=== PATIENT | female | born 1955 | race Caucasian/White ===

== ENCOUNTER 2020-10-14 10:40 | Outpatient (REF) | payer MEDICARE, MEDICAID, SELFPAY ==
--- NOTE | 2020-10-14 10:52 | CT_ITS ---
EXAMINATION: CT CHEST WITHOUT CONTRAST CLINICAL INFORMATION: Ascending thoracic aortic aneurysm COMPARISON: Previous chest CT scans most recent May 2018 TECHNIQUE: Multidetector volumetric CT imaging of the chest was done. Axial MIP volume rendering provided. Sagittal and coronal reformatted images were obtained. This CT examination was performed using dose optimization techniques as appropriate, variously including the following: *Automated exposure control *Adjustment of mA and/or kV according to patient size (this includes techniques or standardized protocols for targeted exams where dose is matched to indication/reason for exam; i.e. extremities or head) *Use of iterative reconstruction technique DLP: 254 mGy-cm FINDINGS: EMPLOYEE BENEFITS MANAGER: New postsurgical changes LUNGS: There is a 2 mm calcified right upper lobe nodule axial image 128 series 5 that is new. There is a 2 mm calcified right lower lobe nodule axial image 332 series 5 that is stable. The lungs are otherwise clear. MEDIASTINUM: There is a new prosthetic aortic valve and graft in the ascending thoracic aorta. Ascending thoracic aorta measures maximum 3.8 x 4.2 cm at the distal end of the graft. The aortic arch is normal in caliber measuring 2.2 cm. The descending thoracic aorta is normal in caliber measuring 2.2 cm. The heart does not appear enlarged. There is mild coronary artery calcification. There is no pericardial effusion. There are small mediastinal lymph nodes. No enlarged lymph nodes are seen. PLEURA: There is no pleural effusion. No pleural mass or thickening. AXILLA: No chest wall mass or enlarged axillary lymph nodes are seen. UPPER ABDOMEN: There are gallstones in the gallbladder. OSSEOUS STRUCTURES: There are new median sternotomy wires. Sternotomy appears closed. There are degenerative changes of the spine. There is cortical thickening of several right lower lateral ribs, the right 5 -10th ribs, suggestive of changes related to trauma. CT/CT chest wo con IMPRESSION: New aortic valve replacement and graft in the ascending thoracic aorta. The ascending thoracic aorta measures 3.8 x 4.2 cm at the distal end of the graft. The aortic arch and descending thoracic aorta are normal in caliber. Mild coronary artery calcification. Small calcified pulmonary nodules probably representing calcified granulomas. Gallstones.
== END 2020-10-14 10:41 | disposition home or self-care (01) ==
LOC: HO.CT 10:40
PROVIDERS: Visit Provider Thoracic Surgery (Cardiothoracic Vascular Surgery)
DX: I71.2 Thoracic aortic aneurysm, without rupture (principal)
CPT/HCPCS: 71250

== ENCOUNTER 2021-03-08 11:46 | Outpatient (REF) | payer MEDICARE, MEDICAID, SELFPAY ==
[2021-03-08 12:54] LABS: MANUAL DIFF FLAG NO
[2021-03-08 13:05] LABS: Basophils Percent Auto 0.7 % (0-2); Eosinophils Absolute Auto 0.2 X10*3/uL (0.0-0.4); Eosinophils Percent Auto 3.1 % (0-4); Hematocrit 41.4 % (37-47); Hemoglobin 13.4 g/dl (12.0-16.0); Imm Gran Abs Auto 0.03 X10*3/uL (0.00-0.03); Imm Gran Pct Auto 0.5 % (0.0-0.4); Lymphocytes Absolute Auto 1.8 X10*3/uL (1.2-4.9); Lymphocytes Percent Auto 31.1 % (20-40); Mean Corpuscular HGB Conc 32.4 g/dl (31.0-35.0); Mean Corpuscular Volume 92.8 fL (80-98); Mean Platelet Volume 10.4 fL (9.4-12.3); Monocytes Absolute Auto 0.4 X10*3/uL (0.1-1.2); Monocytes Percent Auto 6.6 % (2-11); Neutrophils Absolute Auto 3.3 X10*3/uL (2.0-8.3); Platelet Count 252 X10*3/uL (160-400); Red Blood Count 4.46 X10*6/uL (4.20-5.50); White Blood Count 5.7 X10*3/uL (4.8-10.8)
[2021-03-08 14:01] LABS: Glucose Urine UA NEG (NEG); Leukocyte Esterase Urine NEG (NEG); Nitrite Urine NEG (NEG); Urine Blood NEG (NEG); Urine Ketones NEG (NEG); Urine Protein NEG (NEG-TRACE)
[2021-03-08 14:04] LABS: Appearance Urine CLEAR; Color Urine YELLOW
[2021-03-08 18:22] LABS: TSH reflex Free T4 0.96 uIU/mL (0.32-4.0)
[2021-03-08 18:26] LABS: Alanine Aminotransferase 12 U/L (0-31); Albumin Level 4.3 g/dL (3.5-5.0); Alkaline Phosphatase 38 U/L (39-117); Anion Gap 12 (12-20); Aspartate Amino Transferase 23 U/L (5-31); Bilirubin Total 0.5 mg/dL (0.0-1.0); Blood Urea Nitrogen 13 mg/dL (9-16); Calcium 9.3 mg/dL (8.4-10.2); Carbon Dioxide 26 mmol/L (22-29); Chloride 109 mmol/L (96-108); Cholesterol 152 mg/dL; Estimated Glomerular Filt Rate 49; Glucose Fasting 101 mg/dL (60-99); HDL Cholesterol 58 mg/dL; LDL Cholesterol Calculated 77 mg/dl; Sodium 143 mmol/L (135-145); Total Protein 7.1 g/dL (6.5-8.0); Triglycerides 87 mg/dL
[2021-03-09 03:48] LABS: Folate 11.7 ng/mL (> or = 4.0); Vitamin B12 1058 pg/mL (200-900)
== END 2021-03-08 11:47 | disposition home or self-care (01) ==
LOC: HO.LAB 11:46
PROVIDERS: PCP Internal Medicine; Visit Provider Internal Medicine
DX: E78.2 Mixed hyperlipidemia (principal); D72.829 Elevated white blood cell count, unspecified; D64.9 Anemia, unspecified; E53.8 Deficiency of other specified B group vitamins; I25.10 Atherosclerotic heart disease of native coronary artery without angina pectoris; E66.3 Overweight
CPT/HCPCS: 36415; 80053; 80061; 81003; 82607; 82746; 84443; 85025

== ENCOUNTER → 2021-03-29 09:15 | Outpatient (REF) | payer MEDICARE, MEDICAID, SELFPAY ==
--- NOTE | 2021-03-29 09:19 | CA_ITS ---
Transthoracic Echocardiogram Patient (Last, First, Middle): Tracy Esparza, Gender: Female Date of : 1955 Age: 65 Procedure Date: 03/29/2021 Procedure Type: Transthoracic Echocardiogram Location: OP Height: 162.56 cm Weight: 65.77 kg BSA: 1.71 m2 Heart Rate: bpm BP: 128 / 76 mmHg Drawing Hand: BOBY Referring MD: Brandon Vigil MD Billing And Quality Technician: Brandon Vigil MD Symptoms: S/P AVR DIASTOLIC DYSFUNCTION Study Quality: Good ECG Rhythm: Sinus Conclusions: - 1. Normal LV systolic function with mild LVH with impaired relaxation filling pattern and elevated filling pressures 2. Mildly dilated left atrium 3. Bioprosthetic aortic valve present with slightly increased mean gradient of 20 mm Hg, overall findings consistent patient prosthesis mismatch 4. Normal RV systolic pressure 5. No pericardial effusion Findings Left Ventricle Normal left ventricular size and systolic function. There is mildly increased left ventricular wall thickness. The visually estimated ejection fraction is between 60-65%. Spectral Doppler is indicative of an impaired relaxation filling pattern. Elevated filling pressures. Right Ventricle Normal right ventricular cavity size and systolic function. Atria The left atrium is mildly dilated. There is no evidence of interatrial shunt. The right atrium is normal in size. Aortic Valve A bioprosthetic aortic valve is present. The prosthetic aortic valve appears to be functioning normally. The mean gradient is 20 mmHg. There is no aortic valve regurgitation. The stented bioprosthetic valve is well seated with no abnormal rocking motion. The leaflet mobility appear to be normal. The mean gradient is increased to 20 mm of mercury with normal aortic ejection velocity. This is most likely suggestive of patient prosthesis mismatch Mitral Valve There is mild posterior mitral leaflet thickening. There is mild mitral annular calcification. There is trace mitral valve regurgitation. There is no mitral valve stenosis. Pulmonic Valve The pulmonic valve was not well visualized. Tricuspid Valve Likely normal tricuspid valve structure and function. There is trace tricuspid valve regurgitation. The right ventricular systolic pressure is normal. The right ventricular systolic pressure is 17 mmHg. Normal right atrial pressure. There is no evidence of pulmonary hypertension. Great Vessels All visible segments of the aorta are normal in size. The pulmonary artery was not well visualized. Venous The inferior vena cava is normal in size and collapses greater than 50% with inspiration. Pericardium/Pleural There is no evidence of pericardial effusion. Prior Study Comparison Changes noted compared to prior study dated: 04/27/2019. Mean gradient across bioprosthetic aortic valve are mildly increased, however overall findings most consistent with patient prosthesis mismatch Measurements 2D Linear Measurements IVSd: 1.30 0.6-0.9/0.6-1.0 cm LVIDd: 3.46 3.9-5.3/4.2-5.9 cm LVIDd Index: 2.02 2.4-3.2/2.2-3.1 cm/m2 LVIDs: 2.11 2.0-3.6 cm LVPWd: 1.39 0.7-1.1 cm Ao Root: 2.20 2.1-3.5 cm LA Diam: 3.80 2.7-3.8/3.0-4.0 cm LAIDs Index: 2.22 1.5-2.3 cm/m2 LV Mass: 198.83 67-162/88-224 g LV Mass Index: 116.28 43-95/49-115 g/m2 LVOT Diam: 1.60 3.0+(-)1.3 cm Mitral Valve MV Pk E: 0.81 MV PK A: 0.84 MV Decel Time: 294.00 E/A: 1.00 E'Lateral: 5.44 E'Medial: 4.90 E/E' Med: 16.50 E/E' Lat: 14.90 PHT: 86.00 MVA PHT: 2.56 Decel Luna: 2.75 Aortic Valve AoV Pk Eugenio: 3.02 AoV Mn Eugenio: 2.00 AoV VTI: 0.72 AoV Pk Grad: 36.00 Aov Mn Grad: 20.00 KWABENA Cont.VTI: 0.79 LVOT LVOT Pk Eugenio: 1.15 LVOT Mn Eugenio: 0.82 LVOT VTI: 0.29 LVOT Pk Grad: 5.00 LVOT Mn Grad: 3.00 LVOT Diam: 1.60 LVOT Area: 2.01 Diastolic Function MV Pk E: 0.81 MV Pk A: 0.84 E/A: 1.00 E'Medial: 4.90 E/E' Med: 16.50 E' Laterial: 5.44 E/E' Lat: 14.90 Tricuspid Valve TR Pk Eugenio: 1.86 TR Pk Grad: 14.00 RA Press: 3.00 RVSP: 17.00 Great Vessels Aorta Ao Root-2D: 2.20 2.0-3.7 cm Ao Asc: 3.00 2.1-3.4 cm Updated in Other Vendor System with Status of Final Brandon Vigil MD electronically signed on 03/29/2021 3:43:17 PM with status of Final
== END ==
LOC: HO.CARD 09:15
PROVIDERS: Visit Provider Internal Medicine Cardiovascular Disease
DX: I51.89 Other ill-defined heart diseases (principal); Z95.2 Presence of prosthetic heart valve
CPT/HCPCS: 93306

== ENCOUNTER → 2021-07-31 12:01 | Outpatient (BNVA) | payer MEDICARE, MEDICAID, SELFPAY | PROVIDERS: PCP Internal Medicine; Referring Provider Internal Medicine; Visit Provider Internal Medicine Cardiovascular Disease | DX: R00.1 Bradycardia, unspecified (principal); Z95.3 Presence of xenogenic heart valve | CPT/HCPCS: 99212 ==

== ENCOUNTER 2021-08-07 19:28 | Emergency (ER) | payer MEDICARE, MEDICAID, SELFPAY ==
[2021-08-07 19:51] VITALS: BP 133/75; BP 159/75; PULSE 52; RESP 16; TEMP 36.8; O2SAT 96; O2SAT 98; BMI 25.7
[2021-08-07 20:48] LABS: Carbon Monoxide POC 1.6 %
[2021-08-07 20:49] LABS: Carbon Monoxide Refer to POC result
[2021-08-07 21:11] VITALS: BP 128/47; PULSE 56; RESP 16; O2SAT 98
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
== END 2021-08-07 21:33 | disposition home or self-care (01) ==
PROVIDERS: Emergency Provider Internal Medicine; PCP Internal Medicine
DX: T58.11XA Toxic effect of carbon monoxide from utility gas, accidental (unintentional), initial encounter (principal); R06.02 Shortness of breath; Y92.090 Kitchen in other non-institutional residence as the place of occurrence of the external cause
CPT/HCPCS: 36415; 99283

== ENCOUNTER → 2021-08-22 07:30 | Outpatient (REF) | payer MEDICARE, MEDICAID, SELFPAY ==
--- NOTE | 2021-08-22 07:43 | HM_ITS ---
Total monitoring time 3 days and 10 hours. Underlying rhythm is sinus. Minimum heart rate 39/Min. Maximum 85/minute. Average 52/min. No atrial fibrillation or flutter. Very rare supraventricular/ventricular ectopy with minimal burden. No patient events. MTDD
== END ==
LOC: HO.CARD 07:30
PROVIDERS: Absent Provider Internal Medicine; PCP Internal Medicine; Visit Provider Internal Medicine Cardiovascular Disease
DX: R00.1 Bradycardia, unspecified (principal)
CPT/HCPCS: 93242

== ENCOUNTER 2022-01-27 08:06 | Outpatient (REF) | payer MEDICARE, MEDICAID, SELFPAY ==
--- NOTE | ~2022-01-27 | XR_ITS ---
EXAMINATION: XR SKULL CLINICAL INFORMATION: Head injury COMPARISON: None TECHNIQUE: 5 views of the skull were obtained. FINDINGS: Visualized calvarium is homogeneous in density without any focal lesion, fracture or lucency. Bilateral paranasal sinuses and mastoid air cells are well-aerated. There is benign hyperostosis frontalis interna. No gross bony abnormality seen. XR/XR skull min 4V IMPRESSION: Unremarkable skull exam. The paranasal sinuses are well-aerated and clear.
--- NOTE | ~2022-01-27 | XR_ITS ---
EXAMINATION: XR KNEE, RIGHT CLINICAL INFORMATION: Knee pain. COMPARISON: None TECHNIQUE: 5 views of the right knee. FINDINGS: No evidence of acute fracture or dislocation. Small suprapatellar joint fluid.. Alignment is anatomic. Joint spaces are relatively maintained. No abnormal soft tissue calcification. Quadriceps tendon insertional enthesopathy. XR/XR knee RT 4V IMPRESSION: No evidence of acute osseous abnormality.
[2022-01-27 08:17] LABS: MANUAL DIFF FLAG NO
[2022-01-27 08:43] LABS: Basophils Percent Auto 0.6 % (0-2); Eosinophils Absolute Auto 0.3 X10*3/uL (0.0-0.4); Eosinophils Percent Auto 3.9 % (0-4); Hematocrit 41.4 % (37.0-47.0); Hemoglobin 13.2 g/dl (12.0-16.0); Imm Gran Abs Auto 0.02 X10*3/uL (0.00-0.03); Imm Gran Pct Auto 0.3 % (0.0-0.4); Lymphocytes Absolute Auto 1.7 X10*3/uL (1.2-4.9); Lymphocytes Percent Auto 26.9 % (20-40); Mean Corpuscular HGB Conc 31.9 g/dl (31.0-35.0); Mean Corpuscular Hemoglobin 29.7 pg (27.0-33.0); Mean Corpuscular Volume 93.2 fL (80.0-98.0); Mean Platelet Volume 10.4 fL (9.4-12.3); Monocytes Absolute Auto 0.6 X10*3/uL (0.1-1.2); Monocytes Percent Auto 9.3 % (2-11); Neutrophils Absolute Auto 3.8 x10*3/uL (2.0-8.3); Platelet Count 299 X10*3/uL (160-400); Red Blood Count 4.44 X10*6/uL (4.20-5.50); Red Cell Distribution Width 13.8 % (11.0-16.0); White Blood Count 6.4 X10*3/uL (4.8-10.8)
[2022-01-27 09:10] LABS: Alanine Aminotransferase 12 U/L (0-31); Albumin Level 4.3 g/dL (3.5-5.0); Alkaline Phosphatase 53 U/L (39-117); Anion Gap 13 (12-20); Aspartate Amino Transferase 23 U/L (5-31); Bilirubin Total 0.6 mg/dL (0.0-1.0); Blood Urea Nitrogen 19 mg/dL (9-16); Calcium 9.9 mg/dL (8.4-10.2); Carbon Dioxide 25 mmol/L (22-29); Chloride 108 mmol/L (96-108); Cholesterol 141 mg/dL; Estimated Glomerular Filt Rate 48; Glucose Fasting 115 mg/dL (60-99); HDL Cholesterol 55 mg/dL; LDL Cholesterol Calculated 69 mg/dl; Potassium 4.4 mmol/L (3.3-5.1); Sodium 142 mmol/L (135-145); Total Protein 7.2 g/dL (6.5-8.0); Triglycerides 86 mg/dL
[2022-01-27 09:23] LABS: TSH reflex Free T4 1.51 uIU/mL (0.32-4.0); Vitamin D 25-OH Total 9.5 ng/mL (>30)
[2022-01-27 09:29] LABS: Appearance Urine CLEAR; Color Urine YELLOW; Glucose Urine UA NEG (NEG); Leukocyte Esterase Urine NEG (NEG); Nitrite Urine NEG (NEG); PH 5.5 (5.0-8.0); Specific Gravity - Urine >= 1.030 (1.005-1.025); Urine Blood NEG (NEG); Urine Ketones NEG (NEG); Urine Protein NEG (NEG-TRACE)
== END 2022-01-27 08:07 | disposition home or self-care (01) ==
LOC: HO.LAB 08:06
PROVIDERS: PCP Internal Medicine; Visit Provider Internal Medicine
DX: S09.90XA Unspecified injury of head, initial encounter (principal); W19.XXXA Unspecified fall, initial encounter; E78.00 Pure hypercholesterolemia, unspecified; E55.9 Vitamin D deficiency, unspecified; I10 Essential (primary) hypertension
CPT/HCPCS: 36415; 70260; 73564; 80053; 80061; 81003; 82306; 84443; 85025

== ENCOUNTER 2022-04-10 07:19 | Outpatient (REF) | payer OTHER, SELFPAY ==
[2022-04-10 07:48] LABS: MANUAL DIFF FLAG NO
[2022-04-10 08:34] LABS: Basophils Absolute Auto 0.1 X10*3/uL (0.0-0.2); Eosinophils Absolute Auto 0.3 X10*3/uL (0.0-0.4); Eosinophils Percent Auto 4.9 % (0-4); Hematocrit 41.6 % (37.0-47.0); Hemoglobin 13.2 g/dl (12.0-16.0); Imm Gran Abs Auto 0.02 X10*3/uL (0.00-0.03); Imm Gran Pct Auto 0.4 % (0.0-0.4); Lymphocytes Absolute Auto 1.8 X10*3/uL (1.2-4.9); Lymphocytes Percent Auto 33.7 % (20-40); Mean Corpuscular HGB Conc 31.7 g/dl (31.0-35.0); Mean Corpuscular Hemoglobin 29.5 pg (27.0-33.0); Mean Corpuscular Volume 93.1 fL (80.0-98.0); Mean Platelet Volume 10.6 fL (9.4-12.3); Monocytes Absolute Auto 0.4 X10*3/uL (0.1-1.2); Monocytes Percent Auto 7.6 % (2-11); Neutrophils Absolute Auto 2.8 x10*3/uL (2.0-8.3); Neutrophils Percent Auto 52.4 % (45-73); Platelet Count 233 X10*3/uL (160-400); Red Blood Count 4.47 X10*6/uL (4.20-5.50); Red Cell Distribution Width 13.4 % (11.0-16.0); White Blood Count 5.3 X10*3/uL (4.8-10.8)
[2022-04-10 09:11] LABS: Alanine Aminotransferase 14 U/L (0-31); Albumin Level 4.3 g/dL (3.5-5.0); Alkaline Phosphatase 41 U/L (39-117); Aspartate Amino Transferase 22 U/L (5-31); Bilirubin Direct 0.3 mg/dL (0.0-0.5); Bilirubin Total 0.4 mg/dL (0.0-1.0); Total Protein 7.1 g/dL (6.5-8.0)
== END 2022-04-10 07:20 | disposition home or self-care (01) ==
LOC: HO.LAB 07:19
PROVIDERS: Absent Provider Psychiatry & Neurology Psychiatry; PCP Internal Medicine; Visit Provider Dermatology
DX: L93.0 Discoid lupus erythematosus (principal)
CPT/HCPCS: 36415; 80076; 85025

== ENCOUNTER 2022-04-18 12:02 | Outpatient (REF) | payer OTHER, SELFPAY ==
[2022-04-18 12:46] LABS: Influenza A PCR NEGATIVE (Negative); Influenza B PCR NEGATIVE (Negative); Resp Syncy Virus RNA Qual PCR NEGATIVE (Negative); SARS COV2 PCR INHOUSE NEGATIVE (Negative)
== END 2022-04-18 12:03 | disposition home or self-care (01) ==
LOC: HO.LNP 12:02
PROVIDERS: Visit Provider Emergency Medicine
DX: Z20.822 Contact with and (suspected) exposure to COVID-19 (principal); R68.89 Other general symptoms and signs
CPT/HCPCS: 0241U

== ENCOUNTER 2022-04-20 16:19 | Outpatient (REF) | payer OTHER, SELFPAY ==
[2022-04-20 17:34] LABS: Alanine Aminotransferase 11 U/L (0-31); Albumin Level 4.4 g/dL (3.5-5.0); Alkaline Phosphatase 41 U/L (39-117); Aspartate Amino Transferase 21 U/L (5-31); Bilirubin Direct 0.2 mg/dL (0.0-0.5); Bilirubin Total 0.4 mg/dL (0.0-1.0); Total Protein 7.5 g/dL (6.5-8.0)
[2022-04-20 17:42] LABS: Basophils Percent Auto 0.3 % (0-2); Eosinophils Absolute Auto 0.2 X10*3/uL (0.0-0.4); Eosinophils Percent Auto 3.8 % (0-4); Hemoglobin 13.3 g/dl (12.0-16.0); Imm Gran Abs Auto 0.01 X10*3/uL (0.00-0.03); Imm Gran Pct Auto 0.2 % (0.0-0.4); Lymphocytes Absolute Auto 2.4 X10*3/uL (1.2-4.9); MANUAL DIFF FLAG SCAN; Mean Corpuscular HGB Conc 32.4 g/dl (31.0-35.0); Mean Corpuscular Hemoglobin 29.4 pg (27.0-33.0); Mean Corpuscular Volume 90.5 fL (80.0-98.0); Mean Platelet Volume 10.4 fL (9.4-12.3); Monocytes Absolute Auto 0.5 X10*3/uL (0.1-1.2); Monocytes Percent Auto 7.6 % (2-11); Neutrophils Percent Auto 49.1 % (45-73); Platelet Count 205 X10*3/uL (160-400); Red Blood Count 4.53 X10*6/uL (4.20-5.50); Red Cell Distribution Width 13.6 % (11.0-16.0); SCAN SMEAR FLAG 1
[2022-04-20 17:56] LABS: SLIDE REVIEW VERIFIED
== END 2022-04-20 16:20 | disposition home or self-care (01) ==
LOC: HO.LAB 16:19
PROVIDERS: PCP Internal Medicine; Visit Provider Dermatology
DX: L93.0 Discoid lupus erythematosus (principal); Z79.899 Other long term (current) drug therapy
CPT/HCPCS: 36415; 80076; 85025

== ENCOUNTER → 2022-08-30 10:42 | Outpatient (BNVA) | payer OTHER, SELFPAY | PROVIDERS: PCP Internal Medicine; Visit Provider Physician Assistant | DX: Z12.11 Encounter for screening for malignant neoplasm of colon (principal); K57.30 Diverticulosis of large intestine without perforation or abscess without bleeding; K64.9 Unspecified hemorrhoids | CPT/HCPCS: 99202 ==

== ENCOUNTER 2022-09-06 15:27 | Outpatient (REF) | payer OTHER, SELFPAY ==
--- NOTE | ~2022-09-06 | MM_ITS ---
EXAMINATION: BONE DENSITOMETRY CLINICAL INDICATION: Asymptomatic menopausal state. COMPARISON: None (current study represents initial baseline exam). TECHNIQUE: Using a Flagr DXA System (software version: 13.1) manufactured by [employer], dual-energy x-ray absorptiometry was performed of the lumbar spine and left hip. The images are of good technical quality. Summary results are attached. FINDINGS: AP SPINE L1-L2 (excluding L3 and L4): The data of L1-L4 has been changed to exclude the L3 and L4 vertebral bodies, because degenerative changes at these levels may cause overestimation of lumbar spine density. BMD 1.074 g/cm2, Z-score 0.6, T-score -0.8, normal. LEFT FEMUR, NECK: BMD 0.742 g/cm2, Z-score -0.7, T-score -2.1, osteopenia. LEFT FEMUR, TOTAL: BMD 0.862 g/cm2, Z-score 0.0, T-score -1.2, osteopenia. IDENTIFIED RISK FACTORS: Early menopause, secondary osteoporosis, family history (parental hip fracture), anticonvulsant, hysterectomy, bilateral oophorectomy. HISTORY OF FRACTURE: None listed. MEDICATIONS: None listed. MM/XR DEXA axial skeleton IMPRESSION: 1. DIAGNOSIS: Osteopenia based on the lowest T-score value of -2.1 in the femoral neck applying World Health Organization criteria. 2. 10-YEAR FRACTURE RISK PREDICTION, FRAX: Major osteoporotic fracture (clinical spine, forearm, hip or shoulder) 19.7%. Hip fracture 3.6%. 3. Treatment Recommendations: NOF guidelines recommend consideration for treatment in postmenopausal women and men age 50 and older presenting with the following: -A hip or vertebral (clinical or morphometric) fracture. -T-score less than or equal to -2.5 at the femoral neck or spine after appropriate evaluation to exclude secondary causes. -Low bone mass at the hip or spine and a 10-year fracture probability by FRAX of greater than or equal to 3% for hip fracture or greater than or equal to 20% for major osteoporotic fracture based on the [place] adapted WHO algorithm. 4. Other Recommendations: All treatment decisions require clinical judgment and consideration of individual patient factors, including patient preferences, comorbidities, previous drug use, risk factors not captured in the FRAX model (e.g. frailty, falls, vitamin D deficiency, increased bone turnover, interval significant decline in bone density) and possible under or overestimation of fracture risk by FRAX. Additional medical evaluation for secondary cause of low bone mineral density may be appropriate. FUTURE SCAN RECOMMENDATION: People with diagnosed cases of osteoporosis or at high risk for fracture should have regular bone mineral density tests. For patients eligible for Medicare, routine testing is allowed once every 2 years. The testing frequency can be increased to one year for patients who have rapidly progressing disease, those who are receiving or discontinuing medical therapy to restore bone mass, or have additional risk factors.
== END 2022-09-06 15:28 | disposition home or self-care (01) ==
LOC: HO.MAMMO 15:27
PROVIDERS: PCP Internal Medicine; Visit Provider Nurse Practitioner Family
DX: Z13.820 Encounter for screening for osteoporosis (principal); Z78.0 Asymptomatic menopausal state; R00.1 Bradycardia, unspecified; Z95.3 Presence of xenogenic heart valve
CPT/HCPCS: 77080; 93005; 99212

== ENCOUNTER 2022-09-28 16:37 | Outpatient (REF) | payer OTHER, SELFPAY ==
--- NOTE | ~2022-09-28 | XR_ITS ---
EXAMINATION:XR cervical spine 2V CLINICAL INFORMATION: Cervalgia COMPARISON: None TECHNIQUE: 3 views of the cervical spine were obtained. Frontal lateral and open-mouth odontoid view FINDINGS: 7 cervical vertebrae identified maintaining normal height , mild grade 1 anterior spondylolisthesis of C3 on C4,. Narrowing of intervertebral disc spaces at C4-C5, C5-C6, C6-C7 and C7-T1 suggests underlying moderate degenerative disc disease. No prevertebral soft tissue swelling. Surrounding soft tissue and included lung apices are clear. XR/XR cervical spine 2V IMPRESSION: 1. No fracture. 2. Narrowing of intervertebral disc spaces suggest underlying degenerative disc disease. 3. Mild grade 1 anterior spondylolisthesis of C3 on C4.
== END 2022-09-28 16:38 | disposition home or self-care (01) ==
LOC: HO.XRAY 16:37
PROVIDERS: PCP Internal Medicine; Visit Provider Internal Medicine
DX: M54.2 Cervicalgia (principal)
CPT/HCPCS: 72040

== ENCOUNTER → 2022-10-10 12:54 | Outpatient (REF) | payer OTHER, SELFPAY ==
--- NOTE | 2022-10-10 12:58 | CA_ITS ---
Transthoracic Echocardiogram Patient (Last, First, Middle): Tracy Esparza L Gender: Female Date of : 1955 Age: 67 Procedure Date: 10/10/2022 Procedure Type: Transthoracic Echocardiogram Location: OP Height: 157.48 cm Weight: 65.77 kg BSA: 1.67 m2 Heart Rate: 64 bpm BP: 188 / 100 mmHg Jewelry Store Manager: RUSS Referring MD: Brandon Vigil MD Film Cutter: Brandon Vigil MD Symptoms: Z95.3 - Presence of xenogenic heart valve Study Quality: Adequate ECG Rhythm: Sinus Conclusions: - 1. Normal LV systolic function with mild LVH with impaired relaxation filling pattern 2. Bioprosthetic aortic valve present with mean gradient of 26 mm Hg which is increased with increased aortic ejection time suggestive of possible stenosis 3. Normal RV systolic pressure 4. Mild mitral regurgitation 5. No gross pericardial effusion Findings Left Ventricle Normal left ventricular size and systolic function. There is mildly increased left ventricular wall thickness. The visually estimated ejection fraction is between 60-65%. Spectral Doppler is indicative of an impaired relaxation filling pattern. E/E prime ratio is between 8 and 15 consistent with indeterminate filling pressures. Right Ventricle Normal right ventricular cavity size and systolic function. Atria The left atrium is likely dilated. Interatrial shunt cannot be excluded. The right atrium is normal in size. Aortic Valve A bioprosthetic aortic valve is present. The prosthetic aortic valve appears to be functioning abnormally. Mitral Valve There is mild anterior and moderate posterior mitral leaflet thickening. There is moderate mitral annular calcification. There is mild mitral valve regurgitation. There is no mitral valve stenosis. Pulmonic Valve The pulmonic valve was not well visualized. Tricuspid Valve Likely normal tricuspid valve structure and function. There is trace tricuspid valve regurgitation. The right ventricular systolic pressure is normal. The right ventricular systolic pressure is 18 mmHg. Normal right atrial pressure. There is no evidence of pulmonary hypertension. Great Vessels All visible segments of the aorta are normal in size. The pulmonary artery was not well visualized. Venous The inferior vena cava is normal in size and collapses greater than 50% with inspiration. Pericardium/Pleural There is no evidence of pericardial effusion. Prior Study Comparison Changes noted compared to prior study dated: 03/29/2021. increase mean gradient across the bioprosthetic aortic valve which may suggest bioprosthetic stenosis Measurements 2D Linear Measurements IVSd: 1.34 0.6-0.9/0.6-1.0 cm LVIDd: 3.75 3.9-5.3/4.2-5.9 cm LVIDd Index: 2.25 2.4-3.2/2.2-3.1 cm/m2 LVIDs: 2.16 2.0-3.6 cm LVPWd: 1.07 0.7-1.1 cm LA Diam: 3.60 2.7-3.8/3.0-4.0 cm LAIDs Index: 2.16 1.5-2.3 cm/m2 LV Mass: 188.25 67-162/88-224 g LV Mass Index: 112.73 43-95/49-115 g/m2 LVOT Diam: 1.90 3.0+(-)1.3 cm 2D Systolic Function EF 4C: 72.00 >55% EF 2C: 57.30 >55% EF BiP: 64.60 >55% Mitral Valve MV Pk E: 0.82 MV PK A: 1.14 MV Decel Time: 200.00 E/A: 0.70 E'Lateral: 5.66 E'Medial: 4.24 E/E' Med: 19.30 E/E' Lat: 14.50 PHT: 58.00 MVA PHT: 3.79 Decel Ford: 4.10 Aortic Valve AoV Pk Eugenio: 3.23 AoV Mn Eugenio: 2.43 AoV VTI: 0.71 AoV Pk Grad: 42.00 Aov Mn Grad: 26.00 KWABENA Cont.VTI: 0.96 LVOT LVOT Pk Eugenio: 1.09 LVOT Mn Eugenio: 0.79 LVOT VTI: 0.25 LVOT Pk Grad: 5.00 LVOT Mn Grad: 3.00 LVOT Diam: 1.90 LVOT Area: 2.84 Diastolic Function MV Pk E: 0.82 MV Pk A: 1.14 E/A: 0.70 E'Medial: 4.24 E/E' Med: 19.30 E' Laterial: 5.66 E/E' Lat: 14.50 Right Ventricle TAPSE (mm): 12.40 TVS' Eugenio: 7.90 Tricuspid Valve TR Pk Eugenio: 1.93 TR Pk Grad: 15.00 RA Press: 3.00 RVSP: 18.00 Great Vessels Aorta Ao Asc: 2.70 2.1-3.4 cm Pulmonary Valve PV Pk Eugenio: 1.11 Peak PV Grad: 5.00 Updated in Other Vendor System with Status of Final Brandon Vigil MD electronically signed on 10/10/2022 5:38:39 PM with status of Final
== END ==
LOC: HO.CARD 12:54
PROVIDERS: PCP Internal Medicine; Visit Provider Internal Medicine Cardiovascular Disease
DX: Z95.3 Presence of xenogenic heart valve (principal)
CPT/HCPCS: 93306

== ENCOUNTER 2022-10-31 11:42 | Day surgery (SDC) | payer OTHER, SELFPAY ==
[2022-10-22 15:19] VITALS: BMI 28.6
--- NOTE | 2022-10-30 08:45 | HO.ANESPROP2 ---
Documented by User: Olivia Sommers NP 10/30/22 08:59 HPI - Anesthesia Eval Consult details Narrative: 67yo F for Transesophageal Echocardiogram PMFSH Active Problems Active Problems: All Active Problems (Updated 09/27/22 @ 12:43 by Laurent Gtz MD) Bradycardia (Acute) Annual physical exam (Acute) Precordial chest pain (Acute) Skin rash (Acute) Right knee pain (Acute) Head trauma (Acute) Fall (Acute) Pain of right thumb (Acute) Screening for colon cancer (Acute) Screening for breast cancer (Acute) Post-menopausal (Acute) Diverticulosis of colon (Acute) Hemorrhoids (Acute) Neck pain (Acute) History of aortic valve replacement with bioprosthetic valve (Acute) Overweight (BMI 25.0-29.9) (Acute) Anxiety (Acute) Insomnia (Acute) Vitamin B12 deficiency (Acute) Leukocytosis (leucocytosis) (Acute) Anemia (Acute) Mixed hyperlipidemia (Acute) Coronary artery disease (Acute) Bipolar disorder (Acute) Past Medical History Medical History (Updated 10/30/22 @ 11:59 by Laurent Gtz MD) Anemia Anxiety Aortic stenosis Ascending aortic aneurysm Bipolar disorder Coronary artery disease Cough Discoid lupus Insomnia Leukocytosis (leucocytosis) Mixed hyperlipidemia Overweight (BMI 25.0-29.9) Thoracic aortic aneurysm (~2019) Vitamin B12 deficiency Family History Family History Father Diabetes Mother No problems noted. Brother Healthy adult Surgical History Surgical History (Updated 10/22/22 @ 15:09 by Yvette Rodrigues RN) H/O aortic valve replacement History of aortic valve replacement with bioprosthetic valve History of appendectomy History of thumb surgery History of total abdominal hysterectomy and bilateral salpingo-oophorectomy Hx of colonoscopy Hx of thoracic aortic aneurysm repair S/P lumpectomy of breast Social History Social History Housing: Assisted Living Facility Alcohol intake: current Alcohol intake frequency: does not drink Patient Tobacco Use Status: Former Tobacco user Tobacco use type: Cigarette e-Cigarette/Vaping Use: Never Used Second Hand Smoke Exposure: Yes Use of substances other than those prescribed or required for medical reasons: No Are you DNR?: No Advance Directives: No Advance Directives Information Provided: Yes service: No Current occupational status: retired Cognitive needs: No Hearing needs: No Vision needs: Yes Meds Allergies Allergy/AdvReac Type Severity Reaction Status Date / Time Benadryl Allergy Intermediate swelling, Verified 10/30/22 11:52 rash Home Medications Medication Instructions Recorded Confirmed Last Taken Type benztropine 1 mg tablet 1 mg PO BID 10/17/20 10/30/22 Unknown History buspirone 15 mg tablet 15 mg PO DAILY 10/17/20 10/30/22 Unknown History gabapentin 100 mg capsule 100 mg PO TID 10/17/20 10/30/22 Unknown History gabapentin 300 mg capsule 300 mg PO BEDTIME 10/17/20 10/30/22 Unknown History alprazolam 1 mg tablet 1 mg PO QID PRN anxiety 07/25/21 10/30/22 10/31/22 05:30 History lamotrigine 100 mg tablet 100 mg PO BEDTIME 07/25/21 10/30/22 Unknown History levetiracetam 250 mg tablet 125 mg PO BEDTIME 07/25/21 10/30/22 Unknown History (Keppra) hydroxychloroquine 200 mg tablet 200 mg PO BID 01/26/22 10/30/22 Unknown History (Plaquenil) benzonatate 100 mg capsule 100 mg PO BID PRN cough 09/06/22 10/30/22 Unknown History Exam Exam Date and Time: October 30, 2022 0845 Height,Weight and Vital Signs: Height 5 ft 4 in Weight 75.75 kg Pertinent Lab Results Pertinent Lab Results: Laboratory Tests 01/27/22 04/20/22 08:16 16:35 WBC 6.0 Hgb 13.3 Hct 41.0 Plt Count 205 Sodium 142 Potassium 4.4 Chloride 108 Carbon Dioxide 25 BUN 19 H Creatinine 1.14 Narrative Narrative: EKG 09/2022 sinus bradycardia with QS pattern in lead V1 V2 with ST T wave changes diffusely suggestive repolarization abnormality ECHO 10/2022 Conclusions: - 1.? Normal LV systolic function with mild LVH with impaired? ? relaxation filling pattern ? 2.? Bioprosthetic aortic valve present with mean gradient of 26? mm Hg which is increased with increased aortic ejection time ? ? suggestive of possible stenosis? 3.? Normal RV systolic pressure? 4.? Mild mitral regurgitation? 5.? No gross pericardial effusion? ? ? Assessment and Plan Assessment Anesthesia Assessment: Chart Reviewed Documented by User: Marco Colon MD 10/31/22 13:36 [facility] Past Medical History Medical History (Updated 10/30/22 @ 11:59 by Laurent Gtz MD) Anemia Anxiety Aortic stenosis Ascending aortic aneurysm Bipolar disorder Coronary artery disease Cough Discoid lupus Insomnia Leukocytosis (leucocytosis) Mixed hyperlipidemia Overweight (BMI 25.0-29.9) Thoracic aortic aneurysm (~2019) Vitamin B12 deficiency Family History Family History Father Diabetes Mother No problems noted. Brother Healthy adult Family history of problems with anesthesia: No Surgical History Surgical History (Updated 10/22/22 @ 15:09 by Yvette Rodrigues RN) H/O aortic valve replacement History of aortic valve replacement with bioprosthetic valve History of appendectomy History of thumb surgery History of total abdominal hysterectomy and bilateral salpingo-oophorectomy Hx of colonoscopy Hx of thoracic aortic aneurysm repair S/P lumpectomy of breast History of Problems with Anesthesia: No Social History Social History Housing: Assisted Living Facility Alcohol intake: current Alcohol intake frequency: does not drink Patient Tobacco Use Status: Former Tobacco user Tobacco use type: Cigarette e-Cigarette/Vaping Use: Never Used Second Hand Smoke Exposure: Yes Use of substances other than those prescribed or required for medical reasons: No Are you DNR?: No Advance Directives: No Advance Directives Information Provided: Yes service: No Current occupational status: retired Cognitive needs: No Hearing needs: No Vision needs: Yes Meds Allergies Allergy/AdvReac Type Severity Reaction Status Date / Time Benadryl Allergy Intermediate swelling, Verified 10/30/22 11:52 rash Home Medications Medication Instructions Recorded Confirmed Last Taken Type benztropine 1 mg tablet 1 mg PO BID 10/17/20 10/30/22 Unknown History buspirone 15 mg tablet 15 mg PO DAILY 10/17/20 10/30/22 Unknown History gabapentin 100 mg capsule 100 mg PO TID 10/17/20 10/30/22 Unknown History gabapentin 300 mg capsule 300 mg PO BEDTIME 10/17/20 10/30/22 Unknown History alprazolam 1 mg tablet 1 mg PO QID PRN anxiety 07/25/21 10/30/22 10/31/22 05:30 History lamotrigine 100 mg tablet 100 mg PO BEDTIME 07/25/21 10/30/22 Unknown History levetiracetam 250 mg tablet 125 mg PO BEDTIME 07/25/21 10/30/22 Unknown History (Keppra) hydroxychloroquine 200 mg tablet 200 mg PO BID 01/26/22 10/30/22 Unknown History (Plaquenil) benzonatate 100 mg capsule 100 mg PO BID PRN cough 09/06/22 10/30/22 Unknown History Exam Airway Mallampati Class: II TM Dist: >3cm Neck ROM: Full Partial: Upper and Lower Assessment and Plan Assessment Anesthesia Assessment: Anesthesia Plan Discussed Final Anesthetic Review Family History of Problems with Anesthesia: No History of Problems with Anesthesia: No NPO: Yes ASA Class: III Final Preanesthetic Review: No Changes in Pt Med Stat, Meds/Allgs Chart Reviewed, Consent Obtained/Reviewed and Anes Risks/Benef Reviewed Patient Risk: Low Procedure Risk: Low Anesthetic Plan Anesthetic Plan: MAC: Disposition: Standard PACU
[2022-10-31 12:09] VITALS: BMI 28.6
--- NOTE | 2022-10-31 12:21 | CA_ITS ---
Transesophageal Echocardiogram Patient (Last, First, Middle): Tracy Esparza L Gender: Female Date of : 1955 Age: 67 Procedure Date: 10/31/2022 Procedure Type: Transesophageal Echocardiogram Location: OP Height: 157. cm Weight: 66. kg BSA: 1.67 m2 Heart Rate: 67 bpm BP: 147 / 65 mmHg Guest Relations Associate: IRIS SOLANO Referring MD: Brandon Vigil MD Research Statistician: Brandon Vigil MD Symptoms: Evaluate prosthetic aortic valve Conclusion: ??? 1. Normal LV systolic function with mild LVH with diastolic dysfunction and elevated filling pressures next 2. Mildly dilated left atrium 3. Small PFO present 4. Bioprosthetic aortic valve with patient prosthesis mismatch with mean gradient of 30 mmHg 5. No intracardiac thrombi or masses or vegetations noted 6. No gross pericardial effusion 7. [id number] atherosclerotic plaquing in the descending thoracic and transverse aorta Findings Procedure Information Consent was obtained prior to the procedure. Pre BRENDA oral cavity was checked and revealed no overcrowding. The adult 3D probe was passed with no difficulty. Left Ventricle Normal left ventricular size and systolic function. There is mildly increased left ventricular wall thickness. The visually estimated ejection fraction is between 60-65%. Spectral Doppler is indicative of an impaired relaxation filling pattern. Elevated filling pressures. E/E prime ratio is >15, consistent with elevated filling pressures. no left ventricular masses or thrombus seen. There is evidence of diastolic dysfunction Right Ventricle Normal right ventricular cavity size and systolic function. Atria The left atrium is mildly dilated. There is no evidence of a thrombus in the left atrial appendage. Patent foramen ovale detected using by color Doppler. There is evidence of a patent foramen ovale with left to right shunting. Moderate spontaneous echo contrast is seen in the left atrial cavity. no left atrial thrombus or mass noted. The left upper, right upper and right lower pulmonary vein drain normally into the right atrium. The right atrium is likely dilated. There is no evidence of thrombus or mass in the right atrium. The IVC and SVC drain normally into the right atrium. Aortic Valve A bioprosthetic aortic valve is present. There is no aortic valve regurgitation. The valve is well seated without any abnormal rocking motion. All 3 leaflets were not identified on single plane. However the identified on multiple different view and appears that all 3 leaflets for opening normally consistent with no evidence of valvular stenosis. However gradient across the aortic valve increased with mean gradient of 30 mmHg, findings most consistent with patient prosthesis mismatch. There are no vegetations or masses noted. Mitral Valve There is mild anterior and moderate posterior mitral leaflet thickening. There is mild mitral annular calcification. There is mild mitral valve regurgitation. There is no mitral valve stenosis. No masses or vegetations noted Pulmonic Valve The pulmonic valve is likely normal. Tricuspid Valve Normal tricuspid valve structure. There is trace tricuspid valve regurgitation. Great Vessels All visible segments of the aorta are normal in size. The visualized portions of the pulmonary artery and branches are normal. [id number] atherosclerotic changes noted in the descending thoracic and transverse aorta Venous The inferior vena cava is normal in size and collapses greater than 50% with inspiration. Pericardium/Pleural There is no evidence of pericardial effusion. Measurements 2D Linear Measurements LVOT Diam: 2.00 3.0+(-)1.3 cm Mitral Valve MV Pk E: 1.04 MV PK A: 1.45 MV Decel Time: 233.00 E/A: 0.70 E'Lateral: 6.17 E'Medial: 5.56 E/E' Med: 18.70 E/E' Lat: 16.90 PHT: 68.00 MVA PHT: 3.24 Decel Hamilton: 4.44 Aortic Valve AoV Pk Eugenio: 3.46 AoV Mn Eugenio: 2.64 AoV VTI: 0.82 AoV Pk Grad: 48.00 Aov Mn Grad: 30.00 KWABENA Cont.VTI: 1.14 LVOT LVOT Pk Eugenio: 1.25 LVOT Mn Eugenio: 0.91 LVOT VTI: 0.30 LVOT Pk Grad: 6.00 LVOT Mn Grad: 4.00 LVOT Diam: 2.00 LVOT Area: 3.14 Diastolic Function MV Pk E: 1.04 MV Pk A: 1.45 E/A: 0.70 E'Medial: 5.56 E/E' Med: 18.70 E' Laterial: 6.17 E/E' Lat: 16.90 Great Vessels Aorta Ao Asc: 2.90 2.1-3.4 cm Updated by Brandon Vigil on 03:45 PM with Status of Final Brandon Vigil MD electronically signed on 10/31/2022 3:45:18 PM with status of Final
--- NOTE | 2022-10-31 12:22 | MHC.SHP ---
Pre-Procedural Eval Section A Date of Service: 10/31/22 Section B Chief Complaint: Ventricular septal defect Relevant Family History (Specify if Yes): No Relevant Social History: None Present Medications: see Short Stay Collaborative assessment Medical History: Significant History (Sinus bradycardia, bioprosthetic aortic valve replacement) History of Previous Operations: Relevant previous surgery/procedure and date(s) (See above) Allergies: Allergies Allergy/AdvReac Type Severity Reaction Status Date / Time Benadryl Allergy Intermediate swelling, Verified 10/30/22 11:52 rash Review of Systems Sugical H&P ROS: Negative: Constitution, Cardiovascular, Respiratory, Neurological, Psychiatric, Allergic/Immunologic, Gastrointestinal, Genitourinary, Integumentary, Endocrine and Eyes/Ears/Nose/Throat and Yes, Specify: Musculoskeletal Exam Surgical H&P Exam: Normal: HEENT, Normal: Lungs, Normal: Extremities, Normal: Abdomen, Normal: Skin and Normal: Neurological and Significant Findings: Heart (Systolic murmur) Plan Diagnosis/Plan: Unchanged I have reviewed the history and physical and performed a pertinent physical examination on my patient. No changes have occurred unless specified.
[2022-10-31 12:42] VITALS: BP 135/65; PULSE 62; RESP 16; TEMP 36.3; O2SAT 97
[2022-10-31] MEDS: Lactated Ringers 1,000 ML 50 ML IVCONT (12:50)
[2022-10-31 13:56] VITALS: BP 146/77; PULSE 60; RESP 15; TEMP 36.2; O2SAT 99
[2022-10-31 14:11] VITALS: BP 137/71; PULSE 50; RESP 15; O2SAT 100
[2022-10-31 14:25] VITALS: BP 150/67; PULSE 56; RESP 15; O2SAT 97
[2022-10-31 14:40] VITALS: BP 157/75; PULSE 51; RESP 15; TEMP 37.1; O2SAT 97
== END 2022-10-31 15:48 | disposition home or self-care (01) ==
PROVIDERS: PCP Internal Medicine; Visit Provider Internal Medicine Cardiovascular Disease
PROC: (CPT 93312; principal; 2022-10-31 13:00)
DX: Q21.0 Ventricular septal defect (principal); I35.0 Nonrheumatic aortic (valve) stenosis; Z95.3 Presence of xenogenic heart valve; I71.21 Aneurysm of the ascending aorta, without rupture; I25.10 Atherosclerotic heart disease of native coronary artery without angina pectoris; R00.1 Bradycardia, unspecified; R05.9 Cough, unspecified; E78.5 Hyperlipidemia, unspecified; Z87.891 Personal history of nicotine dependence; Z79.01 Long term (current) use of anticoagulants; Z79.82 Long term (current) use of aspirin; Z79.899 Other long term (current) drug therapy; Z88.0 Allergy status to penicillin; Z98.890 Other specified postprocedural states
CPT/HCPCS: 93312

== ENCOUNTER 2022-12-06 09:35 | Day surgery (SDC) | payer OTHER, SELFPAY ==
[2022-11-30 11:06] VITALS: BMI 28.6
--- NOTE | 2022-12-05 12:07 | HO.ANESPROP2 ---
Documented by User: Olivia Sommers NP 12/05/22 12:11 HPI - Anesthesia Eval Consult details Narrative: 67yo F for Colonoscopy s/p BRENDA 10/2022 with MAC Cardiac cleared Hydroxychoroquine for lupus PMFSH Active Problems Active Problems: All Active Problems (Updated 11/30/22 @ 10:52 by Yvette Rodrigues RN) Bradycardia (Acute) Annual physical exam (Acute) Precordial chest pain (Acute) Skin rash (Acute) Right knee pain (Acute) Head trauma (Acute) Fall (Acute) Pain of right thumb (Acute) Screening for colon cancer (Acute) Screening for breast cancer (Acute) Post-menopausal (Acute) Diverticulosis of colon (Acute) Hemorrhoids (Acute) Neck pain (Acute) Acute cervical myofascial strain (Acute) Status post fall (Acute) History of aortic valve replacement with bioprosthetic valve (Acute) Overweight (BMI 25.0-29.9) (Acute) Anxiety (Acute) Insomnia (Acute) Vitamin B12 deficiency (Acute) Leukocytosis (leucocytosis) (Acute) Anemia (Acute) Mixed hyperlipidemia (Acute) Coronary artery disease (Acute) Bipolar disorder (Acute) Past Medical History Medical History Anemia Anxiety Aortic stenosis Ascending aortic aneurysm Bipolar disorder Coronary artery disease Cough Discoid lupus History of transesophageal echocardiography (BRENDA) Insomnia Leukocytosis (leucocytosis) Mixed hyperlipidemia Overweight (BMI 25.0-29.9) Thoracic aortic aneurysm (~2019) Vitamin B12 deficiency Family History Family History Father Diabetes Mother No problems noted. Brother Healthy adult Family history of problems with anesthesia: No Surgical History Surgical History H/O aortic valve replacement History of aortic valve replacement with bioprosthetic valve History of appendectomy History of thumb surgery History of total abdominal hysterectomy and bilateral salpingo-oophorectomy Hx of colonoscopy Hx of thoracic aortic aneurysm repair S/P lumpectomy of breast History of Problems with Anesthesia: No Social History Social History Housing: Assisted Living Facility Alcohol intake: current Alcohol intake frequency: does not drink Patient Tobacco Use Status: Former Tobacco user Tobacco use type: Cigarette e-Cigarette/Vaping Use: Never Used Second Hand Smoke Exposure: Yes Substance Use Frequency: Occasionally Are you DNR?: No Advance Directives: No Advance Directives Information Provided: Yes Nutrition Risks: No Nutritional Risk service: No Current occupational status: retired Cognitive needs: No Hearing needs: No Vision needs: Yes Meds Allergies Allergy/AdvReac Type Severity Reaction Status Date / Time Benadryl Allergy Intermediate swelling, Verified 12/06/22 09:57 rash Home Medications Medication Instructions Recorded Confirmed Last Taken Type benztropine 1 mg tablet 1 mg PO BID 10/17/20 11/30/22 Unknown History buspirone 15 mg tablet 15 mg PO DAILY 10/17/20 11/30/22 12/06/22 History alprazolam 1 mg tablet 1 mg PO QID PRN anxiety 07/25/21 11/30/22 12/06/22 History lamotrigine 100 mg tablet 100 mg PO BEDTIME 07/25/21 11/30/22 12/06/22 History hydroxychloroquine 200 mg tablet 200 mg PO BID 01/26/22 11/30/22 Unknown History (Plaquenil) benzonatate 100 mg capsule 100 mg PO BID PRN cough 09/06/22 11/30/22 Unknown History Exam Exam Date and Time: December 05, 2022 1207 Height,Weight and Vital Signs: Height 5 ft 4 in Weight 75.75 kg Pertinent Lab Results Pertinent Lab Results: Laboratory Tests 01/27/22 04/20/22 08:16 16:35 WBC 6.0 Hgb 13.3 Hct 41.0 Plt Count 205 Sodium 142 Potassium 4.4 Chloride 108 Carbon Dioxide 25 BUN 19 H Creatinine 1.14 Narrative Narrative: BRENDA 10/2022 Conclusion: ??? 1.? Normal LV systolic function with mild LVH with diastolic ? dysfunction and elevated filling pressures next 2. Mildly dilated left atrium? 3.? Small PFO present? 4.? Bioprosthetic aortic valve with patient prosthesis mismatch? with mean gradient of 30 mmHg? 5.? No intracardiac thrombi or masses or vegetations noted ? ? ? 6.? No gross pericardial effusion? 7.? [id number] atherosclerotic plaquing in the descending? thoracic and transverse aorta? ?? EKG 09/2022 sinus bradycardia with QS pattern in lead V1 V2 with ST T wave changes diffusely suggestive repolarization abnormality Assessment and Plan Final Anesthetic Review Family History of Problems with Anesthesia: No History of Problems with Anesthesia: No Documented by User: Oksana Arevalo MD 12/06/22 11:49 PMFSH Past Medical History Medical History Anemia Anxiety Aortic stenosis Ascending aortic aneurysm Bipolar disorder Coronary artery disease Cough Discoid lupus History of transesophageal echocardiography (BRENDA) Insomnia Leukocytosis (leucocytosis) Mixed hyperlipidemia Overweight (BMI 25.0-29.9) Thoracic aortic aneurysm (~2019) Vitamin B12 deficiency Family History Family History Father Diabetes Mother No problems noted. Brother Healthy adult Surgical History Surgical History H/O aortic valve replacement History of aortic valve replacement with bioprosthetic valve History of appendectomy History of thumb surgery History of total abdominal hysterectomy and bilateral salpingo-oophorectomy Hx of colonoscopy Hx of thoracic aortic aneurysm repair S/P lumpectomy of breast Social History Social History Housing: Assisted Living Facility Alcohol intake: current Alcohol intake frequency: does not drink Patient Tobacco Use Status: Former Tobacco user Tobacco use type: Cigarette e-Cigarette/Vaping Use: Never Used Second Hand Smoke Exposure: Yes Substance Use Frequency: Occasionally Are you DNR?: No Advance Directives: No Advance Directives Information Provided: Yes Nutrition Risks: No Nutritional Risk service: No Current occupational status: retired Cognitive needs: No Hearing needs: No Vision needs: Yes Meds Allergies Allergy/AdvReac Type Severity Reaction Status Date / Time Benadryl Allergy Intermediate swelling, Verified 12/06/22 09:57 rash Home Medications Medication Instructions Recorded Confirmed Last Taken Type benztropine 1 mg tablet 1 mg PO BID 10/17/20 11/30/22 Unknown History buspirone 15 mg tablet 15 mg PO DAILY 10/17/20 11/30/22 12/06/22 History alprazolam 1 mg tablet 1 mg PO QID PRN anxiety 07/25/21 11/30/22 12/06/22 History lamotrigine 100 mg tablet 100 mg PO BEDTIME 07/25/21 11/30/22 12/06/22 History hydroxychloroquine 200 mg tablet 200 mg PO BID 01/26/22 11/30/22 Unknown History (Plaquenil) benzonatate 100 mg capsule 100 mg PO BID PRN cough 09/06/22 11/30/22 Unknown History Exam Airway Mallampati Class: II TM Dist: >3cm Neck ROM: Full Loose/Missing/Broken Teeth: Yes (Poor dentition) Heart: rr Lungs: cta Assessment and Plan Assessment Anesthesia Assessment: Anesthesia Plan Discussed and Chart Reviewed Final Anesthetic Review NPO: Yes ASA Class: III (Cardiac note intermediate risk) Final Preanesthetic Review: No Changes in Pt Med Stat and Meds/Allgs Chart Reviewed Patient Risk: Intermediate Procedure Risk: Low Anesthetic Plan Anesthetic Plan: MAC: Disposition: Standard PACU
[2022-12-06] MEDS: Lactated Ringers 1,000 ML 100 ML IVCONT (10:04)
[2022-12-06 10:15] VITALS: BP 136/70; PULSE 58; RESP 18; TEMP 36.3; O2SAT 98
--- NOTE | 2022-12-06 10:50 | MHC.SHP ---
Pre-Procedural Eval Section A Date of Service: 12/06/22 Section B Chief Complaint: screening Details of Present Illness: 67y.o F with known diverticulosis, last colo >10y ago, here for repeat colo for screening Relevant Family History (Specify if Yes): No Present Medications: see Short Stay Collaborative assessment Medical History: Significant History (Aortic aneurysm, CAD, ) History of Previous Operations: Relevant previous surgery/procedure and date(s) ( H/O aortic valve replacement History of aortic valve replacement with bioprosthetic valve History of appendectomy History of thumb surgery History of total abdominal hysterectomy and bilateral salpingo-oophorectomy Hx of colonoscopy Hx of thoracic aortic aneurysm repair S/P lumpectomy of breast) Allergies: Allergies Allergy/AdvReac Type Severity Reaction Status Date / Time Benadryl Allergy Intermediate swelling, Verified 12/06/22 09:57 rash Review of Systems Review of Systems Comment: Ten point ROS negative except as above Exam Exam Comment: Gen appear: No acute distress, well nourished HEENT: no icterus Chest: No overt resp distress Abd: soft, nontender, nondistended Psych: Stable affect, answering questions appropriately Neuro: A/Ox3 noted to move all extremities spontaneously Ext: no peripheral edema Plan Diagnosis/Plan: Unchanged I have reviewed the history and physical and performed a pertinent physical examination on my patient. No changes have occurred unless specified. Time Spent With Patient Time: Total time managing care of this patient today ____ minutes.
--- NOTE | 2022-12-06 10:56 | P.OP_ITS ---
Operative Note Operative Note Date of Service: 12/06/22 Narrative: Procedure: Colonoscopy Indication: Screening Endoscopist: Nesha Petty MD Anesthesia Provider: Dr Oksana Arevalo Anesthesia type: MAC Instrument: Olympus [id number]-[id number] Consent: Indication, risks vs benefits, and alternatives were discussed with the patient who gave written informed consent to proceed. EKG, pulse, pulse oximetry and blood pressure were monitored throughout the procedure. Please see anesthesia flowsheet. Procedure: The patient was brought to the procedure room and placed in the left lateral decubitus position. IV medications were administered by the anesthesia provider in attendance. A digital rectal exam was performed which was normal. The colonoscope was then inserted through the anus and advanced through the colon to the cecum at 85 cm. Appendiceal orifice and ileocecal valve were identified. Mucosa was carefully examined under high definition white light as the instrument was slowly withdrawn in a retrograde panoramic fashion. Retroflexion was performed in rectum. The procedure was somewhat difficult. There were no immediate obvious complications. The quality of the prep was BBPS: 3+3+2 = adequate Withdrawal time 11 minutes. Limitations: No limitations. Findings: Mucosa: Normal to cecum. Protruding lesions: * Medium internal hemorrhoids without stigmata of recent bleeding. Excavated lesions: * Small diverticulosis of sigmoid colon. Impression: 1. Normal colon mucosa 2. Diverticulosis 3. External hemorrhoids Recommendations: - Repeat colonoscopy in 10 years - Of note, patient was noted to get bradycardiac during the procedure to late 30s and 40s which was treated with atropine with good response.
[2022-12-06 11:43] VITALS: BP 122/70; PULSE 62; RESP 16; TEMP 36.1; O2SAT 97
[2022-12-06 11:58] VITALS: BP 136/72; PULSE 56; RESP 18; TEMP 36.7; O2SAT 98
== END 2022-12-06 12:40 | disposition home or self-care (01) ==
PROVIDERS: PCP Internal Medicine; Visit Provider Internal Medicine
PROC: 0DJD8ZZ Inspection of Lower Intestinal Tract, Via Natural or Artificial Opening Endoscopic (ICD-10-PCS; CPT 45378; principal; 2022-12-06 11:10)
DX: Z12.11 Encounter for screening for malignant neoplasm of colon (principal); K57.30 Diverticulosis of large intestine without perforation or abscess without bleeding; K64.8 Other hemorrhoids; K64.4 Residual hemorrhoidal skin tags; I97.191 Other postprocedural cardiac functional disturbances following other surgery; Y83.8 Other surgical procedures as the cause of abnormal reaction of the patient, or of later complication, without mention of misadventure at the time of the procedure; Y73.0 Diagnostic and monitoring gastroenterology and urology devices associated with adverse incidents; D72.829 Elevated white blood cell count, unspecified; I25.10 Atherosclerotic heart disease of native coronary artery without angina pectoris; Z95.2 Presence of prosthetic heart valve; D64.9 Anemia, unspecified; E78.2 Mixed hyperlipidemia; E66.3 Overweight; Z68.26 Body mass index [BMI] 26.0-26.9, adult; Z79.82 Long term (current) use of aspirin; Z79.01 Long term (current) use of anticoagulants; Z79.899 Other long term (current) drug therapy; Z88.8 Allergy status to other drugs, medicaments and biological substances; Z87.891 Personal history of nicotine dependence
CPT/HCPCS: G0121; J0461

== ENCOUNTER 2023-04-03 07:32 | Outpatient (REF) | payer OTHER, SELFPAY ==
[2023-04-03 07:48] LABS: MANUAL DIFF FLAG NO
[2023-04-03 08:05] LABS: Basophils Percent Auto 0.9 % (0-2); Eosinophils Absolute Auto 0.2 X10*3/uL (0.0-0.4); Eosinophils Percent Auto 3.9 % (0-4); Hematocrit 38.4 % (37.0-47.0); Hemoglobin 12.2 g/dl (12.0-16.0); Lymphocytes Absolute Auto 1.4 X10*3/uL (1.2-4.9); Lymphocytes Percent Auto 29.8 % (20-40); Mean Corpuscular HGB Conc 31.8 g/dl (31.0-35.0); Mean Corpuscular Hemoglobin 29.3 pg (27.0-33.0); Mean Corpuscular Volume 92.1 fL (80.0-98.0); Mean Platelet Volume 10.3 fL (9.4-12.3); Monocytes Absolute Auto 0.4 X10*3/uL (0.1-1.2); Monocytes Percent Auto 8.9 % (2-11); Neutrophils Absolute Auto 2.6 x10*3/uL (2.0-8.3); Neutrophils Percent Auto 56.5 % (45-73); Platelet Count 253 X10*3/uL (160-400); Red Blood Count 4.17 X10*6/uL (4.20-5.50); White Blood Count 4.6 X10*3/uL (4.8-10.8)
[2023-04-03 08:27] LABS: Alanine Aminotransferase 10 U/L (0-31); Albumin Level 4.1 g/dL (3.5-5.0); Alkaline Phosphatase 51 U/L (39-117); Anion Gap 11 (12-20); Aspartate Amino Transferase 24 U/L (5-31); Bilirubin Total 0.5 mg/dL (0.0-1.0); Blood Urea Nitrogen 18 mg/dL (9-16); Calcium 9.4 mg/dL (8.4-10.2); Carbon Dioxide 26 mmol/L (22-29); Chloride 111 mmol/L (96-108); Cholesterol 152 mg/dL; Estimated Glomerular Filt Rate 56; Glucose Fasting 120 mg/dL (60-99); HDL Cholesterol 46 mg/dL; LDL Cholesterol Calculated 76 mg/dl; Potassium 3.9 mmol/L (3.3-5.1); Sodium 144 mmol/L (135-145); Total Protein 6.9 g/dL (6.5-8.0); Triglycerides 153 mg/dL
[2023-04-03 08:48] LABS: HIV AB/AG Nonreactive (Nonreactive); HIV Num 1 0.06 S/CO (0.00-0.99)
[2023-04-03 08:51] LABS: Folate 11.1 ng/mL (> or = 4.0); TSH reflex Free T4 2.41 uIU/mL (0.32-4.0); Vitamin B12 829 pg/mL (200-900); Vitamin D 25-OH Total 13.8 ng/mL (>30)
[2023-04-03 09:26] LABS: Appearance Urine Cloudy; Color Urine Yellow; Glucose Urine UA Negative (Negative); Leukocyte Esterase Urine Negative (Negative); Nitrite Urine Negative (Negative); PH 6.5 (5.0-9.0); Urine Blood Negative (Negative); Urine Ketones Negative (Negative); Urine Protein Trace mg/dL (Neg-Trace)
[2023-04-08 04:08] LABS: Lamotrigine Lamictal 3.2 mcg/mL (2.5-15.0)
[2023-04-08 18:14] LABS: Levetiracetam Keppra 3.8 mcg/mL (6.0-46.0)
== END 2023-04-03 07:33 | disposition home or self-care (01) ==
LOC: HO.LAB 07:32
PROVIDERS: PCP Internal Medicine; Visit Provider Internal Medicine
DX: G40.909 Epilepsy, unspecified, not intractable, without status epilepticus (principal); E53.8 Deficiency of other specified B group vitamins; Z20.2 Contact with and (suspected) exposure to infections with a predominantly sexual mode of transmission; E78.00 Pure hypercholesterolemia, unspecified; R30.0 Dysuria; F31.9 Bipolar disorder, unspecified; I10 Essential (primary) hypertension; E55.9 Vitamin D deficiency, unspecified; Z79.899 Other long term (current) drug therapy
CPT/HCPCS: 36415; 80053; 80061; 80175; 80177; 81003; 82306; 82607; 82746; 84443; 85025; 87389

== ENCOUNTER 2023-05-16 12:56 | Emergency (ER) | payer OTHER, SELFPAY ==
--- NOTE | ~2023-05-16 | XR_ITS ---
EXAMINATION: XR HAND, RIGHT CLINICAL INFORMATION: Right hand pain at the base of the third proximal phalanx COMPARISON: None available. TECHNIQUE: PA, lateral, and oblique views of the right hand. FINDINGS: There is an intra-articular fracture at the ulnar base of the third digit proximal phalanx with minimal displacement of the 0.4 cm fragment. No additional fractures. Joint space narrowing throughout the hand. Osteophytes with sloping at the first interphalangeal joint. Additional osteophytes throughout the interphalangeal joints. Degenerative changes of the triscaphe joint and first carpometacarpal joint. XR/XR hand RT 2V IMPRESSION: 1. Minimally displaced intra-articular fracture at the ulnar base of the third digit proximal phalanx. 2. Moderate degenerative changes throughout the hand.
--- NOTE | 2023-05-16 13:10 | ED.WOUNDLAC ---
HPI - Wound/Laceration General Chief Complaint: Extremity Injury, Upper Stated Complaint: r middle finger inj Time Seen by Provider: 05/16/23 14:22 History of Present Illness HPI narrative: Patient complains of right middle finger pain after it banging against a door 2 days ago and she complains of pain and swelling She denies any other injury, denies any numbness weakness or tingling, denies any rash or redness Related Data Home Medications Medication Instructions Recorded Confirmed benztropine 1 mg tablet 1 mg PO BID 10/17/20 04/10/23 buspirone 15 mg tablet 15 mg PO DAILY 10/17/20 04/10/23 alprazolam 1 mg tablet 1 mg PO QID PRN anxiety 07/25/21 04/10/23 lamotrigine 100 mg tablet 100 mg PO BEDTIME 07/25/21 04/10/23 hydroxychloroquine 200 mg tablet 200 mg PO BID 01/26/22 04/10/23 (Plaquenil) benzonatate 100 mg capsule 100 mg PO BID PRN cough 09/06/22 04/10/23 Previous Rx's Medication Instructions Recorded mometasone 0.1 % topical cream 1 appl topical DAILY 10 days #45 01/16/22 grams atorvastatin 20 mg tablet 20 mg PO BEDTIME #90 tabs 12/04/22 cyanocobalamin (vitamin B-12) 1,000 mcg PO DAILY #30 tabs 12/04/22 1,000 mcg tablet,extended release (Vitamin B-12 ER) fenofibrate 160 mg tablet 160 mg PO DAILY #90 tabs 12/04/22 gabapentin 100 mg capsule 100 mg PO TID 30 days #90 caps 12/04/22 gabapentin 300 mg capsule 300 mg PO BEDTIME 30 days #30 caps 12/04/22 levetiracetam 250 mg tablet 125 mg PO BEDTIME 30 days #15 tabs 12/04/22 (Keppra) amoxicillin 500 mg capsule 2,000 mg PO ONCE #4 caps 01/29/23 amlodipine 5 mg tablet (Norvasc) 5 mg PO DAILY #30 tabs 03/25/23 cholecalciferol (vitamin D3) 50 50 mcg PO DAILY 90 days #90 caps 04/10/23 mcg (2,000 unit) capsule aspirin 81 mg tablet,delayed 81 mg PO DAILY 90 days #90 tabs 05/13/23 release pantoprazole 40 mg tablet,delayed 40 mg PO DAILY #30 tabs 05/15/23 release acetaminophen 325 mg capsule 650 mg PO QID PRN pain #30 caps 05/16/23 oxycodone 5 mg tablet 5 mg PO Q6H PRN pain #7 tabs 05/16/23 Allergies Allergy/AdvReac Type Severity Reaction Status Date / Time Benadryl Allergy Intermediate swelling, Verified 04/10/23 11:06 rash PMFSH Past Medical History Source: nursing notes reviewed Medical History (Updated 05/16/23 @ 15:18 by RODDY Kern) Anemia Anxiety Aortic stenosis Ascending aortic aneurysm Bipolar disorder Coronary artery disease Cough Discoid lupus History of transesophageal echocardiography (BRENDA) Insomnia Leukocytosis (leucocytosis) Mixed hyperlipidemia Overweight (BMI 25.0-29.9) Thoracic aortic aneurysm (~2018) Vitamin B12 deficiency Vitamin D deficiency Surgical History H/O aortic valve replacement History of aortic valve replacement with bioprosthetic valve History of appendectomy History of thumb surgery History of total abdominal hysterectomy and bilateral salpingo-oophorectomy Hx of colonoscopy Hx of thoracic aortic aneurysm repair S/P lumpectomy of breast Family History Family History Father Diabetes Mother No problems noted. Brother Healthy adult Social History Social History Housing: Assisted Living Facility Alcohol intake: current Alcohol intake frequency: does not drink Patient Tobacco Use Status: Former Tobacco user Tobacco use type: Cigarette e-Cigarette/Vaping Use: Never Used Second Hand Smoke Exposure: Yes Advance Directives: No service: No Current occupational status: retired Cognitive needs: No Hearing needs: No Vision needs: Yes Physical Exam Vital Signs: Vital Signs: Last Vital Signs Temp 97.9 F 05/16/23 13:11 Pulse 60 05/16/23 13:11 Resp 18 05/16/23 13:11 BP 149/83 H 05/16/23 13:11 Pulse Ox 98 05/16/23 13:11 O2 Del Method Room Air 05/16/23 13:11 BMI result Body Mass Index 31.9 General appearance is no acute distress Head normocephalic atraumatic Neck is supple Respiratory no distress Right hand exam the right middle finger is swollen and ecchymotic mostly at the proximal phalanx, it is neurovascular intact distal, all tendon function is intact, there is no other significant swelling or tenderness in the hand Other extremities normal Course Course Course Narrative: This is a rapid medical exam. Deferred additional HPI, ROS, PE to primary provider. 67 yo female with history of lupus right hand dominant here with pain to right hand (base of the 3rd/4th digits) after opening a fridge door 3 days ago. VSS Will check x-rays X-ray showed a minimally displaced intra-articular fracture at the base of the 3rd proximal phalanx as well as degenerative changes throughout the hand she is given a finger splint and advised to follow with hand doctor Discharge Plan Discharge Clinical Impression: Finger fracture, right Patient Disposition: Home, Self-Care Additional Instructions: X-ray did show broken finger so we gave you a finger splint Follow with hand doctor for further evaluation Return any concerns Prescriptions: New oxycodone 5 mg tablet 5 mg PO Q6H PRN (Reason: pain) Qty: 7 0RF Rx Instructions: Partial Fill upon patient request. acetaminophen 325 mg capsule 650 mg PO QID PRN (Reason: pain) Qty: 30 0RF No Action buspirone 15 mg tablet 15 mg PO DAILY benztropine 1 mg tablet 1 mg PO BID lamotrigine 100 mg tablet 100 mg PO BEDTIME atorvastatin 20 mg tablet 20 mg PO BEDTIME Qty: 90 3RF fenofibrate 160 mg tablet 160 mg PO DAILY Qty: 90 3RF cyanocobalamin (vitamin B-12) [Vitamin B-12] 1,000 mcg tablet extended release 1,000 mcg PO DAILY Qty: 30 11RF gabapentin 100 mg capsule 100 mg PO TID 30 Days Qty: 90 2RF gabapentin 300 mg capsule 300 mg PO BEDTIME 30 Days Qty: 30 2RF levetiracetam [Keppra] 250 mg tablet 125 mg PO BEDTIME 30 Days Qty: 15 2RF amoxicillin 500 mg capsule 2,000 mg PO ONCE Qty: 4 2RF Rx Instructions: Take 4 caps (2000 mg) 30-60 minutes prior to dental procedure. Refills are for future dental procedures. amlodipine [Norvasc] 5 mg tablet 5 mg PO DAILY Qty: 30 5RF aspirin 81 mg tablet,delayed release (DR/EC) 81 mg PO DAILY 90 Days Qty: 90 12RF pantoprazole 40 mg tablet,delayed release (DR/EC) 40 mg PO DAILY Qty: 30 6RF alprazolam 1 mg tablet 1 mg PO QID PRN (Reason: anxiety) hydroxychloroquine [Plaquenil] 200 mg tablet 200 mg PO BID cholecalciferol (vitamin D3) 50 mcg (2,000 unit) capsule 50 mcg PO DAILY 90 Days Qty: 90 3RF mometasone 0.1 % cream 1 appl topical DAILY 10 Days Qty: 45 0RF benzonatate 100 mg capsule 100 mg PO BID PRN (Reason: cough) Referrals: Cathleen Hall MD [Physician] - (Finger fracture)
[2023-05-16 13:11] VITALS: BP 149/83; PULSE 60; RESP 18; TEMP 36.6; O2SAT 98; BMI 31.9
== END 2023-05-16 15:32 | disposition home or self-care (01) ==
PROVIDERS: Emergency Provider Emergency Medicine; PCP Internal Medicine
DX: S62.602A Fracture of unspecified phalanx of right middle finger, initial encounter for closed fracture (principal); M79.642 Pain in left hand; Y29.XXXA Contact with blunt object, undetermined intent, initial encounter; Y93.9 Activity, unspecified; Y92.9 Unspecified place or not applicable; Y99.9 Unspecified external cause status; Z79.899 Other long term (current) drug therapy; Z87.891 Personal history of nicotine dependence
CPT/HCPCS: 73120; 99282; 99283

== ENCOUNTER 2023-08-07 22:23 | Inpatient (IN) | payer OTHER, SELFPAY ==
--- NOTE | ~2023-08-07 | CT_ITS ---
EXAMINATION: CT HEAD WITHOUT CONTRAST CT CERVICAL SPINE WITHOUT CONTRAST CT FACIAL BONES WITHOUT CONTRAST CLINICAL INFORMATION: Fall. Pain. COMPARISON: None available. TECHNIQUE: Contiguous axial imaging was performed from the skull base to vertex without intravenous administration of contrast. This CT examination was performed using dose optimization techniques as appropriate, variously including the following: *Automated exposure control *Adjustment of mA and/or kV according to patient size (this includes techniques or standardized protocols for targeted exams where dose is matched to indication/reason for exam; i.e. extremities or head) *Use of iterative reconstruction technique DLP: 1227 mGy-cm FINDINGS: There is cerebral volume loss with prominence of the lateral and the third ventricles. The cortical sulci are widened appropriately. The fourth ventricle and basal cisterns are normally outlined. There is no acute territorial defect, hemorrhage or midline shift. Facial Bones: There is no fracture. The maxillofacial sinuses are clear. The orbital structures are unremarkable. The soft tissues are unremarkable. Cervical Spine: There is minimal anterolisthesis C3 over C4. There is [id number] diffuse cervical disc degenerative change with loss of disc space, endplate change and posterior osteophytes at multiple levels associated with diffuse facet osteoarthritic hypertrophic change with multilevel mild spinal canal and neural foraminal narrowing. There is no fracture. The soft tissues are unremarkable. The visualized upper lung simmons are clear. CT/CT facial bones wo IV con IMPRESSION: 1. No acute intracranial abnormality. 2. Cervical disc degenerative change. 3. No fracture of the cervical spine. 4. No facial bone fracture seen.
--- NOTE | ~2023-08-07 | XR_ITS ---
EXAMINATION: XR CHEST CLINICAL INFORMATION: Altered mental status. COMPARISON: Chest radiographs dated 04/10/2010. TECHNIQUE: Frontal view of the chest was obtained. FINDINGS: No significant abnormality is noted involving the heart, lungs, mediastinum, bony thorax or soft tissues. There has been a prior median sternotomy. XR/XR chest 1V IMPRESSION: Unremarkable examination.
--- NOTE | ~2023-08-07 | CT_ITS ---
EXAMINATION: CT HEAD WITHOUT CONTRAST CT CERVICAL SPINE WITHOUT CONTRAST CT FACIAL BONES WITHOUT CONTRAST CLINICAL INFORMATION: Fall. Pain. COMPARISON: None available. TECHNIQUE: Contiguous axial imaging was performed from the skull base to vertex without intravenous administration of contrast. This CT examination was performed using dose optimization techniques as appropriate, variously including the following: *Automated exposure control *Adjustment of mA and/or kV according to patient size (this includes techniques or standardized protocols for targeted exams where dose is matched to indication/reason for exam; i.e. extremities or head) *Use of iterative reconstruction technique DLP: 1227 mGy-cm FINDINGS: There is cerebral volume loss with prominence of the lateral and the third ventricles. The cortical sulci are widened appropriately. The fourth ventricle and basal cisterns are normally outlined. There is no acute territorial defect, hemorrhage or midline shift. Facial Bones: There is no fracture. The maxillofacial sinuses are clear. The orbital structures are unremarkable. The soft tissues are unremarkable. Cervical Spine: There is minimal anterolisthesis C3 over C4. There is [id number] diffuse cervical disc degenerative change with loss of disc space, endplate change and posterior osteophytes at multiple levels associated with diffuse facet osteoarthritic hypertrophic change with multilevel mild spinal canal and neural foraminal narrowing. There is no fracture. The soft tissues are unremarkable. The visualized upper lung simmons are clear. CT/CT head/brain wo IV con IMPRESSION: 1. No acute intracranial abnormality. 2. Cervical disc degenerative change. 3. No fracture of the cervical spine. 4. No facial bone fracture seen.
--- NOTE | ~2023-08-07 | NM_ITS ---
Myocardial perfusion study Indication: Elevated troponin with atypical chest discomfort evaluate for myocardial ischemia Technique: The patient was brought in for a Lexiscan perfusion study on 08/09/2023. Patient performed low-level exercise and was injected 0.4 mg of Lexiscan intravenously. Within a minute of injection, 25 mCi of sestamibi was given intravenously. Images were obtained using the SPECT gamma camera interlaced with the gating device. Images were obtained in supine position. Resting perfusion study was performed on 08/08/2023. Patient was administered 25 mCi of sestamibi intravenously at rest. Images were then obtained in supine position. Images obtained with and without CT attenuation. Total DLP 87 mGy/cm Images were processed with the software and compared side to side in short axis, horizontal long axis and vertical long axis views. Findings: The stress perfusion study showed non attenuated as well as attenuated corrected images show normal uptake of radiotracer in all segments of LV myocardium. There is suggestion of left ventricular hypertrophy. The gated study shows normal LV systolic function with calculated LVEF of 71%. LV cavity is normal in size. The gated study shows normal systolic wall thickening and contraction of segments. Resting study shows no change in perfusion pattern compared to stress perfusion study. Gating at rest reveals normal systolic wall motion with ejection fraction at greater t than 60%. The findings are consistent with normal myocardial perfusion. NM/NM ame perf SPECT rest & str Impression: 1. Myocardial perfusion imaging study shows normal myocardial perfusion 2. Gated LVEF is 71% 3. Transient ischemic dilatation not present EKG is nondiagnostic for ischemia
--- NOTE | ~2023-08-07 | CT_ITS ---
EXAMINATION: CT HEAD WITHOUT CONTRAST CT CERVICAL SPINE WITHOUT CONTRAST CT FACIAL BONES WITHOUT CONTRAST CLINICAL INFORMATION: Fall. Pain. COMPARISON: None available. TECHNIQUE: Contiguous axial imaging was performed from the skull base to vertex without intravenous administration of contrast. This CT examination was performed using dose optimization techniques as appropriate, variously including the following: *Automated exposure control *Adjustment of mA and/or kV according to patient size (this includes techniques or standardized protocols for targeted exams where dose is matched to indication/reason for exam; i.e. extremities or head) *Use of iterative reconstruction technique DLP: 1227 mGy-cm FINDINGS: There is cerebral volume loss with prominence of the lateral and the third ventricles. The cortical sulci are widened appropriately. The fourth ventricle and basal cisterns are normally outlined. There is no acute territorial defect, hemorrhage or midline shift. Facial Bones: There is no fracture. The maxillofacial sinuses are clear. The orbital structures are unremarkable. The soft tissues are unremarkable. Cervical Spine: There is minimal anterolisthesis C3 over C4. There is ngny-zf-[id number] diffuse cervical disc degenerative change with loss of disc space, endplate change and posterior osteophytes at multiple levels associated with diffuse facet osteoarthritic hypertrophic change with multilevel mild spinal canal and neural foraminal narrowing. There is no fracture. The soft tissues are unremarkable. The visualized upper lung simmons are clear. CT/CT cervical spine wo IV con IMPRESSION: 1. No acute intracranial abnormality. 2. Cervical disc degenerative change. 3. No fracture of the cervical spine. 4. No facial bone fracture seen.
[2023-08-07 22:40] VITALS: BP 120/74; BP 144/77; PULSE 68; PULSE 84; RESP 18; TEMP 23.3; O2SAT 95; BMI 25.1
--- NOTE | 2023-08-07 22:58 | ECG_ITS ---
Test Reason : AMS Blood Pressure : / mmHG Vent. Rate : 061 BPM Atrial Rate : 061 BPM P-R Int : 196 ms QRS Dur : 130 ms QT Int : 520 ms P-R-T Axes : 072 -46 089 degrees QTc Int : 523 ms Normal sinus rhythm Possible Left atrial enlargement Left axis deviation Left ventricular hypertrophy with QRS widening and repolarization abnormality ( R in aVL , [place] product ) Cannot rule out Septal infarct (cited on or before 26-NOV-2019) Abnormal ECG When compared with ECG of 26-NOV-2019 16:25, T wave inversion now evident in Lateral leads Referred By: Ronna Hatfield Electronically Signed By:CHARLOTTE AGRAWAL
--- NOTE | 2023-08-07 23:00 | ED.FALL ---
HPI - Fall General Chief Complaint: Altered Mental Status Stated Complaint: AMS, confused, not at baseline Time Seen by Provider: 08/07/23 22:50 Source: patient and EMS Mode of arrival: EMS Limitations: no limitations History of Present Illness HPI Narrative: 68-year-old female came in after a fall. Patient fell yesterday hitting her head, patient with a change in mental status, patient fell hitting her head with a right periorbital hematoma patient is unable to provide more history, patient declined using any alcohol she is a social drinker last drink was on her birthday a week ago, decline using any recreational drugs. Patient appear anxious was sent from her assisted living for concern of acting bizarre. Related Data Home Medications Medication Instructions Recorded Confirmed benztropine 1 mg tablet 1 mg PO BID 10/17/20 04/10/23 buspirone 15 mg tablet 15 mg PO DAILY 10/17/20 04/10/23 alprazolam 1 mg tablet 1 mg PO QID PRN anxiety 07/25/21 04/10/23 lamotrigine 100 mg tablet 100 mg PO BEDTIME 07/25/21 04/10/23 hydroxychloroquine 200 mg tablet 200 mg PO BID 01/26/22 04/10/23 (Plaquenil) benzonatate 100 mg capsule 100 mg PO BID PRN cough 09/06/22 04/10/23 Previous Rx's Medication Instructions Recorded mometasone 0.1 % topical cream 1 appl topical DAILY 10 days #45 01/16/22 grams atorvastatin 20 mg tablet 20 mg PO BEDTIME #90 tabs 12/04/22 cyanocobalamin (vitamin B-12) 1,000 mcg PO DAILY #30 tabs 12/04/22 1,000 mcg tablet,extended release (Vitamin B-12 ER) gabapentin 100 mg capsule 100 mg PO TID 30 days #90 caps 12/04/22 gabapentin 300 mg capsule 300 mg PO BEDTIME 30 days #30 caps 12/04/22 levetiracetam 250 mg tablet 125 mg PO BEDTIME 30 days #15 tabs 12/04/22 (Keppra) amoxicillin 500 mg capsule 2,000 mg PO ONCE #4 caps 01/29/23 amlodipine 5 mg tablet (Norvasc) 5 mg PO DAILY #30 tabs 03/25/23 cholecalciferol (vitamin D3) 50 50 mcg PO DAILY 90 days #90 caps 04/10/23 mcg (2,000 unit) capsule aspirin 81 mg tablet,delayed 81 mg PO DAILY 90 days #90 tabs 05/13/23 release pantoprazole 40 mg tablet,delayed 40 mg PO DAILY #30 tabs 05/15/23 release acetaminophen 325 mg capsule 650 mg PO QID PRN pain #30 caps 05/16/23 oxycodone 5 mg tablet 5 mg PO Q6H PRN pain #7 tabs 05/16/23 fenofibrate 160 mg tablet 160 mg PO DAILY #90 tabs 06/18/23 Allergies Allergy/AdvReac Type Severity Reaction Status Date / Time Benadryl Allergy Intermediate swelling, Verified 04/10/23 11:06 rash Review of Systems Review of Systems: All other systems are reviewed and are negative Constitutional: Reports as per HPI and Reports no additional constitutional complaints Eyes: Reports as per HPI and Reports no additional eye complaints Reports system reviewed and no additional complaints, except as documented Cardiovascular: Reports as per HPI and Reports no additional cardiovascular complaints Respiratory: Reports as per HPI and Reports no additional respiratory complaints Gastrointestinal: Reports as per HPI and Reports no additional gastrointestinal complaints Genitourinary: Reports no additional female genitourinary complaints Musculoskeletal: Reports no additional musculoskeletal complaints Skin/Breast: Reports system reviewed and no additional complaints, except as docu Psychiatric: Reports no additional psychiatric complaints Endocrine: Reports no additional endocrine complaints Hematologic/Lymphatic: Reports no additional hematologic/lymphatic complaints Allergic/Immunologic: Reports no additional allergic/immunologic complaints Reports system reviewed and no additional complaints, except as documented and Reports Abnormal speech present [facility] Past Medical History Medical History Anemia Anxiety Aortic stenosis Ascending aortic aneurysm Bipolar disorder Coronary artery disease Cough Discoid lupus History of transesophageal echocardiography (BRENDA) Insomnia Leukocytosis (leucocytosis) Mixed hyperlipidemia Overweight (BMI 25.0-29.9) Thoracic aortic aneurysm (~2019) Vitamin B12 deficiency Vitamin D deficiency Surgical History H/O aortic valve replacement History of aortic valve replacement with bioprosthetic valve History of appendectomy History of thumb surgery History of total abdominal hysterectomy and bilateral salpingo-oophorectomy Hx of colonoscopy Hx of thoracic aortic aneurysm repair S/P lumpectomy of breast Family History Family History Father Diabetes Mother No problems noted. Brother Healthy adult Social History Social History Housing: Assisted Living Facility Alcohol intake: current Alcohol intake frequency: does not drink Patient Tobacco Use Status: Former Tobacco user Tobacco use type: Cigarette e-Cigarette/Vaping Use: Never Used Second Hand Smoke Exposure: Yes Advance Directives: No Advance Directives Information Provided: Yes service: No Current occupational status: retired Cognitive needs: No Hearing needs: No Vision needs: Yes Physical Exam Vital Signs: Vital Signs: Last Vital Signs Temp 98.4 F 08/08/23 00:26 Pulse 61 08/08/23 00:26 Resp 18 08/08/23 00:26 BP 170/76 H 08/08/23 00:26 Pulse Ox 99 08/08/23 00:26 O2 Del Method Room Air 08/08/23 00:26 BMI result Body Mass Index 25.1 Vital signs have been reviewed as appeared to be correct. Blood pressure normal. Heart rate normal. Respiration rate normal. Temperature normal. Oxygen saturation normal. Appearance: Alert. Oriented X3. No acute distress. Head: Normal external exam. Normocephalic. Atraumatic. No Bowman signs noted. No raccoon eyes noted Eyes: PERRLA. EOMI. Conjunctiva and sclera normal. Eyelids normal. ENT: TM's Normal. Pharynx normal. Uvula midline. Moist mucous membranes. No trismus noted. No drooling noted. No muffled voice noted. Neck: Normal inspection. Neck supple. FROM. No adenopathy. Thyroid Normal. No meningeal signs. No neck mass noted. CVS: Normal heart rate and rhythm. Heart sound normal. No murmurs noted. Pulses normal throughout. Respiratory: No respiratory distress. Painless inspiration. Breath sounds normal. No wheezes/rales/rhonchi noted. Chest nontender. No accessory muscle usage noted or decreased air movement noted. Abdomen: Soft and nontender. Bowel sounds normal in all 4 quadrants. No distention noted. No organomegaly noted. No visible injury noted. Back: No CVA tenderness. Full range of motion noted. Skin: Skin warm and dry. Normal skin color. Normal skin turgor. No rashes/lesions/lacerations noted. Extremities: No lower extremity edema. Extremities exhibit normal range of motion. Extremities nontender. Neuro: Oriented X 3. Cranial nerve exam: II-XII are grossly intact No motor deficit. No sensory deficit. Reflexes normal. Course Course Course Narrative: 68-year-old female came in after a mechanical fall, more history was obtained from the brother at the bedside patient has been having memory issue and behavior twisting frame changer the past few months. Patient declined chest pain or shortness of breath no ischemic EKG changes patient otherwise has no risk for coronary artery disease with elevated troponin which could be secondary to the other medical condition will hold off on heparin will obtain inpatient cardiology consult. Medical Decision Making Differential Diagnosis Differential Diagnoses: The differential diagnosis associated with the presentation includes (Intracranial bleed, ACS, elevated troponin, electrolyte abnormality, severe anemia, early dementia.) Admission/Observation Consideration of admission/observation: Escalation of care including admission/observation considered Consult Healthcare Provider Management of the patient was discussed with: Hospitalist Lab Data MDM Lab Attestation statement: I reviewed the patient's lab results. 08/07/23 23:14 08/07/23 23:14 Labs: Lab Results 08/07/23 08/07/23 08/07/23 Range/Units 23:14 23:14 23:14 WBC 7.3 (4.8-10.8) X10*3/uL RBC 4.06 L (4.20-5.50) X10*6/uL Hgb 12.2 (12.0-16.0) g/dl Hct 36.3 L (37.0-47.0) % MCV 89.4 (80.0-98.0) fL MCH 30.0 (27.0-33.0) pg MCHC 33.6 (31.0-35.0) g/dl RDW 12.7 (11.0-16.0) % Plt Count 260 (160-400) X10*3/uL MPV 10.2 (9.4-12.3) fL Immature Gran % (Auto) 0.3 (0.0-0.4) % Neut % (Auto) 78.7 H (45-73) % Lymph % (Auto) 16.3 L (20-40) % Gillespie % (Auto) 4.1 (2-11) % Eos % (Auto) 0.3 (0-4) % Baso % (Auto) 0.3 (0-2) % Lymph # (Auto) 1.2 (1.2-4.9) X10*3/uL Gillespie # (Auto) 0.3 (0.1-1.2) X10*3/uL Eos # (Auto) 0.0 (0.0-0.4) X10*3/uL Baso # (Auto) 0.0 (0.0-0.2) X10*3/uL Abs Immat Gran (auto) 0.02 (0.00-0.03) X10*3/uL Absolute Neuts (auto) 5.7 (2.0-8.3) x10*3/uL Absolute Nucleated RBC 0.000 (0.0-0.012) X10*3/uL Nucleated RBC % (auto) 0.0 (0.0-0.2) /100WBC Sodium 143 (135-145) mmol/L Potassium 3.7 (3.3-5.1) mmol/L Chloride 110 H (96-108) mmol/L Carbon Dioxide 21 L (22-29) mmol/L Anion Gap 16 (12-20) BUN 13 (9-16) mg/dL Creatinine 1.10 (0.5-1.4) mg/dL Estim Creat Clear Calc 52.2 Estimated GFR 49 Random Glucose 94 (60-115) mg/dL Calcium 9.8 (8.4-10.2) mg/dL Total Bilirubin 0.7 (0.0-1.0) mg/dL Direct Bilirubin 0.4 (0.0-0.5) mg/dL AST 33 H (5-31) U/L ALT 13 (0-31) U/L Alkaline Phosphatase 40 (39-117) U/L Troponin I High Sens 56.8 H* (<3.5-17.0) ng/L B-Natriuretic Peptide (<100) pg/mL Total Protein 7.1 (6.5-8.0) g/dL Albumin 4.2 (3.5-5.0) g/dL Lipase 9 (8-78) U/L Urine Color Urine Appearance Urine pH (5.0-9.0) Ur Specific [place] (1.005-1.025) Urine Protein (Neg-Trace) mg/dL Urine Glucose (UA) (Negative) mg/dL Urine Ketones (Negative) mg/dL Urine Blood (Negative) Urine Nitrite (Negative) Ur Leukocyte Esterase (Negative) Urine RBC (0-2) /HPF Urine WBC (0-5) /HPF Ur Squamous Epith Cells (0-2) /HPF Urine Bacteria (None Seen) Hyaline Casts (0-2) /LPF Urine Opiates Screen (Not Detect) Urine Fentanyl Screen (Not Detect) Ur Barbiturates Screen (Not Detect) Ur Phencyclidine Scrn (Not Detect) Ur Amphetamines Screen (Not Detect) U Benzodiazepines Scrn (Not Detect) Urine Cocaine Screen (Not Detect) U Marijuana (THC) Screen (Not Detect) 08/07/23 08/08/23 08/08/23 Range/Units 23:14 02:29 02:29 WBC (4.8-10.8) X10*3/uL RBC (4.20-5.50) X10*6/uL Hgb (12.0-16.0) g/dl Hct (37.0-47.0) % MCV (80.0-98.0) fL MCH (27.0-33.0) pg MCHC (31.0-35.0) g/dl RDW (11.0-16.0) % Plt Count (160-400) X10*3/uL MPV (9.4-12.3) fL Immature Gran % (Auto) (0.0-0.4) % Neut % (Auto) (45-73) % Lymph % (Auto) (20-40) % Gillespie % (Auto) (2-11) % Eos % (Auto) (0-4) % Baso % (Auto) (0-2) % Lymph # (Auto) (1.2-4.9) X10*3/uL [place] # (Auto) (0.1-1.2) X10*3/uL Eos # (Auto) (0.0-0.4) X10*3/uL Baso # (Auto) (0.0-0.2) X10*3/uL Abs Immat Gran (auto) (0.00-0.03) X10*3/uL Absolute Neuts (auto) (2.0-8.3) x10*3/uL Absolute Nucleated RBC (0.0-0.012) X10*3/uL Nucleated RBC % (auto) (0.0-0.2) /100WBC Sodium (135-145) mmol/L Potassium (3.3-5.1) mmol/L Chloride (96-108) mmol/L Carbon Dioxide (22-29) mmol/L Anion Gap (12-20) BUN (9-16) mg/dL Creatinine (0.5-1.4) mg/dL Estim Creat Clear Calc Estimated GFR Random Glucose (60-115) mg/dL Calcium (8.4-10.2) mg/dL Total Bilirubin (0.0-1.0) mg/dL Direct Bilirubin (0.0-0.5) mg/dL AST (5-31) U/L ALT (0-31) U/L Alkaline Phosphatase (39-117) U/L Troponin I High Sens (<3.5-17.0) ng/L B-Natriuretic Peptide 87 (<100) pg/mL Total Protein (6.5-8.0) g/dL Albumin (3.5-5.0) g/dL Lipase (8-78) U/L Urine Color Yellow Urine Appearance Clear Urine pH 8.0 (5.0-9.0) Ur Specific [place] 1.010 (1.005-1.025) Urine Protein Negative (Neg-Trace) mg/dL Urine Glucose (UA) Negative (Negative) mg/dL Urine Ketones Negative (Negative) mg/dL Urine Blood Negative (Negative) Urine Nitrite Positive H (Negative) Ur Leukocyte Esterase Negative (Negative) Urine RBC 0-2 (0-2) /HPF Urine WBC 0-5 (0-5) /HPF Ur Squamous Epith Cells 0-2 (0-2) /HPF Urine Bacteria 4+ (None Seen) Hyaline Casts 0-2 (0-2) /LPF Urine Opiates Screen Not Detected (Not Detect) Urine Fentanyl Screen Not Detected (Not Detect) Ur Barbiturates Screen Not Detected (Not Detect) Ur Phencyclidine Scrn Not Detected (Not Detect) Ur Amphetamines Screen Not Detected (Not Detect) U Benzodiazepines Scrn POSITIVE H (Not Detect) Urine Cocaine Screen Not Detected (Not Detect) U Marijuana (THC) Screen POSITIVE H (Not Detect) 08/08/23 Range/Units 02:40 WBC (4.8-10.8) X10*3/uL RBC (4.20-5.50) X10*6/uL Hgb (12.0-16.0) g/dl Hct (37.0-47.0) % MCV (80.0-98.0) fL MCH (27.0-33.0) pg MCHC (31.0-35.0) g/dl RDW (11.0-16.0) % Plt Count (160-400) X10*3/uL MPV (9.4-12.3) fL Immature Gran % (Auto) (0.0-0.4) % Neut % (Auto) (45-73) % Lymph % (Auto) (20-40) % Gillespie % (Auto) (2-11) % Eos % (Auto) (0-4) % Baso % (Auto) (0-2) % Lymph # (Auto) (1.2-4.9) X10*3/uL [place] # (Auto) (0.1-1.2) X10*3/uL Eos # (Auto) (0.0-0.4) X10*3/uL Baso # (Auto) (0.0-0.2) X10*3/uL Abs Immat Gran (auto) (0.00-0.03) X10*3/uL Absolute Neuts (auto) (2.0-8.3) x10*3/uL Absolute Nucleated RBC (0.0-0.012) X10*3/uL Nucleated RBC % (auto) (0.0-0.2) /100WBC Sodium (135-145) mmol/L Potassium (3.3-5.1) mmol/L Chloride (96-108) mmol/L Carbon Dioxide (22-29) mmol/L Anion Gap (12-20) BUN (9-16) mg/dL Creatinine (0.5-1.4) mg/dL Estim Creat Clear Calc Estimated GFR Random Glucose (60-115) mg/dL Calcium (8.4-10.2) mg/dL Total Bilirubin (0.0-1.0) mg/dL Direct Bilirubin (0.0-0.5) mg/dL AST (5-31) U/L ALT (0-31) U/L Alkaline Phosphatase (39-117) U/L Troponin I High Sens 78.2 H* (<3.5-17.0) ng/L B-Natriuretic Peptide (<100) pg/mL Total Protein (6.5-8.0) g/dL Albumin (3.5-5.0) g/dL Lipase (8-78) U/L Urine Color Urine Appearance Urine pH (5.0-9.0) Ur Specific [place] (1.005-1.025) Urine Protein (Neg-Trace) mg/dL Urine Glucose (UA) (Negative) mg/dL Urine Ketones (Negative) mg/dL Urine Blood (Negative) Urine Nitrite (Negative) Ur Leukocyte Esterase (Negative) Urine RBC (0-2) /HPF Urine WBC (0-5) /HPF Ur Squamous Epith Cells (0-2) /HPF Urine Bacteria (None Seen) Hyaline Casts (0-2) /LPF Urine Opiates Screen (Not Detect) Urine Fentanyl Screen (Not Detect) Ur Barbiturates Screen (Not Detect) Ur Phencyclidine Scrn (Not Detect) Ur Amphetamines Screen (Not Detect) U Benzodiazepines Scrn (Not Detect) Urine Cocaine Screen (Not Detect) U Marijuana (THC) Screen (Not Detect) Independent Interpretation I performed an independent interpretation of an: CT Scan (Head/facial/C-spine: No acute abnormality) Radiology Impression Discussion of test interpretation with radiology: I have reviewed the radiologist's reading. (1. No acute intracranial abnormality. 2. Cervical disc degenerative change. 3. No fracture of the cervical spine. 4. No facial bone fracture seen.) Discharge Plan Discharge Clinical Impression: Elevated troponin, Accident due to mechanical fall without injury, Closed head injury Patient Disposition: Admitted As Inpatient
[2023-08-07 23:19] LABS: MANUAL DIFF FLAG NO
[2023-08-07 23:20] LABS: Basophils Percent Auto 0.3 % (0-2); Eosinophils Percent Auto 0.3 % (0-4); Hematocrit 36.3 % (37.0-47.0); Hemoglobin 12.2 g/dl (12.0-16.0); Imm Gran Abs Auto 0.02 X10*3/uL (0.00-0.03); Imm Gran Pct Auto 0.3 % (0.0-0.4); Lymphocytes Absolute Auto 1.2 X10*3/uL (1.2-4.9); Lymphocytes Percent Auto 16.3 % (20-40); Mean Corpuscular HGB Conc 33.6 g/dl (31.0-35.0); Mean Corpuscular Volume 89.4 fL (80.0-98.0); Mean Platelet Volume 10.2 fL (9.4-12.3); Monocytes Absolute Auto 0.3 X10*3/uL (0.1-1.2); Monocytes Percent Auto 4.1 % (2-11); Neutrophils Absolute Auto 5.7 x10*3/uL (2.0-8.3); Neutrophils Percent Auto 78.7 % (45-73); Platelet Count 260 X10*3/uL (160-400); Red Blood Count 4.06 X10*6/uL (4.20-5.50); Red Cell Distribution Width 12.7 % (11.0-16.0); White Blood Count 7.3 X10*3/uL (4.8-10.8)
[2023-08-07 23:39] LABS: B Type Natriuretic Peptide 87 pg/mL (<100)
[2023-08-07 23:52] LABS: Alanine Aminotransferase 13 U/L (0-31); Albumin Level 4.2 g/dL (3.5-5.0); Alkaline Phosphatase 40 U/L (39-117); Anion Gap 16 (12-20); Aspartate Amino Transferase 33 U/L (5-31); Bilirubin Direct 0.4 mg/dL (0.0-0.5); Bilirubin Total 0.7 mg/dL (0.0-1.0); Blood Urea Nitrogen 13 mg/dL (9-16); Calcium 9.8 mg/dL (8.4-10.2); Carbon Dioxide 21 mmol/L (22-29); Chloride 110 mmol/L (96-108); Creatinine Clr Calc Pharmacy 52.2; Estimated Glomerular Filt Rate 49; Glucose Random 94 mg/dL (60-115); Lipase 9 U/L (8-78); Potassium 3.7 mmol/L (3.3-5.1); Sodium 143 mmol/L (135-145); Total Protein 7.1 g/dL (6.5-8.0)
[2023-08-07 23:59] LABS: Troponin-I High Sensitivity 56.8 ng/L (<3.5-17.0)
[2023-08-08 00:26] VITALS: BP 170/76; PULSE 61; RESP 18; TEMP 36.9; O2SAT 99
[2023-08-08 02:48] LABS: Appearance Urine Clear; Color Urine Yellow; Glucose Urine UA Negative (Negative); Leukocyte Esterase Urine Negative (Negative); Nitrite Urine Positive (Negative); UMIC TRIGGER UACC YES; Urine Blood Negative (Negative); Urine Ketones Negative (Negative); Urine Protein Negative (Neg-Trace)
[2023-08-08 02:57] LABS: Amphetamine Screen Urine Not Detected (Not Detect); Barbiturates, Urine Not Detected (Not Detect); Benzodiazepines Screen Urine POSITIVE (Not Detect); Cannabinoid Screen Urine POSITIVE (Not Detect); Cocaine Screen Urine Not Detected (Not Detect); Fentanyl, urine Not Detected (Not Detect); Opiate Screen Urine Not Detected (Not Detect); Phencyclidine Screen Urine Not Detected (Not Detect)
[2023-08-08 03:06] LABS: Bacteria Urine 4+ (None Seen); Hyaline Casts Urine 0-2 /LPF (0-2); RBC Urine 0-2 /HPF (0-2); Squamous Epithelial Cell Urine 0-2 /HPF (0-2); UACC Culture Trigger YES; WBC Urine 0-5 /HPF (0-5)
[2023-08-08 03:09] LABS: Troponin-I High Sensitivity 78.2 ng/L (<3.5-17.0)
--- NOTE | 2023-08-08 03:46 | PC.NURSE ---
This RN assumed care upon patient arrival from [facility]. Patient arrived and appears to be under the influence of substances. Patient is able to state name, but otherwise is not alert and oriented. Patient's thought process appears disorganized and unable to make appropriate decisions. Patient's brother Rasheed is at bedside and is a reliable historian: explains that patient lives in low-income housing independently, but states that her current presentation is not her baseline and that she has gotten progressively worse over the last 2 months in terms of making decisions and her memory. Patient reports that she's hearing voices and brother explains that patient has been more forgetful and paranoid lately, stating that she wishes she wasn't alive among other concerning statements. RN educated Rasheed about the potential need for a healthcare proxy and case management to further assess patient's level of deterioration and ability to live independently. Dr. Feldman was at bedside and assessed patient. Rasheed was able to provide the following information regarding patient's multiple care providers: Lia: (parole or probation officer at [facility]) Cassandra Sotelo (critical care rn): [phone] extension. 359 Sayra Walter @ [facility] (Medication RN): [phone] (per Rasheed visits patient and sets up pill box). Oksana (funder)- [phone] This RN gave report at 03:30 to Estephania ESPITIA.
--- NOTE | 2023-08-08 03:48 | PC.NURSE ---
Provider Gaston in with pt. Plan of care ongoing case management per Gaston
--- NOTE | 2023-08-08 03:54 | PM.IMHP ---
History of Present Illness Date of Service: 08/08/23 Chief Complaint: Anxiety 68-year-old female past medical history of bipolar disorder, anxiety, depression, HLD, among other less significant past medical history comes into the hospital with complaints of severe anxiety. Patient reports that she lives in a government Facility, where she is not allowed to smoke, accidentally was caught on camera smoking, she has been for a nervous wreck for the past 4 date with feeling that she will be evicted from her facility. Her brother at bedside states that the patient has been more paranoid, has outlandish ideas, and is not sure if she is having starts dementia or she has worsening psychosis. She also had a fall 4 days ago, states that she was feeling weak, and fell to the floor, denies any loss of consciousness, no palpitations, no chest pain, where dizziness, no pre or post role symptoms. Her brother reports that he called the building and spoke to the behavioral health case manager and there is no plan for her eviction When asked about review of system patient is complaining of something sitting on her chest. This sensation is midsternal, radiating bilaterally such as she has a band around her chest. Intermittent, occurs at rest and resolved spontaneously. On arrival to the ED patient is hemodynamically stable no significant abnormal vitals Labs are significant for WBC count 7.3, troponin of 56 increased if 78 UA positive for nitrites WBC and bacteria, urine drug screen is positive for benzodiazepines and THC Patient does endorse smoking marijuana regularly. Head CT, face CT, cervical spine CT, chest x-ray have all returned normal with no acute intracranial, cervical, or fractures Chest x-ray shows unremarkable exam Review of Systems Review of Systems: Yes all other systems are reviewed and are negative [facility] Medical History Vitamin D deficiency History of transesophageal echocardiography (BRENDA) Cough Ascending aortic aneurysm Overweight (BMI 25.0-29.9) Anxiety Insomnia Vitamin B12 deficiency Leukocytosis (leucocytosis) Anemia Mixed hyperlipidemia Coronary artery disease Aortic stenosis Thoracic aortic aneurysm (~2019) Discoid lupus Bipolar disorder Family History Father Diabetes Mother No problems noted. Brother Healthy adult Surgical History Hx of colonoscopy Hx of thoracic aortic aneurysm repair History of aortic valve replacement with bioprosthetic valve H/O aortic valve replacement History of thumb surgery History of total abdominal hysterectomy and bilateral salpingo-oophorectomy S/P lumpectomy of breast History of appendectomy Social History Housing: Assisted Living Facility Alcohol intake: current Alcohol intake frequency: does not drink Patient Tobacco Use Status: Former Tobacco user Tobacco use type: Cigarette e-Cigarette/Vaping Use: Never Used Second Hand Smoke Exposure: Yes Advance Directives: No Advance Directives Information Provided: Yes service: No Current occupational status: retired Cognitive needs: No Hearing needs: No Vision needs: Yes Meds Allergies Allergy/AdvReac Type Severity Reaction Status Date / Time Benadryl Allergy Intermediate swelling, Verified 04/10/23 11:06 rash Home Medications Medication Instructions Recorded Confirmed Last Taken Type benztropine 1 mg tablet 1 mg PO BID 10/17/20 04/10/23 Unknown History buspirone 15 mg tablet 15 mg PO DAILY 10/17/20 04/10/23 12/06/22 History alprazolam 1 mg tablet 1 mg PO QID PRN anxiety 07/25/21 04/10/23 12/06/22 History lamotrigine 100 mg tablet 100 mg PO BEDTIME 07/25/21 04/10/23 12/06/22 History hydroxychloroquine 200 mg tablet 200 mg PO BID 01/26/22 04/10/23 Unknown History (Plaquenil) benzonatate 100 mg capsule 100 mg PO BID PRN cough 09/06/22 04/10/23 Unknown History Physical Exam Vital Signs and Narrative: Vital Signs: Last Vital Signs Temp 98.4 F 08/08/23 00:26 Pulse 61 08/08/23 00:26 Resp 18 08/08/23 00:26 BP 170/76 H 08/08/23 00:26 Pulse Ox 99 08/08/23 00:26 O2 Del Method Room Air 08/08/23 00:26 BMI result Body Mass Index 25.1 Const: Other: Patient to x3, answers questions appropriately, does appear paranoid General: cooperative and no acute distress Orientation/consciousness: patient oriented x3 Eyes: General: appearance normal, both eyes and all related structures Resp: Effort & Inspection: normal respiratory effort Auscultation: clear to auscultation bilaterally Cardio: Rate: regular rate Rhythm: regular rhythm GI: Palpation (GI): Soft to palpation Auscultation: normal bowel sounds Skin: General skin exam: no rashes or lesions noted Neuro: General: patient oriented x3 Cognition (Neuro): normal cognition Extrem: General: Yes normal to inspection and Yes no pedal edema Psych: Other: Paranoid Results Labs 08/07/23 23:14 08/07/23 23:14 Labs: Laboratory Results - last 24 hr 08/07/23 08/07/23 08/07/23 23:14 23:14 23:14 MCV 89.4 MCH 30.0 MCHC 33.6 RDW 12.7 Plt Count 260 MPV 10.2 Immature Gran % (Auto) 0.3 Neut % (Auto) 78.7 H Lymph % (Auto) 16.3 L Holt % (Auto) 4.1 Eos % (Auto) 0.3 Baso % (Auto) 0.3 Lymph # (Auto) 1.2 Holt # (Auto) 0.3 Eos # (Auto) 0.0 Baso # (Auto) 0.0 Abs Immat Gran (auto) 0.02 Absolute Neuts (auto) 5.7 Absolute Nucleated RBC 0.000 Nucleated RBC % (auto) 0.0 Anion Gap 16 Estim Creat Clear Calc 52.2 Estimated GFR 49 Random Glucose 94 Calcium 9.8 Total Bilirubin 0.7 Direct Bilirubin 0.4 AST 33 H ALT 13 Alkaline Phosphatase 40 B-Natriuretic Peptide 87 Total Protein 7.1 Albumin 4.2 Lipase 9 Urine Color Urine Appearance Urine pH Ur Specific [place] Urine Protein Urine Glucose (UA) Urine Ketones Urine Blood Urine Nitrite Ur Leukocyte Esterase Urine RBC Urine WBC Ur Squamous Epith Cells Urine Bacteria Hyaline Casts Urine Opiates Screen Urine Fentanyl Screen Ur Barbiturates Screen Ur Phencyclidine Scrn Ur Amphetamines Screen U Benzodiazepines Scrn Urine Cocaine Screen U Marijuana (THC) Screen 08/08/23 08/08/23 02:29 02:29 MCV MCH MCHC RDW Plt Count MPV Immature Gran % (Auto) Neut % (Auto) Lymph % (Auto) Holt % (Auto) Eos % (Auto) Baso % (Auto) Lymph # (Auto) Holt # (Auto) Eos # (Auto) Baso # (Auto) Abs Immat Gran (auto) Absolute Neuts (auto) Absolute Nucleated RBC Nucleated RBC % (auto) Anion Gap Estim Creat Clear Calc Estimated GFR Random Glucose Calcium Total Bilirubin Direct Bilirubin AST ALT Alkaline Phosphatase B-Natriuretic Peptide Total Protein Albumin Lipase Urine Color Yellow Urine Appearance Clear Urine pH 8.0 Ur Specific [place] 1.010 Urine Protein Negative Urine Glucose (UA) Negative Urine Ketones Negative Urine Blood Negative Urine Nitrite Positive H Ur Leukocyte Esterase Negative Urine RBC 0-2 Urine WBC 0-5 Ur Squamous Epith Cells 0-2 Urine Bacteria 4+ Hyaline Casts 0-2 Urine Opiates Screen Not Detected Urine Fentanyl Screen Not Detected Ur Barbiturates Screen Not Detected Ur Phencyclidine Scrn Not Detected Ur Amphetamines Screen Not Detected U Benzodiazepines Scrn POSITIVE H Urine Cocaine Screen Not Detected U Marijuana (THC) Screen POSITIVE H Imaging Radiologist's Impressions: Impressions Chest X-Ray 08/07/23 23:30 IMPRESSION: Unremarkable examination. Cervical Spine CT 08/07/23 23:45 IMPRESSION: 1. No acute intracranial abnormality. 2. Cervical disc degenerative change. 3. No fracture of the cervical spine. 4. No facial bone fracture seen. Face CT 08/07/23 23:45 IMPRESSION: 1. No acute intracranial abnormality. 2. Cervical disc degenerative change. 3. No fracture of the cervical spine. 4. No facial bone fracture seen. Head CT 08/07/23 23:45 IMPRESSION: 1. No acute intracranial abnormality. 2. Cervical disc degenerative change. 3. No fracture of the cervical spine. 4. No facial bone fracture seen. Assessment and Plan (1) Accident due to mechanical fall without injury: Status: Acute (2) Elevated troponin: Status: Acute (3) Paranoia: Status: Acute (4) UTI (urinary tract infection): Status: Acute Plan 68-year-old female with medical history of bipolar disorder, hypertension, HLD comes into the hospital with increasing anxiety found to have an NSTEMI # acute NSTEMI - elevated troponin with the delta - patient does have typical chest pain, no EKG changes - risk factors include hypertension, hyperlipidemia - patient started on heparin drip in the ED, pending cardiology consult - echocardiogram # acute UTI - will treat with IV antibiotics - cultures # fall - mechanical versus secondary to infection due to weakness? - PT OT, fall precaution # paranoia - patient has underlying bipolar disorder - noticed increased paranoia and odd behavior - will consult Psychiatry # hypertension - stable - All other medications will be continued pending patient's med rec DVT prophylaxis heparin subQ Given patient's need for the heparin subQ on further cardiology evaluation patient require minimum 2 nights inpatient hospital stay for further management and monitoring Time Spent With Patient Time: Total time managing care of this patient today ____ minutes. Quality Stroke Does the patient have a stroke diagnosis?: No VTE Prior VTE?: No VTE Risk Level:: Medical - moderate - high VTE Device Contraindication: Treatment Not Indicated VTE Drug Contraindication: N/A - Med Ordered
--- NOTE | 2023-08-08 07:00 | CA_ITS ---
Transthoracic Echocardiogram Patient (Last, First, Middle): Tracy Esparza L Gender: Female Date of : 1955 Age: 68 Procedure Date: 08/08/2023 Procedure Type: Transthoracic Echocardiogram Location: ER Height: 162.56 cm Weight: 58.97 kg BSA: 1.63 m2 Heart Rate: 62 bpm BP: 135 / 75 mmHg [employer] Team Member: RUSS Referring MD: Angel Feldman MD Counselor Aide: Brandon Vigil MD Symptoms: NSTEMI Study Quality: Adequate ECG Rhythm: Sinus Conclusions: - Hyperdynamic LV systolic function without evidence of regional wall motion abnormality Findings Left Ventricle Normal left ventricular cavity size. There is mildly increased left ventricular wall thickness. The left ventricular systolic function is hyperdynamic. The visually estimated ejection fraction is >70%. Spectral Doppler is indicative of an impaired relaxation filling pattern. Elevated filling pressures. E/E prime ratio is >15, consistent with elevated filling pressures. Prior Study Comparison No significant change compared to prior study dated: 10/31/2022. Measurements 2D Linear Measurements IVSd: 1.19 0.6-0.9/0.6-1.0 cm LVIDd: 4.46 3.9-5.3/4.2-5.9 cm LVIDd Index: 2.74 2.4-3.2/2.2-3.1 cm/m2 LVIDs: 2.53 2.0-3.6 cm LVPWd: 0.67 0.7-1.1 cm LV Mass: 169.77 67-162/88-224 g LV Mass Index: 104.15 43-95/49-115 g/m2 LVOT Diam: 1.90 3.0+(-)1.3 cm 2D Systolic Function EF 4C: 73.40 >55% EF 2C: 75.20 >55% EF BiP: 73.40 >55% Mitral Valve MV Pk E: 0.86 MV PK A: 1.35 MV Decel Time: 392.00 E/A: 0.60 E'Lateral: 5.03 E'Medial: 2.70 E/E' Med: 31.70 E/E' Lat: 17.00 PHT: 115.00 MVA PHT: 1.91 Decel [place]: 2.18 Aortic Valve AoV Pk Eugenio: 3.56 AoV Mn Eugenio: 2.67 AoV VTI: 0.77 AoV Pk Grad: 51.00 Aov Mn Grad: 31.00 KWABENA Cont.VTI: 1.14 LVOT LVOT Pk Eugenio: 1.26 LVOT Mn Eugenio: 0.91 LVOT VTI: 0.31 LVOT Pk Grad: 6.00 LVOT Mn Grad: 4.00 LVOT Diam: 1.90 LVOT Area: 2.84 Diastolic Function MV Pk E: 0.86 MV Pk A: 1.35 E/A: 0.60 E'Medial: 2.70 E/E' Med: 31.70 E' Laterial: 5.03 E/E' Lat: 17.00 Tricuspid Valve RA Press: 3.00 Updated in Other Vendor System with Status of Final Brandon Vigil MD electronically signed on 08/08/2023 12:44:23 PM with status of Final
[2023-08-08 08:07] VITALS: BP 173/76; PULSE 62; RESP 17; O2SAT 100
[2023-08-08 09:05] LABS: Cholesterol 132 mg/dL (<200); HDL Cholesterol 58 mg/dL (>40); LDL Cholesterol Calculated 60 mg/dL (<100); Triglycerides 72 mg/dL (<150)
--- NOTE | 2023-08-08 09:19 | MHC.EDTECH ---
gave Pt breakfast and took her vitals
--- NOTE | 2023-08-08 09:19 | PHA.MEDREC ---
Pharmacy Consult ? Medication Reconciliation Pharmacy has completed the medication reconciliation. [facility] uses [facility]. got a list for them gabriela
--- NOTE | 2023-08-08 10:00 | P.CONCA_ITS ---
History of Present Illness History of Present Illness Date of Service: 08/08/23 Consult reason: troponin elevation Chief complaint: NSTEMI Narrative: I was consulted to see Tracy in cardiology consultation today for elevated troponin. 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 At the time of aortic valve replacement she had cardiac catheterization which had shown nonobstructive disease. Patient also has prior history of sinus bradycardia bipolar disorder. Patient came to the hospital with vague complaints. She said about 2 days ago she fell down in the bathroom 0 unclear etiology not sure if she lost consciousness. She had some injury around her right eye. Patient subsequently yesterday was quite distraught and was at her friend's house and she recommended her to go to the emergency room as she was complaining of retrosternal chest pressure and did not Review of Systems 2 Constitutional: Constitutional: Reports weakness and Reports other (Fall) Eyes: Eyes: Reports no additional eye complaints Cardiovascular: Cardiovascular: Reports chest pain at rest, Denies rapid heart rate, Denies lightheadedness and Denies dyspnea on exertion Respiratory: Respiratory: Denies dyspnea on exertion Gastrointestinal: Gastrointestinal: Reports no additional gastrointestinal complaints Genitourinary: Genitourinary: Reports no additional female genitourinary complaints Musculoskeletal: Musculoskeletal: Reports no additional musculoskeletal complaints Integumentary/Breasts: Skin/Breast: Reports system reviewed and no additional complaints, except as docu Neurologic: Reports system reviewed and no additional complaints, except as documented and Reports weakness Psychiatric: Psychiatric: Reports anxiety, Reports mood swings and Reports paranoia Endocrine: Endocrine: Reports no additional endocrine complaints Allergic/Immunologic: Allergic/Immunologic: Reports no additional allergic/immunologic complaints [facility] Past Medical History Medical History Vitamin D deficiency History of transesophageal echocardiography (BRENDA) Cough Ascending aortic aneurysm Overweight (BMI 25.0-29.9) Anxiety Insomnia Vitamin B12 deficiency Leukocytosis (leucocytosis) Anemia Mixed hyperlipidemia Coronary artery disease Aortic stenosis Thoracic aortic aneurysm (~2019) Discoid lupus Bipolar disorder Family History Family History Father Diabetes Mother No problems noted. Brother Healthy adult Surgical History Surgical History Hx of colonoscopy Hx of thoracic aortic aneurysm repair History of aortic valve replacement with bioprosthetic valve H/O aortic valve replacement History of thumb surgery History of total abdominal hysterectomy and bilateral salpingo-oophorectomy S/P lumpectomy of breast History of appendectomy Social History Social History Housing: Assisted Living Facility Alcohol intake: current Alcohol intake frequency: does not drink Patient Tobacco Use Status: Former Tobacco user Tobacco use type: Cigarette e-Cigarette/Vaping Use: Never Used Second Hand Smoke Exposure: Yes Advance Directives: No Advance Directives Information Provided: Yes service: No Current occupational status: retired Cognitive needs: No Hearing needs: No Vision needs: Yes Meds Allergies Allergy/AdvReac Type Severity Reaction Status Date / Time Benadryl Allergy Intermediate swelling, Verified 04/10/23 11:06 rash Active Medications: Current Medications Acetaminophen (Acetaminophen 325 Mg Tablet) 650 mg PO Q6H PRN PRN Reason: Pain, Mild (Pain Scale 1-3) Aspirin (Aspirin Enteric Coated 81 Mg Tablet.Dr) 81 mg PO DAILY YRAN Atorvastatin Calcium (Atorvastatin Calcium 80 Mg Tablet) 80 mg PO DAILY RYAN Docusate Sodium (Docusate Sodium 100 Mg Capsule) 100 mg PO DAILY PRN PRN Reason: Constipation Enoxaparin Sodium (Enoxaparin Sodium 40 Mg/0.4 Ml Syringe) 40 mg SUBCUT Q24H RYAN Ceftriaxone Sodium 1 gm/ (Sodium Chloride) 50 mls @ 100 mls/hr IV Q24H RYAN Ondansetron HCl (Ondansetron Hcl 4 Mg/2 Ml Vial) 4 mg IVPUSH Q8H PRN PRN Reason: Nausea and Vomiting Home Medications Medication Instructions Recorded Confirmed Last Taken Type benztropine 1 mg tablet 1 mg PO BID 10/17/20 08/08/23 Unknown History buspirone 15 mg tablet 15 mg PO DAILY 10/17/20 08/08/23 12/06/22 History alprazolam 1 mg tablet 1 mg PO QID PRN anxiety 07/25/21 08/08/23 12/06/22 History lamotrigine 100 mg tablet 100 mg PO BEDTIME 07/25/21 08/08/23 12/06/22 History hydroxychloroquine 200 mg tablet 200 mg PO BID 01/26/22 08/08/23 Unknown History (Plaquenil) gabapentin 100 mg capsule 200 mg PO DAILY PRN Anxiety 08/08/23 08/08/23 Unknown History gabapentin 300 mg capsule 900 mg PO BEDTIME 08/08/23 08/08/23 Unknown History zolpidem 10 mg tablet 10 mg PO BEDTIME PRN Insomnia 08/08/23 08/08/23 Unknown History Physical Exam 2 Vital Signs: Vital Signs: Last Vital Signs Temp 98.4 F 08/08/23 00:26 Pulse 62 08/08/23 08:07 Resp 17 08/08/23 08:07 BP 173/76 H 08/08/23 08:07 Pulse Ox 100 08/08/23 08:07 O2 Del Method Room Air 08/08/23 08:07 BMI result Body Mass Index 25.1 Const: General: cooperative, comfortable, no acute distress, alert, Physically active and well groomed Nutritional Appearance: average body habitus O rientation/consciousness: patient oriented x3 Limitations: no limitations Neck: Neck: Yes trachea midline, Yes supple and Yes no JVD Resp: Effort & Inspection: normal respiratory effort Auscultation: clear to auscultation bilaterally Cardio: Jugular venous distension: no JVD Palpation: normal PMI Rate: r egular rate Rhythm: regular rhythm Heart sounds: S1 normal heart sound present, S2 normal heart sound present and Murmur heart sound present systolic mid, harsh and at the right sternal border GI: Auscultation: normal bowel sounds Skin: General skin exam: no rashes or lesions noted Neuro: General: patient oriented x3 and no focal motor deficits Extrem: General: Yes no clubbing, cyanosis or edema Objective Labs and Meds 08/07/23 23:14 08/07/23 23:14 Lab results: Laboratory Results - last 24 hr 08/07/23 08/08/23 08/08/23 23:14 02:29 02:40 WBC 7.3 RBC 4.06 L Hgb 12.2 Hct 36.3 L MCV 89.4 MCH 30.0 MCHC 33.6 RDW 12.7 Plt Count 260 MPV 10.2 Immature Gran % (Auto) 0.3 Neut % (Auto) 78.7 H Lymph % (Auto) 16.3 L [place] % (Auto) 4.1 Eos % (Auto) 0.3 Baso % (Auto) 0.3 Lymph # (Auto) 1.2 [place] # (Auto) 0.3 Eos # (Auto) 0.0 Baso # (Auto) 0.0 Abs Immat Gran (auto) 0.02 Absolute Neuts (auto) 5.7 Absolute Nucleated RBC 0.000 Nucleated RBC % (auto) 0.0 Sodium 143 Potassium 3.7 Chloride 110 H Carbon Dioxide 21 L Anion Gap 16 BUN 13 Creatinine 1.10 Estim Creat Clear Calc 52.2 Estimated GFR 49 Random Glucose 94 Calcium 9.8 Total Bilirubin 0.7 Direct Bilirubin 0.4 AST 33 H ALT 13 Alkaline Phosphatase 40 Troponin I High Sens 56.8 H* 78.2 H* B-Natriuretic Peptide 87 Total Protein 7.1 Albumin 4.2 Triglycerides 72 Cholesterol 132 LDL Cholesterol, Calc 60 HDL Cholesterol 58 Lipase 9 Urine Color Yellow Urine Appearance Clear Urine pH 8.0 Ur Specific Niland 1.010 Urine Protein Negative Urine Glucose (UA) Negative Urine Ketones Negative Urine Blood Negative Urine Nitrite Positive H Ur Leukocyte Esterase Negative Urine RBC 0-2 Urine WBC 0-5 Ur Squamous Epith Cells 0-2 Urine Bacteria 4+ Hyaline Casts 0-2 Urine Opiates Screen Not Detected Urine Fentanyl Screen Not Detected Ur Barbiturates Screen Not Detected Ur Phencyclidine Scrn Not Detected Ur Amphetamines Screen Not Detected U Benzodiazepines Scrn POSITIVE H Urine Cocaine Screen Not Detected U Marijuana (THC) Screen POSITIVE H EKG shows normal sinus rhythm with left axis deviation with left ventricular hypertrophy with repolarization abnormality Imaging Radiologist's impression: Impressions Chest X-Ray 08/07/23 23:30 IMPRESSION: Unremarkable examination. Cervical Spine CT 08/07/23 23:45 IMPRESSION: 1. No acute intracranial abnormality. 2. Cervical disc degenerative change. 3. No fracture of the cervical spine. 4. No facial bone fracture seen. Face CT 08/07/23 23:45 IMPRESSION: 1. No acute intracranial abnormality. 2. Cervical disc degenerative change. 3. No fracture of the cervical spine. 4. No facial bone fracture seen. Head CT 08/07/23 23:45 IMPRESSION: 1. No acute intracranial abnormality. 2. Cervical disc degenerative change. 3. No fracture of the cervical spine. 4. No facial bone fracture seen. Assessment and Plan (1) Elevated troponin: Status: Acute Patient with very vague history of chest discomfort with prior history of nonobstructive CAD by cardiac catheterization 2019 with elevated troponin with symptoms of chest pressure. Chest pressure on the situation anxiety/panic attack. Need to rule out stress-induced cardiomyopathy. Will obtain a limited echocardiogram to assess LV systolic function typical wall motion abnormality. If the echo is within normal limits need to rule out myocardial ischemia would suggest inpatient myocardial perfusion imaging to further assess for it with resting study done today and stress testing done tomorrow. Will be a vasodilating myocardial perfusion imaging. The possibility includes secondary myocardial ischemia related to systemic issues such as UTI in the setting of LVH and known patient prosthesis mismatch with moderate stenosis of a bioprosthetic valve. Continue supportive care. Continue treatment of UTI. Continue other medical therapy including aspirin and should be on statin therapy. Aggressive control blood pressure needs to be pursued. Consider adding Norvasc mg to regimen. Continue to trend troponin every 6-8 hours until you see a down trend. (2) History of aortic valve replacement with bioprosthetic valve: Status: Acute Prior history of bioprosthetic aortic valve replacement and ascending aortic repair for severe aortic stenosis ascending aortic aneurysm. She has patient prosthesis mismatch. Continue aspirin and risk factor modification. SBE prophylaxis as per ACC/aha guidelines. Will follow with you. Time Spent With Patient Time: Total time managing care of this patient today ____ minutes. Procedures Date of Service Date of Service: 08/08/23
--- NOTE | 2023-08-08 10:27 | MHC.CM.PN ---
Addendum entered by Dianne Gonzalez 08/08/23 11:15: CM RECEIVED A CALL FROM PTS BROTHER, GRAEME. GRAEME STATES HE FOUND PAPERWORK AT THE PTS HOME PT HAS A HCP, JOANIE AND DNR GRAEME REPORTS HE AND HIS FATHER ARE LISTED ON THE HCP, HOWEVER HIS FATHER IS 93 YO AND LIVING IN AN SHELTER GRAEME WILL TRY TO BRING THE PAPERS IN TODAY TO BE ADDED TO PTS FILE HE IS AWARE CM WILL BE AVAILABLE UNTIL 1630 HOURS Original Note: PT RECEIVING CARE, CM CALLED PTS BROTHERGRAEME REPORTS THE PT LIVES ALONE AND HAS CM SERVICES VIA [facility] HE SAYS SHE ALSO HAS A NURSE THAT ARRANGES HER MEDS AND A BESSEMER REGULATOR THAT SEES HER AT HOME PER OUR RN NOTES, THE [facility] IS [facility] GRAEME REPORTS THE PT IS INDEPENDENT WITH SELF CARE AND USES NO DME HE SAYS HE DOES NOT THINK SHE HAS A HCP PCP: SCOTT APPIAH IMM DELIVERED DCP: HOME, [facility] AND [facility] CM SERVICES GRAEME WILL PROVIDE TRANSPORT CONTACTS: BROTHER: GRAEME CHEN [phone] [facility] CM: ELMER ENGLE [phone] [facility] NURSE: FABIANO PARISI [phone] BESSEMER REGULATOR: FAISAL [phone]
[2023-08-08] MEDS: Atorvastatin Calcium 80 MG TABLET PO (10:51)
[2023-08-08] MEDS: Aspirin Enteric Coated 81 MG TABLET.DR PO (10:51)
[2023-08-08 11:07] VITALS: BMI 19.7
--- NOTE | 2023-08-08 11:19 | CA_ITS ---
Acquisition Time: 2023-08-09 09:41:45 Total Exercise Time: 00:02:00 Test Indications: ELEVATED TROPONINS Medications: SEE EMAR Protocol: LEXISCAN Max HR: 105 BPM 69% of Pred: 151 BPM Max BP: 130/074 mmHG Max Work Load: 1.0 METS Pharmacological stress test with Lexiscan injection while sitting and kicking her legs, without 5/10 chest discofmort, with 4 beat of V tach, with normotensive resopnse to injection, with nondiagnsoitic EKGs. Aminophylline 75mg IVp given to reverse Lexiscan. Nuclear images pending. Test reviewed with Dr. Vigil. Referred By: Brandon Vigil Overread By: BRANDON VIGIL MD
[2023-08-08] MEDS: ALPRAZolam 0.5 MG TABLET 1 MG PO ×2 (11:52→18:19)
[2023-08-08 12:10] VITALS: BP 157/69; PULSE 53; RESP 13; O2SAT 97
[2023-08-08 12:12] LABS: Alanine Aminotransferase 14 U/L (0-31); Albumin Level 4.2 g/dL (3.5-5.0); Alkaline Phosphatase 38 U/L (39-117); Anion Gap 13 (12-20); Aspartate Amino Transferase 34 U/L (5-31); Bilirubin Total 0.8 mg/dL (0.0-1.0); Blood Urea Nitrogen 14 mg/dL (9-16); Calcium 9.8 mg/dL (8.4-10.2); Carbon Dioxide 24 mmol/L (22-29); Chloride 111 mmol/L (96-108); Creatinine Clr Calc Pharmacy 53.2; Estimated Glomerular Filt Rate 56; Glucose Random 73 mg/dL (60-115); Potassium 3.5 mmol/L (3.3-5.1); Sodium 144 mmol/L (135-145)
[2023-08-08 12:23] LABS: Troponin-I High Sensitivity 95.5 ng/L (<3.5-17.0)
[2023-08-08 12:30] LABS: PTT Heparin Drip 33.4 SEC (53-77.9)
[2023-08-08] MEDS: Heparin Sodium,Porcine/1/2NS 25,000 UNIT/250 ML IV.SOLN 7.48 UNIT IVCONT (12:39)
[2023-08-08] MEDS: cefTRIAXone sodium 1 GM in 0.9 % Sodium Chloride 50 ML IV (12:53)
[2023-08-08] MEDS: Acetaminophen 325 MG TABLET 650 MG PO (12:54)
--- NOTE | 2023-08-08 13:22 | PC.NURSE ---
HEPARIN GTT RUNNING PER PROTOCOL. SECOND PIV IN RFA. MD HELMS NOTIFIED OF CRITICAL TROPONIN. PT CONTINUES TO C/O CHEST PRESSURE LIKE A TIGHT BRA AROUND MY CHEST .NSR ON MONITOR, RESP EVEN NONLABOURED. SKIN PWD, WARM, DRY. PT CURRENTLY A&OX4, APPROPRIATE, ABLE TO FOLLOW COMMANDS WITH NO ISSUE.
--- NOTE | 2023-08-08 15:27 | PC.NURSE ---
non stress test scheduled for tomorrow morning, instructed on no caffeine products until then.
--- NOTE | 2023-08-08 15:53 | PM.EVENT ---
Event Note Date of Service: 08/08/23 Event Note: 68-year-old female patient with past medical history of bipolar disorder, anxiety, depression, hyperlipidemia status post prosthetic aortic valve replacement presented to [facility], since she was distraught that she will be evicted from her facility she also complained of fall 4 days ago, generalized weakness, denied chest pain, no palpitation, no dizziness, patient is a poor historian but admitted to have chest heaviness like a band around her chest in the ED patient noted to have elevated troponin of 56 at increased to 78, she had positive UA, therefore admitted to [facility] with concern for acute coronary syndrome, urinalysis and general weakness causing falls. At present patient continued to complain of chest discomfort Case discussed with Cardiology they recommend echocardiogram to rule out stress-induced cardiomyopathy # acute NSTEMI, started on IV heparin, statin, aspirin, follow echocardiogram, check lipid profile trend troponin, case discussed with Cardiology they will plan for inpatient stress study # acute UTI continue IV antibiotics follow urine cultures # fall- mechanical versus secondary to infection due to weakness, follow PT eval # paranoia with underlying bipolar disorder follow psych recommendation Time Spent With Patient Time: Total time managing care of this patient today ____ minutes.
[2023-08-08 16:00] VITALS: BP 159/77; PULSE 60; RESP 18; TEMP 37; O2SAT 97
[2023-08-08 17:42] LABS: PTT Heparin Drip 69.6 SEC (53-77.9)
[2023-08-08 18:19] LABS: Troponin-I High Sensitivity 100.5 ng/L (<3.5-17.0)
[2023-08-08 19:33] VITALS: BP 172/84; PULSE 64; RESP 18; TEMP 37.2; O2SAT 96
[2023-08-08] MEDS: Gabapentin 300 MG CAPSULE 900 MG PO (21:08)
[2023-08-08] MEDS: Benztropine Mesylate 1 MG TABLET PO (21:08)
[2023-08-08] MEDS: levETIRAcetam 250 MG TABLET 125 MG PO (21:10)
[2023-08-08] MEDS: lamoTRIgine 100 MG TABLET PO (21:10)
[2023-08-09] VITALS (8 sets, daily range): BP systolic 114–185; BP diastolic 63–87; PULSE 52–67; RESP 15–20; TEMP 36.3–37.1; O2SAT 95–98
[2023-08-09 01:16] LABS: PTT Heparin Drip 92.4 SEC (53-77.9)
[2023-08-09 03:02] LABS: Troponin-I High Sensitivity 80.1 ng/L (<3.5-17.0)
[2023-08-09 06:20] LABS: Hematocrit 36.5 % (37.0-47.0); Hemoglobin 12.1 g/dl (12.0-16.0); Mean Corpuscular HGB Conc 33.2 g/dl (31.0-35.0); Mean Corpuscular Hemoglobin 30.3 pg (27.0-33.0); Mean Corpuscular Volume 91.5 fL (80.0-98.0); Mean Platelet Volume 10.4 fL (9.4-12.3); Platelet Count 239 X10*3/uL (160-400); Red Blood Count 3.99 X10*6/uL (4.20-5.50); Red Cell Distribution Width 12.9 % (11.0-16.0); White Blood Count 6.1 X10*3/uL (4.8-10.8)
[2023-08-09 06:27] LABS: INTERNATIONAL NORM RATIO 1.1 (0.9-1.1); Prothrombin Time 13.2 SEC (11.1-13.3)
[2023-08-09] MEDS: Benztropine Mesylate 1 MG TABLET PO (08:39)
[2023-08-09] MEDS: Atorvastatin Calcium 80 MG TABLET PO (08:39)
[2023-08-09] MEDS: Aspirin Enteric Coated 81 MG TABLET.DR PO (08:39)
[2023-08-09] MEDS: Fenofibrate 160 MG TABLET PO (08:39)
[2023-08-09] MEDS: Acetaminophen 325 MG TABLET 650 MG PO (08:40)
[2023-08-09] MEDS: busPIRone HCl 5 MG TABLET 15 MG PO (08:40)
[2023-08-09 09:42] LABS: PTT Heparin Drip 63.9 SEC (53-77.9)
--- NOTE | 2023-08-09 10:47 | PM.PNCARD ---
Subjective Subjective Date of Service: 08/09/23 Principal diagnosis: Troponin elevation, fall Interval history: Patient continues to have this atypical chest discomfort which she describes as wearing a wide broad. Her troponins are downtrending. Echocardiogram did not show any significant wall motion abnormality with hyperdynamic LV systolic function. Resting myocardial perfusion was performed. Blood pressure is better controlled. Review of Systems Constitutional: Reports no additional constitutional complaints Eyes: Reports no additional eye complaints Cardiovascular: Reports chest pain at rest Respiratory: Reports no additional respiratory complaints Gastrointestinal: Reports no additional gastrointestinal complaints Genitourinary: Reports no additional female genitourinary complaints Endocrine: Reports no additional endocrine complaints Physical Exam Vital Signs: Last Vital Signs Temp 98.2 F 08/09/23 07:05 Pulse 54 08/09/23 07:05 Resp 20 08/09/23 07:05 BP 138/63 08/09/23 07:05 Pulse Ox 97 08/09/23 07:05 O2 Del Method Room Air 08/09/23 07:05 BMI result Body Mass Index 19.7 Const General: cooperative, comfortable, no acute distress, alert, Physically active and well groomed Nutritional Appearance: average body habitus Orientation/consciousness: patient oriented x3 Limitations: no limitations Neck Neck: Yes trachea midline, Yes supple and Yes no JVD Resp Effort & Inspection: normal respiratory effort Auscultation: clear to auscultation bilaterally Cardio Jugular venous distension: no JVD Palpation: normal PMI Rate: regular rate Rhythm: regular rhythm Heart sounds: S1 normal heart sound present, S2 normal heart sound present and Murmur heart sound present systolic mid, harsh and at the right sternal border GI Auscultation: normal bowel sounds Skin General skin exam: no rashes or lesions noted Neuro General: patient oriented x3 and no focal motor deficits Extrem General: Yes no clubbing, cyanosis or edema Objective Labs and Meds 08/09/23 05:52 08/08/23 11:49 Lab results: Laboratory Results - last 24 hr 08/08/23 08/08/23 08/08/23 11:49 11:50 17:18 WBC RBC Hgb Hct MCV MCH MCHC RDW Plt Count MPV Absolute Nucleated RBC Nucleated RBC % (auto) PT INR aPTT Heparin Protocol 33.4 L 69.6 D Sodium 144 Potassium 3.5 Chloride 111 H Carbon Dioxide 24 Anion Gap 13 BUN 14 Creatinine 0.98 Estim Creat Clear Calc 53.2 Estimated GFR 56 Random Glucose 73 Calcium 9.8 Total Bilirubin 0.8 AST 34 H ALT 14 Alkaline Phosphatase 38 L Troponin I High Sens 95.5 H* 100.5 H* Total Protein 7.0 Albumin 4.2 08/09/23 08/09/23 08/09/23 00:44 02:31 05:52 WBC 6.1 RBC 3.99 L Hgb 12.1 Hct 36.5 L MCV 91.5 MCH 30.3 MCHC 33.2 RDW 12.9 Plt Count 239 MPV 10.4 Absolute Nucleated RBC 0.000 Nucleated RBC % (auto) 0.0 PT 13.2 INR 1.1 aPTT Heparin Protocol 92.4 H D Sodium Potassium Chloride Carbon Dioxide Anion Gap BUN Creatinine Estim Creat Clear Calc Estimated GFR Random Glucose Calcium Total Bilirubin AST ALT Alkaline Phosphatase Troponin I High Sens 80.1 H* Total Protein Albumin 08/09/23 09:29 WBC RBC Hgb Hct MCV MCH MCHC RDW Plt Count MPV Absolute Nucleated RBC Nucleated RBC % (auto) PT INR aPTT Heparin Protocol 63.9 D Sodium Potassium Chloride Carbon Dioxide Anion Gap BUN Creatinine Estim Creat Clear Calc Estimated GFR Random Glucose Calcium Total Bilirubin AST ALT Alkaline Phosphatase Troponin I High Sens Total Protein Albumin Progress Note: A&P Assessment and plan (1) Elevated troponin: Status: Acute Assessment and Plan: Minimally elevated troponin in this elderly woman of unclear etiology. She has prior nonobstructive coronary artery disease. No acute EKG changes or wall motion abnormality suggestive of for high likelihood of acute coronary syndrome. Will pursue vasodilating myocardial perfusion imaging to further assess for any significant myocardial ischemia. In absence of this she can be discharged home on aspirin, statins as well as blood pressure control. Would consider amlodipine therapy, and possibility of coronary vaso spasm related to anxiety/stress. There is no evidence of takotsubo cardiomyopathy. (2) History of aortic valve replacement with bioprosthetic valve: Status: Acute Assessment and Plan: Prior history of bioprosthetic aortic valve replacement along with ascending aortic aneurysm repair. There is evidence of patient prosthesis mismatch with mean gradient of 30 mmHg. Continue aspirin therapy. SBE prophylaxis as per ACC/aha guidelines. Follow up in the clinic in 4 weeks time. Thank you for allowing me to partake in her care Time Spent With Patient Time: Total time managing care of this patient today ____ minutes. Progress Note: Quality Stroke Does the patient have a stroke diagnosis?: No Procedures Date of Service Date of Service: 08/09/23
--- NOTE | 2023-08-09 14:14 | P.DS_ITS ---
DS: Providers Provider Date of Service: 08/09/23 Date of admission: 08/08/23 03:53 Primary care physician: Laurent Gtz MD Consults: 08/08/23 03:51 Consult to Cardiology Routine Consulting Provider: [facility] Reason for consultation: elevated trop Has provider been notified: No Consult to Psychiatry Routine Consulting Provider: Psych Covering Reason for consultation: worsening paranoia, hx of bipolar, severe anxiety. Demenia? DS: Diagnosis Discharge Diagnosis (1) Elevated troponin: Status: Acute (2) History of aortic valve replacement with bioprosthetic valve: Status: Acute DS: Summary Hospital Course Hospital Course: Date of Service: 08/08/23 Chief Complaint: Anxiety 68-year-old female past medical history of bipolar disorder, anxiety, depression, HLD, among other less significant past medical history comes into the hospital with complaints of severe anxiety. Patient reports that she lives in a government Facility, where she is not allowed to smoke, accidentally was caught on camera smoking, she has been for a nervous wreck for the past 4 date with feeling that she will be evicted from her facility. Her brother at bedside states that the patient has been more paranoid, has outlandish ideas, and is not sure if she is having starts dementia or she has worsening psychosis. She also had a fall 4 days ago, states that she was feeling weak, and fell to the floor, denies any loss of consciousness, no palpitations, no chest pain, where dizziness, no pre or post role symptoms. Her brother reports that he called the building and spoke to the medical office manager and there is no plan for her eviction When asked about review of system patient is complaining of something sitting on her chest. This sensation is midsternal, radiating bilaterally such as she has a band around her chest. Intermittent, occurs at rest and resolved spontaneously. On arrival to the ED patient is hemodynamically stable no significant abnormal vitals Labs are significant for WBC count 7.3, troponin of 56 increased if 78 UA positive for nitrites WBC and bacteria, urine drug screen is positive for benzodiazepines and THC Patient does endorse smoking marijuana regularly. Head CT, face CT, cervical spine CT, chest x-ray have all returned normal with no acute intracranial, cervical, or fractures Chest x-ray shows unremarkable exam. Hospital course: 68-year-old female patient with past medical history of bipolar disorder, anxiety, depression, hyperlipidemia status post prosthetic aortic valve replacement presented to [facility], since she was distraught that she will be evicted from her facility she also complained of fall 4 days ago, generalized weakness, denied chest pain, no palpitation, no dizziness, patient is a poor historian but admitted to have chest heaviness like a band around her chest in the ED patient noted to have elevated troponin of 56 at increased to 78, she had positive UA, therefore admitted to [facility] with concern for acute coronary syndrome, urinalysis and general weakness causing falls. Patient admitted to telemetry unit with diagnosis of acute UTI placed on IV ceftriaxone, urine culture growing Gram-negative rods, final report remains pending but patient wishes to be discharged home today therefore will discharge her on Ceftin 250 mg 1 tablet twice daily for 5 days , has no fevers, normal WBC count blood cultures preliminary report showed no growth, patient also noted to have elevated troponin and complained of chest heaviness, that she described it as band around the chest, EKG showed no acute ischemia, patient was treated with aspirin, statins, and IV heparin, and subsequently underwent Mibi stress test by Dr. Foster, stresses test came back negative therefore patient is being discharged home on statins, aspirin and low-dose Norvasc 2.5 mg is added, recommended outpatient follow-up with Dr. Foster in 4 weeks , echocardiogram showed no wall motion abnormality, and normal EF, LDL 60 and has total cholesterol of 132 . In regard to fall likely related to weakness due to UTI patient seen by Physical therapy and they recommend home PT, patient also has underlying history of bipolar disorder multiple psychiatric medications recommend to continue all home medications with close outpatient psychiatric follow-up. Time Spent with Patient Time attestation: Total time managing care of this patient today ____ minutes. Discharge coordination time: Greater than 30 minutes Quality: Safe Use of Opioids Does Pt have an Active Cancer Diagnosis on the Problem List?: No Quality: Stroke Does the patient have a stroke diagnosis?: No Physical Exam Vital Signs: Vital Signs: Last Vital Signs Temp 98.8 F 08/09/23 11:46 Pulse 54 08/09/23 13:13 Resp 20 08/09/23 11:46 BP 154/83 H 08/09/23 13:13 Pulse Ox 98 08/09/23 13:13 O2 Del Method Room Air 08/09/23 11:46 BMI result Body Mass Index 19.7 Const: Other: General ecchymosis lateral to right eye Neck supple no JVD. CVS regular rate rhythm, Respiratory lungs clear to auscultation, no respiratory distress, no wheeze, no rhonchi. Gastrointestinal abdomen soft, nontender, bowel sounds audible, no guarding , no rigidity. Extremities no edema. Jd right forearm Neuro nonfocal Psych appropriate affect DS: Data Data Completed and Pending Labs on day of discharge: Laboratory Results - last 24 hr 08/08/23 08/09/23 08/09/23 17:18 00:44 02:31 WBC RBC Hgb Hct MCV MCH MCHC RDW Plt Count MPV Absolute Nucleated RBC Nucleated RBC % (auto) PT INR aPTT Heparin Protocol 69.6 D 92.4 H D Troponin I High Sens 100.5 H* 80.1 H* 08/09/23 08/09/23 05:52 09:29 WBC 6.1 RBC 3.99 L Hgb 12.1 Hct 36.5 L MCV 91.5 MCH 30.3 MCHC 33.2 RDW 12.9 Plt Count 239 MPV 10.4 Absolute Nucleated RBC 0.000 Nucleated RBC % (auto) 0.0 PT 13.2 INR 1.1 aPTT Heparin Protocol 63.9 D Troponin I High Sens Preliminary micro results at discharge 08/08/23 11:49 Blood Culture - Preliminary Blood - Venous No growth after 24 hours. 08/08/23 11:49 Blood Culture - Preliminary Blood - Venous No growth after 24 hours. 08/08/23 Unknown Urine Culture - Preliminary Urine clean catch - Urine castaneda top Gram negative hammad Discharge Plan Discharge Anticipated Discharge Date/Time: 08/09/23 13:55 Patient Disposition: Home Health Service Discharge Diagnosis: Elevated troponin Unsteady gait Referrals: [facility]ksander Ellison [Outside] - 1 Week Laurent Gtz MD [Primary Care Provider] - 1 Week Discharge Medications: New amlodipine [Norvasc] 2.5 mg tablet 2.5 mg PO DAILY Qty: 30 0RF cefuroxime axetil 250 mg tablet 250 mg PO BID Qty: 10 0RF Continued buspirone 15 mg tablet 15 mg PO DAILY benztropine 1 mg tablet 1 mg PO BID lamotrigine 100 mg tablet 100 mg PO BEDTIME atorvastatin 20 mg tablet 20 mg PO BEDTIME Qty: 90 3RF cyanocobalamin (vitamin B-12) [Vitamin B-12] 1,000 mcg tablet extended release 1,000 mcg PO DAILY Qty: 30 11RF levetiracetam [Keppra] 250 mg tablet 125 mg PO BEDTIME 30 Days Qty: 15 2RF amoxicillin 500 mg capsule 2,000 mg PO ONCE Qty: 4 2RF Rx Instructions: Take 4 caps (2000 mg) 30-60 minutes prior to dental procedure. Refills are for future dental procedures. aspirin 81 mg tablet,delayed release (DR/EC) 81 mg PO DAILY 90 Days Qty: 90 12RF pantoprazole 40 mg tablet,delayed release (DR/EC) 40 mg PO DAILY Qty: 30 6RF fenofibrate 160 mg tablet 160 mg PO DAILY Qty: 90 3RF zolpidem 10 mg tablet 10 mg PO BEDTIME PRN (Reason: Insomnia) gabapentin 300 mg capsule 900 mg PO BEDTIME gabapentin 100 mg capsule 200 mg PO DAILY PRN (Reason: Anxiety) alprazolam 1 mg tablet 1 mg PO QID PRN (Reason: anxiety) hydroxychloroquine [Plaquenil] 200 mg tablet 200 mg PO BID Discharge Orders: Discharge Order (Routine); Ordered 08/09/23 Ordered By: Tex Peraza Diet: Low fat, low cholesterol Activity on Discharge: As tolerated Stand Alone Forms: Patient Portal Discharge page Care Plan Goals: Unsteady gait and fall recommend home physical therapy Elevated troponin, no acute coronary syndrome started on Norvasc 2.5 mg daily follow low fat diet and continue all home medications Health Concerns: Take all home medications Plan of Treatment: Follow-up with primary care physician call for appointment, follow-up with cardiology Dr. Foster in 4 weeks Follow-up with Psychiatry as previously planned Assessment: As above
--- NOTE | 2023-08-09 14:20 | MHC.CM.PN ---
Patient has been medically cleared for dc to home today with services. Patient is active with Aleksander ALCANTARA, who has been notified of today's dc. Last IMM addressed yesterday.
[2023-08-09] MEDS: cefTRIAXone sodium 1 GM in 0.9 % Sodium Chloride 50 ML IV (14:51)
[2023-08-09] MEDS: ALPRAZolam 0.5 MG TABLET 1 MG PO ×2 (15:23→20:52)
--- NOTE | 2023-08-09 16:05 | MHC.CM.PN ---
CM met with Patient's BROTHER/Alternate HCP/Rasheed([phone]), who expressed concerns regarding Patient returning home(issues around smoking at her residence in non allotted areas/risk of being evicted, some confusion and s/s of Paranoia,etc). CM spoke with Patient's Psychiatrist/Dr. Coretta Tracy @ [phone], who expressed similar concerns. CM relayed this information to Attending along with contact information for Patient's Psych/home RN/Oksana Sotelo @ [phone].Per Attending's request, CM relayed this information/tiger text to stave hewer/Frances, who is with Patient now. CM informed Rasheed about, [facility] that may be able to assist with community resources.CM will follow.
--- NOTE | 2023-08-09 16:50 | P.CNPS_ITS ---
History of Present Illness Date of Service: 08/09/2023 Chief Complaint: NSTEMI Reason for Consult: increase paranoia Requesting physician: Tex Peraza Discussed with referring provider: Yes Sources of Information: patient interviewed, chart reviewed and crisis/core team assessment reviewed HPI Narrative: Mrs. Esparza is a 68 year-old woman who came to ED due to falls,increase anxiety and increased paranoia. Pt admitted due to elevated troponins. Pt now medically cleared, consult to assess paranoia. Pt not sure how long she has been in the hospital. She reports some staff were accusing me of something. She reports staff were talking about what she had in her backpack. She reports some staff really know what is going on, but others... I don't know. She denies SI/HI. She denies VH/AH. She appears suspicious but not overly guarded and is very cooperative. She reports she had seen psychiatrist Dr. Graf for several years and now that he retired she is seeing Oksana Arellano NP. Collateral information gathered from her prescriber who reports she noticed pt more paranoid in the past 2 weeks. She had asked [facility] to see pt more often. Oksana is working on simplifying medication regimen as pt on fairly high dose of benzo (xanax 1mg po QID) and concern of memory/cognition impairment along with unsteady gait. Pt currently not prescribed antipsychotic,, which she would benefit from. Collateral information also gathered from her brother, who is at bedside and also reports increase paranoia, concern of polypharmacy. Brother denies aggression towards self or others or gravely disable. Pt is in agreement to continue psychiatric care. She also has [facility] services. [facility] Medical History Vitamin D deficiency History of transesophageal echocardiography (BRENDA) Cough Ascending aortic aneurysm Overweight (BMI 25.0-29.9) Anxiety Insomnia Vitamin B12 deficiency Leukocytosis (leucocytosis) Anemia Mixed hyperlipidemia Coronary artery disease Aortic stenosis Thoracic aortic aneurysm (~2019) Discoid lupus Bipolar disorder Surgical History Hx of colonoscopy Hx of thoracic aortic aneurysm repair History of aortic valve replacement with bioprosthetic valve H/O aortic valve replacement History of thumb surgery History of total abdominal hysterectomy and bilateral salpingo-oophorectomy S/P lumpectomy of breast History of appendectomy Diagnostics Vital Signs (24Hr): Vital Signs - 24 hr 08/08/23 19:33 08/09/23 00:00 08/09/23 04:00 Temperature 98.9 F 98.0 F 97.6 F Pulse Rate 64 54 52 Respiratory Rate 18 15 15 Blood Pressure 172/84 H 147/67 H 114/64 Pulse Oximetry 96 95 95 Oxygen Delivery Method Room Air Room Air Room Air 08/09/23 07:05 08/09/23 11:46 08/09/23 13:13 Temperature 98.2 F 98.8 F Pulse Rate 54 54 54 Respiratory Rate 20 20 Blood Pressure 138/63 154/83 H 154/83 H Pulse Oximetry 97 98 98 Oxygen Delivery Method Room Air Room Air 08/09/23 15:34 Temperature 97.4 F Pulse Rate 67 Respiratory Rate 18 Blood Pressure 181/87 H Pulse Oximetry 97 Oxygen Delivery Method Room Air BMI result Body Mass Index 19.7 Labs 08/09/23 05:52 08/08/23 11:49 Labs: Laboratory Results - last 48 hr 08/07/23 08/08/23 08/08/23 23:14 02:29 02:40 WBC 7.3 RBC 4.06 L Hgb 12.2 Hct 36.3 L MCV 89.4 MCH 30.0 MCHC 33.6 RDW 12.7 Plt Count 260 MPV 10.2 Immature Gran % (Auto) 0.3 Neut % (Auto) 78.7 H Lymph % (Auto) 16.3 L [place] % (Auto) 4.1 Eos % (Auto) 0.3 Baso % (Auto) 0.3 Lymph # (Auto) 1.2 [place] # (Auto) 0.3 Eos # (Auto) 0.0 Baso # (Auto) 0.0 Abs Immat Gran (auto) 0.02 Absolute Neuts (auto) 5.7 Absolute Nucleated RBC 0.000 Nucleated RBC % (auto) 0.0 PT INR aPTT Heparin Protocol Sodium 143 Potassium 3.7 Chloride 110 H Carbon Dioxide 21 L Anion Gap 16 BUN 13 Creatinine 1.10 Estim Creat Clear Calc 52.2 Estimated GFR 49 Random Glucose 94 Calcium 9.8 Total Bilirubin 0.7 Direct Bilirubin 0.4 AST 33 H ALT 13 Alkaline Phosphatase 40 Troponin I High Sens 56.8 H* 78.2 H* B-Natriuretic Peptide 87 Total Protein 7.1 Albumin 4.2 Triglycerides 72 Cholesterol 132 LDL Cholesterol, Calc 60 HDL Cholesterol 58 Lipase 9 Urine Color Yellow Urine Appearance Clear Urine pH 8.0 Ur Specific [place] 1.010 Urine Protein Negative Urine Glucose (UA) Negative Urine Ketones Negative Urine Blood Negative Urine Nitrite Positive H Ur Leukocyte Esterase Negative Urine RBC 0-2 Urine WBC 0-5 Ur Squamous Epith Cells 0-2 Urine Bacteria 4+ Hyaline Casts 0-2 Urine Opiates Screen Not Detected Urine Fentanyl Screen Not Detected Ur Barbiturates Screen Not Detected Ur Phencyclidine Scrn Not Detected Ur Amphetamines Screen Not Detected U Benzodiazepines Scrn POSITIVE H Urine Cocaine Screen Not Detected U Marijuana (THC) Screen POSITIVE H 08/08/23 08/08/23 08/08/23 11:49 11:50 17:18 WBC RBC Hgb Hct MCV MCH MCHC RDW Plt Count MPV Immature Gran % (Auto) Neut % (Auto) Lymph % (Auto) [place] % (Auto) Eos % (Auto) Baso % (Auto) Lymph # (Auto) [place] # (Auto) Eos # (Auto) Baso # (Auto) Abs Immat Gran (auto) Absolute Neuts (auto) Absolute Nucleated RBC Nucleated RBC % (auto) PT INR aPTT Heparin Protocol 33.4 L 69.6 D Sodium 144 Potassium 3.5 Chloride 111 H Carbon Dioxide 24 Anion Gap 13 BUN 14 Creatinine 0.98 Estim Creat Clear Calc 53.2 Estimated GFR 56 Random Glucose 73 Calcium 9.8 Total Bilirubin 0.8 Direct Bilirubin AST 34 H ALT 14 Alkaline Phosphatase 38 L Troponin I High Sens 95.5 H* 100.5 H* B-Natriuretic Peptide Total Protein 7.0 Albumin 4.2 Triglycerides Cholesterol LDL Cholesterol, Calc HDL Cholesterol Lipase Urine Color Urine Appearance Urine pH Ur Specific [place] Urine Protein Urine Glucose (UA) Urine Ketones Urine Blood Urine Nitrite Ur Leukocyte Esterase Urine RBC Urine WBC Ur Squamous Epith Cells Urine Bacteria Hyaline Casts Urine Opiates Screen Urine Fentanyl Screen Ur Barbiturates Screen Ur Phencyclidine Scrn Ur Amphetamines Screen U Benzodiazepines Scrn Urine Cocaine Screen U Marijuana (THC) Screen 08/09/23 08/09/23 08/09/23 00:44 02:31 05:52 WBC 6.1 RBC 3.99 L Hgb 12.1 Hct 36.5 L MCV 91.5 MCH 30.3 MCHC 33.2 RDW 12.9 Plt Count 239 MPV 10.4 Immature Gran % (Auto) Neut % (Auto) Lymph % (Auto) [place] % (Auto) Eos % (Auto) Baso % (Auto) Lymph # (Auto) [place] # (Auto) Eos # (Auto) Baso # (Auto) Abs Immat Gran (auto) Absolute Neuts (auto) Absolute Nucleated RBC 0.000 Nucleated RBC % (auto) 0.0 PT 13.2 INR 1.1 aPTT Heparin Protocol 92.4 H D Sodium Potassium Chloride Carbon Dioxide Anion Gap BUN Creatinine Estim Creat Clear Calc Estimated GFR Random Glucose Calcium Total Bilirubin Direct Bilirubin AST ALT Alkaline Phosphatase Troponin I High Sens 80.1 H* B-Natriuretic Peptide Total Protein Albumin Triglycerides Cholesterol LDL Cholesterol, Calc HDL Cholesterol Lipase Urine Color Urine Appearance Urine pH Ur Specific [place] Urine Protein Urine Glucose (UA) Urine Ketones Urine Blood Urine Nitrite Ur Leukocyte Esterase Urine RBC Urine WBC Ur Squamous Epith Cells Urine Bacteria Hyaline Casts Urine Opiates Screen Urine Fentanyl Screen Ur Barbiturates Screen Ur Phencyclidine Scrn Ur Amphetamines Screen U Benzodiazepines Scrn Urine Cocaine Screen U Marijuana (THC) Screen 08/09/23 09:29 WBC RBC Hgb Hct MCV MCH MCHC RDW Plt Count MPV Immature Gran % (Auto) Neut % (Auto) Lymph % (Auto) [place] % (Auto) Eos % (Auto) Baso % (Auto) Lymph # (Auto) [place] # (Auto) Eos # (Auto) Baso # (Auto) Abs Immat Gran (auto) Absolute Neuts (auto) Absolute Nucleated RBC Nucleated RBC % (auto) PT INR aPTT Heparin Protocol 63.9 D Sodium Potassium Chloride Carbon Dioxide Anion Gap BUN Creatinine Estim Creat Clear Calc Estimated GFR Random Glucose Calcium Total Bilirubin Direct Bilirubin AST ALT Alkaline Phosphatase Troponin I High Sens B-Natriuretic Peptide Total Protein Albumin Triglycerides Cholesterol LDL Cholesterol, Calc HDL Cholesterol Lipase Urine Color Urine Appearance Urine pH Ur Specific [place] Urine Protein Urine Glucose (UA) Urine Ketones Urine Blood Urine Nitrite Ur Leukocyte Esterase Urine RBC Urine WBC Ur Squamous Epith Cells Urine Bacteria Hyaline Casts Urine Opiates Screen Urine Fentanyl Screen Ur Barbiturates Screen Ur Phencyclidine Scrn Ur Amphetamines Screen U Benzodiazepines Scrn Urine Cocaine Screen U Marijuana (THC) Screen Imaging Radiology Impressions: ITS Impressions Chest X-Ray 08/07/23 23:30 IMPRESSION: Unremarkable examination. Cervical Spine CT 08/07/23 23:45 IMPRESSION: 1. No acute intracranial abnormality. 2. Cervical disc degenerative change. 3. No fracture of the cervical spine. 4. No facial bone fracture seen. Face CT 08/07/23 23:45 IMPRESSION: 1. No acute intracranial abnormality. 2. Cervical disc degenerative change. 3. No fracture of the cervical spine. 4. No facial bone fracture seen. Head CT 08/07/23 23:45 IMPRESSION: 1. No acute intracranial abnormality. 2. Cervical disc degenerative change. 3. No fracture of the cervical spine. 4. No facial bone fracture seen. Myocardial Perfusion Scan Nuc Med 08/09/23 11:00 Impression: 1. Myocardial perfusion imaging study shows normal myocardial perfusion 2. Gated LVEF is 71% 3. Transient ischemic dilatation not present EKG is nondiagnostic for ischemia Mental Status Exam Mental Status Exam Narrative: Appearance: wearing hospital gown, hair unkempt, in NAD Behavior: cooperative Speech: clear, normal rate/rhythm/volume, spontaneous Psychomotor: no agitation or retardation noted TP: mostly linear, no derailment or loose associations TC: wanting to go home soon as her cat is home alone Mood: good Affect: congruent SI: denies HI: denies VH/AH: none Delusions: paranoid delusions Insight/judgment: fair x 2 Memory/cog: alert, oriented to place, situation, month and year. May recomend MOCA and other cognitive screening in community. Medications Medications Current Medications Acetaminophen (Acetaminophen 325 Mg Tablet) 650 mg PO Q6H PRN PRN Reason: Pain, Mild (Pain Scale 1-3) Last Admin: 08/09/23 08:40 Dose: 650 mg Alprazolam (Alprazolam 0.5 Mg Tablet) 1 mg PO QID PRN PRN Reason: anxiety Last Admin: 08/09/23 15:23 Dose: 1 mg Aspirin (Aspirin Enteric Coated 81 Mg Tablet.) 81 mg PO DAILY [facility] Last Admin: 08/09/23 08:39 Dose: 81 mg Benztropine Mesylate (Benztropine Mesylate 1 Mg Tablet) 1 mg PO BID [facility] Last Admin: 08/09/23 08:39 Dose: 1 mg Buspirone HCl (Buspirone Hcl 5 Mg Tablet) 15 mg PO DAILY [facility] Last Admin: 08/09/23 08:40 Dose: 15 mg Docusate Sodium (Docusate Sodium 100 Mg Capsule) 100 mg PO DAILY PRN PRN Reason: Constipation Fenofibrate (Fenofibrate 160 Mg Tablet) 160 mg PO DAILY [facility] Last Admin: 08/09/23 08:39 Dose: 160 mg Gabapentin (Gabapentin 300 Mg Capsule) 900 mg PO BEDTIME [facility] Last Admin: 08/08/23 21:08 Dose: 900 mg Ceftriaxone Sodium 1 gm/ (Sodium Chloride) 50 mls @ 100 mls/hr IV Q24H [facility]YAN Last Infusion: 08/09/23 15:40 Dose: Infused Lamotrigine (Lamotrigine 100 Mg Tablet) 100 mg PO BEDTIME [facility]YAN Last Admin: 08/08/23 21:10 Dose: 100 mg Levetiracetam (Levetiracetam 250 Mg Tablet) 125 mg PO BEDTIME [facility]YAN Last Admin: 08/08/23 21:10 Dose: 125 mg Ondansetron HCl (Ondansetron Hcl 4 Mg/2 Ml Vial) 4 mg IVPUSH Q8H PRN PRN Reason: Nausea and Vomiting Allergies Allergies Allergy/AdvReac Type Severity Reaction Status Date / Time Benadryl Allergy Intermediate swelling, Verified 04/10/23 11:06 rash Assessment & Plan Assessment & Plan (1) Schizoaffective disorder: Qualifiers: Schizoaffective disorder type: bipolar Qualified Code(s): F25.0 - Schizoaffective disorder, bipolar type Status: Acute Code(s): F25.9 - Schizoaffective disorder, unspecified Plan Ms. Esparza is a 68 year-old woman with hx of schizoaffective bipolar versus Bipolar Disorder who was admitted due to elevated troponins, also found to be increasingly more paranoid for the past 3 weeks. She recently started seeing new psychiatric provider, Oksana Arellano- who is aware that pt has been presenting as more paranoid and confused. Recommend starting antipsychotic. Also, per pt and brother, no hx of seizures but pt had been on keppra low dose at bedtime by previous psychiatrist. Recommend stopping keppra. May consider low dose of risperidone if no hx of side effect with this medications. PLAN 1. No imminent safety concerns in terms of harm to self or others if psychiatric condition not addressed inpatient. Pt can continue, and is in agreement, outpatient psychiatric care. 2. Oksana Arellano to reach out to pt and brother to coordinate next appointment. Total time managing care of this patient today ____ minutes.
--- NOTE | 2023-08-09 16:59 | P.PNIM_ITS ---
Subjective Subjective Date of Service: 08/10/23 Interval History: Patient seen this a.m. due to elevated troponin, she denies chest pain, no palpitation no shortness of breath, eager to be discharged home, he is noted to be mildly confused and suspicious that staff were concerned that she has something in her backpack, sounds paranoid., tolerated diet no nausea no vomiting no abdominal pain, blood pressure elevated. Review of Systems All other system reviewed and negative Physical Exam 2 Vital Signs: Vital Signs: Last Vital Signs Temp 97.4 F 08/09/23 15:34 Pulse 67 08/09/23 15:34 Resp 18 08/09/23 15:34 BP 181/87 H 08/09/23 15:34 Pulse Ox 97 08/09/23 15:34 O2 Del Method Room Air 08/09/23 15:34 BMI result Body Mass Index 19.7 Const: Other: General ecchymosis lateral to right eye , awake alert in no distress Neck supple no JVD. CVS regular rate rhythm, Respiratory lungs clear to auscultation, no respiratory distress, no wheeze, no rhonchi. Gastrointestinal abdomen soft, nontender, bowel sounds audible, no guarding , no rigidity. Extremities no edema. Bruise right forearm Neuro nonfocal Psych paranoid Objective Data Active Medications Acetaminophen (Acetaminophen 325 Mg Tablet) 650 mg PO Q6H PRN PRN Reason: Pain, Mild (Pain Scale 1-3) Last Admin: 08/09/23 08:40 Dose: 650 mg Documented By: TRISTON Alprazolam (Alprazolam 0.5 Mg Tablet) 1 mg PO QID PRN PRN Reason: anxiety Last Admin: 08/09/23 15:23 Dose: 1 mg Documented By: TRISTON Aspirin (Aspirin Enteric Coated 81 Mg Tablet.) 81 mg PO DAILY [facility] Last Admin: 08/09/23 08:39 Dose: 81 mg Documented By: TRISTON Benztropine Mesylate (Benztropine Mesylate 1 Mg Tablet) 1 mg PO BID [facility] Last Admin: 08/09/23 08:39 Dose: 1 mg Documented By: TRISTON Buspirone HCl (Buspirone Hcl 5 Mg Tablet) 15 mg PO DAILY [facility] Last Admin: 08/09/23 08:40 Dose: 15 mg Documented By: TRISTON Docusate Sodium (Docusate Sodium 100 Mg Capsule) 100 mg PO DAILY PRN PRN Reason: Constipation Fenofibrate (Fenofibrate 160 Mg Tablet) 160 mg PO DAILY [facility] Last Admin: 08/09/23 08:39 Dose: 160 mg Documented By: TRISTON Gabapentin (Gabapentin 300 Mg Capsule) 900 mg PO BEDTIME RYAN Last Admin: 08/08/23 21:08 Dose: 900 mg Documented By: NEFTALY Ceftriaxone Sodium 1 gm/ (Sodium Chloride) 50 mls @ 100 mls/hr IV Q24H [facility] Last Infusion: 08/09/23 15:40 Dose: Infused Documented By: TRISTON Lamotrigine (Lamotrigine 100 Mg Tablet) 100 mg PO BEDTIME [facility] Last Admin: 08/08/23 21:10 Dose: 100 mg Documented By: NEFTALY Levetiracetam (Levetiracetam 250 Mg Tablet) 125 mg PO BEDTIME [facility] Last Admin: 08/08/23 21:10 Dose: 125 mg Documented By: NEFTALY Ondansetron HCl (Ondansetron Hcl 4 Mg/2 Ml Vial) 4 mg IVPUSH Q8H PRN PRN Reason: Nausea and Vomiting Labs 08/09/23 05:52 08/08/23 11:49 Labs: Laboratory Results - last 24 hr 08/08/23 08/09/23 08/09/23 17:18 00:44 05:52 MCV 91.5 MCH 30.3 MCHC 33.2 RDW 12.9 Plt Count 239 MPV 10.4 Absolute Nucleated RBC 0.000 Nucleated RBC % (auto) 0.0 PT 13.2 INR 1.1 aPTT Heparin Protocol 69.6 D 92.4 H D 08/09/23 09:29 MCV MCH MCHC RDW Plt Count MPV Absolute Nucleated RBC Nucleated RBC % (auto) PT INR aPTT Heparin Protocol 63.9 D Microbiology Microbiology Results: Microbiology 08/08/23 11:49 Blood Culture - Preliminary Blood - Venous No growth after 24 hours. 08/08/23 11:49 Blood Culture - Preliminary Blood - Venous No growth after 24 hours. 08/08/23 Unknown Urine Culture - Preliminary Urine clean catch - Urine castaneda top Gram negative hammad Assessment and Plan (1) Schizoaffective disorder: Status: Acute (2) UTI (urinary tract infection): Status: Acute (3) Paranoia: Status: Acute (4) Elevated troponin: Status: Acute Plan 68-year-old female patient with past medical history of bipolar disorder, anxiety, depression, hyperlipidemia status post prosthetic aortic valve replacement presented to [facility], since she was distraught that she will be evicted from her facility she also complained of fall 4 days ago, generalized weakness, denied chest pain, no palpitation, no dizziness, patient is a poor historian but admitted to have chest heaviness like a band around her chest in the ED patient noted to have elevated troponin of 56 at increased to 78, she had positive UA, therefore admitted to [facility] with concern for acute coronary syndrome, urinalysis and general weakness causing falls. # Elevated Troponin on IV heparin, statin, aspirin, troponin peaked at 100.5, ldl 60, echo showed normal EF no wall motion abnormality,no evidence of takotsubo cardiomyopathy. patient underwent may be stress test by sales training coordinator Dr. Foster study is normal therefore will discontinue IV heparin, and will discharge her on aspirin Lipitor and add low-dose Norvasc for high blood pressure # acute UTI continue IV ceftriaxone follow urine cultures # fall- mechanical versus secondary to infection due to weakness, seen by Physical therapy PT recommend home PT # paranoia with underlying bipolar disorder seen by psychiatrist they recommended to [facility] Truong with no history of seizure disorder and rajesh Mares patient is being followed closely by her new psychiatric provider, Oksana Arellano- who is aware that pt has been presenting as more paranoid and confused. Patient will be considered on antipsychotic medications by her Psychiatry. Full code Patient was supposed to be discharged today but due to increased paranoia and medication adjustment as well as elevated blood pressure she will remain in hospital for close monitoring of mental status and blood pressure Time Spent With Patient Time: Total time managing care of this patient today ____ minutes. Quality Stroke Does the patient have a stroke diagnosis?: No VTE Prior VTE?: No VTE Risk Level:: Medical - moderate - high VTE Device Contraindication: Treatment Not Indicated VTE Drug Contraindication: N/A - Med Ordered
[2023-08-09] MEDS: amLODIPine Besylate 5 MG TABLET PO (17:09)
[2023-08-09] MEDS: Gabapentin 100 MG CAPSULE 200 MG PO (20:52)
[2023-08-09] MEDS: Atorvastatin Calcium 20 MG TABLET PO (20:52)
[2023-08-09] MEDS: Hydroxychloroquine Sulfate 200 MG TABLET PO (20:52)
[2023-08-09] MEDS: lamoTRIgine 100 MG TABLET PO (20:52)
[2023-08-09] MEDS: Gabapentin 300 MG CAPSULE 900 MG PO (20:52)
[2023-08-09] MEDS: Zolpidem Tartrate 5 MG TABLET 10 MG PO (21:10)
--- NOTE | 2023-08-09 22:41 | PC.NURSE ---
Patient A&OX4 although paranoid throughout shift. Off unit in am for stress test. Heparin drip stopped in afternoon. Psych eval completed. Pt with elevated BP late afternoon discharge canceled. BP med given per order, pt and brother aware of plan. 1999 pt increased agitation over medications. Dr Feldman notified, correct medications orders. Pt continues to be upset about meds becoming rude with staff. Anxious and perseverating on elevated BP and it will be our fault if she is unable to get her blood pressure down and go home tomorrow. Initially refused meds after being ordered until she get her pill box . Eventually able to educate on her on need to take meds. Pt resting comfortably in bed following. Will continue to monitor and report changes
[2023-08-10 03:11] VITALS: BP 116/60; PULSE 54; RESP 18; TEMP 37; O2SAT 98
[2023-08-10 07:45] VITALS: BP 104/56; PULSE 55; RESP 20; TEMP 36.7; O2SAT 96
[2023-08-10] MEDS: Hydroxychloroquine Sulfate 200 MG TABLET PO (09:43)
[2023-08-10] MEDS: busPIRone HCl 5 MG TABLET 15 MG PO (09:43)
[2023-08-10] MEDS: Omeprazole 20 MG CAPSULE.DR PO (09:43)
[2023-08-10] MEDS: Acetaminophen 325 MG TABLET 650 MG PO (09:43)
[2023-08-10] MEDS: Fenofibrate 160 MG TABLET PO (09:43)
[2023-08-10] MEDS: Aspirin Enteric Coated 81 MG TABLET.DR PO (09:43)
[2023-08-10 11:13] VITALS: BP 102/55; PULSE 55; RESP 20; TEMP 36.9; O2SAT 96
[2023-08-10] MEDS: cefTRIAXone sodium 1 GM in 0.9 % Sodium Chloride 50 ML IV (11:17)
--- NOTE | 2023-08-10 12:52 | MHC.CM.PN ---
order for home w/home health services. Previous referral to Aleksander ALCANTARA in [facility] and accepted by [facility]. D/C ordered services in place for patient's D/C to home w/home health disposition.
== END 2023-08-10 12:48 | disposition home health service (06) | DRG 690 ==
LOC: HO.ED 08-08 03:35 → HO.EDOVER 08-08 03:57 → HO.IMC 08-08 15:17
PROVIDERS: Admitting Provider Internal Medicine; Emergency Provider Emergency Medicine; PCP Internal Medicine; Visit Provider Hospitalist
DX: N39.0 Urinary tract infection, site not specified (principal); F22 Delusional disorders; F25.0 Schizoaffective disorder, bipolar type; R07.89 Other chest pain; R79.89 Other specified abnormal findings of blood chemistry; L93.0 Discoid lupus erythematosus; I10 Essential (primary) hypertension; I25.10 Atherosclerotic heart disease of native coronary artery without angina pectoris; Z95.2 Presence of prosthetic heart valve; Z79.82 Long term (current) use of aspirin; Z79.899 Other long term (current) drug therapy
CPT/HCPCS: 36415; 70450; 70486; 71045; 72125; 78452; 80048; 80053; 80061; 80076; 80307; 81001; 83690; 83880; 84484; 85025; 85027; 85610; 85730; 87040; 87086; 87088; 87186; 93005; 93017; 93308; 97162; 99285; A9500; J0280; J0696; J1643; J2785; Q9957

== ENCOUNTER → 2023-08-08 03:53 | Outpatient (BNV) | payer OTHER, SELFPAY | PROVIDERS: Admitting Provider Internal Medicine; Emergency Provider Emergency Medicine; PCP Internal Medicine; Visit Provider Social Worker | DX: F25.0 Schizoaffective disorder, bipolar type (principal) | CPT/HCPCS: 99232 ==

== ENCOUNTER → 2023-08-08 03:53 | Outpatient (BNV) | payer OTHER, SELFPAY | PROVIDERS: Admitting Provider Internal Medicine; Emergency Provider Emergency Medicine; PCP Internal Medicine; Visit Provider Internal Medicine Cardiovascular Disease | DX: R77.8 Other specified abnormalities of plasma proteins (principal); Z95.3 Presence of xenogenic heart valve; R07.89 Other chest pain | CPT/HCPCS: 78452; 93016; 93018; 93308; 99222; 99233 ==

== ENCOUNTER → 2023-08-08 03:53 | Outpatient (BNV) | payer OTHER, SELFPAY | PROVIDERS: Admitting Provider Internal Medicine; Emergency Provider Emergency Medicine; PCP Internal Medicine; Visit Provider Internal Medicine | DX: R77.8 Other specified abnormalities of plasma proteins (principal); Z95.3 Presence of xenogenic heart valve | CPT/HCPCS: 99223; 99239; 99499 ==

== ENCOUNTER 2023-08-20 11:17 | Outpatient (REF) | payer OTHER, SELFPAY | END 2023-08-20 11:18 | disposition home or self-care (01) | LOC: HO.HOSX 11:17 | PROVIDERS: Visit Provider Orthopaedic Surgery | DX: Z13.89 Encounter for screening for other disorder (principal) ==

== ENCOUNTER 2023-08-26 18:41 | Inpatient (IN) | payer OTHER, SELFPAY ==
--- NOTE | ~2023-08-26 | XR_ITS ---
EXAMINATION: XR CHEST CLINICAL INFORMATION: Pain COMPARISON: 08/07/2023 TECHNIQUE: Frontal view of the chest was obtained. FINDINGS: The cardiomediastinal silhouette is within normal limits and stable. There has been a previous median sternotomy and valve replacement. There is no focal lung consolidation or pleural effusion. The bony structures and soft tissues are unremarkable. XR/XR chest 1V IMPRESSION: No active cardiopulmonary disease.
--- NOTE | ~2023-08-26 | CT_ITS ---
EXAMINATION: CT HEAD WITHOUT CONTRAST CLINICAL INFORMATION: Trauma. Pain. COMPARISON: None available. TECHNIQUE: Contiguous axial imaging was performed from the skull base to vertex without intravenous administration of contrast. This CT examination was performed using dose optimization techniques as appropriate, variously including the following: *Automated exposure control *Adjustment of mA and/or kV according to patient size (this includes techniques or standardized protocols for targeted exams where dose is matched to indication/reason for exam; i.e. extremities or head) *Use of iterative reconstruction technique DLP: 1031 mGy-cm FINDINGS: There is cerebral volume loss with prominence of the lateral and the third ventricles. The cortical sulci are widened appropriately. The fourth ventricle and basal cisterns are normally outlined. There is mild bilateral periventricular and central white matter image attenuation. There is no acute territorial defect, hemorrhage or midline shift. The extra-axial spaces are unremarkable. Calvarium/scalp: The calvarium is intact. There is inferior right frontal/periorbital soft tissue swelling. Maxillofacial sinuses and mastoids: Clear as visualized. Cervical spine: There is minimal anterolisthesis C3 over C4. The alignment is otherwise normal. There is mild diffuse cervical disc degenerative change with loss of disc space, endplate change and posterior osteophytes associated with mild diffuse facet osteoarthritic hypertrophy change with multilevel mild spinal canal and neuroforaminal narrowing. The soft tissues are unremarkable. The visualized upper lung simmons are clear. CT/CT cervical spine wo IV con IMPRESSION: Mild cerebral volume loss and mild bilateral periventricular and central white matter diminished attenuation which is nonspecific but likely to represent microvascular disease. No acute renal abnormality. Cervical disc degenerative change. No fracture.
[2023-08-26 18:39] VITALS: BP 120/50; PULSE 68; O2SAT 98
[2023-08-26 18:42] VITALS: BP 115/53; PULSE 64; RESP 16; TEMP 37; O2SAT 96; BMI 24.5
--- NOTE | 2023-08-26 18:47 | ECG_ITS ---
Test Reason : FALL Blood Pressure : / mmHG Vent. Rate : 061 BPM Atrial Rate : 061 BPM P-R Int : 234 ms QRS Dur : 128 ms QT Int : 474 ms P-R-T Axes : 049 -43 103 degrees QTc Int : 477 ms Sinus rhythm with 1st degree A-V block Possible Left atrial enlargement Left axis deviation Left ventricular hypertrophy with QRS widening and repolarization abnormality ( R in aVL , [place] product ) Cannot rule out Septal infarct (cited on or before 26-NOV-2019) Nonspecific T wave abnormality Abnormal ECG When compared with ECG of 07-AUG-2023 23:21, SD interval has increased Nonspecific T wave abnormality, worse in Anterior leads Referred By: Geovanna Tse Electronically Signed By:CHARLOTTE AGRAWAL
--- NOTE | 2023-08-26 18:51 | ED_ITS ---
HPI - Fall General Chief Complaint: Fall Stated Complaint: AMS Source: patient Mode of arrival: EMS Limitations: other (Forgetfulness) History of Present Illness HPI Narrative: Patient comes to the emergency room via ambulance from home. Patient states that she does not remember if she fell today are not, patient states that she looked in the [place] she had bruises on her face, got concerned, called her brother who called 911 to have her evaluated in the emergency room. At this time, patient has no complaints other than having ecchymosis around the eyes. When I asked the patient if she fell today, patient states she does not remember. Per patient's pharmacy records, she is not on blood thinners Of note, patient was seen here less than 3 weeks ago on August 07 for a fall. With patient's consent, I call her brother. The brother states that for last 2 months, patient has gradually become more forgetful. Seems that earlier today, patient woke up, looked herself in the mirror and has forgotten that she fell 2 weeks ago and had ecchymosis, patient was surprised to see the bruising in her face and became scared. Patient's brother concerned the patient lives by herself. Patient does not have the diagnosis of dementia but he suspects that she does have dementia. Related Data Home Medications Medication Instructions Recorded Confirmed buspirone 15 mg tablet 15 mg PO DAILY 10/17/20 08/26/23 alprazolam 1 mg tablet 1 mg PO QID PRN anxiety 07/25/21 08/26/23 lamotrigine 100 mg tablet 100 mg PO BEDTIME 07/25/21 08/26/23 hydroxychloroquine 200 mg tablet 200 mg PO BID 01/26/22 08/26/23 (Plaquenil) gabapentin 100 mg capsule 200 mg PO DAILY PRN Anxiety 08/08/23 08/26/23 gabapentin 300 mg capsule 900 mg PO BEDTIME 08/08/23 08/26/23 zolpidem 10 mg tablet 10 mg PO BEDTIME PRN Insomnia 08/08/23 08/26/23 Previous Rx's Medication Instructions Recorded atorvastatin 20 mg tablet 20 mg PO BEDTIME #90 tabs 12/04/22 cyanocobalamin (vitamin B-12) 1,000 mcg PO DAILY #30 tabs 12/04/22 1,000 mcg tablet,extended release (Vitamin B-12 ER) aspirin 81 mg tablet,delayed 81 mg PO DAILY 90 days #90 tabs 05/13/23 release pantoprazole 40 mg tablet,delayed 40 mg PO DAILY #30 tabs 05/15/23 release fenofibrate 160 mg tablet 160 mg PO DAILY #90 tabs 06/18/23 amlodipine 2.5 mg tablet (Norvasc) 2.5 mg PO DAILY #30 tabs 08/09/23 Allergies Allergy/AdvReac Type Severity Reaction Status Date / Time Benadryl Allergy Intermediate swelling, Verified 08/26/23 18:38 rash Review of Systems 2 Review of Systems: Constitutional : No Weight loss, No Fever, No Chills, No Night Sweats, No Fatigue, No Malaise ENT/Mouth : No Hearing loss, No Ear Pain, No Nasal Congestion, No Sinus Pain, No Hoarseness, No sore throat, No Rhinorrhea, No Swallowing Difficulty Eyes: No Eye Pain, No Swelling, No Redness, No Foreign Body, No Discharge, No Vision Changes Cardiovascular : No Chest Pain, No SOB, No Dyspnea on Exertion, No Orthopnea, No Edema, No Palpitations Respiratory : No Cough, No Sputum, No Wheezing, No Smoke Exposure, No Dyspnea Gastrointestinal : No Nausea, No Vomiting, No Diarrhea, No Constipation, No abdominal Pain, No Hematochezia, No Melena Genitourinary : no irregular bleeding, No Dysuria, No Urinary Frequency, No Hematuria, No Urinary Incontinence, No Urgency, No Flank Pain, No Urinary Flow Changes, No Hesitancy Musculoskeletal : No joint pain, No Myalgias, No Joint Swelling Skin : Complaining of ecchymosis around her eyes Neuro : No Weakness, No Numbness, No Paresthesias, No Loss of Consciousness, No Dizziness, No Headache Psych : No Anxiety/Panic, No Depression, No SI/HI/AH/VH, No Social Issues, Heme/Lymph: No Bruising, No Bleeding,No Lymphadenopathy Endocrine : No Polyuria, No Polydipsia, No Temperature Intolerance [facility] Past Medical History Medical History Schizoaffective disorder Vitamin D deficiency History of transesophageal echocardiography (BRENDA) Cough Ascending aortic aneurysm Overweight (BMI 25.0-29.9) Anxiety Insomnia Vitamin B12 deficiency Leukocytosis (leucocytosis) Anemia Mixed hyperlipidemia Coronary artery disease Aortic stenosis Thoracic aortic aneurysm (~2019) Discoid lupus Bipolar disorder Surgical History Hx of colonoscopy Hx of thoracic aortic aneurysm repair History of aortic valve replacement with bioprosthetic valve H/O aortic valve replacement History of thumb surgery History of total abdominal hysterectomy and bilateral salpingo-oophorectomy S/P lumpectomy of breast History of appendectomy Family History Family History Father Diabetes Mother No problems noted. Brother Healthy adult Social History Social History Household Members: None Housing: Apartment Do you presently have visiting nurse or other home services: Yes ([facility]) Alcohol intake: current Alcohol intake frequency: holidays/special occasions only Patient Tobacco Use Status: Former Tobacco user Tobacco use type: Cigarette Smoked in Last 30 Days: No e-Cigarette/Vaping Use: Never Used Second Hand Smoke Exposure: Yes Use of substances other than those prescribed or required for medical reasons: No Advance Directives: Yes Advance Directives on File: Yes Advance Directives Date on File: 08/08/23 service: No Current occupational status: retired Cognitive needs: No Hearing needs: No Vision needs: Yes Physical Exam 2 Vital Signs: Vital Signs: Last Vital Signs Temp 98.6 F 08/26/23 18:42 Pulse 64 08/26/23 18:42 Resp 16 08/26/23 18:42 BP 115/53 L 08/26/23 18:42 Pulse Ox 96 08/26/23 18:42 O2 Del Method Room Air 08/26/23 18:42 BMI result Body Mass Index 24.5 Const: Other: Appearance: Alert. Oriented X3. No acute distress. Eyes: Pupils equal, round and reactive to light. Patient has raccoon eyes but given the coloration of the ecchymosis, does not seem to be acute ENT: Pharynx normal. Neck: Normal inspection. Neck supple. No lymph nodes noted. No crepitus CVS: Normal heart rate and rhythm. Pulses normal. Normal S1 and S2 Respiratory: No respiratory distress. Breath sounds normal. No Wheezing. No rales Abdomen: Soft and nontender. No rigidity. No distention. Skin: Skin warm and dry. Normal skin color. Normal skin turgor. Extremities: No lower extremity edema. No Lacerations. No Rash Neuro: Oriented X 3. No motor deficit. No sensory deficit. Moving all extremities. No slurred speech. CN 2 through 12 grossly intact Psych: calm, cooperative, normal affect Course Course Course Narrative: -patient lives by herself, becoming very forgetful, does not know if she fell today or not. Patient cannot be discharged by herself, discussed with the patient's brother that we will get case management and physical therapy evaluation. Patient's brother very appreciative -all of patient's lab work pending -case management and physical therapy pending Medical Decision Making Medical Decision Making [facility] Narrative: -my interpretation of labs: Troponin elevated, chronic, patient has no chest pain. -my interpretation of EKG: Normal sinus rhythm, heart rate 61, nonspecific ST changes in V4 through V6, previously seen EKGs of November 2019, QTC 477 -patient's urinalysis pending. Earlier this month, urine was positive for benzodiazepines and marijuana. Patient has prescribed benzodiazepines. -physical therapy and care team consult pending -sign-out given to Dr. Corey Differential Diagnosis Differential Diagnoses: The differential diagnosis associated with the presentation includes (UTI, deconditioning, dementia) Admission/Observation Consideration of admission/observation: Escalation of care including admission/observation considered (Patient will be under observation, case management physical therapy consult pending for the morning. Patient was a overnight in the emergency room) Lab Data [facility] Lab Attestation statement: I reviewed the patient's lab results. 08/26/23 19:25 08/26/23 19:25 Labs: Lab Results 08/26/23 Range/Units 19:25 WBC 5.8 (4.8-10.8) X10*3/uL RBC 3.54 L (4.20-5.50) X10*6/uL Hgb 10.8 L (12.0-16.0) g/dl Hct 32.3 L (37.0-47.0) % MCV 91.2 (80.0-98.0) fL MCH 30.5 (27.0-33.0) pg MCHC 33.4 (31.0-35.0) g/dl RDW 13.5 (11.0-16.0) % Plt Count 197 (160-400) X10*3/uL MPV 11.1 (9.4-12.3) fL Immature Gran % (Auto) 0.2 (0.0-0.4) % Neut % (Auto) 62.2 (45-73) % Lymph % (Auto) 23.7 (20-40) % [place] % (Auto) 9.4 (2-11) % Eos % (Auto) 4.0 (0-4) % Baso % (Auto) 0.5 (0-2) % Lymph # (Auto) 1.4 (1.2-4.9) X10*3/uL [place] # (Auto) 0.5 (0.1-1.2) X10*3/uL Eos # (Auto) 0.2 (0.0-0.4) X10*3/uL Baso # (Auto) 0.0 (0.0-0.2) X10*3/uL Abs Immat Gran (auto) 0.01 (0.00-0.03) X10*3/uL Absolute Neuts (auto) 3.6 (2.0-8.3) x10*3/uL Absolute Nucleated RBC 0.000 (0.0-0.012) X10*3/uL Nucleated RBC % (auto) 0.0 (0.0-0.2) /100WBC PT 13.8 H (11.1-13.3) SEC INR 1.1 (0.9-1.1) Sodium 146 H (135-145) mmol/L Potassium 3.4 (3.3-5.1) mmol/L Chloride 112 H (96-108) mmol/L Carbon Dioxide 25 (22-29) mmol/L Anion Gap 12 (12-20) BUN 21 H (9-16) mg/dL Creatinine 0.89 (0.5-1.4) mg/dL Estim Creat Clear Calc 51.5 Estimated GFR > 60 Random Glucose 117 H (60-115) mg/dL Calcium 9.5 (8.4-10.2) mg/dL Magnesium 1.7 (1.6-2.6) mg/dL Total Bilirubin 0.6 (0.0-1.0) mg/dL Direct Bilirubin 0.3 (0.0-0.5) mg/dL AST 39 H (5-31) U/L ALT 21 (0-31) U/L Alkaline Phosphatase 50 (39-117) U/L Troponin I High Sens 67.2 H* (<3.5-17.0) ng/L Total Protein 6.5 (6.5-8.0) g/dL Albumin 3.9 (3.5-5.0) g/dL TSH 1.55 (0.32-4.0) uIU/mL Ethyl Alcohol < 10 mg/dL COVID-19 (SHASHA) Negative (Negative) COVID-19 Clin Com See Note Independent Interpretation I performed an independent interpretation of an: EKG Radiology Impression Discussion of test interpretation with radiology: I have reviewed the radiologist's reading. Radiologist Impression: FINDINGS: The cardiomediastinal silhouette is within normal limits and stable. There has been a previous median sternotomy and valve replacement. There is no focal lung consolidation or pleural effusion. The bony structures and soft tissues are unremarkable. XR/XR chest 1V IMPRESSION: No active cardiopulmonary disease. Independent Historian Clinical information obtained from an independent historian. History obtained from or confirmed by: Other (Brother) Discharge Plan Discharge Clinical Impression: Multiple falls, Forgetfulness Patient Disposition: Still a Patient Prescriptions: No Action buspirone 15 mg tablet 15 mg PO DAILY lamotrigine 100 mg tablet 100 mg PO BEDTIME atorvastatin 20 mg tablet 20 mg PO BEDTIME Qty: 90 3RF cyanocobalamin (vitamin B-12) [Vitamin B-12] 1,000 mcg tablet extended release 1,000 mcg PO DAILY Qty: 30 11RF aspirin 81 mg tablet,delayed release (DR/EC) 81 mg PO DAILY 90 Days Qty: 90 12RF pantoprazole 40 mg tablet,delayed release (DR/EC) 40 mg PO DAILY Qty: 30 6RF fenofibrate 160 mg tablet 160 mg PO DAILY Qty: 90 3RF zolpidem 10 mg tablet 10 mg PO BEDTIME PRN (Reason: Insomnia) gabapentin 300 mg capsule 900 mg PO BEDTIME gabapentin 100 mg capsule 200 mg PO DAILY PRN (Reason: Anxiety) amlodipine [Norvasc] 2.5 mg tablet 2.5 mg PO DAILY Qty: 30 0RF alprazolam 1 mg tablet 1 mg PO QID PRN (Reason: anxiety) hydroxychloroquine [Plaquenil] 200 mg tablet 200 mg PO BID
[2023-08-26 19:29] LABS: MANUAL DIFF FLAG NO
[2023-08-26 19:35] LABS: Basophils Percent Auto 0.5 % (0-2); Eosinophils Absolute Auto 0.2 X10*3/uL (0.0-0.4); Hematocrit 32.3 % (37.0-47.0); Hemoglobin 10.8 g/dl (12.0-16.0); Imm Gran Abs Auto 0.01 X10*3/uL (0.00-0.03); Imm Gran Pct Auto 0.2 % (0.0-0.4); Lymphocytes Absolute Auto 1.4 X10*3/uL (1.2-4.9); Lymphocytes Percent Auto 23.7 % (20-40); Mean Corpuscular HGB Conc 33.4 g/dl (31.0-35.0); Mean Corpuscular Hemoglobin 30.5 pg (27.0-33.0); Mean Corpuscular Volume 91.2 fL (80.0-98.0); Mean Platelet Volume 11.1 fL (9.4-12.3); Monocytes Absolute Auto 0.5 X10*3/uL (0.1-1.2); Monocytes Percent Auto 9.4 % (2-11); Neutrophils Absolute Auto 3.6 x10*3/uL (2.0-8.3); Neutrophils Percent Auto 62.2 % (45-73); Platelet Count 197 X10*3/uL (160-400); Red Blood Count 3.54 X10*6/uL (4.20-5.50); Red Cell Distribution Width 13.5 % (11.0-16.0); White Blood Count 5.8 X10*3/uL (4.8-10.8)
[2023-08-26 19:45] LABS: Alanine Aminotransferase 21 U/L (0-31); Albumin Level 3.9 g/dL (3.5-5.0); Alkaline Phosphatase 50 U/L (39-117); Anion Gap 12 (12-20); Aspartate Amino Transferase 39 U/L (5-31); Bilirubin Direct 0.3 mg/dL (0.0-0.5); Bilirubin Total 0.6 mg/dL (0.0-1.0); Blood Urea Nitrogen 21 mg/dL (9-16); Calcium 9.5 mg/dL (8.4-10.2); Carbon Dioxide 25 mmol/L (22-29); Chloride 112 mmol/L (96-108); Creatinine Clr Calc Pharmacy 51.5; Estimated Glomerular Filt Rate > 60; Glucose Random 117 mg/dL (60-115); Magnesium 1.7 mg/dL (1.6-2.6); Potassium 3.4 mmol/L (3.3-5.1); Sodium 146 mmol/L (135-145); Total Protein 6.5 g/dL (6.5-8.0)
[2023-08-26 19:50] LABS: Ethanol < 10 mg/dL
[2023-08-26 19:51] LABS: INTERNATIONAL NORM RATIO 1.1 (0.9-1.1); Prothrombin Time 13.8 SEC (11.1-13.3)
[2023-08-26 19:52] LABS: COVID-19 Test Negative (Negative); IDNOW Serial# BCCEAD1C
[2023-08-26 19:55] LABS: Troponin-I High Sensitivity 67.2 ng/L (<3.5-17.0)
--- NOTE | 2023-08-26 20:00 | PC.NURSE ---
This inspector automatic typewriter assumed care of this Pt at 1900. Pt A&Ox4, denies any pain, reports no recollection of event leading to hospital, brother at bedside reports finding Pt on floor, had fall last week. Purple color facial bruising noted. Pt using bedside commode. Pt updated on plan of care.
[2023-08-26 20:06] LABS: TSH reflex Free T4 1.55 uIU/mL (0.32-4.0)
--- NOTE | 2023-08-26 20:39 | PHA.MEDREC ---
Pharmacy Consult ? Medication Reconciliation Pharmacy has reviewed the medication reconciliation completed by Anjali. Fannie Perdomo, SindhuD
[2023-08-26 22:05] VITALS: BP 120/57; PULSE 56; RESP 13; O2SAT 97
[2023-08-26 22:40] LABS: Appearance Urine Turbid; Color Urine Yellow; Glucose Urine UA Negative (Negative); Leukocyte Esterase Urine Negative (Negative); Nitrite Urine Negative (Negative); Urine Blood Negative (Negative); Urine Ketones Negative (Negative); Urine Protein Trace mg/dL (Neg-Trace)
[2023-08-26 22:50] LABS: Amphetamine Screen Urine Not Detected (Not Detect); Barbiturates, Urine Not Detected (Not Detect); Benzodiazepines Screen Urine POSITIVE (Not Detect); Cannabinoid Screen Urine POSITIVE (Not Detect); Cocaine Screen Urine Not Detected (Not Detect); Fentanyl, urine Not Detected (Not Detect); Opiate Screen Urine Not Detected (Not Detect); Phencyclidine Screen Urine Not Detected (Not Detect)
[2023-08-26] MEDS: Atorvastatin Calcium 20 MG TABLET PO (23:31)
[2023-08-26] MEDS: lamoTRIgine 100 MG TABLET PO (23:31)
[2023-08-26] MEDS: Hydroxychloroquine Sulfate 200 MG TABLET PO (23:31)
[2023-08-26] MEDS: Gabapentin 300 MG CAPSULE 900 MG PO (23:31)
[2023-08-26 23:47] LABS: Alanine Aminotransferase 19 U/L (0-31); Albumin Level 3.7 g/dL (3.5-5.0); Alkaline Phosphatase 50 U/L (39-117); Anion Gap 14 (12-20); Aspartate Amino Transferase 36 U/L (5-31); Bilirubin Total 0.5 mg/dL (0.0-1.0); Blood Urea Nitrogen 20 mg/dL (9-16); Calcium 9.1 mg/dL (8.4-10.2); Carbon Dioxide 22 mmol/L (22-29); Chloride 113 mmol/L (96-108); Creatinine Clr Calc Pharmacy 52.7; Estimated Glomerular Filt Rate > 60; Glucose Random 112 mg/dL (60-115); Potassium 3.4 mmol/L (3.3-5.1); Sodium 146 mmol/L (135-145); Total Protein 6.1 g/dL (6.5-8.0)
[2023-08-27] VITALS (8 sets, daily range): BP systolic 104–142; BP diastolic 38–66; PULSE 56–63; RESP 16–18; TEMP 36.8–37; O2SAT 96–98
[2023-08-27] MEDS: Omeprazole 20 MG CAPSULE.DR PO (05:45)
--- NOTE | 2023-08-27 06:22 | PC.NURSE ---
Pt appears to be sleeping at this time, respirations equal and non-labored, awakens with verbal command. Pt medicated per JAN.
[2023-08-27] MEDS: ALPRAZolam 0.5 MG TABLET 1 MG PO (07:47)
[2023-08-27] MEDS: amLODIPine Besylate 2.5 MG TABLET PO (07:48)
[2023-08-27] MEDS: busPIRone HCl 5 MG TABLET 15 MG PO (07:48)
[2023-08-27] MEDS: Aspirin Enteric Coated 81 MG TABLET.DR PO (07:48)
[2023-08-27] MEDS: Hydroxychloroquine Sulfate 200 MG TABLET PO ×2 (07:48→20:53)
[2023-08-27] MEDS: Cyanocobalamin (Vitamin B-12) 1,000 MCG TABLET 1000 MCG PO (07:48)
[2023-08-27] MEDS: Fenofibrate 160 MG TABLET PO (09:13)
--- NOTE | 2023-08-27 12:40 | PC.NURSE ---
PT ABLE TO GET OOB TO BEDSIDE COMMODE WITH SUPERVISION. SHE HAS EATEN BREAKFAST AND LUNCH AND OFFERS NO COMPLAINTS. NAPPING BETWEEN MEALS. SHE IS APPROPRIATE AND PLEASANT IN CONVERSATION PRESENTLY
--- NOTE | 2023-08-27 15:18 | MHC.CM.ED ---
Addendum entered by Pam Saunders 08/27/23 15:32: T/W left voicemail at [facility]'s outpatient office via telephone at [phone] explaining patient will not be able to attend appointment because she is currently in the ER. Contact info provided. Original Note: Received case management consult overnight. Patient came to the ER due to AMS. Work up was essentially negative. However, patient's brother/HCP, Rasheed had expressed extreme concern about patient's safety at home because of increasing confusion. Crisis was at patient's home about 1 week ago. Crisis recommended 24/06 care. Patient declined at that time. Patient has lost her keys, her car registration, credit card. Patient is not supposed to smoke her apartment. She has forgotten this and has smoked in the apartment. Patient has been working with Oksana Arellano, abstract writer and Mariajose Tracy, psychiatrist. Met with patient in regards to discharge planning. Patient has multiple bruising around face and raccoon eyes. Patient feels she can safely return home. Patient is unsure how she fell or that she even fell. She is not sure how or why she came to the ER. This information was discussed with Kera PEREYRA. Due to confusion of patient and brother/HCP Rasheed's concern, psych consult for capacity and OT eval for MOCA and ACL will be ordered. Patient and brother, Rasheed aware. Patient has a new psychiatrist appointment tomorrow 08/28 at 2pm at [facility] on [facility]. T/W explained the office will be made aware that patient is still in the ER and will not be able to make this appointment. Rasheed verbalized understanding. Continue to monitor for d/c needs.
--- NOTE | 2023-08-27 16:47 | PM.PSYCN ---
History of Present Illness Date of Service: 08/28/2023 Chief Complaint: AMS Reason for Consult: memory/capacity Requesting physician: Kera Maya Discussed with referring provider: Yes Sources of Information: patient interviewed, chart reviewed and crisis/core team assessment reviewed HPI Narrative: Mrs. Esparza is a 68 year-old woman with hx of Bipolar Disorder who self presented to ED reporting she had woken up and realized her face was bruised. She does not remember what happened and was very surprise in the morning when she looked herself on the mirror. She reports she talked with neighbors to ask if they had heard loud noise at night. Pt is known to this commercial insurance underwriter through previous psych consult back in 08/09 when she was medically admitted for evaluation of paranoia. Pt seen in ED. She is able to recognize this commercial insurance underwriter from previous encounter while she was on the medical floor. Pt expressed concerned as to what had happen to her at night and the fact that she has no recollection. Note that pt is on ambien, which causes parasomnia and people will have no recollection of what happen at night. I discussed with pt stopping ambien, which she is in agreement of. Pt also has been for several years on xanax 1mg po QID. We discusse concern of fairly high dose on benzo, in combination with ambien and its effects as she gets older on her cognitive and memory function as well as gait. She recently transition to a new psych provider, Oksana Arellano, who has been working with her to decrease concerning doses of xanax along with ambien. However, it appears pt continues to be on same dose of ambien 10mg po qhs, and xanax 1mg QID and gabapentin was added- which could be worsening situation as it increased the side effects of ambien and xanax if the doses of those two medications are not adjusted. Pt presents with linear thought process. She does not appear internally preocupied. She does not report overt delusional content. She denies SI/HI. Per CM- increase concern about pt's ability to care for herself in the past 2 monts. [facility] Medical History (Updated 08/28/23 @ 10:30 by Frances Davis) Schizoaffective disorder Vitamin D deficiency History of transesophageal echocardiography (BRENDA) Cough Ascending aortic aneurysm Overweight (BMI 25.0-29.9) Anxiety Insomnia Vitamin B12 deficiency Leukocytosis (leucocytosis) Anemia Mixed hyperlipidemia Coronary artery disease Aortic stenosis Thoracic aortic aneurysm (~2019) Discoid lupus Bipolar disorder Surgical History Hx of colonoscopy Hx of thoracic aortic aneurysm repair History of aortic valve replacement with bioprosthetic valve H/O aortic valve replacement History of thumb surgery History of total abdominal hysterectomy and bilateral salpingo-oophorectomy S/P lumpectomy of breast History of appendectomy Diagnostics Vital Signs (24Hr): Vital Signs - 24 hr 08/26/23 18:42 08/26/23 22:05 08/27/23 04:00 Temperature 98.6 F 98.6 F Pulse Rate 64 56 62 Respiratory Rate 16 13 16 Blood Pressure 115/53 L 120/57 L 104/46 L Pulse Oximetry 96 97 98 Oxygen Delivery Method Room Air Room Air Room Air 08/27/23 06:21 08/27/23 07:55 08/27/23 08:29 Temperature 98.6 F 98.6 F Pulse Rate 59 59 62 Respiratory Rate 16 17 Blood Pressure 137/38 L 137/38 L 142/66 H Pulse Oximetry 96 96 96 Oxygen Delivery Method Room Air Room Air 08/27/23 10:00 08/27/23 14:00 Temperature 98.3 F 98.3 F Pulse Rate 63 58 Respiratory Rate 17 16 Blood Pressure 119/61 104/60 Pulse Oximetry 98 97 Oxygen Delivery Method Room Air Room Air BMI result Body Mass Index 24.5 Labs 08/26/23 19:25 08/26/23 23:26 Labs: Laboratory Results - last 48 hr 08/26/23 08/26/23 08/26/23 19:25 22:24 23:26 WBC 5.8 RBC 3.54 L Hgb 10.8 L Hct 32.3 L MCV 91.2 MCH 30.5 MCHC 33.4 RDW 13.5 Plt Count 197 MPV 11.1 Immature Gran % (Auto) 0.2 Neut % (Auto) 62.2 Lymph % (Auto) 23.7 [place] % (Auto) 9.4 Eos % (Auto) 4.0 Baso % (Auto) 0.5 Lymph # (Auto) 1.4 [place] # (Auto) 0.5 Eos # (Auto) 0.2 Baso # (Auto) 0.0 Abs Immat Gran (auto) 0.01 Absolute Neuts (auto) 3.6 Absolute Nucleated RBC 0.000 Nucleated RBC % (auto) 0.0 PT 13.8 H INR 1.1 Sodium 146 H 146 H Potassium 3.4 3.4 Chloride 112 H 113 H Carbon Dioxide 25 22 Anion Gap 12 14 BUN 21 H 20 H Creatinine 0.89 0.87 Estim Creat Clear Calc 51.5 52.7 Estimated GFR > 60 > 60 Random Glucose 117 H 112 Calcium 9.5 9.1 Magnesium 1.7 Total Bilirubin 0.6 0.5 Direct Bilirubin 0.3 AST 39 H 36 H ALT 21 19 Alkaline Phosphatase 50 50 Troponin I High Sens 67.2 H* Total Protein 6.5 6.1 L Albumin 3.9 3.7 TSH 1.55 Urine Color Yellow Urine Appearance Turbid Urine pH 7.0 Ur Specific [place] 1.020 Urine Protein Trace Urine Glucose (UA) Negative Urine Ketones Negative Urine Blood Negative Urine Nitrite Negative Ur Leukocyte Esterase Negative Urine Opiates Screen Not Detected Urine Fentanyl Screen Not Detected Ur Barbiturates Screen Not Detected Ur Phencyclidine Scrn Not Detected Ur Amphetamines Screen Not Detected U Benzodiazepines Scrn POSITIVE H Urine Cocaine Screen Not Detected U Marijuana (THC) Screen POSITIVE H Ethyl Alcohol < 10 COVID-19 (SHASHA) Negative COVID-19 Clin Com See Note Imaging Radiology Impressions: ITS Impressions Chest X-Ray 08/26/23 19:49 IMPRESSION: No active cardiopulmonary disease. Cervical Spine CT 08/26/23 20:02 IMPRESSION: Mild cerebral volume loss and mild bilateral periventricular and central white matter diminished attenuation which is nonspecific but likely to represent microvascular disease. No acute renal abnormality. Cervical disc degenerative change. No fracture. Head CT 08/26/23 20:02 IMPRESSION: Mild cerebral volume loss and mild bilateral periventricular and central white matter diminished attenuation which is nonspecific but likely to represent microvascular disease. No acute renal abnormality. Cervical disc degenerative change. No fracture. Mental Status Exam Mental Status Exam Narrative: Appearance: wearing hospital gown, bruising edwar orbital, hair disheveled, in NAD Behavior: cooperative Speech: clear, normal rate/rhythm/volume, spontaneous Psychomotor: no agitation or retardation noted TP: mostly linear, no derailment or loose associations TC: wanting to go home soon as her cat is home alone (same as before) Mood: better Affect: congruent SI: denies HI: denies VH/AH: none Delusions: no overt delusional content noted or reported. Insight/judgment: fair x 2 Memory/cog: alert, oriented to place, situation, month and year. May recomend MOCA and other cognitive screening in community. Medications Medications Current Medications Amlodipine Besylate (Amlodipine Besylate 2.5 Mg Tablet) 2.5 mg PO DAILY [facility]; Protocol Last Admin: 08/27/23 07:48 Dose: 2.5 mg Aspirin (Aspirin Enteric Coated 81 Mg Tablet.) 81 mg PO DAILY [facility] Last Admin: 08/27/23 07:48 Dose: 81 mg Atorvastatin Calcium (Atorvastatin Calcium 20 Mg Tablet) 20 mg PO BEDTIME [facility] Last Admin: 08/26/23 23:31 Dose: 20 mg Clonazepam (Clonazepam 1 Mg Tablet) 1 mg PO BID [facility] Cyanocobalamin (Cyanocobalamin (Vitamin B-12) 1,000 Mcg Tablet) 1,000 mcg PO DAILY [facility] Last Admin: 08/27/23 07:48 Dose: 1,000 mcg Fenofibrate (Fenofibrate 160 Mg Tablet) 160 mg PO DAILY [facility] Last Admin: 08/27/23 09:13 Dose: 160 mg Hydroxychloroquine Sulfate (Hydroxychloroquine Sulfate 200 Mg Tablet) 200 mg PO BID [facility] Last Admin: 08/27/23 07:48 Dose: 200 mg Lamotrigine (Lamotrigine 100 Mg Tablet) 100 mg PO BEDTIME [facility] Last Admin: 08/26/23 23:31 Dose: 100 mg Omeprazole (Omeprazole 20 Mg Capsule.) 20 mg PO DAILY@0630 [facility] Last Admin: 08/27/23 05:45 Dose: 20 mg Allergies Allergies Allergy/AdvReac Type Severity Reaction Status Date / Time Benadryl Allergy Intermediate swelling, Verified 08/26/23 18:38 rash Assessment & Plan Assessment & Plan (1) Schizoaffective disorder: Qualifiers: Schizoaffective disorder type: bipolar Qualified Code(s): F25.0 - Schizoaffective disorder, bipolar type Status: Acute Code(s): F25.9 - Schizoaffective disorder, unspecified Plan Ms. Esparza is a 68 year-old woman with hx of Schizoaffective versus Bipolar Disorder who came after she noticed she had a bruise on her face and did not remember what had happen night before. Note pt has been on ambien, which is well known to cause parasomnias and pt will have no recollection of events of the night before as this medication causes significant amnesia. There has been increase concern in terms of her cognitive abilities as well as increase confusion in the past 2 months. Note that pt has been on fairly high dose of xanax 1mg po qid for several years in addition to ambien 10mg po qhs. New psych prescriber in attempt tp lower xanax and ambien had initiating gabapentin 900mg po qhs. However, doses of xanax and ambien continued the same which evidently gabapentin at this point, will only worsen side effects of ambien, xanax. I do suspect there is an underlying cognitive impairment but also current medications are greatly affecting her cognitive and memory. I would recommend to simply medication regimen to get a more accurate picture of her underlying cognitive and memory function. We discussed risks, benefits and alternative treatment options. STOP AMBIEN. I discussed with Mrs. Esparza that given that she has been on xanax for such prolonged time, taper will have to be very slow. She can switched to clonazepam or lower dose of xanax. I would also STOP gabapentin at this point- only adding to her confusion. PLAN 1. STOP AMBIEN, STOP GABAPENTIN. 2. Will try taper with clonazepam 1mg po BID- but may have to slowly lower dose of xanax, if pt not tolerating clonazepam taper. 3. I do no see active s/s of psychosis or delusions at this point. 4. Assessment of memory/cognition once pt off ambien and gabapentin for few day. Total time managing care of this patient today ____ minutes.
--- NOTE | 2023-08-27 19:35 | PC.NURSE ---
Pt AOx4, resting quietly in stretcher, pt uses bedside commode with steady gait, pt denies pain, VSS, wctm.
[2023-08-27] MEDS: lamoTRIgine 100 MG TABLET PO (20:53)
[2023-08-27] MEDS: clonazePAM 1 MG TABLET PO (20:53)
[2023-08-27] MEDS: Atorvastatin Calcium 20 MG TABLET PO (20:53)
[2023-08-28 06:07] VITALS: BP 142/71; PULSE 59; RESP 17; TEMP 36.7; O2SAT 97
[2023-08-28] MEDS: Omeprazole 20 MG CAPSULE.DR PO (06:23)
--- NOTE | 2023-08-28 06:30 | PC.NURSE ---
Pt ambulated to use the bedside commode with a steady gait. Pt calm and cooperative with no apparent distress.
[2023-08-28] MEDS: clonazePAM 1 MG TABLET PO ×2 (09:05→20:03)
[2023-08-28] MEDS: Cyanocobalamin (Vitamin B-12) 1,000 MCG TABLET 1000 MCG PO (09:05)
[2023-08-28] MEDS: Aspirin Enteric Coated 81 MG TABLET.DR PO (09:05)
[2023-08-28] MEDS: Hydroxychloroquine Sulfate 200 MG TABLET PO ×2 (09:05→20:03)
[2023-08-28] MEDS: amLODIPine Besylate 2.5 MG TABLET PO (09:05)
[2023-08-28] MEDS: Fenofibrate 160 MG TABLET PO (09:06)
--- NOTE | 2023-08-28 09:07 | PC.NURSE ---
patient a&ox3, sitting at bedside eating breakfast, pt medicated per order, vss, pt notable facial ecchymosis-orbital/periorbital areas, pt denies pain discomfort, call corral within reach, will continue to monitor
[2023-08-28] MEDS: Acetaminophen 325 MG TABLET 650 MG PO (10:37)
--- NOTE | 2023-08-28 10:38 | PC.NURSE ---
pt medicated for lower back pain 06/10
--- NOTE | 2023-08-28 12:30 | PC.NURSE ---
pt awake/alert, ate lunch at bedside, was oob with assist to commode, call corral within reach, will continue to monitor
[2023-08-28 14:00] VITALS: BP 136/68; PULSE 63; RESP 18; TEMP 36.8; O2SAT 97
--- NOTE | 2023-08-28 15:25 | PC.NURSE ---
patient awake/alert, vss, no current c/o pain or discomfort, call corral within reach, will continue to monitor
--- NOTE | 2023-08-28 16:00 | MHC.EDTECH ---
THIS PCT ASSUMED CARE OF PT AT 1500 ,VITALS SIGN TAKEN ,PT BELONGING LIST DONE ,PT WAS MOVED TO A HOSPITAL BED ,PT BROTHER HERE FOR A VISIT .
[2023-08-28 16:25] VITALS: BP 160/66; PULSE 68; RESP 16; TEMP 36.6; O2SAT 97
--- NOTE | 2023-08-28 16:35 | P.CNPS_ITS ---
History of Present Illness Date of Service: 08/28/2023 Chief Complaint: AMS Reason for Consult: confusion Requesting physician: Kera Maya Discussed with referring provider: Yes Sources of Information: patient interviewed, chart reviewed and crisis/core team assessment reviewed HPI Narrative: Interim Hx: pt reports sleeping well. She reports she does not have pain. She continues to present as oriented to place, situation, month. No overt psychosis or delusional content noted or reported but she does have hx of psychosis. Pt has been presenting as much more confused in past 2 months and brother concern about her ability to care for herself. Pt denies increase in anxiety. She denies depressed mood. No SI/HI. We discussed medication changes and fact that she may need to be supervised as it is safer to do it inpatient that OP. Also, spoke with her OP psych provider, Oksana Arellano- we discussed med changes including d/c gabapentin as may be increasing confusions in combination with benzo and then ambien (which has now been stopped). Oksana had plan to start Tracy on low dose risperidone. We discussed benzo taper but given that pt has been on xanax for such long time- may only be realistic to lower dose. Pt currently on clonazepam- as longer acting benzo to prevent withdrawal- pt today reports feeling well- but again, may not be realistic to taker her completely off. We also discussed d/c buspar as no clear benefit and avoid polypharmacy. [facility] Medical History (Updated 08/28/23 @ 10:30 by Frances Davis) Schizoaffective disorder Vitamin D deficiency History of transesophageal echocardiography (BRENDA) Cough Ascending aortic aneurysm Overweight (BMI 25.0-29.9) Anxiety Insomnia Vitamin B12 deficiency Leukocytosis (leucocytosis) Anemia Mixed hyperlipidemia Coronary artery disease Aortic stenosis Thoracic aortic aneurysm (~2019) Discoid lupus Bipolar disorder Surgical History Hx of colonoscopy Hx of thoracic aortic aneurysm repair History of aortic valve replacement with bioprosthetic valve H/O aortic valve replacement History of thumb surgery History of total abdominal hysterectomy and bilateral salpingo-oophorectomy S/P lumpectomy of breast History of appendectomy Diagnostics Vital Signs (24Hr): Vital Signs - 24 hr 08/27/23 19:43 08/27/23 23:16 08/28/23 06:07 Temperature 98.6 F 98.1 F Pulse Rate 58 56 59 Respiratory Rate 18 18 17 Blood Pressure 120/62 113/53 L 142/71 H Pulse Oximetry 96 97 Oxygen Delivery Method Room Air Room Air Room Air Oxygen Flow Rate 96 08/28/23 14:00 08/28/23 16:25 Temperature 98.3 F 97.8 F Pulse Rate 63 68 Respiratory Rate 18 16 Blood Pressure 136/68 160/66 H Pulse Oximetry 97 97 Oxygen Delivery Method Room Air Room Air Oxygen Flow Rate BMI result Body Mass Index 24.5 Labs 08/26/23 19:25 08/26/23 23:26 Labs: Laboratory Results - last 48 hr 08/26/23 08/26/23 08/26/23 19:25 22:24 23:26 WBC 5.8 RBC 3.54 L Hgb 10.8 L Hct 32.3 L MCV 91.2 MCH 30.5 MCHC 33.4 RDW 13.5 Plt Count 197 MPV 11.1 Immature Gran % (Auto) 0.2 Neut % (Auto) 62.2 Lymph % (Auto) 23.7 [place] % (Auto) 9.4 Eos % (Auto) 4.0 Baso % (Auto) 0.5 Lymph # (Auto) 1.4 [place] # (Auto) 0.5 Eos # (Auto) 0.2 Baso # (Auto) 0.0 Abs Immat Gran (auto) 0.01 Absolute Neuts (auto) 3.6 Absolute Nucleated RBC 0.000 Nucleated RBC % (auto) 0.0 PT 13.8 H INR 1.1 Sodium 146 H 146 H Potassium 3.4 3.4 Chloride 112 H 113 H Carbon Dioxide 25 22 Anion Gap 12 14 BUN 21 H 20 H Creatinine 0.89 0.87 Estim Creat Clear Calc 51.5 52.7 Estimated GFR > 60 > 60 Random Glucose 117 H 112 Calcium 9.5 9.1 Magnesium 1.7 Total Bilirubin 0.6 0.5 Direct Bilirubin 0.3 AST 39 H 36 H ALT 21 19 Alkaline Phosphatase 50 50 Troponin I High Sens 67.2 H* Total Protein 6.5 6.1 L Albumin 3.9 3.7 TSH 1.55 Urine Color Yellow Urine Appearance Turbid Urine pH 7.0 Ur Specific [place] 1.020 Urine Protein Trace Urine Glucose (UA) Negative Urine Ketones Negative Urine Blood Negative Urine Nitrite Negative Ur Leukocyte Esterase Negative Urine Opiates Screen Not Detected Urine Fentanyl Screen Not Detected Ur Barbiturates Screen Not Detected Ur Phencyclidine Scrn Not Detected Ur Amphetamines Screen Not Detected U Benzodiazepines Scrn POSITIVE H Urine Cocaine Screen Not Detected U Marijuana (THC) Screen POSITIVE H Ethyl Alcohol < 10 COVID-19 (SHASHA) Negative COVID-19 Clin Com See Note Imaging Radiology Impressions: ITS Impressions Chest X-Ray 08/26/23 19:49 IMPRESSION: No active cardiopulmonary disease. Cervical Spine CT 08/26/23 20:02 IMPRESSION: Mild cerebral volume loss and mild bilateral periventricular and central white matter diminished attenuation which is nonspecific but likely to represent microvascular disease. No acute renal abnormality. Cervical disc degenerative change. No fracture. Head CT 08/26/23 20:02 IMPRESSION: Mild cerebral volume loss and mild bilateral periventricular and central white matter diminished attenuation which is nonspecific but likely to represent microvascular disease. No acute renal abnormality. Cervical disc degenerative change. No fracture. Mental Status Exam Mental Status Exam Narrative: Appearance: wearing hospital gown, bruising edwar orbital, hair disheveled, in NAD Behavior: cooperative Speech: clear, normal rate/rhythm/volume, spontaneous Psychomotor: no agitation or retardation noted TP: mostly linear, no derailment or loose associations TC: wanting to go home soon as her cat is home alone (same as before) Mood: better Affect: congruent SI: denies HI: denies VH/AH: none Delusions: no overt delusional content noted or reported. Insight/judgment: fair x 2 Memory/cog: alert, oriented to place, situation, month and year. May recomend MOCA and other cognitive screening in community. Medications Medications Current Medications Acetaminophen (Acetaminophen 325 Mg Tablet) 650 mg PO Q6H PRN PRN Reason: Pain, Moderate(Pain Scale 4-6) Last Admin: 08/28/23 10:37 Dose: 650 mg Amlodipine Besylate (Amlodipine Besylate 2.5 Mg Tablet) 2.5 mg PO DAILY [facility]; Protocol Last Admin: 08/28/23 09:05 Dose: 2.5 mg Aspirin (Aspirin Enteric Coated 81 Mg Tablet.) 81 mg PO DAILY [facility] Last Admin: 08/28/23 09:05 Dose: 81 mg Atorvastatin Calcium (Atorvastatin Calcium 20 Mg Tablet) 20 mg PO BEDTIME [facility] Last Admin: 08/27/23 20:53 Dose: 20 mg Clonazepam (Clonazepam 1 Mg Tablet) 1 mg PO BID [facility] Last Admin: 08/28/23 09:05 Dose: 1 mg Cyanocobalamin (Cyanocobalamin (Vitamin B-12) 1,000 Mcg Tablet) 1,000 mcg PO DAILY [facility] Last Admin: 08/28/23 09:05 Dose: 1,000 mcg Fenofibrate (Fenofibrate 160 Mg Tablet) 160 mg PO DAILY [facility] Last Admin: 08/28/23 09:06 Dose: 160 mg Hydroxychloroquine Sulfate (Hydroxychloroquine Sulfate 200 Mg Tablet) 200 mg PO BID [facility] Last Admin: 08/28/23 09:05 Dose: 200 mg Lamotrigine (Lamotrigine 100 Mg Tablet) 100 mg PO BEDTIME [facility] Last Admin: 08/27/23 20:53 Dose: 100 mg Omeprazole (Omeprazole 20 Mg Capsule.Dr) 20 mg PO DAILY@0630 [facility] Last Admin: 08/28/23 06:23 Dose: 20 mg Risperidone (Risperidone 0.5 Mg Tablet) 0.5 mg PO BID [facility] Allergies Allergies Allergy/AdvReac Type Severity Reaction Status Date / Time Benadryl Allergy Intermediate swelling, Verified 08/26/23 18:38 rash Assessment & Plan Assessment & Plan (1) Schizoaffective disorder: Qualifiers: Schizoaffective disorder type: bipolar Qualified Code(s): F25.0 - Schizoaffective disorder, bipolar type Status: Acute Code(s): F25.9 - Schizoaffective disorder, unspecified Plan Ms. Esparza is a 68 year-old woman with hx of Schizoaffective versus Bipolar Disorder who came after she noticed she had a bruise on her face and did not remember what had happen night before. Note pt has been on ambien, which is well known to cause parasomnias and pt will have no recollection of events of the night before as this medication causes significant amnesia. There has been increase concern in terms of her cognitive abilities as well as increase confusion in the past 2 months. Note that pt has been on fairly high dose of xanax 1mg po qid for several years in addition to ambien 10mg po qhs. New psych prescriber in attempt tp lower xanax and ambien had initiating gabapentin 900mg po qhs. However, doses of xanax and ambien continued the same which evidently gabapentin at this point, will only worsen side effects of ambien, xanax. I do suspect there is an underlying cognitive impairment but also current medications are greatly affecting her cognitive and memory. I would recommend to simply medication regimen to get a more accurate picture of her underlying cognitive and memory function. We discussed risks, benefits and alternative treatment options. STOP AMBIEN. I discussed with Mrs. Esparza that given that she has been on xanax for such prolonged time, taper will have to be very slow. She can switched to clonazepam or lower dose of xanax. I would also STOP gabapentin at this point- only adding to her confusion. PLAN 1. STOP AMBIEN, STOP GABAPENTIN, Buspar (no clear therapeutic benefit- avoid polypharmacy) 2. Continue clonazepam 1mg po BID- but may have to slowly lower dose of xanax, if pt not tolerating clonazepam taper. 3. Will start low dose of risperidone 0.5mg po BID - as pt does have hx of psychosis/paranoia. 4. Assessment of memory/cognition once pt off ambien and gabapentin for few day. 08/28-->Also, spoke with her OP psych provider, Oksana Arellano- we discussed med changes including d/c gabapentin as may be increasing confusions in combination with benzo and then ambien (which has now been stopped). Oksana had plan to start Tracy on low dose risperidone. We discussed benzo taper but given that pt has been on xanax for such long time- may only be realistic to lower dose. Pt currently on clonazepam- as longer acting benzo to prevent withdrawal- pt today reports feeling well- but again, may not be realistic to taker her completely off. We also discussed d/c buspar as no clear benefit and avoid polypharmacy. * Given that pt has been presenting as more confused in past 2 months (do suspect that addition of gabapentin with same doses of ambien and xanax may have increase side effects these other meds and increase confusion), has been on xanax for decades- reduction of xanax or taper is safer in psychiatric unit- we may be also able to assess cognition once polypharmacy is less. Total time managing care of this patient today ____ minutes.
--- NOTE | 2023-08-28 18:10 | MHC.EDTECH ---
PATIENT REFUSED DINNER ,OMKAR BA .
--- NOTE | 2023-08-28 18:24 | MHC.EDTECH ---
PT DRANK 240 ML MILK .
--- NOTE | 2023-08-28 19:31 | PC.NURSE ---
Assumed care of pt. Pt lying on stretcher, obvious racoon eyes noted on assessment. Pt PCP called this RN to speak with pt, portable phone brought into room for pt. Pt denies complaints at this time, no acute distress noted, respirations even and unlabored.
[2023-08-28] MEDS: risperiDONE 0.5 MG TABLET PO ×2 (20:03→22:30)
[2023-08-28] MEDS: Atorvastatin Calcium 20 MG TABLET PO (20:03)
[2023-08-28] MEDS: lamoTRIgine 100 MG TABLET PO (20:03)
[2023-08-28 21:27] VITALS: BP 150/66; PULSE 66; RESP 16; TEMP 37.1; O2SAT 97
--- NOTE | 2023-08-28 22:32 | PC.NURSE ---
Pt medicated with one time dose of risperdone 0.5mg PO, tolerated well, denies pain at this time.
--- NOTE | 2023-08-28 23:40 | MHC.EDTECH ---
PATIENT GOT DRESS ,OMKAR SMALL SAID THAT WAS FINE .
--- NOTE | 2023-08-29 00:49 | PC.NURSE ---
Pt redirected and stated that she would agree to stay until morning. home lighting adviser no longer needed at this time. Pt calm and cooperative.
[2023-08-29] MEDS: Ibuprofen 400 MG TABLET PO (01:38)
--- NOTE | 2023-08-29 03:00 | PC.NURSE ---
Pt sleeping, easily rousable, no acute distress at this time. Pt under observation for fall risk.
--- NOTE | 2023-08-29 06:30 | PC.NURSE ---
While awake, pt demonstrating argumentative behaviors and agitation, remains redirectable. Security camera in place, bed alarm on, to ensure patient safety. Pt allowed to wear home clothing to minimize aggression with staff.
--- NOTE | 2023-08-29 07:08 | MHC.EDTECH ---
Breakfast tray given to pt
--- NOTE | 2023-08-29 07:14 | PC.NURSE ---
This RN assumed care of this pt at 0700. Pt is eating breakfast at this time. No apparent distress.
[2023-08-29 07:54] VITALS: BP 131/75; PULSE 80; RESP 18; TEMP 36.6; O2SAT 99
[2023-08-29] MEDS: risperiDONE 0.5 MG TABLET PO (07:59)
[2023-08-29] MEDS: Cyanocobalamin (Vitamin B-12) 1,000 MCG TABLET 1000 MCG PO (07:59)
[2023-08-29] MEDS: clonazePAM 1 MG TABLET PO (07:59)
[2023-08-29] MEDS: Hydroxychloroquine Sulfate 200 MG TABLET PO ×2 (07:59→21:19)
[2023-08-29] MEDS: Omeprazole 20 MG CAPSULE.DR PO (07:59)
[2023-08-29] MEDS: Aspirin Enteric Coated 81 MG TABLET.DR PO (07:59)
[2023-08-29] MEDS: amLODIPine Besylate 2.5 MG TABLET PO (07:59)
[2023-08-29] MEDS: Fenofibrate 160 MG TABLET PO (08:49)
--- NOTE | 2023-08-29 10:02 | MHC.CM.ED ---
Addendum entered by Pam Saunders 08/29/23 11:37: Received notification from Frances CHOW that patient is currently displaying psychosis behavior. Patient will be brought inpatient for psych. Original Note: Patient remains in ER. Psych consult completed. Med changes recommended. Patient can safely return home at this time because it is thought that memory issues have been related to Ambien. Patient is active with [facility]. Patient feels she can safely return home with resumption of services. [facility] has been made aware. Attempted to speak to patient's brother/HCP, Rasheed via telephone at [phone]. Unable to leave a message because voicemail is full. Will attempt to call again. Continue to monitor for d/c needs.
--- NOTE | 2023-08-29 13:24 | PC.NURSE ---
patient transferred from main ED perseveration about immediately calling brother who is at work right now gave client only two phone numbers which are in record. client refuses to change but not making any statements or gestures to harm self or others.
--- NOTE | 2023-08-29 15:50 | MHC.CARE ---
CARE Team left message with [employer] for authorization and awaiting a return call
--- NOTE | 2023-08-29 16:55 | PC.NURSE ---
During 1500 -1700 pt remianed calm and cooperative, pt was seen ambulating in common area with brisk steady gait. Pt rested comfortably and offered no complaints, pt was transfered to at 1700.
[2023-08-29 17:14] LABS: Alanine Aminotransferase 16 U/L (0-31); Alkaline Phosphatase 48 U/L (39-117); Anion Gap 15 (12-20); Aspartate Amino Transferase 30 U/L (5-31); Bilirubin Total 0.6 mg/dL (0.0-1.0); Blood Urea Nitrogen 25 mg/dL (9-16); Calcium 10.2 mg/dL (8.4-10.2); Carbon Dioxide 17 mmol/L (22-29); Chloride 112 mmol/L (96-108); Creatinine Clr Calc Pharmacy 39.2; Estimated Glomerular Filt Rate 46; Glucose Random 100 mg/dL (60-115); Potassium 4.8 mmol/L (3.3-5.1); Sodium 139 mmol/L (135-145); Total Protein 7.3 g/dL (6.5-8.0)
[2023-08-29 18:00] VITALS: BP 97/54; PULSE 78; RESP 17; TEMP 36.9; O2SAT 99
[2023-08-29] MEDS: Acetaminophen 325 MG TABLET 650 MG PO (18:54)
--- NOTE | 2023-08-29 19:11 | PC.ADMIT ---
Pt arrived to the unit at 16:55 from ED/[facility]. She had a fall at home and didn't remember that. Called her brother after she looked in the mirror and saw her bruised face in it. The brother called 911 and the pt was transferred to the ER at [facility]. Upon admission, pt alert and oriented x4. Legal status 12B. Skin check completed, facial bruising noted. Rest of the skin wnl. Pt medicated with PRN Tylenol before 19:00 for headache. Awaiting effectiveness. VS: 104/56-75-18, T 98.3, O2sat 97% on RA. Pt ambulates without device. Had supper on the unit, good po intake.
[2023-08-29] MEDS: risperiDONE 1 MG TABLET PO (21:19)
[2023-08-29] MEDS: Atorvastatin Calcium 20 MG TABLET PO (21:19)
[2023-08-29] MEDS: traZODone HCL 50 MG TABLET PO (21:19)
[2023-08-29] MEDS: lamoTRIgine 100 MG TABLET PO (21:19)
[2023-08-29] MEDS: clonazePAM 0.5 MG TABLET 1.5 MG PO (21:19)
[2023-08-30 04:45] VITALS: BMI 22.3
[2023-08-30] MEDS: Omeprazole 20 MG CAPSULE.DR PO (06:08)
[2023-08-30 07:30] VITALS: BP 122/65; PULSE 76; RESP 18; TEMP 36.6; O2SAT 98
[2023-08-30 08:18] LABS: Estimated Average Glucose 103 mg/dL; Hemoglobin A1c % 5.2 % (<6.0)
[2023-08-30 08:30] LABS: Alanine Aminotransferase 15 U/L (0-31); Albumin Level 4.2 g/dL (3.5-5.0); Alkaline Phosphatase 54 U/L (39-117); Anion Gap 14 (12-20); Aspartate Amino Transferase 28 U/L (5-31); Bilirubin Total 0.6 mg/dL (0.0-1.0); Blood Urea Nitrogen 32 mg/dL (9-16); Calcium 9.6 mg/dL (8.4-10.2); Carbon Dioxide 20 mmol/L (22-29); Chloride 108 mmol/L (96-108); Cholesterol 117 mg/dL (<200); Creatinine Clr Calc Pharmacy 38.5; Estimated Glomerular Filt Rate 45; Glucose Fasting 91 mg/dL (60-99); HDL Cholesterol 48 mg/dL (>40); LDL Cholesterol Calculated 38 mg/dL (<100); Potassium 3.9 mmol/L (3.3-5.1); Sodium 138 mmol/L (135-145); Total Protein 7.1 g/dL (6.5-8.0); Triglycerides 156 mg/dL (<150)
[2023-08-30 08:44] LABS: Thyroid Stimulating Hormone 1.48 uIU/mL (0.32-4.0)
[2023-08-30] MEDS: amLODIPine Besylate 2.5 MG TABLET PO (08:46)
[2023-08-30] MEDS: risperiDONE 1 MG TABLET PO ×2 (08:47→20:52)
[2023-08-30] MEDS: Cyanocobalamin (Vitamin B-12) 1,000 MCG TABLET 1000 MCG PO (08:47)
[2023-08-30] MEDS: Aspirin Enteric Coated 81 MG TABLET.DR PO (08:47)
[2023-08-30] MEDS: Hydroxychloroquine Sulfate 200 MG TABLET PO ×2 (08:47→20:53)
[2023-08-30] MEDS: clonazePAM 0.5 MG TABLET 1.5 MG PO (08:47)
[2023-08-30] MEDS: Fenofibrate 160 MG TABLET PO (08:47)
[2023-08-30 08:58] LABS: Folate 6.1 ng/mL (> or = 4.0); Vitamin B12 1466 pg/mL (200-900)
--- NOTE | 2023-08-30 10:15 | HO.PSYADMNOT ---
HPI Date of Service: 08/30/23 Chief Complaint: Psychosis Sources of Information: patient interviewed, chart reviewed and crisis/core team assessment reviewed HPI Subjective Notes: Field Warning (given and shows understanding.) and Section 12B Narrative: Mrs. Esparza is a 68 year-old woman with hx of Bipolar Disorder who self presented to ED reporting she had woken up and realized her face was bruised. She does not remember what happened and was very surprise in the morning when she looked herself on the mirror. She reports she talked with neighbors to ask if they had heard loud noise at night. Pt is known to this property underwriter through previous psych consult back in 08/09 when she was medically admitted for evaluation of paranoia. Utox was positive for cannabinoids. Pt seen in ED. She is able to recognize this property underwriter from previous encounter while she was on the medical floor. Pt expressed concerned as to what had happen to her at night and the fact that she has no recollection. Note that pt is on ambien, which causes parasomnia and people will have no recollection of what happen at night. I discussed with pt stopping ambien, which she is in agreement of. Pt also has been for several years on xanax 1mg po QID. We discusse concern of fairly high dose on benzo, in combination with ambien and its effects as she gets older on her cognitive and memory function as well as gait. She recently transition to a new psych provider, Oksana Arellano, who has been working with her to decrease concerning doses of xanax along with ambien. However, it appears pt continues to be on same dose of ambien 10mg po qhs, and xanax 1mg QID and gabapentin was added- which could be worsening situation as it increased the side effects of ambien and xanax if the doses of those two medications are not adjusted. While in the ED, pt started presenting as much more paranoid, reporting that nurses had guns and people were following her. She was agitated, worried that she was going to be killed and needed to get out of the hospital. She denied SI/HI. We had disucssed how medication changes for her are safer in the hospital as risk of benzodiazepine withdrawal is high given medications she has been on xanax 1mg po QID for several years. We also discussed starting risperidone for psychosis which she was in agreement with. Past Psychiatric History: Inpatient: several years ago OP: Oksana Arellano Past medication trials: rexuli, risperiodone, unknown what other meds. Medical Evaluation Reviewed: Yes [facility] Medical History (Updated 08/28/23 @ 10:30 by Frances Davis) Schizoaffective disorder Vitamin D deficiency History of transesophageal echocardiography (BRENDA) Cough Ascending aortic aneurysm Overweight (BMI 25.0-29.9) Anxiety Insomnia Vitamin B12 deficiency Leukocytosis (leucocytosis) Anemia Mixed hyperlipidemia Coronary artery disease Aortic stenosis Thoracic aortic aneurysm (~2019) Discoid lupus Bipolar disorder Surgical History Hx of colonoscopy Hx of thoracic aortic aneurysm repair History of aortic valve replacement with bioprosthetic valve H/O aortic valve replacement History of thumb surgery History of total abdominal hysterectomy and bilateral salpingo-oophorectomy S/P lumpectomy of breast History of appendectomy Family History: none Social History: pt lives alone in apartment. No children. She does have brother who is very supportive. Substance History: pt reports cannabinoid use once in a while but utox positive. Trauma History: denies Diagnostics Vital Signs (24Hr): Vital Signs - 24 hr 08/29/23 18:00 Temperature 98.4 F Pulse Rate 78 Respiratory Rate 17 Blood Pressure 97/54 L Pulse Oximetry 99 Oxygen Delivery Method Room Air BMI result Body Mass Index 22.3 Labs 08/26/23 19:25 08/30/23 07:49 Labs: Laboratory Results - last 48 hr 08/29/23 08/30/23 16:43 07:49 Sodium 139 138 Potassium 4.8 D 3.9 Chloride 112 H 108 Carbon Dioxide 17 L 20 L Anion Gap 15 14 BUN 25 H 32 H Creatinine 1.17 1.19 Estim Creat Clear Calc 39.2 38.5 Estimated GFR 46 45 Random Glucose 100 Fasting Glucose 91 Estimat Average Glucose 103 Hemoglobin A1c % 5.2 Calcium 10.2 D 9.6 Total Bilirubin 0.6 0.6 AST 30 28 ALT 16 15 Alkaline Phosphatase 48 54 Total Protein 7.3 7.1 Albumin 4.0 4.2 Triglycerides 156 H Cholesterol 117 LDL Cholesterol, Calc 38 HDL Cholesterol 48 Vitamin B12 1466 H Folate 6.1 TSH 1.48 Imaging Radiology Impressions: ITS Impressions Chest X-Ray 08/26/23 19:49 IMPRESSION: No active cardiopulmonary disease. Cervical Spine CT 08/26/23 20:02 IMPRESSION: Mild cerebral volume loss and mild bilateral periventricular and central white matter diminished attenuation which is nonspecific but likely to represent microvascular disease. No acute renal abnormality. Cervical disc degenerative change. No fracture. Head CT 08/26/23 20:02 IMPRESSION: Mild cerebral volume loss and mild bilateral periventricular and central white matter diminished attenuation which is nonspecific but likely to represent microvascular disease. No acute renal abnormality. Cervical disc degenerative change. No fracture. Meds/Allergies Meds Home Medications Medication Instructions Recorded Confirmed Type buspirone 15 mg tablet 15 mg PO DAILY 10/17/20 08/26/23 History alprazolam 1 mg tablet 1 mg PO QID PRN anxiety 07/25/21 08/26/23 History lamotrigine 100 mg tablet 100 mg PO BEDTIME 07/25/21 08/26/23 History hydroxychloroquine 200 mg tablet 200 mg PO BID 01/26/22 08/26/23 History (Plaquenil) gabapentin 100 mg capsule 200 mg PO DAILY PRN Anxiety 08/08/23 08/26/23 History gabapentin 300 mg capsule 900 mg PO BEDTIME 08/08/23 08/26/23 History zolpidem 10 mg tablet 10 mg PO BEDTIME PRN Insomnia 08/08/23 08/26/23 History Allergies Allergies Allergy/AdvReac Type Severity Reaction Status Date / Time Benadryl Allergy Intermediate swelling, Verified 08/26/23 18:38 rash Mental Status Exam Mental Status Exam Narrative: Appearance: wearing hospital gown, bruising edwar orbital, hair disheveled, in NAD Behavior: cooperative Speech: clear, normal rate/rhythm/volume, spontaneous Psychomotor: no agitation or retardation noted TP: mostly linear, no derailment or loose associations TC: wanting to go home soon as her cat is home alone (same as before), afraid she will be killed, people here in the hospital are trying to kill her. Mood: better Affect: congruent SI: denies HI: denies VH/AH: none Delusions: very paranoid about staff trying to kill her, mad because she believes nurses have guns, helicopter falling her, people after her. Insight/judgment: fair x 2 Memory/cog: alert, oriented to place, situation, month and year. Assessment & Plan Assessment & Plan (1) Schizoaffective disorder: Status: Acute Qualifiers: Schizoaffective disorder type: bipolar Qualified Code(s): F25.0 - Schizoaffective disorder, bipolar type Code(s): F25.9 - Schizoaffective disorder, unspecified Plan Ms. Esparza is a 68 year-old woman with hx of schizoaffective disorder who self presented to [facility] ED to injury on head which she had no recollection. It appeared it happened at night, she usually takes ambien, probable parasomnia and amnesia with ambien. Pt is known to this property underwriter through one medical consult earlier this month when pt reportedly presenting as more paranoid but also more confused in the past 2 months. She has been on xanax 1mg po QID for decades and ambien. She had not been on antipsychotic since 2019. She recently transferred care to new provider as her OP psychiatrist retired. She was started on gabapentin about 2 months ago and buspar. Combination of xanax and ambien and then gabapentin increased side effects, contributing to her confusion. Parnaoia and psychosis not treated with antipsychotics. We discussed risks, benefits and alternative treatment options, start risperidone in ED which was titrated to 1mg po BID. Ambien was d/c. Switched from xanax to clonazepam- coming off benzos may not be realistic but at least a lower, safer dose. Given that she was on xanax 1mg po QID- equivalent of 4mg of clonazepam initially started on 1.5mg po BID, but will decrease to 1mg po BID continue to monitor benzodiazepine withdrawal and adjust dose. PLAN 1. Admit to S1, sect 12b, 5 min checks 2. risperidone 1mg po BID 3. clonazepam 1mg po BID. 4. Obtain collateral information- obtained from Oksana Arellano, pending collateral from Rasheed- brother [phone] 5. Aftercare planning Patient educated on: diagnosis and medication risk/benefits Informed Consent: understands Reason for continued inpatient stay Substantial Risk for: inability to function Statement Statement: I have reviewed the history and physical and performed a pertinent examination on my patient. No changes have occurred unless specified. If the History and Physical was not performed prior to admission, the Hospitalist's service will be consulted for completing the admission physical. Time Spent With Patient Time: Total time managing care of this patient today ____ minutes.
[2023-08-30] MEDS: Acetaminophen 325 MG TABLET 650 MG PO (12:06)
[2023-08-30 13:54] VITALS: BP 122/65; PULSE 76; RESP 18; TEMP 36.6; O2SAT 98
[2023-08-30 18:00] VITALS: BP 123/68; PULSE 86; RESP 16; TEMP 36.2; O2SAT 100
[2023-08-30] MEDS: clonazePAM 1 MG TABLET PO (20:52)
[2023-08-30] MEDS: Atorvastatin Calcium 20 MG TABLET PO (20:52)
[2023-08-30] MEDS: lamoTRIgine 100 MG TABLET PO (20:53)
[2023-08-31] MEDS: Omeprazole 20 MG CAPSULE.DR PO (06:22)
[2023-08-31 08:00] VITALS: BP 113/59; PULSE 66; RESP 16; TEMP 36.4; O2SAT 99
[2023-08-31] MEDS: risperiDONE 1 MG TABLET PO ×2 (08:41→20:42)
[2023-08-31] MEDS: Fenofibrate 160 MG TABLET PO (08:41)
[2023-08-31] MEDS: clonazePAM 1 MG TABLET PO ×2 (08:41→20:43)
[2023-08-31] MEDS: Aspirin Enteric Coated 81 MG TABLET.DR PO (08:41)
[2023-08-31] MEDS: Hydroxychloroquine Sulfate 200 MG TABLET PO ×2 (08:41→20:44)
[2023-08-31] MEDS: Cyanocobalamin (Vitamin B-12) 1,000 MCG TABLET 1000 MCG PO (08:41)
[2023-08-31] MEDS: amLODIPine Besylate 2.5 MG TABLET PO (08:41)
--- NOTE | 2023-08-31 11:37 | HO.PSYCHPN ---
Subjective Subjective Date of Service: 08/31/23 Reason For Visit: Psychosis Subjective Notes: Section 12B Interim History: Pt presents as calmer, less paranoid. However, pt continues to report people were following her and maybe still do but feels safer here. She denies SI/HI. She reports feeling less anxious. Per nursing, pt slept through the night. VS stable. no signs of benzo withdrawal. She is taking medications as prescribed. Medication Compliance: Yes Side effects from medications: No Attending Groups: Yes Review of Systems Review of Systems Constitutional : No Weight loss, No Fever, No Chills, No Night Sweats, No Fatigue, No Malaise ENT/Mouth : No Hearing loss, No Ear Pain, No Nasal Congestion, No Sinus Pain, No Hoarseness, No sore throat, No Rhinorrhea, No Swallowing Difficulty Eyes: No Eye Pain, No Swelling, No Redness, No Foreign Body, No Discharge, No Vision Changes Cardiovascular : No Chest Pain, No SOB, No Dyspnea on Exertion, No Orthopnea, No Edema, No Palpitations Respiratory : No Cough, No Sputum, No Wheezing, No Smoke Exposure, No Dyspnea Gastrointestinal : No Nausea, No Vomiting, No Diarrhea, No Constipation, No abdominal Pain, No Hematochezia, No Melena Genitourinary : no irregular bleeding, No Dysuria, No Urinary Frequency, No Hematuria, No Urinary Incontinence, No Urgency, No Flank Pain, No Urinary Flow Changes, No Hesitancy Musculoskeletal : No joint pain, No Myalgias, No Joint Swelling Skin : Complaining of ecchymosis around her eyes Neuro : No Weakness, No Numbness, No Paresthesias, No Loss of Consciousness, No Dizziness, No Headache Psych : No Anxiety/Panic, No Depression, No SI/HI/AH/VH, No Social Issues, Heme/Lymph: No Bruising, No Bleeding,No Lymphadenopathy Endocrine : No Polyuria, No Polydipsia, No Temperature Intolerance Mental Status Exam Mental Status Exam Narrative: Appearance: wearing hospital gown, bruising edwar orbital, hair disheveled, in NAD Behavior: cooperative Speech: clear, normal rate/rhythm/volume, spontaneous Psychomotor: no agitation or retardation noted TP: mostly linear, no derailment or loose associations TC: wanting to go home soon as her cat is home alone (same as before), afraid she will be killed, people here in the hospital are trying to kill her. Mood: better Affect: congruent SI: denies HI: denies VH/AH: none Delusions: very paranoid about staff trying to kill her, mad because she believes nurses have guns, helicopter falling her, people after her. Insight/judgment: fair x 2 Memory/cog: alert, oriented to place, situation, month and year. Diagnostics Vital Signs (24Hr): Vital Signs - 24 hr 08/30/23 13:54 08/30/23 18:00 08/31/23 08:00 Temperature 97.8 F 97.1 F 97.6 F Pulse Rate 76 86 66 Respiratory Rate 18 16 16 Blood Pressure 122/65 123/68 113/59 L Pulse Oximetry 98 100 99 Oxygen Delivery Method Room Air Room Air Room Air BMI result Body Mass Index 22.3 Labs 08/26/23 19:25 08/30/23 07:49 Labs: Laboratory Results - last 48 hr 08/29/23 08/30/23 16:43 07:49 Sodium 139 138 Potassium 4.8 D 3.9 Chloride 112 H 108 Carbon Dioxide 17 L 20 L Anion Gap 15 14 BUN 25 H 32 H Creatinine 1.17 1.19 Estim Creat Clear Calc 39.2 38.5 Estimated GFR 46 45 Random Glucose 100 Fasting Glucose 91 Estimat Average Glucose 103 Hemoglobin A1c % 5.2 Calcium 10.2 D 9.6 Total Bilirubin 0.6 0.6 AST 30 28 ALT 16 15 Alkaline Phosphatase 48 54 Total Protein 7.3 7.1 Albumin 4.0 4.2 Triglycerides 156 H Cholesterol 117 LDL Cholesterol, Calc 38 HDL Cholesterol 48 Vitamin B12 1466 H Folate 6.1 TSH 1.48 Imaging Radiology Impressions: ITS Impressions Chest X-Ray 08/26/23 19:49 IMPRESSION: No active cardiopulmonary disease. Cervical Spine CT 08/26/23 20:02 IMPRESSION: Mild cerebral volume loss and mild bilateral periventricular and central white matter diminished attenuation which is nonspecific but likely to represent microvascular disease. No acute renal abnormality. Cervical disc degenerative change. No fracture. Head CT 08/26/23 20:02 IMPRESSION: Mild cerebral volume loss and mild bilateral periventricular and central white matter diminished attenuation which is nonspecific but likely to represent microvascular disease. No acute renal abnormality. Cervical disc degenerative change. No fracture. Medications Medications Current Medications Acetaminophen (Acetaminophen 325 Mg Tablet) 650 mg PO Q6H PRN PRN Reason: Pain, Moderate(Pain Scale 4-6) Last Admin: 08/30/23 12:06 Dose: 650 mg Amlodipine Besylate (Amlodipine Besylate 2.5 Mg Tablet) 2.5 mg PO DAILY [facility]; Protocol Last Admin: 08/31/23 08:41 Dose: 2.5 mg Aspirin (Aspirin Enteric Coated 81 Mg Tablet.) 81 mg PO DAILY [facility] Last Admin: 08/31/23 08:41 Dose: 81 mg Atorvastatin Calcium (Atorvastatin Calcium 20 Mg Tablet) 20 mg PO BEDTIME [facility] Last Admin: 08/30/23 20:52 Dose: 20 mg Clonazepam (Clonazepam 1 Mg Tablet) 1 mg PO BID [facility] Last Admin: 08/31/23 08:41 Dose: 1 mg Cyanocobalamin (Cyanocobalamin (Vitamin B-12) 1,000 Mcg Tablet) 1,000 mcg PO DAILY [facility] Last Admin: 08/31/23 08:41 Dose: 1,000 mcg Fenofibrate (Fenofibrate 160 Mg Tablet) 160 mg PO DAILY [facility] Last Admin: 08/31/23 08:41 Dose: 160 mg Hydroxychloroquine Sulfate (Hydroxychloroquine Sulfate 200 Mg Tablet) 200 mg PO BID [facility] Last Admin: 08/31/23 08:41 Dose: 200 mg Lamotrigine (Lamotrigine 100 Mg Tablet) 100 mg PO BEDTIME [facility] Last Admin: 08/30/23 20:53 Dose: 100 mg Magnesium Hydroxide (Milk Of Magnesia 30 Ml Oral.Susp) 30 ml PO DAILY PRN PRN Reason: Constipation Olanzapine (Olanzapine Odt 10 Mg Tab.Rapdis) 5 mg TRANSLINGU Q6H PRN PRN Reason: agitation Omeprazole (Omeprazole 20 Mg Capsule.) 20 mg PO DAILY@0630 [facility] Last Admin: 08/31/23 06:22 Dose: 20 mg Risperidone (Risperidone 1 Mg Tablet) 1 mg PO BID [facility] Last Admin: 08/31/23 08:41 Dose: 1 mg Trazodone HCl (Trazodone Hcl 50 Mg Tablet) 50 mg PO BEDTIME MRX1 PRN PRN Reason: Insomnia Last Admin: 08/29/23 21:19 Dose: 50 mg Allergies Allergies Allergy/AdvReac Type Severity Reaction Status Date / Time Benadryl Allergy Intermediate swelling, Verified 08/26/23 18:38 rash Assessment & Plan Assessment & Plan (1) Schizoaffective disorder: Qualifiers: Schizoaffective disorder type: bipolar Qualified Code(s): F25.0 - Schizoaffective disorder, bipolar type Status: Acute Code(s): F25.9 - Schizoaffective disorder, unspecified Plan Ms. Esparza is a 68 year-old woman with hx of schizoaffective disorder who self presented to [facility] ED to injury on head which she had no recollection. It appeared it happened at night, she usually takes ambien, probable parasomnia and amnesia with ambien. Pt is known to this promotion writer through one medical consult earlier this month when pt reportedly presenting as more paranoid but also more confused in the past 2 months. She has been on xanax 1mg po QID for decades and ambien. She had not been on antipsychotic since 2019. She recently transferred care to new provider as her OP psychiatrist retired. She was started on gabapentin about 2 months ago and buspar. Combination of xanax and ambien and then gabapentin increased side effects, contributing to her confusion. Parnaoia and psychosis not treated with antipsychotics. We discussed risks, benefits and alternative treatment options, start risperidone in ED which was titrated to 1mg po BID. Ambien was d/c. Switched from xanax to clonazepam- coming off benzos may not be realistic but at least a lower, safer dose. Given that she was on xanax 1mg po QID- equivalent of 4mg of clonazepam initially started on 1.5mg po BID, but will decrease to 1mg po BID continue to monitor benzodiazepine withdrawal and adjust dose. PLAN 08/31 continue current medications. Reason for continued inpatient stay Substantial Risk for: inability to function Time Spent With Patient Time: Total time managing care of this patient today ____ minutes.
[2023-08-31 18:00] VITALS: BP 130/68; PULSE 78; RESP 16; TEMP 37; O2SAT 96
[2023-08-31] MEDS: Atorvastatin Calcium 20 MG TABLET PO (20:43)
[2023-08-31] MEDS: traZODone HCL 50 MG TABLET PO (20:44)
[2023-08-31] MEDS: lamoTRIgine 100 MG TABLET PO (20:44)
[2023-09-01] MEDS: Omeprazole 20 MG CAPSULE.DR PO (06:25)
[2023-09-01] MEDS: Acetaminophen 325 MG TABLET 650 MG PO (06:29)
[2023-09-01 08:12] VITALS: BP 129/60; PULSE 60; RESP 16; TEMP 36.3; O2SAT 100
[2023-09-01] MEDS: clonazePAM 1 MG TABLET PO ×2 (08:14→21:24)
[2023-09-01] MEDS: Fenofibrate 160 MG TABLET PO (08:14)
[2023-09-01] MEDS: amLODIPine Besylate 2.5 MG TABLET PO (08:14)
[2023-09-01] MEDS: risperiDONE 1 MG TABLET PO ×2 (08:14→21:24)
[2023-09-01] MEDS: Hydroxychloroquine Sulfate 200 MG TABLET PO ×2 (08:14→21:24)
[2023-09-01] MEDS: Aspirin Enteric Coated 81 MG TABLET.DR PO (08:14)
[2023-09-01] MEDS: Cyanocobalamin (Vitamin B-12) 1,000 MCG TABLET 1000 MCG PO (08:14)
--- NOTE | 2023-09-01 14:53 | P.PNPSI_ITS ---
Subjective Subjective Date of Service: 09/01/23 Reason For Visit: Psychosis Subjective Notes: Section 12B Interim History: Pt presents as less paranoid and less suspicious. She reports her roommate wakes up several times during the day. She reports feeling safe on the unit. She denies VH/AH. She reports she is glad about not having any side effects with decrease in benzo's dose and d/c ambien and gabapentin. She has been visible on the unit, somewhat suspicious about medicaitons hen RN giving it to her otherwise very pleasant. Review of Systems Review of Systems Constitutional : No Weight loss, No Fever, No Chills, No Night Sweats, No Fatigue, No Malaise ENT/Mouth : No Hearing loss, No Ear Pain, No Nasal Congestion, No Sinus Pain, No Hoarseness, No sore throat, No Rhinorrhea, No Swallowing Difficulty Eyes: No Eye Pain, No Swelling, No Redness, No Foreign Body, No Discharge, No Vision Changes Cardiovascular : No Chest Pain, No SOB, No Dyspnea on Exertion, No Orthopnea, No Edema, No Palpitations Respiratory : No Cough, No Sputum, No Wheezing, No Smoke Exposure, No Dyspnea Gastrointestinal : No Nausea, No Vomiting, No Diarrhea, No Constipation, No abdominal Pain, No Hematochezia, No Melena Genitourinary : no irregular bleeding, No Dysuria, No Urinary Frequency, No Hematuria, No Urinary Incontinence, No Urgency, No Flank Pain, No Urinary Flow Changes, No Hesitancy Musculoskeletal : No joint pain, No Myalgias, No Joint Swelling Skin : Complaining of ecchymosis around her eyes Neuro : No Weakness, No Numbness, No Paresthesias, No Loss of Consciousness, No Dizziness, No Headache Psych : No Anxiety/Panic, No Depression, No SI/HI/AH/VH, No Social Issues, Heme/Lymph: No Bruising, No Bleeding,No Lymphadenopathy Endocrine : No Polyuria, No Polydipsia, No Temperature Intolerance Mental Status Exam Mental Status Exam Narrative: Appearance: wearing hospital gown, bruising edwar orbital, hair disheveled, in NAD Behavior: cooperative Speech: clear, normal rate/rhythm/volume, spontaneous Psychomotor: no agitation or retardation noted TP: mostly linear, no derailment or loose associations TC: wanting to go home soon as her cat is home alone (same as before), afraid she will be killed, people here in the hospital are trying to kill her. Mood: better Affect: congruent SI: denies HI: denies VH/AH: none Delusions: very paranoid about staff trying to kill her, mad because she believes nurses have guns, helicopter falling her, people after her. Insight/judgment: fair x 2 Memory/cog: alert, oriented to place, situation, month and year. Diagnostics Vital Signs (24Hr): Vital Signs - 24 hr 08/31/23 18:00 09/01/23 08:12 Temperature 98.6 F 97.3 F Pulse Rate 78 60 Respiratory Rate 16 16 Blood Pressure 130/68 129/60 Pulse Oximetry 96 100 Oxygen Delivery Method Room Air Room Air BMI result Body Mass Index 22.3 Labs 08/26/23 19:25 08/30/23 07:49 Imaging Radiology Impressions: ITS Impressions Chest X-Ray 08/26/23 19:49 IMPRESSION: No active cardiopulmonary disease. Cervical Spine CT 08/26/23 20:02 IMPRESSION: Mild cerebral volume loss and mild bilateral periventricular and central white matter diminished attenuation which is nonspecific but likely to represent microvascular disease. No acute renal abnormality. Cervical disc degenerative change. No fracture. Head CT 08/26/23 20:02 IMPRESSION: Mild cerebral volume loss and mild bilateral periventricular and central white matter diminished attenuation which is nonspecific but likely to represent microvascular disease. No acute renal abnormality. Cervical disc degenerative change. No fracture. Medications Medications Current Medications Acetaminophen (Acetaminophen 325 Mg Tablet) 650 mg PO Q6H PRN PRN Reason: Pain, Moderate(Pain Scale 4-6) Last Admin: 09/01/23 06:29 Dose: 650 mg Amlodipine Besylate (Amlodipine Besylate 2.5 Mg Tablet) 2.5 mg PO DAILY [facility]; Protocol Last Admin: 09/01/23 08:14 Dose: 2.5 mg Aspirin (Aspirin Enteric Coated 81 Mg Tablet.Dr) 81 mg PO DAILY [facility] Last Admin: 09/01/23 08:14 Dose: 81 mg Atorvastatin Calcium (Atorvastatin Calcium 20 Mg Tablet) 20 mg PO BEDTIME [facility] Last Admin: 08/31/23 20:43 Dose: 20 mg Clonazepam (Clonazepam 1 Mg Tablet) 1 mg PO BID [facility] Last Admin: 09/01/23 08:14 Dose: 1 mg Cyanocobalamin (Cyanocobalamin (Vitamin B-12) 1,000 Mcg Tablet) 1,000 mcg PO DAILY [facility] Last Admin: 09/01/23 08:14 Dose: 1,000 mcg Fenofibrate (Fenofibrate 160 Mg Tablet) 160 mg PO DAILY [facility] Last Admin: 09/01/23 08:14 Dose: 160 mg Hydroxychloroquine Sulfate (Hydroxychloroquine Sulfate 200 Mg Tablet) 200 mg PO BID [facility] Last Admin: 09/01/23 08:14 Dose: 200 mg Lamotrigine (Lamotrigine 100 Mg Tablet) 100 mg PO BEDTIME [facility] Last Admin: 08/31/23 20:44 Dose: 100 mg Magnesium Hydroxide (Milk Of Magnesia 30 Ml Oral.Susp) 30 ml PO DAILY PRN PRN Reason: Constipation Olanzapine (Olanzapine Odt 10 Mg Tab.Rapdis) 5 mg TRANSLINGU Q6H PRN PRN Reason: agitation Omeprazole (Omeprazole 20 Mg Capsule.Dr) 20 mg PO DAILY@0630 [facility] Last Admin: 09/01/23 06:25 Dose: 20 mg Risperidone (Risperidone 1 Mg Tablet) 1 mg PO BID [facility] Last Admin: 09/01/23 08:14 Dose: 1 mg Trazodone HCl (Trazodone Hcl 50 Mg Tablet) 50 mg PO BEDTIME MRX1 PRN PRN Reason: Insomnia Last Admin: 08/31/23 20:44 Dose: 50 mg Allergies Allergies Allergy/AdvReac Type Severity Reaction Status Date / Time Benadryl Allergy Intermediate swelling, Verified 08/26/23 18:38 rash Assessment & Plan Assessment & Plan (1) Schizoaffective disorder: Qualifiers: Schizoaffective disorder type: bipolar Qualified Code(s): F25.0 - Schizoaffective disorder, bipolar type Status: Acute Code(s): F25.9 - Schizoaffective disorder, unspecified Plan Ms. Esparza is a 68 year-old woman with hx of schizoaffective disorder who self presented to [facility] to injury on head which she had no recollection. It appeared it happened at night, she usually takes ambien, probable parasomnia and amnesia with ambien. Pt is known to this card writer hand through one medical consult earlier this month when pt reportedly presenting as more paranoid but also more confused in the past 2 months. She has been on xanax 1mg po QID for decades and ambien. She had not been on antipsychotic since 2019. She recently transferred care to new provider as her OP psychiatrist retired. She was started on gabapentin about 2 months ago and buspar. Combination of xanax and ambien and then gabapentin increased side effects, contributing to her confusion. Parnaoia and psychosis not treated with antipsychotics. We discussed risks, benefits and alternative treatment options, start risperidone in ED which was titrated to 1mg po BID. Ambien was d/c. Switched from xanax to clonazepam- coming off benzos may not be realistic but at least a lower, safer dose. Given that she was on xanax 1mg po QID- equivalent of 4mg of clonazepam initially started on 1.5mg po BID, but will decrease to 1mg po BID continue to monitor benzodiazepine withdrawal and adjust dose. PLAN 1. Admit to S1, sect 12b, 5 min checks 2. may try decrease clonazepam to 0.5mg po BID. continue risperidone 1mg po BID. Reason for continued inpatient stay Substantial Risk for: inability to function Time Spent With Patient Time: Total time managing care of this patient today ____ minutes.
[2023-09-01 18:00] VITALS: BP 134/65; PULSE 65; RESP 18; TEMP 36.5; O2SAT 99
[2023-09-01] MEDS: lamoTRIgine 100 MG TABLET PO (21:24)
[2023-09-01] MEDS: Atorvastatin Calcium 20 MG TABLET PO (21:24)
[2023-09-02] MEDS: Omeprazole 20 MG CAPSULE.DR PO (05:43)
[2023-09-02 07:50] VITALS: BP 120/58; PULSE 63; RESP 18; TEMP 36.4; O2SAT 99
[2023-09-02] MEDS: Acetaminophen 325 MG TABLET 650 MG PO ×2 (08:02→21:21)
[2023-09-02] MEDS: amLODIPine Besylate 2.5 MG TABLET PO (08:02)
[2023-09-02] MEDS: Fenofibrate 160 MG TABLET PO (08:02)
[2023-09-02] MEDS: Aspirin Enteric Coated 81 MG TABLET.DR PO (08:02)
[2023-09-02] MEDS: Hydroxychloroquine Sulfate 200 MG TABLET PO ×2 (08:02→21:15)
[2023-09-02] MEDS: Cyanocobalamin (Vitamin B-12) 1,000 MCG TABLET 1000 MCG PO (08:02)
[2023-09-02] MEDS: clonazePAM 0.5 MG TABLET PO ×2 (08:02→21:15)
[2023-09-02] MEDS: risperiDONE 1 MG TABLET PO ×2 (08:02→21:15)
--- NOTE | 2023-09-02 16:56 | HO.PSYCHPN ---
Subjective Subjective Date of Service: 09/02/23 Reason For Visit: Psychosis Subjective Notes: Conditional Voluntary Interim History: The nursing staff reported the patient had been pleasant, cooperative, fully compliant with treatment. She does not have any insight into her condition. The occupational therapy reported that she attends to groups and watch TV. On interview the patient denies new symptoms, she has an idea what happened why she had the lesions on her face probably she bumped at home. No safety concerns at this moment Mental Status Exam Mental Status Exam Patient Appearance: Well Grooomed and Appropriate Patient Orientation: Person and Situation Level of Consciousness: Awake and Appropriate Patient Behavior: Guarded and Passive Mood Description: Withdrawn Affect Description: Constricted Patient Cognition Impaired: Yes Ability to Follow Directions: Good Speech Pattern: Clear Hallucinations: None Delusions: Not Present Thought Process: Distracted and Slowed Thinking Thought Content: positive for [place] and positive for Poverty of Content Judgement: Fair Diagnostics Vital Signs (24Hr): Vital Signs - 24 hr 09/01/23 18:00 09/02/23 07:50 Temperature 97.7 F 97.6 F Pulse Rate 65 63 Respiratory Rate 18 18 Blood Pressure 134/65 120/58 L Pulse Oximetry 99 99 Oxygen Delivery Method Room Air Room Air BMI result Body Mass Index 22.3 Labs 08/26/23 19:25 08/30/23 07:49 Imaging Radiology Impressions: ITS Impressions Chest X-Ray 08/26/23 19:49 IMPRESSION: No active cardiopulmonary disease. Cervical Spine CT 08/26/23 20:02 IMPRESSION: Mild cerebral volume loss and mild bilateral periventricular and central white matter diminished attenuation which is nonspecific but likely to represent microvascular disease. No acute renal abnormality. Cervical disc degenerative change. No fracture. Head CT 08/26/23 20:02 IMPRESSION: Mild cerebral volume loss and mild bilateral periventricular and central white matter diminished attenuation which is nonspecific but likely to represent microvascular disease. No acute renal abnormality. Cervical disc degenerative change. No fracture. Medications Medications Current Medications Acetaminophen (Acetaminophen 325 Mg Tablet) 650 mg PO Q6H PRN PRN Reason: Pain, Moderate(Pain Scale 4-6) Last Admin: 09/02/23 08:02 Dose: 650 mg Amlodipine Besylate (Amlodipine Besylate 2.5 Mg Tablet) 2.5 mg PO DAILY [facility]; Protocol Last Admin: 09/02/23 08:02 Dose: 2.5 mg Aspirin (Aspirin Enteric Coated 81 Mg Tablet.) 81 mg PO DAILY [facility] Last Admin: 09/02/23 08:02 Dose: 81 mg Atorvastatin Calcium (Atorvastatin Calcium 20 Mg Tablet) 20 mg PO BEDTIME [facility] Last Admin: 09/01/23 21:24 Dose: 20 mg Clonazepam (Clonazepam 0.5 Mg Tablet) 0.5 mg PO BID [facility] Last Admin: 09/02/23 08:02 Dose: 0.5 mg Cyanocobalamin (Cyanocobalamin (Vitamin B-12) 1,000 Mcg Tablet) 1,000 mcg PO DAILY [facility] Last Admin: 09/02/23 08:02 Dose: 1,000 mcg Fenofibrate (Fenofibrate 160 Mg Tablet) 160 mg PO DAILY [facility] Last Admin: 09/02/23 08:02 Dose: 160 mg Hydroxychloroquine Sulfate (Hydroxychloroquine Sulfate 200 Mg Tablet) 200 mg PO BID [facility] Last Admin: 09/02/23 08:02 Dose: 200 mg Lamotrigine (Lamotrigine 100 Mg Tablet) 100 mg PO BEDTIME [facility] Last Admin: 09/01/23 21:24 Dose: 100 mg Magnesium Hydroxide (Milk Of Magnesia 30 Ml Oral.Susp) 30 ml PO DAILY PRN PRN Reason: Constipation Olanzapine (Olanzapine Odt 10 Mg Tab.Rapdis) 5 mg TRANSLINGU Q6H PRN PRN Reason: agitation Omeprazole (Omeprazole 20 Mg Capsule.) 20 mg PO DAILY@0630 [facility] Last Admin: 09/02/23 05:43 Dose: 20 mg Risperidone (Risperidone 1 Mg Tablet) 1 mg PO BID [facility] Last Admin: 09/02/23 08:02 Dose: 1 mg Trazodone HCl (Trazodone Hcl 50 Mg Tablet) 50 mg PO BEDTIME MRX1 PRN PRN Reason: Insomnia Last Admin: 08/31/23 20:44 Dose: 50 mg Allergies Allergies Allergy/AdvReac Type Severity Reaction Status Date / Time Benadryl Allergy Intermediate swelling, Verified 08/26/23 18:38 rash Assessment & Plan Assessment & Plan (1) Schizoaffective disorder: Qualifiers: Schizoaffective disorder type: bipolar Qualified Code(s): F25.0 - Schizoaffective disorder, bipolar type Status: Acute Code(s): F25.9 - Schizoaffective disorder, unspecified Plan Ms. Esparza is a 68 year-old woman with hx of schizoaffective disorder who self presented to [facility] ED to injury on head which she had no recollection. It appeared it happened at night, she usually takes ambien, probable parasomnia and amnesia with ambien. Pt is known to this caption writer through one medical consult earlier this month when pt reportedly presenting as more paranoid but also more confused in the past 2 months. She has been on xanax 1mg po QID for decades and ambien. She had not been on antipsychotic since 2019. She recently transferred care to new provider as her OP psychiatrist retired. She was started on gabapentin about 2 months ago and buspar. Combination of xanax and ambien and then gabapentin increased side effects, contributing to her confusion. Parnaoia and psychosis not treated with antipsychotics. We discussed risks, benefits and alternative treatment options, start risperidone in ED which was titrated to 1mg po BID. Ambien was d/c. Switched from xanax to clonazepam- coming off benzos may not be realistic but at least a lower, safer dose. Given that she was on xanax 1mg po QID- equivalent of 4mg of clonazepam initially started on 1.5mg po BID, but will decrease to 1mg po BID continue to monitor benzodiazepine withdrawal and adjust dose. PLAN 1. Admit to S1, sect 12b, 5 min checks 2. risperidone 1mg po BID 3. clonazepam 1mg po BID. 4. Obtain collateral information- obtained from Oksana Arellano, pending collateral from Rasheed- brother [phone] 5. Aftercare planning Reason for continued inpatient stay Substantial Risk for: inability to function, rapid decompensation and med/psych decompensation Time Spent With Patient Time: Total time managing care of this patient today __20__ minutes.
[2023-09-02 18:00] VITALS: BP 137/61; PULSE 71; RESP 16; TEMP 36.6; O2SAT 98
[2023-09-02] MEDS: Atorvastatin Calcium 20 MG TABLET PO (21:15)
[2023-09-02] MEDS: lamoTRIgine 100 MG TABLET PO (21:15)
[2023-09-03] MEDS: traZODone HCL 50 MG TABLET PO ×2 (02:30→23:11)
[2023-09-03] MEDS: Omeprazole 20 MG CAPSULE.DR PO (06:08)
[2023-09-03 08:05] VITALS: BP 122/60; PULSE 67; RESP 18; TEMP 36.5; O2SAT 98
[2023-09-03] MEDS: risperiDONE 1 MG TABLET PO ×2 (08:19→20:33)
[2023-09-03] MEDS: amLODIPine Besylate 2.5 MG TABLET PO (08:19)
[2023-09-03] MEDS: Fenofibrate 160 MG TABLET PO (08:19)
[2023-09-03] MEDS: Aspirin Enteric Coated 81 MG TABLET.DR PO (08:19)
[2023-09-03] MEDS: clonazePAM 0.5 MG TABLET PO ×2 (08:19→20:33)
[2023-09-03] MEDS: Cyanocobalamin (Vitamin B-12) 1,000 MCG TABLET 1000 MCG PO (08:19)
[2023-09-03] MEDS: Hydroxychloroquine Sulfate 200 MG TABLET PO ×2 (08:20→20:33)
--- NOTE | 2023-09-03 13:04 | HO.PSYCHPN ---
Subjective Subjective Date of Service: 09/03/23 Reason For Visit: Psychosis Subjective Notes: Conditional Voluntary Interim History: The nursing staff reported the patient has been pleasant cooperative, compliant with medications. She needed p.r.n. medications at night for insomnia. The social work job titles reported that we will have a family meeting next with her outpatient providers. Most likely she will need also VNA services. On interview the patient denies new symptoms according to the team will have a possible discharge next Saturday. Mental Status Exam Mental Status Exam Patient Appearance: Appropriate Patient Orientation: Person and Situation Level of Consciousness: Awake and Appropriate Patient Behavior: Appropriate and Cooperative Mood Description: Withdrawn Affect Description: Constricted Patient Cognition Impaired: Yes Ability to Follow Directions: Good Speech Pattern: Clear Hallucinations: None Delusions: Not Present Thought Process: Distracted and Slowed Thinking Thought Content: positive for [place] and positive for Poverty of Content Judgement: Fair Diagnostics Vital Signs (24Hr): Vital Signs - 24 hr 09/02/23 18:00 09/03/23 08:05 Temperature 98 F 97.7 F Pulse Rate 71 67 Respiratory Rate 16 18 Blood Pressure 137/61 122/60 Pulse Oximetry 98 98 Oxygen Delivery Method Room Air Room Air BMI result Body Mass Index 22.3 Labs 08/26/23 19:25 08/30/23 07:49 Imaging Radiology Impressions: ITS Impressions Chest X-Ray 08/26/23 19:49 IMPRESSION: No active cardiopulmonary disease. Cervical Spine CT 08/26/23 20:02 IMPRESSION: Mild cerebral volume loss and mild bilateral periventricular and central white matter diminished attenuation which is nonspecific but likely to represent microvascular disease. No acute renal abnormality. Cervical disc degenerative change. No fracture. Head CT 08/26/23 20:02 IMPRESSION: Mild cerebral volume loss and mild bilateral periventricular and central white matter diminished attenuation which is nonspecific but likely to represent microvascular disease. No acute renal abnormality. Cervical disc degenerative change. No fracture. Medications Medications Current Medications Acetaminophen (Acetaminophen 325 Mg Tablet) 650 mg PO Q6H PRN PRN Reason: Pain, Moderate(Pain Scale 4-6) Last Admin: 09/02/23 21:21 Dose: 650 mg Amlodipine Besylate (Amlodipine Besylate 2.5 Mg Tablet) 2.5 mg PO DAILY [facility]; Protocol Last Admin: 09/03/23 08:19 Dose: 2.5 mg Aspirin (Aspirin Enteric Coated 81 Mg Tablet.) 81 mg PO DAILY [facility] Last Admin: 09/03/23 08:19 Dose: 81 mg Atorvastatin Calcium (Atorvastatin Calcium 20 Mg Tablet) 20 mg PO BEDTIME [facility] Last Admin: 09/02/23 21:15 Dose: 20 mg Clonazepam (Clonazepam 0.5 Mg Tablet) 0.5 mg PO BID [facility] Last Admin: 09/03/23 08:19 Dose: 0.5 mg Cyanocobalamin (Cyanocobalamin (Vitamin B-12) 1,000 Mcg Tablet) 1,000 mcg PO DAILY [facility] Last Admin: 09/03/23 08:19 Dose: 1,000 mcg Fenofibrate (Fenofibrate 160 Mg Tablet) 160 mg PO DAILY [facility] Last Admin: 09/03/23 08:19 Dose: 160 mg Hydroxychloroquine Sulfate (Hydroxychloroquine Sulfate 200 Mg Tablet) 200 mg PO BID [facility] Last Admin: 09/03/23 08:20 Dose: 200 mg Lamotrigine (Lamotrigine 100 Mg Tablet) 100 mg PO BEDTIME [facility] Last Admin: 09/02/23 21:15 Dose: 100 mg Magnesium Hydroxide (Milk Of Magnesia 30 Ml Oral.Susp) 30 ml PO DAILY PRN PRN Reason: Constipation Olanzapine (Olanzapine Odt 10 Mg Tab.Rapdis) 5 mg TRANSLINGU Q6H PRN PRN Reason: agitation Omeprazole (Omeprazole 20 Mg Capsule.) 20 mg PO DAILY@0630 [facility] Last Admin: 09/03/23 06:08 Dose: 20 mg Risperidone (Risperidone 1 Mg Tablet) 1 mg PO BID [facility] Last Admin: 09/03/23 08:19 Dose: 1 mg Trazodone HCl (Trazodone Hcl 50 Mg Tablet) 50 mg PO BEDTIME MRX1 PRN PRN Reason: Insomnia Last Admin: 09/03/23 02:30 Dose: 50 mg Allergies Allergies Allergy/AdvReac Type Severity Reaction Status Date / Time Benadryl Allergy Intermediate swelling, Verified 08/26/23 18:38 rash Assessment & Plan Assessment & Plan (1) Schizoaffective disorder: Qualifiers: Schizoaffective disorder type: bipolar Qualified Code(s): F25.0 - Schizoaffective disorder, bipolar type Status: Acute Code(s): F25.9 - Schizoaffective disorder, unspecified Plan Ms. Esparza is a 68 year-old woman with hx of schizoaffective disorder who self presented to [facility] to injury on head which she had no recollection. It appeared it happened at night, she usually takes ambien, probable parasomnia and amnesia with ambien. Pt is known to this sheet writer through one medical consult earlier this month when pt reportedly presenting as more paranoid but also more confused in the past 2 months. She has been on xanax 1mg po QID for decades and ambien. She had not been on antipsychotic since 2019. She recently transferred care to new provider as her OP psychiatrist retired. She was started on gabapentin about 2 months ago and buspar. Combination of xanax and ambien and then gabapentin increased side effects, contributing to her confusion. Parnaoia and psychosis not treated with antipsychotics. We discussed risks, benefits and alternative treatment options, start risperidone in ED which was titrated to 1mg po BID. Ambien was d/c. Switched from xanax to clonazepam- coming off benzos may not be realistic but at least a lower, safer dose. Given that she was on xanax 1mg po QID- equivalent of 4mg of clonazepam initially started on 1.5mg po BID, but will decrease to 1mg po BID continue to monitor benzodiazepine withdrawal and adjust dose. PLAN 1. Admit to S1, sect 12b, 5 min checks 2. risperidone 1mg po BID 3. clonazepam 1mg po BID. 4. Obtain collateral information- obtained from Oksana Arellano, pending collateral from Rasheed- brother [phone] 5. Aftercare planning Reason for continued inpatient stay Substantial Risk for: inability to function, rapid decompensation and med/psych decompensation Time Spent With Patient Time: Total time managing care of this patient today __20__ minutes.
[2023-09-03 20:10] VITALS: BP 117/60; PULSE 66; RESP 18; TEMP 36.1; O2SAT 97
[2023-09-03] MEDS: lamoTRIgine 100 MG TABLET PO (20:33)
[2023-09-03] MEDS: Atorvastatin Calcium 20 MG TABLET PO (20:33)
[2023-09-04 06:00] VITALS: BP 126/57; PULSE 61; RESP 18; TEMP 36.7; O2SAT 99
[2023-09-04] MEDS: Omeprazole 20 MG CAPSULE.DR PO (06:32)
--- NOTE | 2023-09-04 08:51 | P.PNPSI_ITS ---
Subjective Subjective Date of Service: 09/04/23 Reason For Visit: Psychosis Subjective Notes: Conditional Voluntary Healthcare Proxy: Yes Interim History: Pt reports feeling much calmer. She denies SI/HI. Much less paranoid delusions. No aggression towards self or others. She is visible social with select peers. She takes medications as prescribed. She reports waking up few times as roommate wakes up and light is on. No behavioral concerns. Review of Systems Review of Systems Constitutional : No Weight loss, No Fever, No Chills, No Night Sweats, No Fatigue, No Malaise ENT/Mouth : No Hearing loss, No Ear Pain, No Nasal Congestion, No Sinus Pain, No Hoarseness, No sore throat, No Rhinorrhea, No Swallowing Difficulty Eyes: No Eye Pain, No Swelling, No Redness, No Foreign Body, No Discharge, No Vision Changes Cardiovascular : No Chest Pain, No SOB, No Dyspnea on Exertion, No Orthopnea, No Edema, No Palpitations Respiratory : No Cough, No Sputum, No Wheezing, No Smoke Exposure, No Dyspnea Gastrointestinal : No Nausea, No Vomiting, No Diarrhea, No Constipation, No abdominal Pain, No Hematochezia, No Melena Genitourinary : no irregular bleeding, No Dysuria, No Urinary Frequency, No Hematuria, No Urinary Incontinence, No Urgency, No Flank Pain, No Urinary Flow Changes, No Hesitancy Musculoskeletal : No joint pain, No Myalgias, No Joint Swelling Skin : Complaining of ecchymosis around her eyes Neuro : No Weakness, No Numbness, No Paresthesias, No Loss of Consciousness, No Dizziness, No Headache Psych : No Anxiety/Panic, No Depression, No SI/HI/AH/VH, No Social Issues, Heme/Lymph: No Bruising, No Bleeding,No Lymphadenopathy Endocrine : No Polyuria, No Polydipsia, No Temperature Intolerance Mental Status Exam Mental Status Exam Narrative: Appearance: wearing hospital gown, bruising edwar orbital, hair disheveled, in NAD Behavior: cooperative Speech: clear, normal rate/rhythm/volume, spontaneous Psychomotor: no agitation or retardation noted TP: mostly linear, no derailment or loose associations TC: wanting to go home soon as her cat is home alone (same as before), afraid she will be killed, people here in the hospital are trying to kill her. Mood: better Affect: congruent SI: denies HI: denies VH/AH: none Delusions: very paranoid about staff trying to kill her, mad because she believes nurses have guns, helicopter falling her, people after her. Insight/judgment: fair x 2 Memory/cog: alert, oriented to place, situation, month and year. Diagnostics Vital Signs (24Hr): Vital Signs - 24 hr 09/03/23 20:10 Temperature 96.9 F Pulse Rate 66 Respiratory Rate 18 Blood Pressure 117/60 Pulse Oximetry 97 Oxygen Delivery Method Room Air BMI result Body Mass Index 22.3 Labs 08/26/23 19:25 08/30/23 07:49 Imaging Radiology Impressions: ITS Impressions Chest X-Ray 08/26/23 19:49 IMPRESSION: No active cardiopulmonary disease. Cervical Spine CT 08/26/23 20:02 IMPRESSION: Mild cerebral volume loss and mild bilateral periventricular and central white matter diminished attenuation which is nonspecific but likely to represent microvascular disease. No acute renal abnormality. Cervical disc degenerative change. No fracture. Head CT 08/26/23 20:02 IMPRESSION: Mild cerebral volume loss and mild bilateral periventricular and central white matter diminished attenuation which is nonspecific but likely to represent microvascular disease. No acute renal abnormality. Cervical disc degenerative change. No fracture. Medications Medications Current Medications Acetaminophen (Acetaminophen 325 Mg Tablet) 650 mg PO Q6H PRN PRN Reason: Pain, Moderate(Pain Scale 4-6) Last Admin: 09/02/23 21:21 Dose: 650 mg Amlodipine Besylate (Amlodipine Besylate 2.5 Mg Tablet) 2.5 mg PO DAILY [facility]; Protocol Last Admin: 09/03/23 08:19 Dose: 2.5 mg Aspirin (Aspirin Enteric Coated 81 Mg Tablet.) 81 mg PO DAILY [facility] Last Admin: 09/03/23 08:19 Dose: 81 mg Atorvastatin Calcium (Atorvastatin Calcium 20 Mg Tablet) 20 mg PO BEDTIME [facility] Last Admin: 09/03/23 20:33 Dose: 20 mg Clonazepam (Clonazepam 0.5 Mg Tablet) 0.5 mg PO BID [facility] Last Admin: 09/03/23 20:33 Dose: 0.5 mg Cyanocobalamin (Cyanocobalamin (Vitamin B-12) 1,000 Mcg Tablet) 1,000 mcg PO DAILY [facility] Last Admin: 09/03/23 08:19 Dose: 1,000 mcg Fenofibrate (Fenofibrate 160 Mg Tablet) 160 mg PO DAILY [facility] Last Admin: 09/03/23 08:19 Dose: 160 mg Hydroxychloroquine Sulfate (Hydroxychloroquine Sulfate 200 Mg Tablet) 200 mg PO BID [facility] Last Admin: 09/03/23 20:33 Dose: 200 mg Lamotrigine (Lamotrigine 100 Mg Tablet) 100 mg PO BEDTIME [facility] Last Admin: 09/03/23 20:33 Dose: 100 mg Magnesium Hydroxide (Milk Of Magnesia 30 Ml Oral.Susp) 30 ml PO DAILY PRN PRN Reason: Constipation Olanzapine (Olanzapine Odt 10 Mg Tab.Rapdis) 5 mg TRANSLINGU Q6H PRN PRN Reason: agitation Omeprazole (Omeprazole 20 Mg Capsule.Dr) 20 mg PO DAILY@0630 [facility] Last Admin: 09/04/23 06:32 Dose: 20 mg Risperidone (Risperidone 1 Mg Tablet) 1 mg PO BID [facility] Last Admin: 09/03/23 20:33 Dose: 1 mg Trazodone HCl (Trazodone Hcl 50 Mg Tablet) 50 mg PO BEDTIME MRX1 PRN PRN Reason: Insomnia Last Admin: 09/03/23 23:11 Dose: 50 mg Allergies Allergies Allergy/AdvReac Type Severity Reaction Status Date / Time Benadryl Allergy Intermediate swelling, Verified 08/26/23 18:38 rash Assessment & Plan Assessment & Plan (1) Schizoaffective disorder: Qualifiers: Schizoaffective disorder type: bipolar Qualified Code(s): F25.0 - Schizoaffective disorder, bipolar type Status: Acute Code(s): F25.9 - Schizoaffective disorder, unspecified Plan Ms. Esparza is a 68 year-old woman with hx of schizoaffective disorder who self presented to [facility] ED to injury on head which she had no recollection. It appeared it happened at night, she usually takes ambien, probable parasomnia and amnesia with ambien. Pt is known to this typewriter mechanic through one medical consult earlier this month when pt reportedly presenting as more paranoid but also more confused in the past 2 months. She has been on xanax 1mg po QID for decades and ambien. She had not been on antipsychotic since 2019. She recently transferred care to new provider as her OP psychiatrist retired. She was started on gabapentin about 2 months ago and buspar. Combination of xanax and ambien and then gabapentin increased side effects, contributing to her confusion. Parnaoia and psychosis not treated with antipsychotics. We discussed risks, benefits and alternative treatment options, start risperidone in ED which was titrated to 1mg po BID. Ambien was d/c. Switched from xanax to clonazepam- coming off benzos may not be realistic but at least a lower, safer dose. Given that she was on xanax 1mg po QID- equivalent of 4mg of clonazepam initially started on 1.5mg po BID, but will decrease to 1mg po BID continue to monitor benzodiazepine withdrawal and adjust dose. PLAN 1. Admit to S1, sect 12b, 5 min checks 09/04 continue current medications. clonazepam 0.5mg po BID, risperidone 1mg po BID. Reason for continued inpatient stay Substantial Risk for: inability to function Time Spent With Patient Time: Total time managing care of this patient today ____ minutes.
[2023-09-04] MEDS: Aspirin Enteric Coated 81 MG TABLET.DR PO (09:16)
[2023-09-04] MEDS: risperiDONE 1 MG TABLET PO ×2 (09:16→20:34)
[2023-09-04] MEDS: Cyanocobalamin (Vitamin B-12) 1,000 MCG TABLET 1000 MCG PO (09:16)
[2023-09-04] MEDS: clonazePAM 0.5 MG TABLET PO ×2 (09:16→20:34)
[2023-09-04] MEDS: Hydroxychloroquine Sulfate 200 MG TABLET PO ×2 (09:16→20:34)
[2023-09-04] MEDS: amLODIPine Besylate 2.5 MG TABLET PO (09:16)
[2023-09-04] MEDS: Fenofibrate 160 MG TABLET PO (09:16)
[2023-09-04 18:00] VITALS: BP 127/66; PULSE 79; RESP 16; TEMP 36; O2SAT 99
[2023-09-04] MEDS: lamoTRIgine 100 MG TABLET PO (20:34)
[2023-09-04] MEDS: Atorvastatin Calcium 20 MG TABLET PO (20:34)
[2023-09-05] MEDS: traZODone HCL 50 MG TABLET PO ×2 (01:39→20:34)
[2023-09-05] MEDS: Omeprazole 20 MG CAPSULE.DR PO (06:23)
[2023-09-05 07:00] VITALS: BMI 23.1
[2023-09-05 08:54] VITALS: BP 113/58; PULSE 69; RESP 16; TEMP 36.7; O2SAT 99
[2023-09-05] MEDS: clonazePAM 0.5 MG TABLET PO (08:56)
[2023-09-05] MEDS: amLODIPine Besylate 2.5 MG TABLET PO (08:56)
[2023-09-05] MEDS: Fenofibrate 160 MG TABLET PO (08:56)
[2023-09-05] MEDS: Aspirin Enteric Coated 81 MG TABLET.DR PO (08:56)
[2023-09-05] MEDS: risperiDONE 1 MG TABLET PO ×2 (08:56→20:34)
[2023-09-05] MEDS: Hydroxychloroquine Sulfate 200 MG TABLET PO ×2 (08:56→20:34)
[2023-09-05] MEDS: Cyanocobalamin (Vitamin B-12) 1,000 MCG TABLET 1000 MCG PO (08:56)
--- NOTE | 2023-09-05 12:34 | HO.PSYCHPN ---
Subjective Subjective Date of Service: 09/05/23 Reason For Visit: Psychosis Subjective Notes: Conditional Voluntary Interim History: Pt reports some difficult sleeping due to roommate- nursing reports pt slept through the night. Pt presents as much less paranoid, less VH/AH. Pt is calm, pleasant on approach. No aggression towards self or others. She has been taking medications as prescribed. Family meeting with brother to discuss med changes, update on progress and aftercare planning. Review of Systems Review of Systems Constitutional : No Weight loss, No Fever, No Chills, No Night Sweats, No Fatigue, No Malaise ENT/Mouth : No Hearing loss, No Ear Pain, No Nasal Congestion, No Sinus Pain, No Hoarseness, No sore throat, No Rhinorrhea, No Swallowing Difficulty Eyes: No Eye Pain, No Swelling, No Redness, No Foreign Body, No Discharge, No Vision Changes Cardiovascular : No Chest Pain, No SOB, No Dyspnea on Exertion, No Orthopnea, No Edema, No Palpitations Respiratory : No Cough, No Sputum, No Wheezing, No Smoke Exposure, No Dyspnea Gastrointestinal : No Nausea, No Vomiting, No Diarrhea, No Constipation, No abdominal Pain, No Hematochezia, No Melena Genitourinary : no irregular bleeding, No Dysuria, No Urinary Frequency, No Hematuria, No Urinary Incontinence, No Urgency, No Flank Pain, No Urinary Flow Changes, No Hesitancy Musculoskeletal : No joint pain, No Myalgias, No Joint Swelling Skin : Complaining of ecchymosis around her eyes Neuro : No Weakness, No Numbness, No Paresthesias, No Loss of Consciousness, No Dizziness, No Headache Psych : No Anxiety/Panic, No Depression, No SI/HI/AH/VH, No Social Issues, Heme/Lymph: No Bruising, No Bleeding,No Lymphadenopathy Endocrine : No Polyuria, No Polydipsia, No Temperature Intolerance Mental Status Exam Mental Status Exam Narrative: Appearance: wearing hospital gown, bruising edwar orbital, hair disheveled, in NAD Behavior: cooperative Speech: clear, normal rate/rhythm/volume, spontaneous Psychomotor: no agitation or retardation noted TP: mostly linear, no derailment or loose associations TC: wanting to go home soon as her cat is home alone (same as before), afraid she will be killed, people here in the hospital are trying to kill her. Mood: better Affect: congruent SI: denies HI: denies VH/AH: none Delusions: very paranoid about staff trying to kill her, mad because she believes nurses have guns, helicopter falling her, people after her. Insight/judgment: fair x 2 Memory/cog: alert, oriented to place, situation, month and year. Diagnostics Vital Signs (24Hr): Vital Signs - 24 hr 09/04/23 18:00 09/05/23 08:54 Temperature 96.8 F 98.1 F Pulse Rate 79 69 Respiratory Rate 16 16 Blood Pressure 127/66 113/58 L Pulse Oximetry 99 99 Oxygen Delivery Method Room Air Room Air BMI result Body Mass Index 22.3 Labs 08/26/23 19:25 08/30/23 07:49 Imaging Radiology Impressions: ITS Impressions Chest X-Ray 08/26/23 19:49 IMPRESSION: No active cardiopulmonary disease. Cervical Spine CT 08/26/23 20:02 IMPRESSION: Mild cerebral volume loss and mild bilateral periventricular and central white matter diminished attenuation which is nonspecific but likely to represent microvascular disease. No acute renal abnormality. Cervical disc degenerative change. No fracture. Head CT 08/26/23 20:02 IMPRESSION: Mild cerebral volume loss and mild bilateral periventricular and central white matter diminished attenuation which is nonspecific but likely to represent microvascular disease. No acute renal abnormality. Cervical disc degenerative change. No fracture. Medications Medications Current Medications Acetaminophen (Acetaminophen 325 Mg Tablet) 650 mg PO Q6H PRN PRN Reason: Pain, Moderate(Pain Scale 4-6) Last Admin: 09/02/23 21:21 Dose: 650 mg Amlodipine Besylate (Amlodipine Besylate 2.5 Mg Tablet) 2.5 mg PO DAILY [facility]; Protocol Last Admin: 09/05/23 08:56 Dose: 2.5 mg Aspirin (Aspirin Enteric Coated 81 Mg Tablet.) 81 mg PO DAILY [facility] Last Admin: 09/05/23 08:56 Dose: 81 mg Atorvastatin Calcium (Atorvastatin Calcium 20 Mg Tablet) 20 mg PO BEDTIME [facility] Last Admin: 09/04/23 20:34 Dose: 20 mg Clonazepam (Clonazepam 0.5 Mg Tablet) 0.5 mg PO BID [facility] Last Admin: 09/05/23 08:56 Dose: 0.5 mg Cyanocobalamin (Cyanocobalamin (Vitamin B-12) 1,000 Mcg Tablet) 1,000 mcg PO DAILY [facility] Last Admin: 10/05/23 08:56 Dose: 1,000 mcg Fenofibrate (Fenofibrate 160 Mg Tablet) 160 mg PO DAILY [facility] Last Admin: 09/05/23 08:56 Dose: 160 mg Hydroxychloroquine Sulfate (Hydroxychloroquine Sulfate 200 Mg Tablet) 200 mg PO BID [facility] Last Admin: 09/05/23 08:56 Dose: 200 mg Lamotrigine (Lamotrigine 100 Mg Tablet) 100 mg PO BEDTIME [facility] Last Admin: 09/04/23 20:34 Dose: 100 mg Magnesium Hydroxide (Milk Of Magnesia 30 Ml Oral.Susp) 30 ml PO DAILY PRN PRN Reason: Constipation Olanzapine (Olanzapine Odt 10 Mg Tab.Rapdis) 5 mg TRANSLINGU Q6H PRN PRN Reason: agitation Omeprazole (Omeprazole 20 Mg Capsule.Dr) 20 mg PO DAILY@0630 [facility] Last Admin: 09/05/23 06:23 Dose: 20 mg Risperidone (Risperidone 1 Mg Tablet) 1 mg PO BID [facility] Last Admin: 09/05/23 08:56 Dose: 1 mg Trazodone HCl (Trazodone Hcl 50 Mg Tablet) 50 mg PO BEDTIME MRX1 PRN PRN Reason: Insomnia Last Admin: 09/05/23 01:39 Dose: 50 mg Allergies Allergies Allergy/AdvReac Type Severity Reaction Status Date / Time Benadryl Allergy Intermediate swelling, Verified 08/26/23 18:38 rash Assessment & Plan Assessment & Plan (1) Schizoaffective disorder: Qualifiers: Schizoaffective disorder type: bipolar Qualified Code(s): F25.0 - Schizoaffective disorder, bipolar type Status: Acute Code(s): F25.9 - Schizoaffective disorder, unspecified Plan Ms. Esparza is a 68 year-old woman with hx of schizoaffective disorder who self presented to [facility] ED to injury on head which she had no recollection. It appeared it happened at night, she usually takes ambien, probable parasomnia and amnesia with ambien. Pt is known to this global technical writer through one medical consult earlier this month when pt reportedly presenting as more paranoid but also more confused in the past 2 months. She has been on xanax 1mg po QID for decades and ambien. She had not been on antipsychotic since 2019. She recently transferred care to new provider as her OP psychiatrist retired. She was started on gabapentin about 2 months ago and buspar. Combination of xanax and ambien and then gabapentin increased side effects, contributing to her confusion. Parnaoia and psychosis not treated with antipsychotics. We discussed risks, benefits and alternative treatment options, start risperidone in ED which was titrated to 1mg po BID. Ambien was d/c. Switched from xanax to clonazepam- coming off benzos may not be realistic but at least a lower, safer dose. Given that she was on xanax 1mg po QID- equivalent of 4mg of clonazepam initially started on 1.5mg po BID, but will decrease to 1mg po BID continue to monitor benzodiazepine withdrawal and adjust dose. PLAN 1. Admit to S1, sect 12b, 5 min checks 09/04 continue current medications. clonazepam 0.5mg po BID, risperidone 1mg po BID. 09/05 continue tx. Reason for continued inpatient stay Substantial Risk for: inability to function Time Spent With Patient Time: Total time managing care of this patient today ____ minutes.
[2023-09-05 19:50] VITALS: BP 116/55; PULSE 59; RESP 18; TEMP 36.5; O2SAT 99
[2023-09-05] MEDS: Acetaminophen 325 MG TABLET 650 MG PO (20:33)
[2023-09-05] MEDS: lamoTRIgine 100 MG TABLET PO (20:34)
[2023-09-05] MEDS: Atorvastatin Calcium 20 MG TABLET PO (20:34)
[2023-09-06 07:53] VITALS: BP 115/56; PULSE 77; RESP 19; TEMP 36.8; O2SAT 99
[2023-09-06] MEDS: Fenofibrate 160 MG TABLET PO (08:05)
[2023-09-06] MEDS: Aspirin Enteric Coated 81 MG TABLET.DR PO (08:05)
[2023-09-06] MEDS: risperiDONE 1 MG TABLET PO (08:05)
[2023-09-06] MEDS: Cyanocobalamin (Vitamin B-12) 1,000 MCG TABLET 1000 MCG PO (08:05)
[2023-09-06] MEDS: Hydroxychloroquine Sulfate 200 MG TABLET PO (08:05)
[2023-09-06] MEDS: amLODIPine Besylate 2.5 MG TABLET PO (08:05)
--- NOTE | 2023-09-06 09:35 | PM.PSYDC ---
DS: Providers Provider Date of Service: 09/06/23 Date of admission: 08/29/23 16:21 Date of discharge: 09/06/23 Primary care physician: Laurent Gtz MD DS: Diagnosis Discharge Diagnosis (1) Schizoaffective disorder: Status: Acute DS: Medications Discharge Medications Home Medications: Previous Rx's Medication Instructions Recorded amlodipine 2.5 mg tablet 2.5 mg PO DAILY #30 tabs 09/06/23 aspirin 81 mg tablet,delayed 81 mg PO DAILY #30 tabs 09/06/23 release atorvastatin 20 mg tablet 20 mg PO BEDTIME #30 tabs 09/06/23 clonazepam 0.5 mg tablet 0.5 mg PO BID #60 tabs 09/06/23 cyanocobalamin (vitamin B-12) 1,000 mcg PO DAILY #30 tabs 09/06/23 1,000 mcg tablet (Vitamin B-12) fenofibrate 160 mg tablet 160 mg PO DAILY #30 tabs 09/06/23 hydroxychloroquine 200 mg tablet 200 mg PO BID #60 tabs 09/06/23 lamotrigine 100 mg tablet 100 mg PO BEDTIME #30 tabs 09/06/23 omeprazole 20 mg capsule,delayed 20 mg PO DAILY@0630 #30 caps 09/06/23 release risperidone 1 mg tablet 1 mg PO BID #60 tabs 09/06/23 trazodone 50 mg tablet 50 mg PO BEDTIME PRN Insomnia #30 09/06/23 tabs Mental Status Exam Mental Status Exam Narrative: Appearance: wearing hospital gown, bruising edwar orbital, hair disheveled, in NAD Behavior: cooperative Speech: clear, normal rate/rhythm/volume, spontaneous Psychomotor: no agitation or retardation noted TP: mostly linear, no derailment or loose associations TC: wanting to go home soon as her cat is home alone (same as before), afraid she will be killed, people here in the hospital are trying to kill her. Mood: better Affect: congruent SI: denies HI: denies VH/AH: none Delusions: very paranoid about staff trying to kill her, mad because she believes nurses have guns, helicopter falling her, people after her. Insight/judgment: fair x 2 Memory/cog: alert, oriented to place, situation, month and year. Data Imaging Diagnostic Imaging Impressions Chest X-Ray 08/26/23 19:49 IMPRESSION: No active cardiopulmonary disease. Cervical Spine CT 08/26/23 20:02 IMPRESSION: Mild cerebral volume loss and mild bilateral periventricular and central white matter diminished attenuation which is nonspecific but likely to represent microvascular disease. No acute renal abnormality. Cervical disc degenerative change. No fracture. Head CT 08/26/23 20:02 IMPRESSION: Mild cerebral volume loss and mild bilateral periventricular and central white matter diminished attenuation which is nonspecific but likely to represent microvascular disease. No acute renal abnormality. Cervical disc degenerative change. No fracture. DS: Summary Hospital Course Hospital Course: Mrs. Esparza is a 68 year-old woman with hx of Bipolar Disorder who self presented to ED reporting she had woken up and realized her face was bruised. She does not remember what happened and was very surprise in the morning when she looked herself on the mirror. She reports she talked with neighbors to ask if they had heard loud noise at night. Pt is known to this publications writer through previous psych consult back in 08/09 when she was medically admitted for evaluation of paranoia. Utox was positive for cannabinoids. Pt seen in ED. She is able to recognize this publications writer from previous encounter while she was on the medical floor. Pt expressed concerned as to what had happen to her at night and the fact that she has no recollection. Note that pt is on ambien, which causes parasomnia and people will have no recollection of what happen at night. I discussed with pt stopping ambien, which she is in agreement of. Pt also has been for several years on xanax 1mg po QID. We discusse concern of fairly high dose on benzo, in combination with ambien and its effects as she gets older on her cognitive and memory function as well as gait. She recently transition to a new psych provider, Oksana Arellano, who has been working with her to decrease concerning doses of xanax along with ambien. However, it appears pt continues to be on same dose of ambien 10mg po qhs, and xanax 1mg QID and gabapentin was added- which could be worsening situation as it increased the side effects of ambien and xanax if the doses of those two medications are not adjusted. While in the ED, pt started presenting as much more paranoid, reporting that nurses had guns and people were following her. She was agitated, worried that she was going to be killed and needed to get out of the hospital. She denied SI/HI. We had discussed how medication changes for her are safer in the hospital as risk of benzodiazepine withdrawal is high given medications she has been on xanax 1mg po QID for several years. We also discussed starting risperidone for psychosis which she was in agreement with. Past Psychiatric History: Inpatient: several years ago OP: Oksana Arellano Past medication trials: rexuli, risperiodone, unknown what other meds. Medical Evaluation Reviewed: Yes HOSPITAL COURSE On the unit, pt was admitted on a Sect 12b and placed on 15 minutes checks for safety. Pt presented with paranoid ideas of people following her, not feeling safe. She denied SI/HI. We discussed risks, benefits and alternative treatment options. There has been several concern in terms of her current regimen including [facility] use of xanax at fairly high dose (1mg po QID), parasomnias (fall at night that pt did not have recollection of)induced by ambien, polypharmacy (gabapentin, buspar, keppra (despite no hx of seizures)) and no antipsychotic prescription for pt who has had long hx of paranoia and psychosis. Pt was switched from xanax to clonazepam- taper was initiated. She was able to tolerate decrease of clonazepam to 0.5mg po BID without medical complications related to benzo withdrawal. Pt was started on risperidone, titrated to 1mg po BID, which pt tolerated without any signs of EPS, cogwheel or rigidity. Gabapentin was discontinued. Buspar was aslo discontinued as unclear therapeutic benefit. Keppra was stopped after consulting with [facility] PCP Dr. Laurent Gtz confirming no hx of seizure. Keppra low dose of 150mg po daily had been started by pt's former psychiatrist, Dr. Vincent for unclear therapeutic purpose. Brother and VNA had reported concern of worsening confusion and frequent fall in the past 2 months. Her affect gradually presented as much less paranoid or suspicious. Less internally preoccupied. She was increasingly more visible and less guarded and very pleasant on approach. She denied SI/HI throughout this admission. There were no incidences of disruptive behaviors nor need for restraints. We had family meeting and brother agreed that pt appeared in much improved condition. Collateral information also gathered from her outpatient prescriber, Oksana Arellano and updated on new medication regimen. OT completed MOCA- pt scored 19/30 with most difficulty in executive function, visuo spatial, recall. with fairly intact orientation. ACL score 4.2 showing moderate cognitive impairment. May live in the community with additional supports like VNA. We discussed that letter will be sent to [facility] for additional test to determin if she is safe to drive due to visuo spatial impairements seen in MOCA. Status at Discharge Cognitive/behavioral status at discharge: Pt with bright affect, non labile. Much less paranoid ideas. No VH/AH. No SI/HI. No signs of aggression towards self or others. Pt sleeping through the night. No aggression towards self or others. Functional status at discharge: independent ambulation Overall status at discharge: patient is progressing back to baseline Time Spent with Patient Time attestation: Total time managing care of this patient today ____ minutes. Discharge Plan Discharge Anticipated Discharge Date/Time: 09/06/23 09:02 Patient Disposition: Home, Self-Care Discharge Diagnosis: schizoaffective disorder, MCI Referrals: [facility] [employer] OUT ENGINEER [Other] - 09/11/23 1:00 pm (Your next appointment with Oksana Sotelo for psychiatry is scheduled for 09/11/23 at 1pm. ) [facility] - [facility] Week (Referral has been placed for [facility]. [facility] will follow up with you to schedule home visit. ) Olivia Hopper mental health case manager [facility] [Other] - 09/06/23 (Your licensed insurance agent to meet with you following discharge within a week. She will contact you by phone to schedule home visit and see you every 3 months. ) [facility] [Outside] - 09/06/23 1:00 pm (Your VNA RN Sayra to restart on Saturday following discharge. She will knot picker cloth our prescprtions at your pharmacy and set them up for you and administer our medications daily. She will come today at 1pm. ) Laurent Gtz MD [Primary Care Provider] - 09/10/23 4:30 pm (You have a follow up appointment scheduled for Saturday09/10/23 at 4:30pm) Discharge Medications: New atorvastatin 20 mg Tablet 20 mg PO BEDTIME Qty: 30 0RF clonazepam 0.5 mg Tablet 0.5 mg PO BID Qty: 60 0RF amlodipine 2.5 mg Tablet 2.5 mg PO DAILY Qty: 30 0RF Protocol: Hold for SBP< HOLD for SBP < : 90 aspirin 81 mg Tablet,Delayed Release (Dr/Ec) 81 mg PO DAILY Qty: 30 0RF hydroxychloroquine 200 mg Tablet 200 mg PO BID Qty: 60 0RF lamotrigine 100 mg Tablet 100 mg PO BEDTIME Qty: 30 0RF fenofibrate 160 mg Tablet 160 mg PO DAILY Qty: 30 0RF trazodone 50 mg Tablet 50 mg PO BEDTIME PRN (Reason: Insomnia) Qty: 30 0RF cyanocobalamin (vitamin B-12) [Vitamin B-12] 1,000 mcg Tablet 1,000 mcg PO DAILY Qty: 30 0RF omeprazole 20 mg Capsule,Delayed Release(Dr/Ec) 20 mg PO DAILY@0630 Qty: 30 0RF risperidone 1 mg Tablet 1 mg PO BID Qty: 60 0RF Discontinued buspirone 15 mg tablet 15 mg PO DAILY lamotrigine 100 mg tablet 100 mg PO BEDTIME atorvastatin 20 mg tablet 20 mg PO BEDTIME Qty: 90 3RF cyanocobalamin (vitamin B-12) [Vitamin B-12] 1,000 mcg tablet extended release 1,000 mcg PO DAILY Qty: 30 11RF aspirin 81 mg tablet,delayed release (DR/EC) 81 mg PO DAILY 90 Days Qty: 90 12RF pantoprazole 40 mg tablet,delayed release (DR/EC) 40 mg PO DAILY Qty: 30 6RF fenofibrate 160 mg tablet 160 mg PO DAILY Qty: 90 3RF zolpidem 10 mg tablet 10 mg PO BEDTIME PRN (Reason: Insomnia) gabapentin 300 mg capsule 900 mg PO BEDTIME gabapentin 100 mg capsule 200 mg PO DAILY PRN (Reason: Anxiety) amlodipine [Norvasc] 2.5 mg tablet 2.5 mg PO DAILY Qty: 30 0RF alprazolam 1 mg tablet 1 mg PO QID PRN (Reason: anxiety) hydroxychloroquine [Plaquenil] 200 mg tablet 200 mg PO BID Discharge Orders: Discharge Order (Routine); Ordered 09/06/23 Ordered By: Frances Davis Diet: Regular diet Activity on Discharge: As tolerated Stand Alone Forms: Patient Portal Discharge page, Community Support Care Plan Goals: 1. Maintain mood 2. No SI/HI 3. Less VH/AH, less paranoia. 4. No aggression towards self or others. Health Concerns: Follow up with PCP Plan of Treatment: 1. Take medications as prescribed with support from VNA 2. Go to nearest ED or call 911 in event of emergency Assessment: Pt with brighter, non labile affect. Less paranoid ideas. Less VH/AH. Sleeping and eating well. No aggression towards self or others. No SI/HI.
== END 2023-09-06 11:00 | disposition home or self-care (01) | DRG 885 ==
LOC: HO.ED 08-29 12:43 → HO.PGERI 08-29 16:25
PROVIDERS: Social Worker; Admitting Provider Psychiatry & Neurology Psychiatry; Emergency Provider Emergency Medicine; PCP Internal Medicine; Visit Provider Psychiatry & Neurology Psychiatry
DX: F25.0 Schizoaffective disorder, bipolar type (principal); L93.0 Discoid lupus erythematosus; G31.84 Mild cognitive impairment of uncertain or unknown etiology; E78.2 Mixed hyperlipidemia; Z20.822 Contact with and (suspected) exposure to COVID-19; Z23 Encounter for immunization; Z87.891 Personal history of nicotine dependence; Z79.82 Long term (current) use of aspirin; Z79.899 Other long term (current) drug therapy
CPT/HCPCS: 36415; 70450; 71045; 72125; 80048; 80053; 80061; 80076; 80307; 81003; 82607; 82746; 83036; 83735; 84443; 84484; 85025; 85610; 87635; 90686; 93005; 97161; 99285; S9485

== ENCOUNTER → 2023-08-26 18:41 | Outpatient (BNV) | payer OTHER, SELFPAY | PROVIDERS: Emergency Provider Emergency Medicine; PCP Internal Medicine; Visit Provider Social Worker | DX: F25.0 Schizoaffective disorder, bipolar type (principal) | CPT/HCPCS: 90792; 99223; 99231; 99232; 99233; 99238 ==

== ENCOUNTER 2023-10-02 11:07 | Outpatient (AMB) | payer OTHER, SELFPAY ==
--- NOTE | 2023-10-02 11:13 | MHC.OFFVIS ---
Intake Vital Signs 10/02/23 11:15 Height 5 ft 10 in Weight 143 lb 4.807 oz BMI 20.6 BP 120/80 Blood Pressure Location Lt brachial Position Sitting Pulse 55 Intake Visit Reasons: 1 yr ago Intake Note: 1 year follow-up had ekg in hospital feeling good Attacher Required: No Allergies Benadryl Allergy (Intermediate, Verified 08/26/23 18:38) swelling, rash Medication List - Last Reconciled 10/02/23 by Brandon Vigil MD amlodipine 2.5 mg See Protocol PO DAILY aspirin 81 mg PO DAILY atorvastatin 20 mg PO BEDTIME clonazepam 0.5 mg PO BID cyanocobalamin (vitamin B-12) (Vitamin B-12) 1,000 mcg PO DAILY fenofibrate 160 mg PO DAILY hydroxychloroquine 200 mg PO BID lamotrigine 100 mg PO BEDTIME omeprazole 20 mg PO DAILY@0630 trazodone 50 mg PO BEDTIME PRN HPI HPI Comments History of Present Illness Details Tracy comes for follow-up. She was recently admitted for psychiatric issues. She says she is doing very well. She has no exertional symptoms. Walks many miles and doing well. Denies any exertional chest pain or shortness of breath. No palpitations, irregular heartbeat. Takes all medications. Last LDL very well optimized. [facility] Medical History Schizoaffective disorder Vitamin D deficiency History of transesophageal echocardiography (BRENDA) Cough Ascending aortic aneurysm Overweight (BMI 25.0-29.9) Anxiety Insomnia Vitamin B12 deficiency Leukocytosis (leucocytosis) Anemia Mixed hyperlipidemia Coronary artery disease Aortic stenosis Thoracic aortic aneurysm (~2019) Discoid lupus Bipolar disorder Surgical History (Updated 10/02/23 @ 12:24 by Brandon Vigil MD) Hx of colonoscopy Hx of thoracic aortic aneurysm repair History of aortic valve replacement with bioprosthetic valve H/O aortic valve replacement History of thumb surgery History of total abdominal hysterectomy and bilateral salpingo-oophorectomy S/P lumpectomy of breast History of appendectomy Family History Father Diabetes Mother No problems noted. Brother Healthy adult Social History Household Members: None Housing: Apartment Do you presently have visiting nurse or other home services: Yes (visiting nurse) Alcohol intake: current Alcohol intake frequency: holidays/special occasions only Patient Tobacco Use Status: Former Tobacco user Tobacco use type: Cigar e-Cigarette/Vaping Use: Never Used Second Hand Smoke Exposure: No Advance Directives Date on File: 08/08/23 service: No Current occupational status: retired Cognitive needs: No Hearing needs: No Vision needs: Yes Review of Systems Const Denies chills, Denies fatigue, Denies fever(s), Denies frequent falls, Denies weakness, Denies weight gain and Denies weight loss ENT Denies dizziness Card Denies chest pain, Denies leg edema, Denies lightheadedness, Denies palpitations, Denies dyspnea, Denies dyspnea on exertion, Denies orthopnea and Denies other (loss of consciousness) Resp Denies cough, Denies dyspnea and Denies dyspnea on exertion GI Denies hematochezia and Denies change in stool character Musc Denies abnormal gait, Denies muscle weakness, Denies numbness, Denies radiating pain into limb and Denies tingling Neuro Denies abnormal gait, Denies dizziness, Denies frequent falls, Denies numbness, Denies tingling and Denies weakness Endo Denies fatigue and Denies palpitations Physical Exam Vital Signs: Last Vital Signs Pulse 55 10/02/23 11:15 BP 120/80 10/02/23 11:15 BMI result Body Mass Index 20.6 Const General: cooperative, comfortable, no acute distress, alert, Physically active and well groomed Nutritional Appearance: average body habitus Orientation/consciousness: patient oriented x3 Limitations: no limitations Neck Neck: Yes trachea midline, Yes supple and Yes no JVD Resp Effort & Inspection: normal respiratory effort Auscultation: clear to auscultation bilaterally Cardio Jugular venous distension: no JVD Palpation: normal PMI Rate: regular rate Rhythm: regular rhythm Heart sounds: S1 normal heart sound present, S2 normal heart sound present and Murmur heart sound present systolic mid, harsh and at the right sternal border GI Auscultation: normal bowel sounds Skin General skin exam: no rashes or lesions noted Neuro General: patient oriented x3 and no focal motor deficits Extrem General: Yes no clubbing, cyanosis or edema Assessment & Plan Assessment & Plan (1) H/O aortic valve replacement: Comment: 03/12/2019 aortic valve replacement with a 19-mm Dominguez-Prajapati Magna Ease valve and replacement of the ascending aorta with a 30-mm [place] graft, cardiopulmonary bypass, hypothermic blood cardioplegic arrest (Dr. Pato Aguirre) Code(s): Z95.2 - Presence of prosthetic heart valve Plan: Status post aortic valve replacement with patient prosthesis mismatch. Will follow-up echocardiogram near future. Continue low-dose aspirin therapy. Also status post ascending aortic repair. Patient to continue SBE prophylaxis as per ACC/aha guidelines. Continue aggressive risk factor modification. (2) Coronary artery disease: Code(s): I25.10 - Atherosclerotic heart disease of [place] coronary artery without angina pectoris Qualifiers: Coronary Disease-Associated Artery/Lesion type: [place] artery [place] vs. transplanted heart: [place] heart Associated angina: without angina Qualified Code(s): I25.10 - Atherosclerotic heart disease of [place] coronary artery without angina pectoris Plan: Diffuse vascular disease without any significant obstructive disease in the CAD or any symptoms at high workload. Continue aggressive medical therapy. Low-dose aspirin therapy for life. LDL is extremely well optimized at this point time and statin therapy. Continue the same. Blood pressure is well optimized, advised to monitor blood pressure at home maintain a log. Will follow up in the clinic in 1 year's time, sooner p.r.n.. Thank you for allowing me to partake in her care Coding Level of Care Code Est Pt Level 4 (28597) Diagnoses H/O aortic valve replacement Z95.2 Coronary artery disease involving [place] coronary artery of [place] heart without angina pectoris I25.10 Coronary Disease-Associated Artery/Lesion type: [place] artery [place] vs. transplanted heart: [place] heart Associated angina: without angina
[2023-10-02 11:15] VITALS: BP 120/80; PULSE 55; BMI 20.6
== END 2023-10-02 11:33 | disposition home or self-care (01) ==
PROVIDERS: Visit Provider Internal Medicine Cardiovascular Disease
DX: Z95.2 Presence of prosthetic heart valve (principal); I25.10 Atherosclerotic heart disease of native coronary artery without angina pectoris
CPT/HCPCS: 99214

== ENCOUNTER → 2023-10-02 11:07 | Outpatient (BNVA) | payer OTHER, SELFPAY | PROVIDERS: Visit Provider Internal Medicine Cardiovascular Disease | DX: I25.10 Atherosclerotic heart disease of native coronary artery without angina pectoris (principal); Z95.2 Presence of prosthetic heart valve; Z79.82 Long term (current) use of aspirin | CPT/HCPCS: 99212 ==

== ENCOUNTER → 2023-11-14 12:26 | Outpatient (REF) | payer OTHER, SELFPAY ==
--- NOTE | 2023-11-14 12:34 | CA_ITS ---
Transthoracic Echocardiogram Patient (Last, First, Middle): Tracy Esparza L Gender: Female Date of : 1955 Age: 68 Procedure Date: 11/14/2023 Procedure Type: Transthoracic Echocardiogram Location: OP Height: 162.56 cm Weight: 63.5 kg BSA: 1.68 m2 Heart Rate: bpm BP: 110 / 62 mmHg Global Logistics Manager: TO Referring MD: Brandon Vigil MD Ed Tech: Brandon Vigil MD Symptoms: Z95.2 - Presence of prosthetic heart valve Study Quality: Fair ECG Rhythm: Sinus Conclusions: - 1. Normal LV ejection fraction of 65-70% with impaired relaxation filling pattern 2. Bioprosthetic aortic valve with moderate stenosis due to patient prosthesis mismatch 3. Normal ascending aorta size 4. No gross pericardial effusion Findings Left Ventricle Normal left ventricular size, thickness, and systolic function. The visually estimated ejection fraction is between 65-70%. Spectral Doppler is indicative of an impaired relaxation filling pattern. E/E prime ratio is between 8 and 15 consistent with indeterminate filling pressures. Right Ventricle Normal right ventricular cavity size and systolic function. Atria The left atrium is likely dilated. There is lipomatous hypertrophy of the interatrial septum. There is no evidence of interatrial shunt. The right atrium is normal in size. Aortic Valve A bioprosthetic aortic valve is present. The prosthetic aortic valve appears to be functioning abnormally. Echo findings are consistent with stenosis of the aortic valve prosthesis. The mean gradient is 30 mmHg. There is no aortic valve regurgitation. There is at least moderate stenosis of the bioprosthetic valve but this appears to be due to patient prosthesis mismatch, and unchanged from before Mitral Valve There is mild anterior and posterior mitral leaflet thickening. There is mild mitral annular calcification. There is mild mitral valve regurgitation. There is no mitral valve stenosis. Pulmonic Valve The pulmonic valve is likely normal. Tricuspid Valve Normal tricuspid valve structure. There is trace tricuspid valve regurgitation. Normal right atrial pressure. Great Vessels The pulmonary artery was not well visualized. There is no dilatation of the ascending aorta measuring 2.90 cm. known repair of the ascending aorta and the size appears to be normal Venous The inferior vena cava is normal in size and collapses greater than 50% with inspiration. Pericardium/Pleural There is no evidence of pericardial effusion. Measurements 2D Linear Measurements IVSd: 1.22 0.6-0.9/0.6-1.0 cm LVIDd: 3.88 3.9-5.3/4.2-5.9 cm LVIDd Index: 2.31 2.4-3.2/2.2-3.1 cm/m2 LVIDs: 2.39 2.0-3.6 cm LVPWd: 1.02 0.7-1.1 cm LA Diam: 3.80 2.7-3.8/3.0-4.0 cm LAIDs Index: 2.26 1.5-2.3 cm/m2 LV Mass: 177.64 67-162/88-224 g LV Mass Index: 105.74 43-95/49-115 g/m2 LVOT Diam: 2.00 3.0+(-)1.3 cm 2D Systolic Function EF 4C: 75.80 >55% Mitral Valve MV VTI: 0.49 MV Pk Eugenio: 1.51 MV Mn Eugenio: 0.76 MV Pk Grad: 9.00 MV Mn Grad: 3.00 MV Pk E: 0.80 MV PK A: 1.31 MV Decel Time: 352.00 E/A: 0.60 E'Lateral: 4.46 E'Medial: 3.37 E/E' Med: 23.90 E/E' Lat: 18.00 PHT: 103.00 MVA PHT: 2.14 MVA Continuity: 1.96 Decel [place]: 2.28 Aortic Valve AoV Pk Eugenio: 3.45 AoV Mn Eugenio: 2.60 AoV VTI: 0.78 AoV Pk Grad: 48.00 Aov Mn Grad: 30.00 KWABENA Cont.VTI: 1.23 LVOT LVOT Pk Eugenio: 1.22 LVOT Mn Eugenio: 0.83 LVOT VTI: 0.30 LVOT Pk Grad: 6.00 LVOT Mn Grad: 3.00 LVOT Diam: 2.00 LVOT Area: 3.14 Diastolic Function MV Pk E: 0.80 MV Pk A: 1.31 E/A: 0.60 E'Medial: 3.37 E/E' Med: 23.90 E' Laterial: 4.46 E/E' Lat: 18.00 Right Ventricle TAPSE (mm): 17.10 TVS' Eugenio: 8.49 Tricuspid Valve RA Press: 3.00 Great Vessels Aorta Ao Asc: 2.90 2.1-3.4 cm Updated in Other Vendor System with Status of Final Brandon Vigil MD electronically signed on 11/15/2023 10:10:01 AM with status of Final
[2023-11-14 12:49] LABS: MANUAL DIFF FLAG NO
[2023-11-14 14:06] LABS: Basophils Absolute Auto 0.1 X10*3/uL (0.0-0.2); Basophils Percent Auto 0.6 % (0-2); Eosinophils Absolute Auto 0.2 X10*3/uL (0.0-0.4); Eosinophils Percent Auto 2.3 % (0-4); Hematocrit 39.9 % (37.0-47.0); Hemoglobin 12.9 g/dl (12.0-16.0); Imm Gran Abs Auto 0.04 X10*3/uL (0.00-0.03); Imm Gran Pct Auto 0.5 % (0.0-0.4); Lymphocytes Absolute Auto 1.9 X10*3/uL (1.2-4.9); Lymphocytes Percent Auto 23.4 % (20-40); Mean Corpuscular HGB Conc 32.3 g/dl (31.0-35.0); Mean Corpuscular Hemoglobin 29.7 pg (27.0-33.0); Mean Corpuscular Volume 91.7 fL (80.0-98.0); Mean Platelet Volume 10.1 fL (9.4-12.3); Monocytes Absolute Auto 0.6 X10*3/uL (0.1-1.2); Monocytes Percent Auto 6.9 % (2-11); Neutrophils Absolute Auto 5.3 x10*3/uL (2.0-8.3); Neutrophils Percent Auto 66.3 % (45-73); Platelet Count 335 X10*3/uL (160-400); Red Blood Count 4.35 X10*6/uL (4.20-5.50); Red Cell Distribution Width 13.2 % (11.0-16.0)
[2023-11-14 14:30] LABS: Alanine Aminotransferase 11 U/L (0-31); Albumin Level 4.2 g/dL (3.5-5.0); Alkaline Phosphatase 55 U/L (39-117); Anion Gap 11 (12-20); Aspartate Amino Transferase 22 U/L (5-31); Bilirubin Total 0.4 mg/dL (0.0-1.0); Blood Urea Nitrogen 24 mg/dL (9-16); Calcium 9.6 mg/dL (8.4-10.2); Carbon Dioxide 27 mmol/L (22-29); Chloride 106 mmol/L (96-108); Estimated Glomerular Filt Rate 58; Glucose Random 136 mg/dL (60-115); Potassium 3.7 mmol/L (3.3-5.1); Sodium 140 mmol/L (135-145); Total Protein 7.4 g/dL (6.5-8.0)
[2023-11-16 22:09] LABS: TS Negative Control Passed; TS Panel A 0; TS Panel B 0; TS Positive Control Passed; TSpotTB Negative (Negative)
[2023-11-21 22:09] LABS: Glucose-6-Phosphate Dehydrogen 11.7 U/g Hgb (7.0-20.5)
== END ==
LOC: HO.CARD 12:26
PROVIDERS: Absent Provider Dermatology; PCP Internal Medicine; Visit Provider Internal Medicine Cardiovascular Disease
DX: Z11.1 Encounter for screening for respiratory tuberculosis (principal); L93.0 Discoid lupus erythematosus; Z95.2 Presence of prosthetic heart valve
CPT/HCPCS: 36415; 80053; 82955; 85025; 86481; 93306

== ENCOUNTER → 2023-11-14 12:34 | Outpatient (BNV) | payer OTHER, SELFPAY | PROVIDERS: Absent Provider Dermatology; PCP Internal Medicine; Visit Provider Internal Medicine Cardiovascular Disease | DX: Z95.2 Presence of prosthetic heart valve (principal) | CPT/HCPCS: 93306 ==

== ENCOUNTER 2023-12-10 12:52 | Outpatient (REF) | payer OTHER, SELFPAY | END 2023-12-10 12:53 | disposition home or self-care (01) | LOC: HO.MAMMO 12:52 | PROVIDERS: PCP Internal Medicine; Visit Provider Internal Medicine | DX: Z12.31 Encounter for screening mammogram for malignant neoplasm of breast (principal) | CPT/HCPCS: 77063; 77067 ==

== ENCOUNTER → 2023-12-10 13:15 | Outpatient (BNV) | payer OTHER, SELFPAY | PROVIDERS: PCP Internal Medicine; Visit Provider Radiology Diagnostic Radiology | DX: Z12.31 Encounter for screening mammogram for malignant neoplasm of breast (principal) | CPT/HCPCS: 77063; 77067 ==

== ENCOUNTER 2024-01-07 15:30 | Outpatient (AMB) | payer OTHER, SELFPAY ==
[2024-01-07 15:31] VITALS: BP 122/80; PULSE 67; O2SAT 96; BMI 23.0
--- NOTE | 2024-01-07 15:31 | A.OFFPC_ITS ---
Vital Signs 01/07/24 15:31 Height 5 ft 10 in Weight 160 lb 4 oz BMI 23.0 BP 122/80 Blood Pressure Location Lt brachial Position Sitting Pulse 67 Pulse Source Pulse Oximeter Pulse Oximetry (%) 96 Oxygen Delivery Method Room Air Intake Visit Reasons: hyperlipidemia, GERD, bipolar disorder Coupon And Bond Collection Clerk Required: No Accompanied by: Self / Same As Patient Allergies Benadryl Allergy (Intermediate, Verified 08/19/24 11:45) swelling, rash Medication List - Last Reconciled 01/07/24 by Laurent Gtz MD amlodipine 2.5 mg PO DAILY aspirin 81 mg PO DAILY atorvastatin 20 mg PO BEDTIME clonazepam 0.5 mg PO BID cyanocobalamin (vitamin B-12) (Vitamin B-12) 1,000 mcg PO DAILY fenofibrate 160 mg PO DAILY folic acid 1 mg PO DAILY 90 days lamotrigine 100 mg PO BEDTIME methotrexate sodium 7.5 mg PO QWEEK omeprazole 20 mg PO DAILY@0630 risperidone 1 mg PO BID trazodone 150 mg PO BEDTIME PRN Tobacco use date assessed: 01/07/24 Fall risk assessment: 1 Fall in past year Last assessed Fall Risk: 01/07/24 Dental Screening Dental Screen Date: 01/07/24 Did you have a dental visit in the last 12 months?: Yes Did you have a dental problem in the last 6 months where you did not have access to dental care?: No Was dental information given to patient?: Patient has dentist HPI hyperlipidemia, GERD, bipolar disorder HPI Details Patient comes in today for her follow up visit - I have not seen patient for follow since her last visit here in April 2023 States that her previous psychiatrists have retired and that Nimisha Castillo ([facility]), research program intern / clinician at [facility] ([phone]), is now her therapist and Oksana Sotelo RN-P ([facility]) at [address] [place] [address] SHERYL Taveras ) is her current Rx prescriber Patient states that she has gained about 30 pounds of weight since August 2023 States that she likes to cook and lately finds herself cooking a lot to relieve her stress Admits to eating a lot of what she is cooking as well - thinks that she is literally 'stress eating' and that this is the main reason for her recent increased weight gain States that she has been feeling very anxious about how the [facility] will decide on her case where she is fighting to have her driving priviledges reinstated They were previously suspended at the recommendation of psychiatry last year when she was admitted for psychiatric decompensation Patient was also apparently started on Methotrexate by [facility] a couple of months ago for discoid lupus Patient states that she feels okay otherwise She denies any headaches or dizziness Denies any chest pains, no increased SOB No nausea/vomiting, no abdominal pain No change in bowel habits noted [facility] Medical History Schizoaffective disorder Vitamin D deficiency History of transesophageal echocardiography (BRENDA) Cough Ascending aortic aneurysm Overweight (BMI 25.0-29.9) Anxiety Insomnia Vitamin B12 deficiency Leukocytosis (leucocytosis) Anemia Mixed hyperlipidemia Coronary artery disease Aortic stenosis Thoracic aortic aneurysm (~2019) Discoid lupus Bipolar disorder Surgical History Hx of colonoscopy Hx of thoracic aortic aneurysm repair History of aortic valve replacement with bioprosthetic valve H/O aortic valve replacement History of thumb surgery History of total abdominal hysterectomy and bilateral salpingo-oophorectomy S/P lumpectomy of breast History of appendectomy Family History Father Diabetes Mother No problems noted. Brother Healthy adult Social History Household Members: None Housing: Apartment Do you presently have visiting nurse or other home services: Yes (visiting nurse) Alcohol intake: current Alcohol intake frequency: holidays/special occasions only Patient Tobacco Use Status: Former Tobacco user Tobacco use type: Cigar e-Cigarette/Vaping Use: Never Used Second Hand Smoke Exposure: No Advance Directives Date on File: 08/08/23 service: No Current occupational status: retired Cognitive needs: No Hearing needs: No Vision needs: Yes Questionnaire PHQ-9 Over the last 2 weeks, how often have you been bothered by any of the following problems? 1. Little interest or pleasure in doing things: nearly every day 2. Feeling down, depressed, or hopeless: nearly every day 3. Trouble falling or staying asleep, or sleeping too much: nearly every day 4. Feeling tired or having little energy: not at all 5. Poor appetite or overeating: not at all 6. Feeling bad about yourself - or that you are a failure or have let yourself or your family down: not at all 7. Trouble concentrating on things, such as reading the newspaper or watching television: not at all 8. Moving or speaking so slowly that other people could have noticed. Or the opposite - being so fidgety or restless that you have been moving around a lot more than usual: not at all 9. Thoughts that you would be better off or of hurting yourself in some way: not at all Total score: 9 Depression Screening Interpretation: Positive Depression Screening Follow-up: Existing condition and In treatment Depression Screening Done: Yes 52679 - PHQ-9 Billing: Yes Source: Developed by Drs. Matt Rowe, Rukhsana Corona, Dusty Galicia and colleagues, with an educational paul from [employer]. Thrive Questionnaire Date Thrive assessed: 01/07/24 I am a: Patient What is your living situation today?: I have a steady place to live Within the past 12 months, did the food you bought not last and you didn't have the money to get more?: Never true Within the past 12 months, did you worry whether your food would run out before you got money to buy more?: Never true Do you have trouble paying for medicines?: No Do you have trouble getting transportation to medical appointments?: No Do you have trouble paying your heating and electricity bill?: No Do you have trouble taking care of your child, family member or friend?: No Do you have trouble with day-to-day activities such as bathing, preparing meals, shopping, managing finances, etc.?: No Are you currently unemployed and looking for a job?: No Are you interested in more education?: No Please select the resources that you would like help with: None Currently or been in a relationship where the following occur: no concerns reported THRIVE Score: 0 AUDIT C Alcohol Use Questionnaire (AUDIT-C) 1. How often do you have a drink containing alcohol?: Monthly or less 2. How many drinks containing alcohol do you have on a typical day when you are drinking?: 1 or 2 3. How often do you have six or more drinks on one occasion?: Never Total Score: 1 Score Reviewed/Action Taken: Yes FRANCINE-7 AMB Questionnaire FRANCINE-7 Date FRANCINE - 7 assessed: 01/07/24 Feeling nervous, anxious, or on edge: 3 = Nearly every day Not being able to stop or control worryin = Nearly every day Worrying too much about different things: 3 = Nearly every day Trouble relaxin = Not at all Being so restless that it is hard to sit still: 0 = Not at all Becoming easily annoyed or irritable: 0 = Not at all Feeling afraid as if something awful might happen: 0 = Not at all Total FRANCINE-7 score (0-4 normal; 5-9 mild; 10-14 moderate; 15-21 severe): 9 Source: Developed by Drs. Matt Rowe, Rukhsana Corona, Dusty Galicia and colleagues, with an educational paul from [employer]. Review of Systems Const Denies chills, Denies fatigue, Denies fever(s), Denies headache(s) and Reports weight gain ENT Denies dysphagia, Denies dizziness, Denies otalgia, Denies headache(s), Reports neck pain (on and off), Denies odynophagia and Denies sore throat Card Denies chest pain, Denies palpitations and Denies dyspnea Resp Denies chest congestion, Denies cough and Denies dyspnea GI Denies abdominal pain, Denies constipation, Denies dysphagia, Denies heartburn, Denies diarrhea, Denies nausea, Denies odynophagia and Denies vomiting Denies difficulty voiding, Denies nocturia, Denies dysuria and Denies urinary urgency Musc Denies back pain and Reports neck pain (on and off) Neuro Denies dizziness and Denies headache(s) Psych Reports anxiety (see HPI) Endo Denies fatigue and Denies palpitations Physical exam (Primary Care) Vital Signs: Last Vital Signs Pulse 67 01/07/24 15:31 BP 122/80 01/07/24 15:31 Pulse Ox 96 01/07/24 15:31 Oxygen Delivery Method Room Air 01/07/24 15:31 BMI result Body Mass Index 23.0 Tobacco/Smoking Status: Tobacco use Status Tobacco use date assessed 01/07/24 01/07/24 15:33 Patient Tobacco Use Status Former Tobacco user 01/07/24 15:33 Tobacco use type Cigar 01/07/24 15:33 e-Cigarette/Vaping Use Never Used 01/07/24 15:33 PHQ-9: PHQ-9 Score PHQ-9: Total score 9 01/07/24 16:01 Depression Screening Interpretation: Positive Depression Screening Follow-up: Existing condition and In treatment Thrive Assessment: Date of Thrive Assessment Date Thrive assessed 01/07/24 01/07/24 15:33 Currently or been in a relationship where the following occur: no concerns reported Const General: no acute distress and alert HENMT Ears: TM's normal bilaterally and EAC's normal Throat: Yes posterior oropharynx normal and Yes tonsils normal Neck Neck: Yes no lymphadenopathy and Yes supple Thyroid: Thyroid normal Resp Auscultation: clear to auscultation bilaterally, no rales and no wheezes Cardio Rate: regular rate Rhythm: regular rhythm Heart sounds: no murmurs GI Palpation (GI): Soft to palpation and nontender Auscultation: normal bowel sounds General: Yes no CVA tenderness Back/Spine/Pelvis Back: no CVA tenderness Cervical Spine: Cervical spine tenderness Thoracic/Lumbar Spine: No lumbar spinal tenderness Skin Rashes: no rashes Extrem General: Yes no clubbing, cyanosis or edema Results Reviewed Results Reviewed: Laboratory Tests 11/14/23 12:47 WBC 8.0 Hgb 12.9 Hct 39.9 D Plt Count 335 D Sodium 140 Potassium 3.7 Creatinine 0.95 Estimated GFR 58 Random Glucose 136 H Calcium 9.6 AST 22 ALT 11 Assessment and Plan Assessment & Plan (1) Mixed hyperlipidemia: Code(s): E78.2 - Mixed hyperlipidemia Plan: Patient had some labs done a couple of months ago but was advised that these did not include a fasting lipid profile Reinforced low cholesterol diet Continue Atorvastatin 10 mg QD Will have her recheck her labs and fasting lipids in 4 months for follow up (2) History of aortic valve replacement with bioprosthetic valve: Code(s): Z95.3 - Presence of xenogenic heart valve Plan: S/P aortic valve replacement with a bioprosthetic valve and aortic arch aneurysm repair/graft by Dr. Aguirre in 2019 She is currently taking Aspirin 81 mg QD Follow up with cardiothoracic surgeon and cardiology as scheduled (3) Discoid lupus: Code(s): L93.0 - Discoid lupus erythematosus Plan: Continue Methotrexate 7.5 mg once a week and Folic Acid 1 mg QD Follow up with [facility] as scheduled (4) Anemia: Code(s): D64.9 - Anemia, unspecified Qualifiers: Anemia type: unspecified type Qualified Code(s): D64.9 - Anemia, unspecified Plan: Her anemia was corrected on her labs done back in November 2023 Will recheck her CBC in 4 months for follow up and continue monitoring her CBC regularly (5) Vitamin B12 deficiency: Code(s): E53.8 - Deficiency of other specified B group vitamins Plan: Continue Vitamin B12 1000 mcg QD (6) Vitamin D deficiency: Code(s): E55.9 - Vitamin D deficiency, unspecified Plan: Continue Vitamin D3 2000 units QD (7) Degenerative disc disease, cervical: Code(s): M50.30 - Other cervical disc degeneration, unspecified cervical region Plan: Patient still has on and off neck pain but states that PT has helped a lot in the past Cervical spine x-rays done in September 2022 revealed (+) narrowing of the intervertebral disc spaces, suggesting underlying degenerative disc disease. There is a mild grade 1 anterior spondylolisthesis of C3 on C4 noted Have advised patient that she can call for referral to PT as needed at any time (8) Insomnia: Code(s): G47.00 - Insomnia, unspecified Qualifiers: Insomnia type: unspecified Qualified Code(s): G47.00 - Insomnia, unspecified Plan: Sleep hygiene reinforced Continue Trazodone 150 mg Q HS PRN (9) Anxiety: Code(s): F41.9 - Anxiety disorder, unspecified Plan: Continue Clonazepam 0.5 mg BID PRN (10) Bipolar disorder: Code(s): F31.9 - Bipolar disorder, unspecified Qualifiers: Active/Remission status: currently active Current bipolar episode type: mixed Current episode severity: unspecified Qualified Code(s): F31.60 - Bipolar disorder, current episode mixed, unspecified Plan: Continue Lamotrigine 100 mg Q HS and Risperidone 1 mg BID Her previous psychiatrist (Dr. Vincent) and psychologist (Dr. Maldonado) have both retired recently and patient is now seeing new clinicians and therapists - Nimisha Castillo ([facility]), research program intern / clinician at [facility] ([phone]), is now her therapist and Oksana Sotelo RN-Dev [facility] at [address] [place] [address], SHERYL Taveras ([phone]) is her current Rx prescriber Plan Follow up in 4 months Orders: Orders Hemoglobin A1c 01/07/24 R73.01 - Impaired fasting glucose Lipid Panel 01/07/24 E78.00 - Pure hypercholesterolemia, unspecified Comprehensive [place]. Panel Fast 01/07/24 E78.00 - Pure hypercholesterolemia, unspecified TSH reflex Free T4 01/07/24 E78.00 - Pure hypercholesterolemia, unspecified UA CC w/rflx Micro + Cult 01/07/24 R30.0 - Dysuria Vitamin D 25-OH Total 01/07/24 E55.9 - Vitamin D deficiency, unspecified Complete Blood Count Auto Diff 01/07/24 D64.9 - Anemia, unspecified Vitamin B12 and Folate 01/07/24 E53.8 - Deficiency of other specified B group vitamins Medications: New folic acid 1 mg PO DAILY 90 tabs 3RF 90 days methotrexate sodium on Fridays 7.5 mg PO QWEEK risperidone 1 mg PO BID Changed From trazodone 50 mg PO BEDTIME PRN 30 tabs 0RF Insomnia To trazodone 150 mg PO BEDTIME PRN From amlodipine 2.5 mg See Protocol PO DAILY 30 tabs 2RF To amlodipine 2.5 mg PO DAILY Coding Level of Care Code Est Pt Level 4 (56648) Diagnoses Mixed hyperlipidemia E78.2 History of aortic valve replacement with bioprosthetic valve Z95.3 Discoid lupus L93.0 Anemia, unspecified type D64.9 Anemia type: unspecified type Vitamin B12 deficiency E53.8 Vitamin D deficiency E55.9 Degenerative disc disease, cervical M50.30 Insomnia, unspecified type G47.00 Insomnia type: unspecified Anxiety F41.9 Bipolar affective disorder, current episode mixed, current episode severity unspecified F31.60 Active/Remission status: currently active Current bipolar episode type: mixed Current episode severity: unspecified
== END 2024-01-07 16:16 | disposition home or self-care (01) ==
PROVIDERS: PCP Internal Medicine; Visit Provider Internal Medicine
DX: E78.2 Mixed hyperlipidemia (principal); Z95.3 Presence of xenogenic heart valve; L93.0 Discoid lupus erythematosus; D64.9 Anemia, unspecified; E53.8 Deficiency of other specified B group vitamins; E55.9 Vitamin D deficiency, unspecified; M50.30 Other cervical disc degeneration, unspecified cervical region; G47.00 Insomnia, unspecified; F41.9 Anxiety disorder, unspecified
CPT/HCPCS: 99499

== ENCOUNTER 2024-02-13 12:33 | Outpatient (REF) | payer OTHER, SELFPAY ==
[2024-02-13 12:50] LABS: MANUAL DIFF FLAG NO
[2024-02-13 12:58] LABS: Hematocrit 39.2 % (37.0-47.0); Hemoglobin 13.2 g/dl (12.0-16.0); Mean Corpuscular HGB Conc 33.7 g/dl (31.0-35.0); Mean Corpuscular Hemoglobin 31.1 pg (27.0-33.0); Mean Corpuscular Volume 92.5 fL (80.0-98.0); Red Blood Count 4.24 X10*6/uL (4.20-5.50); Red Cell Distribution Width 14.7 % (11.0-16.0); White Blood Count 6.4 X10*3/uL (4.8-10.8)
[2024-02-13 12:59] LABS: Basophils Percent Auto 0.6 % (0-2); Eosinophils Absolute Auto 0.1 X10*3/uL (0.0-0.4); Imm Gran Abs Auto 0.02 X10*3/uL (0.00-0.03); Imm Gran Pct Auto 0.3 % (0.0-0.4); Lymphocytes Absolute Auto 1.8 X10*3/uL (1.2-4.9); Lymphocytes Percent Auto 28.5 % (20-40); Monocytes Absolute Auto 0.4 X10*3/uL (0.1-1.2); Monocytes Percent Auto 6.7 % (2-11); Neutrophils Percent Auto 61.9 % (45-73); Platelet Count 250 X10*3/uL (160-400)
[2024-02-13 13:06] LABS: Estimated Average Glucose 114 mg/dL; Hemoglobin A1c % 5.6 % (<6.0)
[2024-02-13 14:05] LABS: Alanine Aminotransferase 11 U/L (0-31); Albumin Level 4.3 g/dL (3.5-5.0); Alkaline Phosphatase 45 U/L (39-117); Aspartate Amino Transferase 24 U/L (5-31); Bilirubin Direct 0.3 mg/dL (0.0-0.5); Bilirubin Total 0.6 mg/dL (0.0-1.0); Total Protein 7.6 g/dL (6.5-8.0)
[2024-02-13 14:14] LABS: Alanine Aminotransferase 12 U/L (0-31); Albumin Level 4.3 g/dL (3.5-5.0); Alkaline Phosphatase 44 U/L (39-117); Anion Gap 15 (12-20); Aspartate Amino Transferase 23 U/L (5-31); Bilirubin Total 0.6 mg/dL (0.0-1.0); Blood Urea Nitrogen 23 mg/dL (9-16); Calcium 9.4 mg/dL (8.4-10.2); Carbon Dioxide 23 mmol/L (22-29); Chloride 106 mmol/L (96-108); Cholesterol 158 mg/dL (<200); Estimated Glomerular Filt Rate 58; Glucose Fasting 91 mg/dL (60-99); HDL Cholesterol 57 mg/dL (>40); LDL Cholesterol Calculated 88 mg/dL (<100); Sodium 140 mmol/L (135-145); Total Protein 7.5 g/dL (6.5-8.0); Triglycerides 69 mg/dL (<150)
[2024-02-13 14:21] LABS: TSH reflex Free T4 0.98 uIU/mL (0.32-4.0); Vitamin D 25-OH Total 33.4 ng/mL (>30)
[2024-02-13 14:29] LABS: Appearance Urine Clear; Color Urine Yellow; Glucose Urine UA Negative (Negative); Leukocyte Esterase Urine Negative (Negative); Nitrite Urine Negative (Negative); Specific Gravity - Urine 1.015 (1.005-1.025); Urine Blood Negative (Negative); Urine Ketones Negative (Negative); Urine Protein Negative (Neg-Trace)
[2024-02-13 14:35] LABS: Folate > 20.0 ng/mL (> or = 4.0); Vitamin B12 1070 pg/mL (200-900)
== END 2024-02-13 12:34 | disposition home or self-care (01) ==
LOC: HO.LAB 12:33
PROVIDERS: Absent Provider Internal Medicine; PCP Internal Medicine; Visit Provider Dermatology
DX: R73.01 Impaired fasting glucose (principal); E78.00 Pure hypercholesterolemia, unspecified; R30.0 Dysuria; E55.9 Vitamin D deficiency, unspecified; D64.9 Anemia, unspecified; E53.8 Deficiency of other specified B group vitamins; L93.0 Discoid lupus erythematosus; Z79.899 Other long term (current) drug therapy
CPT/HCPCS: 36415; 80053; 80061; 80076; 81003; 82248; 82306; 82607; 82746; 83036; 84443; 85025

== ENCOUNTER → 2024-07-06 23:59 | Outpatient (BNV) | payer OTHER, SELFPAY | PROVIDERS: PCP Internal Medicine; Visit Provider Internal Medicine | DX: F25.0 Schizoaffective disorder, bipolar type (principal) | CPT/HCPCS: G0179 ==

== ENCOUNTER 2024-08-19 11:06 | Outpatient (AMB) | payer OTHER, SELFPAY ==
[2024-08-19 11:17] VITALS: BP 110/80; PULSE 60; O2SAT 97; BMI 21.7
--- NOTE | 2024-08-19 11:17 | MHC.PC.OV ---
Vital Signs 08/19/24 11:17 Height 5 ft 10 in Weight 151 lb 8 oz BMI 21.7 BP 110/80 Blood Pressure Location Lt brachial Position Sitting Pulse 60 Pulse Source Pulse Oximeter Pulse Oximetry (%) 97 Oxygen Delivery Method Room Air Intake Visit Reasons: follow up Boiler/Chiller Technician Required: No Accompanied by: Self / Same As Patient Allergies Benadryl Allergy (Intermediate, Verified 08/19/24 11:45) swelling, rash Medication List - Last Reconciled 08/19/24 by Laurent Gtz MD amlodipine 2.5 mg PO DAILY aspirin 81 mg PO DAILY 90 days atorvastatin 20 mg PO BEDTIME clonazepam 0.5 mg PO BID cyanocobalamin (vitamin B-12) (Vitamin B-12) 1,000 mcg PO DAILY fenofibrate 160 mg PO DAILY folic acid 1 mg PO DAILY 90 days lamotrigine 100 mg PO BEDTIME methotrexate sodium 7.5 mg PO QWEEK omeprazole 20 mg PO DAILY@0630 risperidone 1 mg PO BID trazodone 150 mg PO BEDTIME PRN Tobacco use date assessed: 08/19/24 Fall risk assessment: 1 Fall in past year Last assessed Fall Risk: 08/19/24 Dental Screening Dental Screen Date: 08/19/24 Did you have a dental visit in the last 12 months?: No Did you have a dental problem in the last 6 months where you did not have access to dental care?: No Was dental information given to patient?: No HPI follow up HPI Details Patient comes in today for her follow up viisit Relates that she fell on her back a couple of weeks ago and has been experiencing recurrent low back pain since States that she did not seek medical attention after she fell as she did not hit her head and did not have any LOC after she fell and felt that her injuries were not that bad She was supposedly checked out by one of the [facility] nurses that come to see her regularly and was advised that she most likely just pulled some muscle over her lower back recently and she has been trying to manage her low back pain on her own recently States that she feels okay otherwise She denies any headaches or dizziness Denies any chest pains, no increased SOB No nausea/vomiting, no abdominal pain No change in bowel habits noted She has not had any follow up labs done in a while now [facility] Medical History Schizoaffective disorder Vitamin D deficiency History of transesophageal echocardiography (BRENDA) Cough Ascending aortic aneurysm Overweight (BMI 25.0-29.9) Anxiety Insomnia Vitamin B12 deficiency Leukocytosis (leucocytosis) Anemia Mixed hyperlipidemia Coronary artery disease Aortic stenosis Thoracic aortic aneurysm (~2019) Discoid lupus Bipolar disorder Surgical History Hx of colonoscopy Hx of thoracic aortic aneurysm repair History of aortic valve replacement with bioprosthetic valve H/O aortic valve replacement History of thumb surgery History of total abdominal hysterectomy and bilateral salpingo-oophorectomy S/P lumpectomy of breast History of appendectomy Family History Father Diabetes Mother No problems noted. Brother Healthy adult Social History Household Members: None Housing: Apartment Do you presently have visiting nurse or other home services: Yes (visiting nurse) Alcohol intake: current Alcohol intake frequency: holidays/special occasions only Patient Tobacco Use Status: Former Tobacco user Tobacco use type: Cigar e-Cigarette/Vaping Use: Never Used Second Hand Smoke Exposure: No Advance Directives Date on File: 08/08/23 service: No Current occupational status: retired Cognitive needs: No Hearing needs: No Vision needs: Yes Questionnaire PHQ-9 Over the last 2 weeks, how often have you been bothered by any of the following problems? 1. Little interest or pleasure in doing things: nearly every day 2. Feeling down, depressed, or hopeless: nearly every day 3. Trouble falling or staying asleep, or sleeping too much: nearly every day 4. Feeling tired or having little energy: not at all 5. Poor appetite or overeating: not at all 6. Feeling bad about yourself - or that you are a failure or have let yourself or your family down: not at all 7. Trouble concentrating on things, such as reading the newspaper or watching television: not at all 8. Moving or speaking so slowly that other people could have noticed. Or the opposite - being so fidgety or restless that you have been moving around a lot more than usual: not at all 9. Thoughts that you would be better off or of hurting yourself in some way: not at all Total score: 9 Depression Screening Interpretation: Positive Depression Screening Follow-up: Existing condition and In treatment Depression Screening Done: Yes [id number] - PHQ-9 Billing: Yes Source: Developed by Drs. Matt Rowe, Rukhsana Corona, Dusty Galicia and colleagues, with an educational paul from [employer]. Thrive Questionnaire Date Thrive assessed: 08/19/24 I am a: Patient What is your living situation today?: I have a steady place to live Within the past 12 months, did the food you bought not last and you didn't have the money to get more?: Never true Within the past 12 months, did you worry whether your food would run out before you got money to buy more?: Never true Do you have trouble paying for medicines?: No Do you have trouble getting transportation to medical appointments?: No Do you have trouble paying your heating and electricity bill?: No Do you have trouble taking care of your child, family member or friend?: No Do you have trouble with day-to-day activities such as bathing, preparing meals, shopping, managing finances, etc.?: No Are you currently unemployed and looking for a job?: No Are you interested in more education?: No Please select the resources that you would like help with: None Currently or been in a relationship where the following occur: No concerns reported THRIVE Score: 0 AUDIT C Alcohol Use Questionnaire (AUDIT-C) 1. How often do you have a drink containing alcohol?: Monthly or less 2. How many drinks containing alcohol do you have on a typical day when you are drinking?: 1 or 2 3. How often do you have six or more drinks on one occasion?: Never Total Score: 1 Score Reviewed/Action Taken: Yes FRANCINE-7 AMB Questionnaire FRANCINE-7 Date FRANCINE - 7 assessed: 08/19/24 Feeling nervous, anxious, or on edge: 3 = Nearly every day Not being able to stop or control worryin = Nearly every day Worrying too much about different things: 3 = Nearly every day Trouble relaxin = Not at all Being so restless that it is hard to sit still: 0 = Not at all Becoming easily annoyed or irritable: 0 = Not at all Feeling afraid as if something awful might happen: 0 = Not at all Total FRANCINE-7 score (0-4 normal; 5-9 mild; 10-14 moderate; 15-21 severe): 9 Source: Developed by Drs. Matt Rowe, Rukhsana Corona, Dusty Galicia and colleagues, with an educational paul from [employer]. Review of Systems Const Denies chills, Denies fatigue, Denies fever(s) and Denies headache(s) ENT Denies dysphagia, Denies dizziness, Denies otalgia, Denies headache(s), Reports neck pain (on and off), Denies odynophagia and Denies sore throat Card Denies chest pain, Denies palpitations and Denies dyspnea Resp Denies chest congestion, Denies cough and Denies dyspnea GI Denies abdominal pain, Denies constipation, Denies dysphagia, Denies heartburn, Denies diarrhea, Denies nausea, Denies odynophagia and Denies vomiting Denies difficulty voiding, Denies nocturia, Denies dysuria and Denies urinary urgency Musc Reports back pain (on and off over the lower back for the past couple of weeks - see HPI) and Reports neck pain (on and off) Neuro Denies dizziness and Denies headache(s) Psych Reports anxiety (better controlled lately) Endo Denies fatigue and Denies palpitations Physical exam (Primary Care) Vital Signs: Last Vital Signs Pulse 60 08/19/24 11:17 BP 110/80 08/19/24 11:17 Pulse Ox 97 08/19/24 11:17 Oxygen Delivery Method Room Air 08/19/24 11:17 BMI result Body Mass Index 21.7 Tobacco/Smoking Status: Tobacco use Status Tobacco use date assessed 08/19/24 08/19/24 11:23 Patient Tobacco Use Status Former Tobacco user 08/19/24 11:23 Tobacco use type Cigar 08/19/24 11:23 e-Cigarette/Vaping Use Never Used 08/19/24 11:23 PHQ-9: PHQ-9 Score PHQ-9: Total score 9 08/19/24 11:47 Depression Screening Interpretation: Positive Depression Screening Follow-up: Existing condition and In treatment Thrive Assessment: Date of Thrive Assessment Date Thrive assessed 08/19/24 08/19/24 11:23 Currently or been in a relationship where the following occur: No concerns reported Const General: no acute distress and alert HENMT Ears: TM's normal bilaterally and EAC's normal Throat: Yes posterior oropharynx normal and Yes tonsils normal Neck Neck: Yes no lymphadenopathy and Yes supple Thyroid: Thyroid normal Resp Auscultation: clear to auscultation bilaterally, no rales and no wheezes Cardio Rate: regular rate Rhythm: regular rhythm Heart sounds: no murmurs GI Palpation (GI): Soft to palpation and nontender Auscultation: normal bowel sounds General: Yes no CVA tenderness Back/Spine/Pelvis Back: no CVA tenderness Cervical Spine: Cervical spine tenderness Thoracic/Lumbar Spine: paraspinal muscle tenderness bilaterally in the upper lumbar, in the mid lumbar and in the lower lumbar and No lumbar spinal tenderness Extrem General: Yes no clubbing, cyanosis or edema Assessment and Plan Assessment & Plan (1) Acute lumbar myofascial strain: Code(s): S39.012A - Strain of muscle, fascia and tendon of lower back, initial encounter Qualifiers: Encounter type: sequela Qualified Code(s): S39.012S - Strain of muscle, fascia and tendon of lower back, sequela Plan: Patient states that she was checked out by one of her [facility] nurses recently and was advised that she likely strained her lower back when she fell a couple of weeks ago Have offered to refer patient to physical therapy for her lower back but she would like to hold off on this for now States that she will try to do some stretching and exercise on her lower back for a few days and if these do not really help much, then she will call for PT referral (2) Mixed hyperlipidemia: Code(s): E78.2 - Mixed hyperlipidemia Plan: As patient has not had any follow up labs done in a while now, will have her go and get her labs done ELISE (she states that she has not yet eaten anything this morning) Reinforced low cholesterol diet Continue Atorvastatin 10 mg QD (3) History of aortic valve replacement with bioprosthetic valve: Code(s): Z95.3 - Presence of xenogenic heart valve Plan: S/P aortic valve replacement with a bioprosthetic valve and aortic arch aneurysm repair/graft by Dr. Aguirre in 2019 She is currently taking Aspirin 81 mg QD Follow up with cardiothoracic surgeon and cardiology as scheduled (4) Anemia: Code(s): D64.9 - Anemia, unspecified Qualifiers: Anemia type: unspecified type Qualified Code(s): D64.9 - Anemia, unspecified Plan: Her anemia was corrected on her labs last done back in January 2024 and November 2023 Will recheck her CBC now for follow up (5) Vitamin B12 deficiency: Code(s): E53.8 - Deficiency of other specified B group vitamins Plan: Continue Vitamin B12 1000 mcg QD (6) Vitamin D deficiency: Code(s): E55.9 - Vitamin D deficiency, unspecified Plan: Continue Vitamin D3 2000 units QD (7) Degenerative disc disease, cervical: Code(s): M50.30 - Other cervical disc degeneration, unspecified cervical region Plan: Patient still has on and off neck pain but states that PT has helped a lot in the past Cervical spine x-rays done in September 2022 revealed (+) narrowing of the intervertebral disc spaces, suggesting underlying degenerative disc disease. There is a mild grade 1 anterior spondylolisthesis of C3 on C4 noted Have advised patient that she can call for referral to PT as needed at any time (8) Insomnia: Code(s): G47.00 - Insomnia, unspecified Qualifiers: Insomnia type: unspecified Qualified Code(s): G47.00 - Insomnia, unspecified Plan: Sleep hygiene reinforced Continue Trazodone 150 mg Q HS PRN (9) Anxiety: Code(s): F41.9 - Anxiety disorder, unspecified Plan: Continue Clonazepam 0.5 mg BID PRN (10) Bipolar disorder: Code(s): F31.9 - Bipolar disorder, unspecified Qualifiers: Active/Remission status: currently active Current bipolar episode type: mixed Current episode severity: unspecified Qualified Code(s): F31.60 - Bipolar disorder, current episode mixed, unspecified Plan: Continue Lamotrigine 100 mg Q HS and Risperidone 1 mg BID Follow up with Dr. Vincent (psychiatrist) and Dr. Maldonado (psychologist) as scheduled although she has notified us previously that Dr. Vincent will be retiring soon and she is looking for a new psychiatrist but may need us to help refill her meds if needed until she is established with a new psychiatrist (11) Overweight (BMI 25.0-29.9): Code(s): E66.3 - Overweight Plan: Reinforced diet/exercise as tolerated/lose weight Plan Follow up in 4 months Orders: Orders Comprehensive [place]. Panel Fast 08/21/24 E78.00 - Pure hypercholesterolemia, unspecified TSH reflex Free T4 08/21/24 E78.00 - Pure hypercholesterolemia, unspecified Vitamin B12 and Folate 08/21/24 E53.8 - Deficiency of other specified B group vitamins Vitamin D 25-OH Total 08/21/24 E55.9 - Vitamin D deficiency, unspecified Hemoglobin A1c 08/21/24 R73.01 - Impaired fasting glucose Complete Blood Count Auto Diff 08/21/24 D64.9 - Anemia, unspecified Lipid Panel 08/21/24 E78.00 - Pure hypercholesterolemia, unspecified UA CC w/rflx Micro + Cult 08/21/24 R30.0 - Dysuria Coding Level of Care Code Est Pt Level 4 (18841) Diagnoses Acute myofascial strain of lumbar region, sequela S39.012S Encounter type: sequela Mixed hyperlipidemia E78.2 History of aortic valve replacement with bioprosthetic valve Z95.3 Anemia, unspecified type D64.9 Anemia type: unspecified type Vitamin B12 deficiency E53.8 Vitamin D deficiency E55.9 Degenerative disc disease, cervical M50.30 Insomnia, unspecified type G47.00 Insomnia type: unspecified Anxiety F41.9 Bipolar affective disorder, current episode mixed, current episode severity unspecified F31.60 Active/Remission status: currently active Current bipolar episode type: mixed Current episode severity: unspecified Overweight (BMI 25.0-29.9) E66.3
== END 2024-08-19 11:56 | disposition home or self-care (01) ==
PROVIDERS: PCP Internal Medicine; Visit Provider Internal Medicine
DX: E78.2 Mixed hyperlipidemia (principal); F31.60 Bipolar disorder, current episode mixed, unspecified; D64.9 Anemia, unspecified; S39.012S Strain of muscle, fascia and tendon of lower back, sequela; Z95.3 Presence of xenogenic heart valve; E55.9 Vitamin D deficiency, unspecified; E53.8 Deficiency of other specified B group vitamins; M50.30 Other cervical disc degeneration, unspecified cervical region; G47.00 Insomnia, unspecified; F41.9 Anxiety disorder, unspecified; E66.3 Overweight

== ENCOUNTER → 2024-08-19 11:06 | Outpatient (BNVA) | payer OTHER, SELFPAY | PROVIDERS: PCP Internal Medicine; Visit Provider Internal Medicine | DX: S39.012S Strain of muscle, fascia and tendon of lower back, sequela (principal); E78.2 Mixed hyperlipidemia; D64.9 Anemia, unspecified; E53.8 Deficiency of other specified B group vitamins; E55.9 Vitamin D deficiency, unspecified; M50.30 Other cervical disc degeneration, unspecified cervical region; G47.00 Insomnia, unspecified; F41.9 Anxiety disorder, unspecified; F31.60 Bipolar disorder, current episode mixed, unspecified; E66.3 Overweight; Z95.3 Presence of xenogenic heart valve | CPT/HCPCS: 99212 ==

== ENCOUNTER 2024-08-21 09:21 | Outpatient (REF) | payer OTHER, SELFPAY ==
[2024-08-21 09:44] LABS: MANUAL DIFF FLAG NO
[2024-08-21 10:59] LABS: Basophils Percent Auto 0.6 % (0-2); Eosinophils Absolute Auto 0.2 X10*3/uL (0.0-0.4); Eosinophils Percent Auto 3.3 % (0-4); Hematocrit 38.6 % (37.0-47.0); Hemoglobin 12.7 g/dl (12.0-16.0); Imm Gran Abs Auto 0.01 X10*3/uL (0.00-0.03); Imm Gran Pct Auto 0.2 % (0.0-0.4); Lymphocytes Absolute Auto 1.5 X10*3/uL (1.2-4.9); Mean Corpuscular HGB Conc 32.9 g/dl (31.0-35.0); Mean Corpuscular Hemoglobin 32.3 pg (27.0-33.0); Mean Corpuscular Volume 98.2 fL (80.0-98.0); Mean Platelet Volume 10.1 fL (9.4-12.3); Monocytes Absolute Auto 0.4 X10*3/uL (0.1-1.2); Monocytes Percent Auto 8.4 % (2-11); Neutrophils Percent Auto 58.5 % (45-73); Platelet Count 217 X10*3/uL (160-400); Red Blood Count 3.93 X10*6/uL (4.20-5.50); Red Cell Distribution Width 13.5 % (11.0-16.0); White Blood Count 5.1 X10*3/uL (4.8-10.8)
[2024-08-21 11:07] LABS: Estimated Average Glucose 108 mg/dL; Hemoglobin A1c % 5.4 % (<6.0)
[2024-08-21 11:34] LABS: Appearance Urine Clear; Color Urine Yellow; Glucose Urine UA Negative (Negative); Leukocyte Esterase Urine Negative (Negative); Nitrite Urine Negative (Negative); Specific Gravity - Urine 1.025 (1.005-1.025); Urine Blood Negative (Negative); Urine Ketones Negative (Negative); Urine Protein Negative (Neg-Trace)
[2024-08-21 11:43] LABS: Alanine Aminotransferase 12 U/L (0-31); Albumin Level 4.2 g/dL (3.5-5.0); Alkaline Phosphatase 60 U/L (39-117); Anion Gap 13 (12-20); Aspartate Amino Transferase 19 U/L (5-31); Bilirubin Total 0.5 mg/dL (0.0-1.0); Blood Urea Nitrogen 17 mg/dL (9-16); Calcium 9.1 mg/dL (8.4-10.2); Carbon Dioxide 27 mmol/L (22-29); Chloride 108 mmol/L (96-108); Cholesterol 144 mg/dL (<200); Estimated Glomerular Filt Rate > 60; Glucose Fasting 89 mg/dL (60-99); HDL Cholesterol 44 mg/dL (>40); LDL Cholesterol Calculated 80 mg/dL (<100); Potassium 3.8 mmol/L (3.3-5.1); Sodium 144 mmol/L (135-145); Total Protein 7.2 g/dL (6.5-8.0); Triglycerides 102 mg/dL (<150)
[2024-08-21 12:07] LABS: TSH reflex Free T4 0.62 uIU/mL (0.32-4.0); Vitamin D 25-OH Total 33.6 ng/mL (>30)
[2024-08-21 12:32] LABS: Folate > 20.0 ng/mL (> or = 4.0); Vitamin B12 1380 pg/mL (200-900)
== END 2024-08-21 09:22 | disposition home or self-care (01) ==
LOC: HO.LAB 09:21
PROVIDERS: PCP Internal Medicine; Visit Provider Internal Medicine
DX: E55.9 Vitamin D deficiency, unspecified (principal); R73.01 Impaired fasting glucose; D64.9 Anemia, unspecified; E78.00 Pure hypercholesterolemia, unspecified; R30.0 Dysuria; E53.8 Deficiency of other specified B group vitamins
CPT/HCPCS: 36415; 80053; 80061; 81003; 82306; 82607; 82746; 83036; 84443; 85025

== ENCOUNTER 2024-08-27 08:38 | Outpatient (REF) | payer OTHER, SELFPAY ==
[2024-08-27 08:54] LABS: MANUAL DIFF FLAG NO
[2024-08-27 09:12] LABS: Basophils Percent Auto 0.6 % (0-2); Eosinophils Absolute Auto 0.2 X10*3/uL (0.0-0.4); Eosinophils Percent Auto 3.2 % (0-4); Hematocrit 38.1 % (37.0-47.0); Hemoglobin 12.8 g/dl (12.0-16.0); Imm Gran Abs Auto 0.02 X10*3/uL (0.00-0.03); Imm Gran Pct Auto 0.4 % (0.0-0.4); Lymphocytes Absolute Auto 1.3 X10*3/uL (1.2-4.9); Mean Corpuscular HGB Conc 33.6 g/dl (31.0-35.0); Mean Corpuscular Hemoglobin 32.5 pg (27.0-33.0); Mean Corpuscular Volume 96.7 fL (80.0-98.0); Mean Platelet Volume 9.7 fL (9.4-12.3); Monocytes Absolute Auto 0.4 X10*3/uL (0.1-1.2); Neutrophils Absolute Auto 3.4 x10*3/uL (2.0-8.3); Neutrophils Percent Auto 64.8 % (45-73); Platelet Count 230 X10*3/uL (160-400); Red Blood Count 3.94 X10*6/uL (4.20-5.50); Red Cell Distribution Width 13.6 % (11.0-16.0); White Blood Count 5.3 X10*3/uL (4.8-10.8)
[2024-08-27 09:32] LABS: Alanine Aminotransferase 13 U/L (0-31); Albumin Level 4.3 g/dL (3.5-5.0); Alkaline Phosphatase 61 U/L (39-117); Aspartate Amino Transferase 21 U/L (5-31); Bilirubin Direct 0.1 mg/dL (0.0-0.5); Bilirubin Total 0.3 mg/dL (0.0-1.0); Total Protein 7.3 g/dL (6.5-8.0)
== END 2024-08-27 08:39 | disposition home or self-care (01) ==
LOC: HO.LAB 08:38
PROVIDERS: PCP Internal Medicine; Visit Provider Dermatology
DX: L93.0 Discoid lupus erythematosus (principal)
CPT/HCPCS: 36415; 80076; 85025

== ENCOUNTER 2024-12-22 10:09 | Outpatient (REF) | payer OTHER, SELFPAY ==
--- NOTE | ~2024-12-22 | MM_ITS ---
EXAMINATION: MM SCREENING DIGITAL BREAST TOMOSYNTHESIS, BILATERAL CLINICAL INFORMATION: Screening. Asymptomatic. COMPARISON: Mammography: Comparison is made with available priors TECHNIQUE: Digital breast mammography with tomosynthesis is performed in both the craniocaudal and mediolateral oblique views along with computer-aided detection (CAD). FINDINGS: There are scattered areas of fibroglandular density (ACR BI-RADS breast composition Category b). There are no significant masses, abnormal calcifications, or other abnormalities. MM/MM tomosynthesis screening BI IMPRESSION: No mammographic evidence of malignancy. ASSESSMENT: BI-RADS BI-RADS 1 - Negative RECOMMENDATION: Routine annual mammography screening. 1 year F/U This examination should not preclude the clinical evaluation of a suspicious palpable abnormality. This patient's information was entered into a reminder system with a target due date for their next mammogram. Electronically signed by: Aziza Mejía DO 12/30/2024 04:45 PM MELVIN
--- OUTSIDE RECORDS SUMMARY | 2024-12-22 11:23 | XMS_ITS | Encounter Summary ---
Author Organization [employer] Address [address] [place] [address] [address] [place] [address] Care Team Providers Care Stave And Bolt Equalizer Name Role Phone Unavailable Primary Care Provider Unavailabl e Encounter Details Date Type Department Care Team (Latest Contact Info) Description 09/29/2019 Abstract [facility] CONVERSIONS Dental, Provider, DDS Social History Tobacco Use Types Packs/Day Years Used Date Smoking Tobacco: Never Assessed Comments Unknown Sex and Gender Information Value Date Recorded Sex Assigned at Female 10/01/2022 10:19 AM EDT Legal Sex Female 10:19 AM EDT Gender Identity Female 10/01/2022 10:19 AM EDT Sexual Orientation Straight 10/01/2022 10 :19 AM EDT documented as of this encounter Plan of Treatment Not on file documented as of this encounter Visit Diagnoses Not on filedocumented in this encounter
--- OUTSIDE RECORDS SUMMARY | 2024-12-22 11:23 | XMS_ITS | Encounter Summary ---
Author Organization [employer] Address [address] [facility] [address] [place] [address] Care Team Providers Care Professional Skateboarder Name Role Phone Unavailable Primary Care Provider Unavailabl e Reason for Visit * Reason Onset Date Comments clarify medication script 05/29/2023 Encounter Details Date Type Department Care Team ([facility] st Contact Info) Description 05/29/2023 Telephone [facility] ADULT DENTAL [address] [place] [address] Yaron Magana DMD [address] [place] [address] clarify medication script Social History Tobacco Use Types Packs/Day Years Used Date Smoking Tobacco: Never Passive Smoke Exposure: Never Smokeless Tobacco: Never Alcohol Use Standard Drinks/Week Comments Yes 1 (1 standard drink = 0.6 oz pur e alcohol) Comments Unknown Sex and Gender Information Value Date Recorded Sex Assigned at Female 10/01/2022 10:19 AM EDT Legal Sex Female 10:19 AM EDT Gender Identity Female 10/01/2022 10:19 AM EDT Sexual Orientation Straight 10/01/2022 10 :19 AM EDT COVID-19 Exposure Response Date Recorded In the last 10 days, have yo u been in contact with someone who was confirmed or suspected to have Coronavirus/COVID-19? No / Unsure 05/29/2023 10:19 AM EDT documented as of this encounter Miscellaneous Notes * Telephone Encounter - Felisa Osorio - 05/29/2023 2:20 PM EDT [facility] again regaring clarifcation due to pt showing up to pharmacy 2 additional times . Spoke with vest front presser and stated they will contact DR Torrez Informed that has been working withpt back to back and that pharmacy will contact pt when medication is all set . * Telephone Encounter - Felisa Osorio - 05/29/2023 11:59 AM EDT [facility] called stating that script was written for taking 1 tablet every 6 hours for 10 daysbut only 5 tablets were scripted. Pls contact pharmacy for adjustment of medication if needed. [phone] documented in this encounter Plan of Treatment Not on file documented as of this encounter Visit Diagnoses Not on filedocumented in this encounter
--- OUTSIDE RECORDS SUMMARY | 2024-12-22 11:23 | XMS_ITS | Encounter Summary ---
Author Organization [employer] Address [address] [facility] [address] [place] [address] Care Team Providers Care Web Applications Developer Name Role Phone Unavailable Primary Care Provider Unavailabl e Reason for Visit * Reason Onset Date Comments case in lab 07/03/2023 Encounter Details Date Type Department Care Team ([facility] st Contact Info) Description 07/03/2023 Telephone [facility] ADULT D[facility] [address] [place] [address] Xiang Segal, DMD [address] [place] [address] case in lab Social History Tobacco Use Types Packs/Day Years [...] suspected to have Coronavirus/COVID-19? No / Unsure 06/05/2023 8:05 AM EDT documented as of this encounter Miscellaneous Notes * Telephone Encounter - Felisa Osorio - 07/03/2023 2:31 PM EDT Garry from [employer] called in stating that soonest case can be sent to office is 07/10. He states that it is 5 business days and does not include drop off or picker/puller. Informed Garry that patient is currently not scheduled for return and that office will be informed DR documented in this encounter Plan of Treatment Not on file documented as of this encounter Visit Diagnoses Not on filedocumented in this encounter
--- OUTSIDE RECORDS SUMMARY | 2024-12-22 11:23 | XMS_ITS | Clinical Summary ---
Author Organization [employer] Address [address] [place] [address] [address] [place] [address] Care Team Providers Care Merchandise Executive Name Role Phone Unavailable Primary Care Provider Unavailabl e Allergies Active Allergy Reactions Criticality Noted Date Comments Diphenhydramine Runny nose,Swelling 07/08/2014 Medications risperiDONE (RisperDAL) 0.5 MG tablet Take 2 tablets by mouth every 12 (twelve) hours. Active meclizine (Antivert) 25 MG tablet Take 1 tablet by mouth every 8 (eight) hours. Active lurasidone (Latuda) 40 MG tablet Take 1 tablet by mouth at bed time. Active lamoTRIgine (LaMICtal) 100 MG tablet Take 1 tablet by mouth at bed time. Active lamoTRIgine (LaMICtal) 5 MG chewable tablet Chew 1 tablet in the morning. Active chlorhexidine (Periogard) 0.12 % solution Place 15 mL into mouth between cheek and gum every 12 (twelve) hours. 8 Active busPIRone (Buspar) 15 MG tablet Take 1 tablet by mouth every 12 (twelve) hours. Active Brexpiprazole (Rexulti) 0.5 MG tablet Active aspirin 81 MG EC tablet Take 1 tablet by mouth in the morning. 7 Active amoxicillin (Amoxil) 500 MG capsule Take 1 capsule by mouth every 8 (eight) hours. 8 Active acetaminophen (Tylenol) 500 MG tablet Take 1 tablet by mouth every 6 (six) hours if needed. 8 Active hydroxychloroqui ne (Plaquenil) 100 mg split tablet Take 1 tablet by mouth at bed time. Active zolpidem (Ambien) 10 MG tablet Take 1 tablet by mouth at bed time. 11/21/201 7 Active simvastatin (Zocor) 5 MG tablet Active asenapine (Saphris) SL tablet place 1 tablet by sublingual route 2 times every day under the tongue and allow to dissolve Active levETIRAcetam (Keppra) 250 MG tablet Take 2 tablets by mouth every 12 (twelve) hours. Active gabapentin (Neurontin) 100 MG capsule Take 3 capsules by mouth every 8 (eight) hours. Active atorvastatin (Lipitor) 10 MG tablet Take 1 tablet by mouth at bed time. Active ALPRAZolam (Xanax) 0.5 MG tablet Active divalproex (Depakote) 125 MG EC tablet Active Gemfibrozil powder Active Ibuprofen capsule Active levETIRAcetam (Keppra) 100 MG/ML solution Activ e melatonin tablet Act trever Sodium Fluoride (PreviDent) 1.1 % gel brush on teeth two times a day ( am and before bedtime) 1 Active amoxicillin (Amoxil) 500 MG capsule Take 2g (4 tabs) one hour prior to dental surgery appointment on 05/29. 4 capsule 3 Active chlorhexidine (Peridex) 0.12 % solutionIndicati ons:History of tooth extraction, unspecified edentulism class Fill irrigation syringe and irrigate extraction sockets following meals. Spit, do not swallow. 473 mL 3 Active Social History Tobacco Use Types Packs/Day Years Used Date Smoking Tobacco: Never Passive Smoke Exposure: Never Smokeless Tobacco: Never Tobacco Cessation:Counseling Given: Not Answered Alcohol Use Standard Drinks/Week Comments Yes 1 (1 standard drink = 0.6 oz pur e alcohol) Comments Unknown Sex and Gender Information Value Date Recorded Sex Assigned at Female 10/01/2022 10:19 AM EDT Legal Sex Female 10:19 AM EDT Gender Identity Female 10/01/2022 10:19 AM EDT Sexual Orientation Straight 10/01/2022 10 :19 AM EDT Last Filed Vital Signs Vital Sign Reading Time Taken Comments Blood Pressure 150/84 2023 8:07 AM EDT Pulse 61 03/13/2023 3:27 PM EDT Temperature - - Respiratory Rate - - Oxygen Saturation - - Inhaled Oxygen Concentration - - Weight - - Height - - Body Mass Index - - Plan of Treatment Health Maintenance Due Date Last Done Comments CT Colonography 1954 Colonoscopy 1954 Colorectal Cancer Screening 1954 Dental Prophylaxis 1954 Depression Screening 1954 FIT DNA/Cologuard 1954 FIT 1954 FOBT 1954 SDOH Screening 1954 Sigmoidoscopy 1954 Alcohol/Substance Use Screening 1966 Hepatitis C Screening 1972 Mammogram 1994 RSV Patients and Patients Aged 60 years or older (1 - Risk 60-74 years 1-dose series) 2014 Pneumococcal Vaccine: 65+ Years (2 of 2 - PPSV23 or PCV20) 10/05/2020 10/05/2019 Dental Oral Exam 05/08/2023 11/06/2022 Dental X-Ray: Bitewings 11/07/2023 11/06/2022 Tobacco Screening 2024 2023 COVID-19 Vaccine ( season) 2024 08/29/2022, 03/21/2022, 07/25/2021, Additional history exists Influenza Vaccine (#1) 2024 , 08/18/2021, 09/04/2020, Additional history exists Dental X-Ray: Full Mouth 06/04/2026 06/03/2023, 12/0 05/2022 DTaP/Tdap/Td Vaccines (2 - Td or Tdap) 10/31/2026 10/31/2016, 07/05/2013 Zoster Vaccines Completed 08/01/2018, 03/23/2018 HIB Vaccines Aged Out No longer eligi ble based on patient's age to complete this topic HPV Vaccines Aged Out No longer eligi ble based on patient's age to complete this topic Hepatitis A Vaccines Aged Out No long er eligible based on patient's age to complete this topic Hepatitis B Vaccines Aged Out No long er eligible based on patient's age to complete this topic IPV Vaccines Aged Out No longer eligi ble based on patient's age to complete this topic Meningococcal Vaccine Aged Out No cristian ariadna eligible based on patient's age to complete this topic RSV under 20 months Aged Out No longe r eligible based on patient's age to complete this topic Rotavirus Vaccines Aged Out No longer eligible based on patient's age to complete this topic Procedures Procedure Name Priority Date/Time Associated Diagnosis Comments PANORAMIC RADIOGRAPHIC IMAGE Routine 06/03/2023 8:15 AM EDT DIAGNOSTIC - DIAGNOSTIC IMAGING - INTRAORAL - COMPREHENSIVE SERIES OF RADIOGRAPHIC IMAGES Routine 11/06/2022 10:30 AM EST PERIODIC ORAL EVALUATION - ESTABLISHED PATIENT Routine 11/06/2022 10:30 AM EST from Last 3 Months or Most Recently Relevant to Health Maintenance [facility]
--- OUTSIDE RECORDS SUMMARY | 2024-12-22 11:23 | XMS_ITS | Encounter Summary ---
Author Organization [employer] Address [address] [place] [address] 7 [place] [address] Care Team Providers Care Plant Custodian Name Role Phone Unavailable Primary Care Provider Unavailabl e Reason for Visit * Reason Onset Date Comments Appointment 01/28/2023 Tracy Esparza DO B 1955 Patient called in and stated that she needed extraction for all bottom teeth she was last seen on 11/06/2022 there is no treatment plan and she called in to make appt please advise Encounter Details Date Type Department Care Team ([facility] Contact Info) Description 01/28/2023 Telephone [facility] ADULT D[facility] [address] [place] [address] Xiang Segal, DMD [address] [place] [address] Appointment (Tracy Isaias 1955 Patient called in and stated that she needed extraction for all bottom teeth she was last seen on 11/06/2022 there is no treatment plan and she called in to make appt please advise ) Social History Tobacco Use Types Packs/Day Years [...] encounter Miscellaneous Notes * Telephone Encounter - [facility] - 01/28/2023 2:43 PM EST Okay thank you will do * Telephone Encounter - [facility] - 01/28/2023 11:59 AM EST Tracy Esparza 1955 Patient called in and stated that she needed extraction for all bottomteeth she was last seen on 11/06/2022 there is no treatment plan and she called in to make appt please advise documented in this encounter Plan of Treatment Not on file documented as of this encounter Visit Diagnoses Not on filedocumented in this encounter
--- OUTSIDE RECORDS SUMMARY | 2024-12-22 11:23 | XMS_ITS | Clinical Summary ---
Author Organization Unknown Care Team Providers Care Electronic Masking System Operator Name Role Phone TD RÍOS, SCOTT Unavailable Unavailable LUBNA ESPITIA, FABIANO Unavailable Unavailable FRENCH ESPITIA, PREET Unavailable Unavailable Payers Payer Name Policy Type Policy Number Effective Date Expira tion Date [facility] [id number] MEDICAID [facility] [id number] MEDICARE - [facility] - [place] [id number] Problems Condition Name Condition Details Condition Category Status Onset Date Resolution Date Last Treatment Date Treating Clinician Comments SCHIZOAFFECT MONICA DISORDER, BIPOLAR TYPE Active 08-29 00:00: 00 Allergies, Adverse Reactions, Alerts Allergy Name Allergy Type Status Severity Reaction(s) Onset Date Inactive Date Treating Clinician Comments BENADRYL ALLERGY/CO LD Propensity to adverse reactions Active 2023-09 13:36:1 8 Medications Ordered Medication Name Filled Medication Name Start Date Stop Date Current Medication? Ordering Clinician Indication Dosage Frequency Signature (SIG) Comments Components zolpidem 10 mg tablet 03-24 00:00: 00 09-06 23:59 :00 No [id number] 1 tablet BEDTIME 1 tablet BEDTIME (route: oral) Med Classific ation: Central Nervous System Agents aspirin 81 mg tablet,jeri yed release 03-24 00:00: 00 Yes [id number] 1 tablet DAILY 1 tablet DAILY (route: oral) Med Classific ation: Hematolog ical Agents atorvastati n 20 mg tablet 05-28 00:00: 00 Yes [id number] 1 tablet BEDTIME 1 tablet BEDTIME (route: oral) Med Classific ation: Cardiovas cular Therapy Agents benztropine 1 mg tablet 04-30 00:00: 00 08-12 23:59 :00 No [id number] 1 tablet 2 TIMES DAILY 1 tablet 2 TIMES DAILY (route: oral) Med Classific ation: Central Nervous System Agents buspirone 15 mg tablet 03-24 00:00: 00 09-06 23:59 :00 No [id number] 1 tablet DAILY 1 tablet DAILY (route: oral) Med Classific ation: Central Nervous System Agents fenofibrate 160 mg tablet 18 00:00: 00 Yes [id number] 1 tablet Every day 1 tablet Every day (route: oral) Med Classific ation: Cardiovas cular Therapy Agents gabapentin 300 mg capsule 03-24 00:00: 00 06-21 23:59 :00 No [id number] 2 capsule BEDTIME 2 capsule BEDTIME (route: oral) Med Classific ation: Central Nervous System Agents gabapentin 100 mg capsule 03-24 00:00: 00 06-21 23:59 :00 No [id number] 1 capsule BEDTIME 1 capsule BEDTIME (route: oral) Med Classific ation: Central Nervous System Agents hydroxychlo roquine 200 mg tablet 03-24 00:00: 00 11-01 23:59 :00 No [id number] 1 tablet 2 TIMES DAILY 1 tablet 2 TIMES DAILY (route: oral) Med Classific ation: Anti-Infe ctive Agents levetiracet am 250 mg tablet 03-24 00:00: 00 09-06 23:59 :00 No [id number] 0.5 tablet BEDTIME 0.5 tablet BEDTIME (route: oral) Med Classific ation: Central Nervous System Agents lamotrigine 100 mg tablet 03-24 00:00: 00 12-17 23:59 :00 No [id number] 1 tablet BEDTIME 1 tablet BEDTIME (route: oral) Med Classific ation: Central Nervous System Agents metoprolol succinate ER 25 mg tablet,exte nded release 24 hr 03-24 00:00: 00 10-02 23:59 :00 No [id number] 1 tablet DAILY 1 tablet DAILY (route: oral) Med Classific ation: Cardiovas cular Therapy Agents pantoprazol e 40 mg tablet,jeri yed release 03-24 00:00: 00 09-06 23:59 :00 No [id number] 1 tablet DAILY 1 tablet DAILY (route: oral) Med Classific ation: Gastroint estinal Therapy Agents Vitamin B-12 ER 1,000 mcg tablet,exte nded release 2018-12 224 00:00: 00 06-21 23:59 :00 No [id number] 1 tablet DAILY 1 tablet DAILY (route: oral) Med Classific ation: Electroly te Balance-N utritiona l Products Vitamin B-12 1,000 mcg tablet 2018-12 114 00:00: 00 Yes [id number] 1 tablet Daily 1 tablet Daily (route: oral) Alternate Route: Po. Med Classific ation: Electroly te Balance-N utritiona l Products alprazolam 1 mg tablet 03-24 00:00: 00 09-06 23:59 :00 No [id number] 1 tablet 4 TIMES DAILY 1 tablet 4 TIMES DAILY (route: oral) Med Classific ation: Central Nervous System Agents gabapentin 300 mg capsule 06-21 00:00: 00 09-06 23:59 :00 No [id number] 3 capsule BEDTIME 3 capsule BEDTIME (route: oral) Med Classific ation: Central Nervous System Agents gabapentin 100 mg capsule 06-21 00:00: 00 08-23 23:59 :00 No [id number] 2 capsule NEEDED 2 capsule NEEDED (route: oral) Med Classific ation: Central Nervous System Agents amlodipine 2.5 mg tablet 08-12 00:00: 00 Yes 1 tablet DAILY 1 tablet DAILY (route: oral) Med Classific ation: Cardiovas cular Therapy Agents cefuroxime axetil 250 mg tablet 08-12 00:00: 00 09-06 23:59 :00 No 1 tablet 2 TIMES DAILY 1 tablet 2 TIMES DAILY (route: oral) Med Classific ation: Anti-Infe ctive Agents gabapentin 100 mg capsule 08-23 00:00: 00 09-06 23:59 :00 No 1 capsule 3 TIMES DAILY 1 capsule 3 TIMES DAILY (route: oral) Med Classific ation: Central Nervous System Agents clonazepam 1 mg tablet 2022-12 0-06 00:00: 00 Yes 0.5 tablet 2 TIMES DAILY 0.5 tablet 2 TIMES DAILY (route: oral) Med Classific ation: Central Nervous System Agents omeprazole 20 mg capsule,del ayed release 2022-12 0-06 00:00: 00 Yes 1 capsule DAILY 1 capsule DAILY (route: oral) Med Classific ation: Gastroint estinal Therapy Agents Risperdal 1 mg tablet 2022-12 0-06 00:00: 00 11-17 23:59 :00 No 1 tablet 2 TIMES DAILY 1 tablet 2 TIMES DAILY (route: oral) Med Classific ation: Central Nervous System Agents trazodone 50 mg tablet 2022-12 0-06 00:00: 00 10-10 23:59 :00 No 1 tablet BEDTIME 1 tablet BEDTIME (route: oral) Med Classific ation: Central Nervous System Agents trazodone 50 mg tablet 2022-12 1-09 00:00: 00 11-01 23:59 :00 No 2 tablet BEDTIME 2 tablet BEDTIME (route: oral) Med Classific ation: Central Nervous System Agents trazodone 50 mg tablet 2022-12 2-05 00:00: 00 01-20 23:59 :00 No 3 tablet BEDTIME 3 tablet BEDTIME (route: oral) Med Classific ation: Central Nervous System Agents folic acid 1 mg tablet 1-05 00:00: 00 Yes 1 tablet DAILY 1 tablet DAILY (route: oral) Med Classific ation: Electroly te Balance-N utritiona l Products methotrexat e sodium 2.5 mg tablet 1-05 00:00: 00 05-26 23:59 :00 No 3 tablet DIRECTED 3 tablet DIRECTED (route: oral) Med Classific ation: Antineopl astics trazodone 50 mg tablet 2-19 00:00: 00 09-10 23:59 :00 No 2 tablet BEDTIME 2 tablet BEDTIME (route: oral) Med Classific ation: Central Nervous System Agents methotrexat e sodium 2.5 mg tablet 05-26 00:00: 00 Yes 4 tablet DIRECTED 4 tablet DIRECTED (route: oral) Med Classific ation: Antineopl astics trazodone 100 mg tablet 2023-12 0-11 00:00: 00 10-08 23:59 :00 No 250 mg BEDTIME 250 mg BEDTIME (route: oral) Med Classific ation: Central Nervous System Agents trazodone 100 mg tablet 2023-12 00:00: 00 Yes 300 mg BEDTIME 300 mg BEDTIME (route: oral) Med Classific ation: Central Nervous System Agents Risperdal 0.5 mg tablet 2023-12- 00:00: 00 Yes 1 tablet BEDTIME 1 tablet BEDTIME (route: oral) Med Classific ation: Central Nervous System Agents Risperdal 1 mg tablet 2023-12 00:00: 00 Yes 1 mg 2 TIMES DAILY 1 mg 2 TIMES DAILY (route: oral) Med Classific ation: Central Nervous System Agents lamotrigine 100 mg tablet 12-18 00:00: 00 Yes 1 tablet BEDTIME 1 tablet BEDTIME (route: oral) Med Classific ation: Central Nervous System Agents lamotrigine 25 mg tablet 12-18 00:00: 00 Yes 1 tablet BEDTIME 1 tablet BEDTIME (route: oral) Med Classific ation: Central Nervous System Agents Vital Signs Vital Name Observation Time Observation Value Commen ts Temperature 2024-12-07 10:56:00.000 97.8 [degF] Temperature 2024-11-30 12:14:00.000 97.8 [degF] Temperature 2024-11-06 10:53:00.000 98.6 [degF] Pulse 2024-12-21 08:50:00.000 76 /min Pulse 2024-12-14 08:33:00.000 80 /min Pulse 2024-12-07 10:56:00.000 68 /min Pulse 2024-11-30 12:14:00.000 68 /min Pulse 2024-11-23 08:41:00.000 76 /min Pulse 2024-11-10 09:06:00.000 74 /min Pulse 2024-11-09 09:15:00.000 82 /min Pulse 2024-11-06 10:53:00.000 60 /min Pulse 2024-11-03 09:49:00.000 76 /min O2 Saturation (%) 2024-12-21 08:51:00.000 97 % O2 Saturation (%) 2024-12-14 08:34:00.000 97 % O2 Saturation (%) 2024-11-10 09:06:00.000 97 % O2 Saturation (%) 2024-11-06 10:54:00.000 98 % O2 Saturation (%) 2024-11-03 09:54:00.000 96 % Respirations 2024-12-21 08:50:00.000 20 /min Respirations 2024-12-14 08:33:00.000 20 /min Respirations 2024-12-08 15:45:00.000 20 /min Respirations 2024-12-07 10:56:00.000 16 /min Respirations 2024-11-30 12:14:00.000 16 /min Respirations 2024-11-23 08:41:00.000 20 /min Respirations 2024-11-10 09:06:00.000 20 /min Respirations 2024-11-09 09:15:00.000 20 /min Respirations 2024-11-06 10:53:00.000 18 /min Respirations 2024-11-03 09:49:00.000 20 /min Systolic Blood Pressure 2024-12-21 08:50:00.000 122 mm [Hg] Systolic Blood Pressure 2024-12-14 08:33:00.000 110 mm [Hg] Systolic Blood Pressure 2024-12-08 15:45:00.000 118 mm [Hg] Systolic Blood Pressure 2024-12-08 09:02:00.000 118 mm [Hg] Systolic Blood Pressure 2024-12-07 10:56:00.000 117 mm [Hg] Systolic Blood Pressure 2024-11-30 12:19:00.000 122 mm [Hg] Systolic Blood Pressure 2024-11-23 08:41:00.000 122 mm [Hg] Systolic Blood Pressure 2024-11-10 09:06:00.000 118 mm [Hg] Systolic Blood Pressure 2024-11-09 09:15:00.000 110 mm [Hg] Systolic Blood Pressure 2024-11-06 10:53:00.000 140 mm [Hg] Systolic Blood Pressure 2024-11-03 09:49:00.000 108 mm [Hg] Diastolic Blood Pressure 2024-12-21 08:50:00.000 70 mm [Hg] Diastolic Blood Pressure 2024-12-14 08:33:00.000 66 mm [Hg] Diastolic Blood Pressure 2024-12-08 15:45:00.000 76 mm [Hg] Diastolic Blood Pressure 2024-12-08 09:02:00.000 72 mm [Hg] Diastolic Blood Pressure 2024-12-07 10:56:00.000 60 mm [Hg] Diastolic Blood Pressure 2024-11-30 12:19:00.000 70 mm [Hg] Diastolic Blood Pressure 2024-11-23 08:41:00.000 78 mm [Hg] Diastolic Blood Pressure 2024-11-10 09:06:00.000 78 mm [Hg] Diastolic Blood Pressure 2024-11-09 09:15:00.000 68 mm [Hg] Diastolic Blood Pressure 2024-11-06 10:53:00.000 70 mm [Hg] Diastolic Blood Pressure 2024-11-03 09:49:00.000 68 mm [Hg] Plan of Treatment Planned Activity Planned Date Details Comments Future Scheduled Test SKILLED NU RSE TO EVALUATE PATIENT, IDENTIFY PRIMARY AND CO-MORBID CONDITIONS CODED PER CODING GUIDELINES, AND DEVELOP PATIENT SPECIFIC PLAN OF CARE THAT INCLUDES PATIENT GOAL FOR HOME HEALTH. [code = SKILLED NURSE TO EVALUATE PATIENT, IDENTIFY PRIMARY AND CO-MORBID CONDITIONS CODED PER CODING GUIDELINES, AND DEVELOP PATIENT SPECIFIC PLAN OF CARE THAT INCLUDES PATIENT GOAL FOR HOME HEALTH.] Future Scheduled Test SKILLED NU RSE WILL MAINTAIN SITUATIONAL AWARENESS FOR SAFETY AND WILL NOTIFY CLINICAL HYDROLOGY TEACHER AND PHYSICIAN/PROVIDER WITH ANY CHANGE IN CONDITION. [code = SKILLED NURSE WILL MAINTAIN SITUATIONAL AWARENESS FOR SAFETY AND WILL NOTIFY CLINICAL HYDROLOGY TEACHER AND PHYSICIAN/PROVIDER WITH ANY CHANGE IN CONDITION.] Future Scheduled Test SKILLED NU RSE TO O/A OF PATIENTS MENTAL/BEHAVIORAL STATUS, ASSESS VITAL SIGNS 1WK8, SNV 5WK8 ALLOW 2 PRNS FOR MEDICATION MANAGEMENT. [code = SKILLED NURSE TO O/A OF PATIENTS MENTAL/BEHAVIORAL STATUS, ASSESS VITAL SIGNS 1WK8, SNV 5WK8 ALLOW 2 PRNS FOR MEDICATION MANAGEMENT.] Future Scheduled Test SKILLED NU RSE TO REVIEW PATIENT MEDICATIONS. INSTRUCT PATIENT/CAREGIVER ON MONITORING OF EFFECTIVENESS, ADVERSE DRUG REACTIONS, SIDE EFFECTS OF ALL MEDICATIONS (PRESCRIPTION/-OTC), AND HOW AND WHEN TO REPORT PROBLEMS. [code = SKILLED NURSE TO REVIEW PATIENT MEDICATIONS. INSTRUCT PATIENT/CAREGIVER ON MONITORING OF EFFECTIVENESS, ADVERSE DRUG REACTIONS, SIDE EFFECTS OF ALL MEDICATIONS (PRESCRIPTION/-OTC), AND HOW AND WHEN TO REPORT PROBLEMS.] Future Scheduled Test SKILLED NU RSE TO ADMINISTER MEDICATIONS 5WK8 AND PRE-POUR MEDICATIONS 1WK8 PER MEDICATION LIST. [code = SKILLED NURSE TO ADMINISTER MEDICATIONS 5WK8 AND PRE-POUR MEDICATIONS 1WK8 PER MEDICATION LIST.] Future Scheduled Test SKILLED NU RSE TO ASSESS PATIENTS PSYCHOSOCIAL STATUS TO IDENTIFY POTENTIAL ISSUES THAT MAY COMPLICATE THE PROVISION OF THE PLAN OF CARE INCLUDING THE PATIENTS ABILITY TO ACCESS COMMUNITY RESOURCES AND PSYCHOSOCIAL SUPPORT SERVICES. [code = SKILLED NURSE TO ASSESS PATIENTS PSYCHOSOCIAL STATUS TO IDENTIFY POTENTIAL ISSUES THAT MAY COMPLICATE THE PROVISION OF THE PLAN OF CARE INCLUDING THE PATIENTS ABILITY TO ACCESS COMMUNITY RESOURCES AND PSYCHOSOCIAL SUPPORT SERVICES.] Goal 2023-11-01 Patient Goal - C LEAN THE HOUSE, SPEND TIME WITH THE CAT, DO LAUNDRY Goal 2023-12-31 Patient Goal - K EEP CALM DURING THIS , MOVING TIME Goal 2024-03-02 Patient Goal - L EARN TO MANAGE ANXIETY AND SLEEP BETTER Goal 2024-04-28 Patient Goal - GET MY CAR Goal 2024-06-29 Patient Goal - GET MY CAR Goal 2024-08-26 Patient Goal - D RIVE MY CAR, SEE MY FATHER Goal 2024-10-26 Patient Goal - NOT HAVE SO M UCH ANXIETY Goal Patient Goal - TO SLEEP BETT ER Goal Provider Goal - A PLAN OF CARE WILL BE ESTABLISHED THAT MEETS PATIENT'S GROUP HOME NEEDS AND INCLUDES PATIENT GOAL FOR HOME HEALTH. Goal Provider Goal - PATIENT WILL REMAIN SAFE IN THE COMMUNITY AND WILL BE FREE OF DANGER TO SELF AND OTHERS THROUGHOUT THE CERTIFICATION PERIOD. Goal Provider Goal - ALTERED MENTAL/BEHAVIORAL STATUS WILL BE IDENTIFIED PROMPTLY AND INTERVENTION INITIATED QUICKLY TO MINIMIZE ASSOCIATED RISKS THROUGHOUT CERTIFICATION PERIOD. Goal Provider Goal - PATIENT/CAREGIVER WILL VERBALIZE UNDERSTANDING OF EDUCATION PROVIDED ON MEDICATIONS BY THE END OF THE CERTIFICATION PERIOD. Goal Provider Goal - PATIENT WILL COMPLY WITH MEDICATION WHEN SKILLED NURSE ADMINISTERS AND PRE-POURS MEDICATION THROUGHOUT CERTIFICATION PERIOD. Goal Provider Goal - PSYCHOSOCIAL NEEDS WILL BE IDENTIFIED AND PLAN IMPLEMENTED TO MINIMIZE RISK THROUGHOUT CERTIFICATION PERIOD. Progress Notes Progress Notes <paragraph>[Visit Date: 2024 by PREET BRASWELL RN]:</paragraph><paragraph>AO X3 AND FORGETFUL. SHE DENIES SI/HI/AVH. SHE HAS AN APPT WITH PCP DR. APPIAH AND MAMMOGRAM TOMORROW. SN EDUCATED HER ON DOSE INCREASE OF LAMOTRIGINE AND ADVERSE EFFECTS TO REPORT. SHE VERBALIZED PARTIAL UNDERSTANDING OF TEACHING. AM MEDICATIONS ADMINISTERED AND SHE IS COMPLIANNT WITH PP PER MED SLEEVES. LOCKBOX SECURED.</paragraph> <paragraph>[Visit Date: 2024 by PREET BRASWELL RN]:</paragraph><paragraph>AO X3 AND FORGETFUL. AM MEDICATIONS ADMINISTERED PER JAN AND LAMOTRIGINE PICKED UP AT PHARMACY BY SN AND PP PER JAN. DOSE INCREASED TO 125MG AT HS FOR C/O INSOMNIA. PATIENT TO F/U WITH FAISAL FUENTESP PSYCH PROVIDER IN 2 WKS. LOCKBOX SECURED.</paragraph> <paragraph>[Visit Date: 2024 by PREET BRASWELL RN]:</paragraph><paragraph>AO X3 FORGETFUL. SHE WAS SEEN BY PSYCH PROVIDER FAISAL DEE HYDRAULIC BULL RIVETER OPERATOR WITH DOSE INCREASE OF HER LAMOTRIGINE FROM 100MG AT HS TO 125MG AT HS FOR C/O INSOMNIA.</paragraph> <paragraph>[Visit Date: 2024 by PREET BRASWELL RN]:</paragraph><paragraph>PATIENT HAS APPT WITH FAISAL Becerra PSYCH PROVIDER ON 12/17</paragraph> Encounters Start Date/Time End Date/Time Encounter Type Admission Type Attending [facility] Care Facility Care Department Encounter ID Discharge Date Discharge Status Discharge Condition Discharge Reason Percent Goals Met 2023-09-06 00:00:00 2024-12-28 00:00:00 Outpatient [facility] [id number]
--- OUTSIDE RECORDS SUMMARY | 2024-12-22 11:23 | XMS_ITS | Encounter Summary ---
Author Organization [employer] Address [address] [place] [address] [address] [place] [address] Care Team Providers Care Home Office Claim Specialist Name Role Phone Unavailable Primary Care Provider Unavailabl e Encounter Details Date Type Department Care Team (Latest Contact Info) Description 09/29/2021 Abstract [facility] CONVERSIONS Dental, Provider, DDS Social History Tobacco [...]
== END 2024-12-22 10:10 | disposition home or self-care (01) ==
LOC: HO.MAMMO 10:09
PROVIDERS: PCP Internal Medicine; Visit Provider Internal Medicine
DX: Z12.31 Encounter for screening mammogram for malignant neoplasm of breast (principal)
CPT/HCPCS: 77063; 77067; 96127; 99212

== ENCOUNTER → 2024-12-22 10:30 | Outpatient (BNV) | payer OTHER, SELFPAY | PROVIDERS: PCP Internal Medicine; Visit Provider Internal Medicine | DX: Z12.31 Encounter for screening mammogram for malignant neoplasm of breast (principal) | CPT/HCPCS: 77063; 77067 ==

== ENCOUNTER 2024-12-22 10:45 | Outpatient (AMB) | payer OTHER, SELFPAY ==
[2024-12-22 11:05] VITALS: BP 136/72; PULSE 58; O2SAT 97; BMI 22.7
--- NOTE | 2024-12-22 11:05 | MHC.PC.OV ---
Vital Signs 12/22/24 11:05 Height 5 ft 10 in Weight 158 lb 6 oz BMI 22.7 BP 136/72 Blood Pressure Location Lt brachial Position Sitting Pulse 58 Pulse Source Pulse Oximeter Pulse Oximetry (%) 97 Oxygen Delivery Method Room Air Intake Visit Reasons: [facility] [employer] Required: No Accompanied by: Self / Same As Patient Allergies Benadryl Allergy (Intermediate, Verified 12/22/24 11:42) swelling, rash Medication List - Last Reconciled 12/22/24 by Laurent Gtz MD amlodipine 2.5 mg PO DAILY aspirin 81 mg PO DAILY 90 days atorvastatin 20 mg PO BEDTIME clonazepam 0.5 mg PO BID cyanocobalamin (vitamin B-12) (Vitamin B-12) 1,000 mcg PO DAILY fenofibrate 160 mg PO DAILY folic acid 1 mg PO DAILY 90 days lamotrigine 25 mg PO BEDTIME lamotrigine 100 mg PO BEDTIME methotrexate sodium 7.5 mg PO QWEEK omeprazole 20 mg PO DAILY@0630 risperidone 1 mg PO BID trazodone 150 mg PO BEDTIME PRN Tobacco use date assessed: 12/22/24 Fall risk assessment: No Falls in past year Last assessed Fall Risk: 12/22/24 Dental Screening Dental Screen Date: 12/22/24 Did you have a dental visit in the last 12 months?: No Did you have a dental problem in the last 6 months where you did not have access to dental care?: No Was dental information given to patient?: No HPI [facility] f[facility] HPI Details Patient comes in for her follow up visit States that she feels okay She is still having problems sleeping at night and states that psychiatry recently just increased her Lamotrigine dose at bedtime by another 25 mg for a total of 125 mg Q HS - she just started on the Rx and it is currently too early to tell whether the Rx is helping or not She denies any headaches or dizziness Denies any chest pains, no SOB No nausea/vomiting, no abdominal pain No change in bowel habits noted [facility] Medical History (Updated 12/22/24 @ 12:26 by Laurent Gtz MD) GERD without esophagitis Essential hypertension Schizoaffective disorder Vitamin D deficiency History of transesophageal echocardiography (BRENDA) Cough Ascending aortic aneurysm Overweight (BMI 25.0-29.9) Anxiety Insomnia Vitamin B12 deficiency Leukocytosis (leucocytosis) Anemia Mixed hyperlipidemia Coronary artery disease Aortic stenosis Thoracic aortic aneurysm (~2019) Discoid lupus Bipolar disorder Surgical History Hx of colonoscopy Hx of thoracic aortic aneurysm repair History of aortic valve replacement with bioprosthetic valve H/O aortic valve replacement History of thumb surgery History of total abdominal hysterectomy and bilateral salpingo-oophorectomy S/P lumpectomy of breast History of appendectomy Family History Father Diabetes Mother No problems noted. Brother Healthy adult Social History Household Members: None Housing: Apartment Do you presently have visiting nurse or other home services: Yes (visiting nurse) Alcohol intake: current Alcohol intake frequency: holidays/special occasions only Patient Tobacco Use Status: Former Tobacco user Tobacco use type: Cigar e-Cigarette/Vaping Use: Never Used Second Hand Smoke Exposure: No Advance Directives Date on File: 08/08/23 service: No Current occupational status: retired Cognitive needs: No Hearing needs: No Vision needs: Yes Questionnaire PHQ-9 Over the last 2 weeks, how often have you been bothered by any of the following problems? 1. Little interest or pleasure in doing things: nearly every day 2. Feeling down, depressed, or hopeless: nearly every day 3. Trouble falling or staying asleep, or sleeping too much: nearly every day 4. Feeling tired or having little energy: not at all 5. Poor appetite or overeating: not at all 6. Feeling bad about yourself - or that you are a failure or have let yourself or your family down: not at all 7. Trouble concentrating on things, such as reading the newspaper or watching television: not at all 8. Moving or speaking so slowly that other people could have noticed. Or the opposite - being so fidgety or restless that you have been moving around a lot more than usual: not at all 9. Thoughts that you would be better off or of hurting yourself in some way: not at all Total score: 9 Depression Screening Interpretation: Positive Depression Screening Follow-up: Existing condition and In treatment Depression Screening Done: Yes 63670 - PHQ-9 Billing: Yes Source: Developed by Drs. Matt Rowe, Rukhsana Corona, Dusty Galicia and colleagues, with an educational paul from [employer]. Thrive Questionnaire Date Thrive assessed: 12/22/24 I am a: Patient What is your living situation today?: I have a steady place to live Within the past 12 months, did the food you bought not last and you didn't have the money to get more?: Never true Within the past 12 months, did you worry whether your food would run out before you got money to buy more?: Never true Do you have trouble paying for medicines?: No Do you have trouble getting transportation to medical appointments?: No Do you have trouble paying your heating and electricity bill?: No Do you have trouble taking care of your child, family member or friend?: No Do you have trouble with day-to-day activities such as bathing, preparing meals, shopping, managing finances, etc.?: No Are you currently unemployed and looking for a job?: No Are you interested in more education?: No Please select the resources that you would like help with: None Currently or been in a relationship where the following occur: No concerns reported THRIVE Score: 0 AUDIT C Alcohol Use Questionnaire (AUDIT-C) 1. How often do you have a drink containing alcohol?: Monthly or less 2. How many drinks containing alcohol do you have on a typical day when you are drinking?: 1 or 2 3. How often do you have six or more drinks on one occasion?: Never Total Score: 1 Score Reviewed/Action Taken: Yes FRANCINE-7 AMB Questionnaire FRANCINE-7 Date FRANCINE - 7 assessed: 12/22/24 Feeling nervous, anxious, or on edge: 3 = Nearly every day Not being able to stop or control worryin = Nearly every day Worrying too much about different things: 3 = Nearly every day Trouble relaxin = Not at all Being so restless that it is hard to sit still: 0 = Not at all Becoming easily annoyed or irritable: 0 = Not at all Feeling afraid as if something awful might happen: 0 = Not at all Total FRANCINE-7 score (0-4 normal; 5-9 mild; 10-14 moderate; 15-21 severe): 9 Source: Developed by Drs. Matt Rowe, Rukhsana Corona, Dusty Galicia and colleagues, with an educational paul from [employer]. Review of Systems Const Denies chills, Reports difficulty sleeping, Denies fatigue, Denies fever(s) and Denies headache(s) ENT Denies dysphagia, Denies dizziness, Denies otalgia, Denies headache(s), Reports neck pain (on and off), Denies odynophagia and Denies sore throat Card Denies chest pain, Denies palpitations and Denies dyspnea Resp Denies chest congestion, Denies cough and Denies dyspnea GI Denies abdominal pain, Denies constipation, Denies dysphagia, Denies heartburn, Denies diarrhea, Denies nausea, Denies odynophagia and Denies vomiting Denies difficulty voiding, Denies nocturia, Denies dysuria and Denies urinary urgency Musc Reports back pain (on and off over the lower back for the past couple of weeks - see HPI) and Reports neck pain (on and off) Skin/Breast Denies rash Neuro Denies dizziness and Denies headache(s) Psych Reports anxiety (better controlled ) Endo Denies fatigue and Denies palpitations Physical exam (Primary Care) Vital Signs: Last Vital Signs Pulse 58 12/22/24 11:05 BP 136/72 12/22/24 11:05 Pulse Ox 97 12/22/24 11:05 Oxygen Delivery Method Room Air 12/22/24 11:05 BMI result Body Mass Index 22.7 Tobacco/Smoking Status: Tobacco use Status Tobacco use date assessed 12/22/24 12/22/24 11:10 Patient Tobacco Use Status Former Tobacco user 12/22/24 11:06 Tobacco use type Cigar 12/22/24 11:06 e-Cigarette/Vaping Use Never Used 12/22/24 11:06 PHQ-9: PHQ-9 Score PHQ-9: Total score 9 12/22/24 11:10 Depression Screening Interpretation: Positive Depression Screening Follow-up: Existing condition and In treatment Thrive Assessment: Date of Thrive Assessment Date Thrive assessed 12/22/24 12/22/24 11:10 Currently or been in a relationship where the following occur: No concerns reported Const General: no acute distress and alert HENMT Ears: TM's normal bilaterally and EAC's normal Throat: Yes posterior oropharynx normal and Yes tonsils normal Neck Neck: Yes supple and No lymphadenopathy Thyroid: Thyroid normal Resp Auscultation: clear to auscultation bilaterally, no rales and no wheezes Cardio Rate: regular rate Rhythm: regular rhythm Heart sounds: no murmurs GI Palpation (GI): Soft to palpation and nontender Auscultation: normal bowel sounds General: Yes no CVA tenderness Back/Spine/Pelvis Back: no CVA tenderness Cervical Spine: Cervical spine tenderness Thoracic/Lumbar Spine: paraspinal muscle tenderness bilaterally in the upper lumbar, in the mid lumbar and in the lower lumbar and No lumbar spinal tenderness Skin Rashes: no rashes Extrem General: Yes no clubbing, cyanosis or edema Coding Level of Care Code Est Pt Level 4 (07757) Diagnoses Mixed hyperlipidemia E78.2 H/O aortic valve replacement Z95.2 Coronary artery disease involving [place] coronary artery of [place] heart without angina pectoris I25.10 Coronary Disease-Associated Artery/Lesion type: [place] artery [place] vs. transplanted heart: [place] heart Associated angina: without angina Essential hypertension I10 Anemia, unspecified type D64.9 Anemia type: unspecified type Discoid lupus L93.0 GERD without esophagitis K21.9 Vitamin B12 deficiency E53.8 Vitamin D deficiency E55.9 Degenerative disc disease, cervical M50.30 Insomnia, unspecified type G47.00 Insomnia type: unspecified Anxiety F41.9 Bipolar affective disorder, current episode mixed, current episode severity unspecified F31.60 Active/Remission status: currently active Current bipolar episode type: mixed Current episode severity: unspecified Overweight (BMI 25.0-29.9) E66.3 Additional Codes PHQ-9 - 10867 - PHQ-9 Billing: Yes ([id number]) Assessment & Plan Assessment & Plan (1) Mixed hyperlipidemia: Code(s): E78.2 - Mixed hyperlipidemia Category: Medical Plan: Her cholesterol numbers were under excellent control when last checked in August 2024 Reinforced low cholesterol diet Continue Atorvastatin 20 mg QD and Fenofibrate 160 mg QD Will have her recheck her labs and fasting lipids in 4 months for follow up (2) H/O aortic valve replacement: Comment: 03/12/2019 aortic valve replacement with a 19-mm Dominguez-Prajapati Magna Ease valve and replacement of the ascending aorta with a 30-mm [place] graft, cardiopulmonary bypass, hypothermic blood cardioplegic arrest (Dr. Pato Aguirre) Code(s): Z95.2 - Presence of prosthetic heart valve Category: Surgical Plan: S/P aortic valve replacement with a bioprosthetic valve and aortic arch aneurysm repair/graft by Dr. Aguirre in 2018 She is currently taking Aspirin 81 mg QD Follow up with cardio-thoracic surgery and cardiology as scheduled (3) Coronary artery disease: Code(s): I25.10 - Atherosclerotic heart disease of [place] coronary artery without angina pectoris Category: Medical Qualifiers: Coronary Disease-Associated Artery/Lesion type: [place] artery [place] vs. transplanted heart: [place] heart Associated angina: without angina Qualified Code(s): I25.10 - Atherosclerotic heart disease of [place] coronary artery without angina pectoris Plan: Per cardiology, she has diffuse vascular disease without any significant obstructive disease in the CAD or any symptoms at high workload She was recommended to continue aggressive medical therapy, optimizing BP and cholesterol control Continue low-dose aspirin therapy for life Follow up with cardiology as scheduled (4) Essential hypertension: Code(s): I10 - Essential (primary) hypertension Category: Medical Plan: Reinforced low sodium diet - goal is systolic BP of 120 to 130 mm or less Continue Amlodipine 2.5 mg QD (5) Anemia: Code(s): D64.9 - Anemia, unspecified Category: Medical Qualifiers: Anemia type: unspecified type Qualified Code(s): D64.9 - Anemia, unspecified Plan: Corrected - her H/H were normal at 12.8/38.1 when last checked in August 2024 Will continue to monitor her CBC regularly (6) Discoid lupus: Code(s): L93.0 - Discoid lupus erythematosus Category: Medical Plan: Continue Methotrexate 7.5 mg once a week Follow up with dermatology as scheduled (7) GERD without esophagitis: Code(s): K21.9 - Gastro-esophageal reflux disease without esophagitis Category: Medical Plan: Dietary restrictions reinforced Continue Omeprazole 20 mg QD (8) Vitamin B12 deficiency: Code(s): E53.8 - Deficiency of other specified B group vitamins Category: Medical Plan: Continue Vitamin B12 1000 mcg QD (9) Vitamin D deficiency: Code(s): E55.9 - Vitamin D deficiency, unspecified Category: Medical Plan: Continue Vitamin D3 2000 units QD (10) Degenerative disc disease, cervical: Code(s): M50.30 - Other cervical disc degeneration, unspecified cervical region Category: Medical Plan: Patient still has on and off neck pain - PT has helped a lot in the past Cervical spine x-rays done in September 2022 revealed (+) narrowing of the intervertebral disc spaces, suggesting underlying degenerative disc disease. There is a mild grade 1 anterior spondylolisthesis of C3 on C4 noted Have advised patient that she can call for referral to PT at any time when needed for increasing neck pains (11) Insomnia: Code(s): G47.00 - Insomnia, unspecified Category: Medical Qualifiers: Insomnia type: unspecified Qualified Code(s): G47.00 - Insomnia, unspecified Plan: Sleep hygiene reinforced Continue Trazodone 150 mg Q HS PRN Psychiatry also reportedly increased her Lamotrigine from 100 mg to 125 mg Q HS to help with her sleeping issues (12) Anxiety: Code(s): F41.9 - Anxiety disorder, unspecified Category: Medical Plan: Continue Clonazepam 0.5 mg BID PRN (13) Bipolar disorder: Code(s): F31.9 - Bipolar disorder, unspecified Category: Medical Qualifiers: Active/Remission status: currently active Current bipolar episode type: mixed Current episode severity: unspecified Qualified Code(s): F31.60 - Bipolar disorder, current episode mixed, unspecified Plan: Continue Lamotrigine 100 + 25 mg mg Q HS and Risperidone 1 mg BID Follow up with Dr. Vincent (psychiatrist) and Dr. Maldonado (psychologist) as scheduled although she has notified us previously that Dr. Vincent will be retiring soon and she is looking for a new psychiatrist but may need us to help refill her meds if needed until she is established with a new psychiatrist (14) Overweight (BMI 25.0-29.9): Code(s): E66.3 - Overweight Category: Medical Plan: Reinforced diet/exercise as tolerated/lose weight Plan Follow up in 4 months Orders: Orders Comprehensive [place]. Panel Fast 4 Months Laurent Gtz MD E78.00 - Pure hypercholesterolemia, unspecified TSH reflex Free T4 4 Months Laurent Gtz MD E78.00 - Pure hypercholesterolemia, unspecified Vitamin B12 and Folate 4 Months Laurent Gtz MD E53.8 - Deficiency of other specified B group vitamins Complete Blood Count Auto Diff 4 Months Laurent tGz MD D64.9 - Anemia, unspecified Lipid Panel 4 Months Laurent Gtz MD E78.00 - Pure hypercholesterolemia, unspecified UA CC w/rflx Micro + Cult 4 Months Laurent Gtz MD R30.0 - Dysuria Vitamin D 25-OH Total 4 Months Laurent Gtz MD E55.9 - Vitamin D deficiency, unspecified Medications: Changed From lamotrigine 100 mg PO BEDTIME 30 tabs 0RF To lamotrigine total of 125 mg Q HS 100 mg PO BEDTIME Frances Davis, MANAGER OF PHARMACY
--- OUTSIDE RECORDS SUMMARY | 2024-12-22 12:18 | XMS_ITS | Clinical Summary ---
Author Organization Unknown Care Team Providers Care Hearing Impaired Itinerant Teacher Name Role Phone TD RÍOS, SCOTT Unavailable Unavailable LUBNA ESPITIA, FABIANO Unavailable Unavailable FRENCH ESPITIA, PREET Unavailable Unavailable Payers Payer Name Policy Type Policy Number Effective Date Expira tion Date [facility] [id number] MEDICAID [facility] [id number] MEDICARE - [facility] - [place] [id number] Problems Condition Name Condition Details Condition Category [...] 03-24 00:00: 00 09-06 23:59 :00 No [id number] 1 tablet BEDTIME 1 tablet BEDTIME (route: oral) Med Classific ation: Central Nervous System Agents aspirin 81 mg tablet,jeri yed release 03-24 00:00: 00 Yes [id number] 1 tablet DAILY 1 tablet DAILY (route: oral) Med Classific ation: Hematolog ical Agents atorvastati n 20 mg tablet 05-28 00:00: 00 Yes [id number] 1 tablet BEDTIME 1 tablet BEDTIME (route: oral) Med Classific ation: Cardiovas cular Therapy Agents benztropine 1 mg tablet 04-30 00:00: 00 08-12 23:59 :00 No [id number] 1 tablet 2 TIMES DAILY 1 tablet 2 TIMES DAILY (route: oral) Med Classific ation: Central Nervous System Agents buspirone 15 mg tablet 03-24 00:00: 00 09-06 23:59 :00 No [id number] 1 tablet DAILY 1 tablet DAILY (route: oral) Med Classific ation: Central Nervous System Agents fenofibrate 160 mg tablet 18 00:00: 00 Yes [id number] 1 tablet Every day 1 tablet Every day (route: oral) Med Classific ation: Cardiovas cular Therapy Agents gabapentin 300 mg capsule 03-24 00:00: 00 06-21 23:59 :00 No [id number] 2 capsule BEDTIME 2 capsule BEDTIME (route: oral) Med Classific ation: Central Nervous System Agents gabapentin 100 mg capsule 03-24 00:00: 00 06-21 23:59 :00 No [id number] 1 capsule BEDTIME 1 capsule BEDTIME (route: oral) Med Classific ation: Central Nervous System Agents hydroxychlo roquine 200 mg tablet 03-24 00:00: 00 11-01 23:59 :00 No [id number] 1 tablet 2 TIMES DAILY 1 tablet 2 TIMES DAILY (route: oral) Med Classific ation: Anti-Infe ctive Agents levetiracet am 250 mg tablet 03-24 00:00: 00 09-06 23:59 :00 No [id number] 0.5 tablet BEDTIME 0.5 tablet BEDTIME (route: oral) Med Classific ation: Central Nervous System Agents lamotrigine 100 mg tablet 03-24 00:00: 00 12-17 23:59 :00 No [id number] 1 tablet BEDTIME 1 tablet BEDTIME (route: oral) Med Classific ation: Central Nervous System Agents metoprolol succinate ER 25 mg tablet,exte nded release 24 hr 03-24 00:00: 00 10-02 23:59 :00 No [id number] 1 tablet DAILY 1 tablet DAILY (route: oral) Med Classific ation: Cardiovas cular Therapy Agents pantoprazol e 40 mg tablet,jeri yed release 03-24 00:00: 00 09-06 23:59 :00 No [id number] 1 tablet DAILY 1 tablet DAILY (route: oral) Med Classific ation: Gastroint estinal Therapy Agents Vitamin B-12 ER 1,000 mcg tablet,exte nded release 2018-12 224 00:00: 00 06-21 23:59 :00 No [id number] 1 tablet DAILY 1 tablet DAILY (route: oral) Med Classific ation: Electroly te Balance-N utritiona l Products Vitamin B-12 1,000 mcg tablet 2018-12 114 00:00: 00 Yes [id number] 1 tablet Daily 1 tablet Daily (route: oral) Alternate Route: Po. Med Classific ation: Electroly te Balance-N utritiona l Products alprazolam 1 mg tablet 03-24 00:00: 00 09-06 23:59 :00 No [id number] 1 tablet 4 TIMES DAILY 1 tablet 4 TIMES DAILY (route: oral) Med Classific ation: Central Nervous System Agents gabapentin 300 mg capsule 06-21 00:00: 00 09-06 23:59 :00 No [id number] 3 capsule BEDTIME 3 capsule BEDTIME (route: oral) Med Classific ation: Central Nervous System Agents gabapentin 100 mg capsule 06-21 00:00: 00 08-23 23:59 :00 No [id number] 2 capsule NEEDED 2 capsule NEEDED (route: [...] AWARENESS FOR SAFETY AND WILL NOTIFY CLINICAL MANAGER OF BUSINESS AND PHYSICIAN/PROVIDER WITH ANY CHANGE IN CONDITION. [code = SKILLED NURSE WILL MAINTAIN SITUATIONAL AWARENESS FOR SAFETY AND WILL NOTIFY CLINICAL MANAGER OF BUSINESS AND PHYSICIAN/PROVIDER WITH ANY CHANGE IN CONDITION.] [...] COMMUNITY RESOURCES AND PSYCHOSOCIAL SUPPORT SERVICES.] Goal Patient Goal - TO SLEEP BETT ER Goal 2024-10-26 Patient Goal - NOT HAVE SO M UCH ANXIETY Goal 2024-08-26 Patient Goal - D RIVE MY CAR, SEE MY FATHER Goal 2024-06-29 Patient Goal - GET MY CAR Goal 2024-04-28 Patient Goal - GET MY CAR Goal 2024-03-02 Patient Goal - L EARN TO MANAGE ANXIETY AND SLEEP BETTER Goal 2023-12-31 Patient Goal - K EEP CALM DURING THIS , MOVING TIME Goal 2023-11-01 Patient Goal - C LEAN THE HOUSE, SPEND TIME WITH THE CAT, DO LAUNDRY Goal Provider Goal - A PLAN OF CARE WILL BE ESTABLISHED THAT MEETS PATIENT'S [facility] NEEDS AND INCLUDES PATIENT GOAL FOR HOME [...] WAS SEEN BY PSYCH PROVIDER FAISAL DEE COMMUNITY INTEGRATION SPECIALIST WITH DOSE INCREASE OF HER LAMOTRIGINE FROM 100MG AT HS TO 125MG AT HS FOR C/O INSOMNIA.</paragraph> <paragraph>[Visit Date: 2024 by PREET BRASWELL RN]:</paragraph><paragraph>PATIENT HAS APPT WITH FAISAL Becerra PSYCH PROVIDER ON 12/17</paragraph> Encounters Start Date/Time End Date/Time Encounter Type Admission Type Attending [facility] Care Facility Care Department Encounter ID Discharge Date Discharge Status Discharge Condition Discharge Reason Percent Goals Met 2023-09-06 00:00:00 2024-12-28 00:00:00 Outpatient [facility] [id number] 88.89
--- OUTSIDE RECORDS SUMMARY | 2024-12-22 12:19 | XMS_ITS | Encounter Summary ---
Author Organization [employer] Address [address] [place] [address] [address] [place] [address] Care Team Providers Care Professor Of Sport Management Name Role Phone Unavailable Primary Care Provider [...] Encounter Details Date Type Department Care Team ([facility] Contact Info) Description 01/28/2023 Telephone [facility] ADULT D[facility]AL [address] [place] [address] Xiang Segal, DMD [address] [place] [address] Appointment (Tracy Isaias 1955 Patient called in [...]
--- OUTSIDE RECORDS SUMMARY | 2024-12-22 12:19 | XMS_ITS | Clinical Summary ---
Author Organization Unknown Care Team Providers Care Ornithology Teacher Name Role Phone TD RÍOS, SCOTT Unavailable Unavailable LUBNA ESPITIA, FABIANO Unavailable Unavailable FRENCH ESPITIA, PREET Unavailable Unavailable Payers Payer Name Policy Type Policy Number Effective Date Expira tion Date [facility] [id number] MEDICAID [facility] [id number] MEDICARE - [facility] - [place] [id number] Problems Condition Name Condition Details Condition Category Status Onset Date Resolution Date Last Treatment Date Treating Clinician Comments SCHIZOAFFECT [place] DISORDER, BIPOLAR TYPE Active 08-29 00:00: 00 [...] 03-24 00:00: 00 09-06 23:59 :00 No [id number] 1 tablet BEDTIME 1 tablet BEDTIME (route: oral) Med Classific ation: Central Nervous System Agents aspirin 81 mg tablet,jeri yed release 03-24 00:00: 00 Yes [id number] 1 tablet DAILY 1 tablet DAILY (route: oral) Med Classific ation: Hematolog ical Agents atorvastati n 20 mg tablet 05-28 00:00: 00 Yes [id number] 1 tablet BEDTIME 1 tablet BEDTIME (route: oral) Med Classific ation: Cardiovas cular Therapy Agents benztropine 1 mg tablet 04-30 00:00: 00 08-12 23:59 :00 No [id number] 1 tablet 2 TIMES DAILY 1 tablet 2 TIMES DAILY (route: oral) Med Classific ation: Central Nervous System Agents buspirone 15 mg tablet 03-24 00:00: 00 09-06 23:59 :00 No [id number] 1 tablet DAILY 1 tablet DAILY (route: oral) Med Classific ation: Central Nervous System Agents fenofibrate 160 mg tablet 18 00:00: 00 Yes [id number] 1 tablet Every day 1 tablet Every day (route: oral) Med Classific ation: Cardiovas cular Therapy Agents gabapentin 300 mg capsule 03-24 00:00: 00 06-21 23:59 :00 No [id number] 2 capsule BEDTIME 2 capsule BEDTIME (route: oral) Med Classific ation: Central Nervous System Agents gabapentin 100 mg capsule 03-24 00:00: 00 06-21 23:59 :00 No [id number] 1 capsule BEDTIME 1 capsule BEDTIME (route: oral) Med Classific ation: Central Nervous System Agents hydroxychlo roquine 200 mg tablet 03-24 00:00: 00 11-01 23:59 :00 No [id number] 1 tablet 2 TIMES DAILY 1 tablet 2 TIMES DAILY (route: oral) Med Classific ation: Anti-Infe ctive Agents levetiracet am 250 mg tablet 03-24 00:00: 00 09-06 23:59 :00 No [id number] 0.5 tablet BEDTIME 0.5 tablet BEDTIME (route: oral) Med Classific ation: Central Nervous System Agents lamotrigine 100 mg tablet 03-24 00:00: 00 12-17 23:59 :00 No [id number] 1 tablet BEDTIME 1 tablet BEDTIME (route: oral) Med Classific ation: Central Nervous System Agents metoprolol succinate ER 25 mg tablet,exte nded release 24 hr 03-24 00:00: 00 10-02 23:59 :00 No [id number] 1 tablet DAILY 1 tablet DAILY (route: oral) Med Classific ation: Cardiovas cular Therapy Agents pantoprazol e 40 mg tablet,jeri yed release 03-24 00:00: 00 09-06 23:59 :00 No [id number] 1 tablet DAILY 1 tablet DAILY (route: oral) Med Classific ation: Gastroint estinal Therapy Agents Vitamin B-12 ER 1,000 mcg tablet,exte nded release 2018-12 224 00:00: 00 06-21 23:59 :00 No [id number] 1 tablet DAILY 1 tablet DAILY (route: oral) Med Classific ation: Electroly te Balance-N utritiona l Products Vitamin B-12 1,000 mcg tablet 2018-12 114 00:00: 00 Yes [id number] 1 tablet Daily 1 tablet Daily (route: oral) Alternate Route: Po. Med Classific ation: Electroly te Balance-N utritiona l Products alprazolam 1 mg tablet 03-24 00:00: 00 09-06 23:59 :00 No [id number] 1 tablet 4 TIMES DAILY 1 tablet 4 TIMES DAILY (route: oral) Med Classific ation: Central Nervous System Agents gabapentin 300 mg capsule 06-21 00:00: 00 09-06 23:59 :00 No [id number] 3 capsule BEDTIME 3 capsule BEDTIME (route: oral) Med Classific ation: Central Nervous System Agents gabapentin 100 mg capsule 06-21 00:00: 00 08-23 23:59 :00 No [id number] 2 capsule NEEDED 2 capsule NEEDED (route: [...] AWARENESS FOR SAFETY AND WILL NOTIFY CLINICAL BIOFUELS PRODUCT DEVELOPMENT MANAGER AND PHYSICIAN/PROVIDER WITH ANY CHANGE IN CONDITION. [code = SKILLED NURSE WILL MAINTAIN SITUATIONAL AWARENESS FOR SAFETY AND WILL NOTIFY CLINICAL BIOFUELS PRODUCT DEVELOPMENT MANAGER AND PHYSICIAN/PROVIDER WITH ANY CHANGE IN CONDITION.] [...] CARE WILL BE ESTABLISHED THAT MEETS PATIENT'S LONGTERM NEEDS AND INCLUDES PATIENT GOAL FOR HOME [...] WAS SEEN BY PSYCH PROVIDER FAISAL DEE STREET DEPARTMENT DISPATCHER WITH DOSE INCREASE OF HER LAMOTRIGINE FROM 100MG AT HS TO 125MG AT HS FOR C/O INSOMNIA.</paragraph> <paragraph>[Visit Date: 2024 by PREET BRASWELL RN]:</paragraph><paragraph>PATIENT HAS APPT WITH FAISAL Becerra PSYCH PROVIDER ON 12/17</paragraph> Encounters Start Date/Time End Date/Time Encounter Type Admission Type Attending [facility] Care Facility Care Department Encounter ID Discharge Date Discharge Status Discharge Condition Discharge Reason Percent Goals Met 2023-09-06 00:00:00 2024-12-28 00:00:00 Outpatient [facility] [id number] 88.89
--- OUTSIDE RECORDS SUMMARY | 2024-12-22 12:19 | XMS_ITS | Encounter Summary ---
Author Organization [employer] Address [address] [facility] [address] [place] [address] Care Team Providers Care Industrial Automation Specialist Name Role Phone Unavailable Primary Care Provider Unavailabl e Reason for Visit * Reason Onset Date Comments clarify medication script 05/29/2023 Encounter Details Date Type Department Care Team ([facility] st Contact Info) Description 05/29/2023 Telephone [facility] ADULT DENTAL [address] [place] [address] Yaron Magana DMD [address] [place] [address] clarify medication script Social History Tobacco Use [...] pharmacy 2 additional times . Spoke with front desk attendant and stated they will contact DR Torrez [...] pharmacy for adjustment of medication if needed. [phone] documented in this encounter Plan of Treatment Not on file documented as of this encounter Visit Diagnoses Not on filedocumented in this encounter
--- OUTSIDE RECORDS SUMMARY | 2024-12-22 12:19 | XMS_ITS | Encounter Summary ---
Author Organization [employer] Address [address] [place] [address] [address] [place] [address] Care Team Providers Care Industrial Organizational Psychologist Name Role Phone Unavailable Primary Care Provider Unavailabl e Encounter Details Date Type Department Care Team (Latest Contact Info) Description 09/29/2019 Abstract [facility] CONVERSIONS Dental, Provider, DDS Social History [...]
--- OUTSIDE RECORDS SUMMARY | 2024-12-22 12:19 | XMS_ITS | Encounter Summary ---
Author Organization [employer] Address [address] [place] [address] [address] [place] [address] Care Team Providers Care Organisation And Methods Analyst Name Role Phone Unavailable Primary Care Provider Unavailabl e Encounter Details Date Type Department Care Team (Latest Contact Info) Description 09/29/2021 Abstract [facility] CONVERSIONS Dental, Provider, DDS Social [...]
--- OUTSIDE RECORDS SUMMARY | 2024-12-22 12:19 | XMS_ITS | Encounter Summary ---
Author Organization [employer] Address [address] [facility] [address] [place] [address] Care Team Providers Care Electrical Plumbing Supervisor Name Role Phone Unavailable Primary Care Provider Unavailabl e Reason for Visit * Reason Onset Date Comments case in lab 07/03/2023 Encounter Details Date Type Department Care Team ([facility] st Contact Info) Description 07/03/2023 Telephone [facility] ADULT DENTAL [address] [place] [address] Xiang Segal, DMD [address] [place] [address] case in lab Social History Tobacco Use [...] - 07/03/2023 2:31 PM EDT Garry from [employer] called in stating that soonest case can be sent to office is 07/10. He states that it is 5 business days and does not include drop off or seed cone picker. Informed Garry that patient is currently not scheduled for return and that office will be informed DR documented in this encounter Plan of Treatment Not on file documented as of this encounter Visit Diagnoses Not on filedocumented in this encounter
--- OUTSIDE RECORDS SUMMARY | 2024-12-22 12:19 | XMS_ITS | Clinical Summary ---
Author Organization [employer] Address [address] [place] [address] [address] [place] [address] Care Team Providers Care Vice President Quality Name Role Phone Unavailable Primary Care Provider [...] this topic Meningococcal Vaccine Aged Out No crsitian ariadna eligible based on patient's age to [...] Most Recently Relevant to Health Maintenance [facility] [employer] [facility]
== END 2024-12-22 11:49 | disposition home or self-care (01) ==
PROVIDERS: PCP Internal Medicine; Visit Provider Internal Medicine
DX: E78.2 Mixed hyperlipidemia (principal); Z95.2 Presence of prosthetic heart valve; I25.10 Atherosclerotic heart disease of native coronary artery without angina pectoris; I10 Essential (primary) hypertension; D64.9 Anemia, unspecified; L93.0 Discoid lupus erythematosus; K21.9 Gastro-esophageal reflux disease without esophagitis; E53.8 Deficiency of other specified B group vitamins; E55.9 Vitamin D deficiency, unspecified; M50.30 Other cervical disc degeneration, unspecified cervical region; F31.60 Bipolar disorder, current episode mixed, unspecified; G47.00 Insomnia, unspecified; F41.9 Anxiety disorder, unspecified; E66.3 Overweight

== ENCOUNTER 2025-03-08 13:35 | Outpatient (AMB) | payer OTHER, SELFPAY ==
--- NOTE | 2025-03-08 13:37 | MHC.OFFVIS ---
Vital Signs 03/08/25 13:38 Height 5 ft 10 in Weight 156 lb 8.451 oz BMI 22.5 BP 116/72 Blood Pressure Location Lt brachial Position Sitting Pulse 60 Intake Visit Reasons: follow up Intake Note: Follow-up with ekg feeling good Air Table Operator Required: No Allergies Benadryl Allergy (Intermediate, Verified 12/22/24 11:42) swelling, rash Medication List - Last Reconciled 03/08/25 by Brandon Vigil MD amlodipine 2.5 mg PO DAILY aspirin 81 mg PO DAILY 90 days atorvastatin 20 mg PO BEDTIME clonazepam 1 mg PO BID cyanocobalamin (vitamin B-12) (Vitamin B-12) 1,000 mcg PO DAILY fenofibrate 160 mg PO DAILY folic acid 1 mg PO DAILY 90 days lamotrigine 25 mg PO BEDTIME lamotrigine 100 mg PO BEDTIME methotrexate sodium 7.5 mg PO QWEEK omeprazole 20 mg PO DAILY@0630 risperidone 1.5 mg PO BID trazodone 150 mg PO BEDTIME PRN HPI Comments Details: Tracy comes for follow-up. He has been doing well and remaining active. Walks about an hour every day without any exertional symptoms. No exertional chest pain or shortness of breath. No orthopnea, PND, leg edema. No lightheadedness, syncope. Takes all her medications. No fever or chills. [facility] Medical History GERD without esophagitis Essential hypertension Schizoaffective disorder Vitamin D deficiency History of transesophageal echocardiography (BRENDA) Cough Ascending aortic aneurysm Overweight (BMI 25.0-29.9) Anxiety Insomnia Vitamin B12 deficiency Leukocytosis (leucocytosis) Anemia Mixed hyperlipidemia Coronary artery disease Aortic stenosis Thoracic aortic aneurysm (~2019) Discoid lupus Bipolar disorder Surgical History Hx of colonoscopy Hx of thoracic aortic aneurysm repair History of aortic valve replacement with bioprosthetic valve H/O aortic valve replacement History of thumb surgery History of total abdominal hysterectomy and bilateral salpingo-oophorectomy S/P lumpectomy of breast History of appendectomy Family History Father Diabetes Mother No problems noted. Brother Healthy adult Social History Household Members: None Housing: Apartment Do you presently have visiting nurse or other home services: Yes (visiting nurse) Alcohol intake: current Alcohol intake frequency: holidays/special occasions only Patient Tobacco Use Status: Former Tobacco user Tobacco use type: Cigar e-Cigarette/Vaping Use: Never Used Second Hand Smoke Exposure: No Advance Directives Date on File: 08/08/23 service: No Current occupational status: retired Cognitive needs: No Hearing needs: No Vision needs: Yes Review of Systems Const Denies chills, Denies fatigue, Denies fever(s), Denies frequent falls, Denies weakness, Denies weight gain and Denies weight loss ENT Denies dizziness Card Denies chest pain, Denies leg edema, Denies lightheadedness, Denies palpitations, Denies dyspnea, Denies dyspnea on exertion, Denies orthopnea and Denies other (loss of consciousness) Resp Denies cough, Denies dyspnea and Denies dyspnea on exertion GI Denies hematochezia and Denies change in stool character Musc Denies abnormal gait, Denies muscle weakness, Denies numbness, Denies radiating pain into limb and Denies tingling Neuro Denies abnormal gait, Denies dizziness, Denies frequent falls, Denies numbness, Denies tingling and Denies weakness Endo Denies fatigue and Denies palpitations Physical Exam Vital Signs: Last Vital Signs Pulse 60 03/08/25 13:38 BP 116/72 03/08/25 13:38 BMI result Body Mass Index 22.5 Const General: cooperative, comfortable, no acute distress, alert, Physically active and well groomed Nutritional Appearance: average body habitus Orientation/consciousness: patient oriented x3 Limitations: no limitations Neck Neck: Yes trachea midline, Yes supple and Yes no JVD Resp Effort & Inspection: normal respiratory effort Auscultation: clear to auscultation bilaterally Cardio Jugular venous distension: no JVD Palpation: normal PMI Rate: regular rate Rhythm: regular rhythm Heart sounds: S1 normal heart sound present, S2 normal heart sound present and Murmur heart sound present systolic mid, harsh and at the right sternal border GI Auscultation: normal bowel sounds Skin General skin exam: no rashes or lesions noted Neuro General: patient oriented x3 and no focal motor deficits Extrem General: Yes no clubbing, cyanosis or edema Office Procedures EKG Details: EKG shows normal sinus rhythm with septal infarct pattern [id number]-[id number], Complete Assessment & Plan Assessment & Plan (1) H/O aortic valve replacement: Comment: 03/12/2019 aortic valve replacement with a 19-mm Dominguez-Prajapati Magna Ease valve and replacement of the ascending aorta with a 30-mm Hemashield ute mountain graft, cardiopulmonary bypass, hypothermic blood cardioplegic arrest (Dr. Pato Aguirre) Code(s): Z95.2 - Presence of prosthetic heart valve Category: Surgical Plan: Status post aortic valve replacement with 19 mm valencia Prajapati valve along with ascending aortic repair at that time. Patient was patient prosthesis mismatch manage with [id number] increased gradient. He was no symptoms related to it. Continue to monitor clinically. Continue low-dose aspirin therapy for life. Continue aggressive blood pressure control as well as high-intensity statin therapy with target goal LDL less than 70 mg/dL. Advised lipid panel in near future. SBE prophylaxis as per ACC/aha guidelines. (2) Coronary artery disease: Code(s): I25.10 - Atherosclerotic heart disease of pai[place]-shoshone coronary artery without angina pectoris Category: Medical Qualifiers: Coronary Disease-Associated Artery/Lesion type: [place] artery [place] vs. transplanted heart: pa[place] heart Associated angina: without angina Qualified Code(s): I25.10 - Atherosclerotic heart disease of [place]shosh[place] coronary artery without angina pectoris Plan: Diffuse CAD. Clinically no symptoms. Continue current therapy with aspirin as well as high-intensity statin therapy. Continue aggressive blood pressure control which is currently well optimized. Advised to call me with any new symptoms. No further workup is indicated at this point time. Will follow up in the clinic in 1 year's time, sooner p.r.n.. Thank you for allowing me to partake in her care Orders: Orders CA echo transthoracic complete Today Brandon Vigil MD Z95.2 - Presence of prosthetic heart valve Medications: Changed From clonazepam 0.5 mg PO BID 60 tabs 0RF To clonazepam 1 mg PO BID Frances Davis NP Coding Level of Care Code Est Pt Level 4 (12567) Complex EM visit Add On G2211 Diagnoses H/O aortic valve replacement Z95.2 Coronary artery disease involving pai[place]-shoshone coronary artery of pa[place]shosh[place] heart without angina pectoris I25.10 Coronary Disease-Associated Artery/Lesion type: [place] artery [place] vs. transplanted heart: pai[place]-shoshone heart Associated angina: without angina CPT Codes EKG - CPT: 26338-Ysbotzkuzahapwjel, Complete ([id number])
[2025-03-08 13:38] VITALS: BP 116/72; PULSE 60; BMI 22.5
--- OUTSIDE RECORDS SUMMARY | 2025-03-08 16:09 | XMS_ITS | Encounter Summary ---
Author Organization [employer] Address [address] [facility] 7t [place] [address] Care Team Providers Care Vocational Counselor Name Role Phone Unavailable Primary Care Provider Unavailabl e Reason for Visit * Reason Onset Date Comments clarify medication script 05/29/2023 Encounter Details Date Type Department Care Team ([facility] st Contact Info) Description 05/29/2023 Telephone [facility] ADULT D[facility]AL [address] [place] [address] Yaron Magana DMD [address] [place] [address] clarify medication script Social History Tobacco Use [...] pharmacy 2 additional times . Spoke with director of front office and stated they will contact DR Torrez [...] pharmacy for adjustment of medication if needed. [phone] documented in this encounter Plan of Treatment Not on file documented as of this encounter Visit Diagnoses Not on filedocumented in this encounter
--- OUTSIDE RECORDS SUMMARY | 2025-03-08 16:09 | XMS_ITS | Encounter Summary ---
Author Organization [employer] Address [address] [place] [address] 7t [place] [address] Care Team Providers Care Family Service Worker Name Role Phone Unavailable Primary Care Provider Unavailabl e Encounter Details Date Type Department Care Team (Latest Contact Info) Description 09/29/2021 Abstract [facility] CONVERSIONS Dental, Provider, DDS Social History [...]
--- OUTSIDE RECORDS SUMMARY | 2025-03-08 16:09 | XMS_ITS | Encounter Summary ---
Author Organization [employer] Address [address] [place] [address] 7 [place] [address] Care Team Providers Care Radio Television Technical Director Name Role Phone Unavailable Primary Care Provider [...] Encounter Details Date Type Department Care Team ([facility] Contact Info) Description 01/28/2023 Telephone [facility] ADULT DENTAL [address] [place] [address] Xiang Segal, DMD [address] [place] [address] Appointment (Tracy Isaias 1955 Patient called in [...]
--- OUTSIDE RECORDS SUMMARY | 2025-03-08 16:09 | XMS_ITS | Clinical Summary ---
Author Organization [employer] Address [address] [place] [address] 7t [place] [address] Care Team Providers Care Home Mission Worker Name Role Phone Unavailable Primary Care [...] 60-74 years 1-dose series) 2014 Pneumococcal Vaccine: 50+ Years (2 of 2 - PPSV23) 10/05/2020 10/05/2019 Dental Oral Exam 05/08/2023 11/06/2022 [...] RADIOGRAPHIC IMAGE Routine 06/03/2023 8:15 AM EDT INTRAORAL - COMPLETE SERIES OF RADIOGRAPHIC IMAGES Routine 11/06/2022 10:30 AM EST PERIODIC ORAL EVALUATION - ESTABLISHED PATIENT Routine 11/06/2022 10:30 AM EST from Last 3 Months or Most Recently Relevant to Health Maintenance [facility] S[facility]
--- OUTSIDE RECORDS SUMMARY | 2025-03-08 16:09 | XMS_ITS | Encounter Summary ---
Author Organization [employer] Address [address] [place] [address] 7t [place] [address] Care Team Providers Care Information Coder Name Role Phone Unavailable Primary Care Provider Unavailabl e Encounter Details Date Type Department Care Team (Latest Contact Info) Description 09/29/2019 Abstract [facility] CONVERSIONS Dental, Provider, DDS Social History [...]
--- OUTSIDE RECORDS SUMMARY | 2025-03-08 16:10 | XMS_ITS | Encounter Summary ---
Author Organization [employer] Address [address] [facility] 7t [place] [address] Care Team Providers Care Dag Coater Name Role Phone Unavailable Primary Care Provider Unavailabl e Reason for Visit * Reason Onset Date Comments case in lab 07/03/2023 Encounter Details Date Type Department Care Team ([facility] st Contact Info) Description 07/03/[address] [facility] ADULT DENTAL [address] [place] [address] Xiang Segal, DMD [address] [place] [address] case in lab Social History Tobacco Use [...] - 07/03/2023 2:31 PM EDT Garry from [employer] ([employer]) called in stating that soonest case can be sent to office is 07/10. He states that it is 5 business days and does not include drop off or tile picker. Informed Garry that patient is currently not scheduled for return and that office will be informed DR documented in this encounter Plan of Treatment Not on file documented as of this encounter Visit Diagnoses Not on filedocumented in this encounter
== END 2025-03-08 14:49 | disposition home or self-care (01) ==
LOC: HO.HCS 13:36
PROVIDERS: PCP Internal Medicine; Visit Provider Internal Medicine Cardiovascular Disease
DX: Z95.2 Presence of prosthetic heart valve (principal); I25.10 Atherosclerotic heart disease of native coronary artery without angina pectoris
CPT/HCPCS: 93010; 99214; G2211

== ENCOUNTER → 2025-03-08 13:35 | Outpatient (BNVA) | payer OTHER, SELFPAY | PROVIDERS: PCP Internal Medicine; Visit Provider Internal Medicine Cardiovascular Disease | DX: I25.10 Atherosclerotic heart disease of native coronary artery without angina pectoris (principal); Z95.2 Presence of prosthetic heart valve | CPT/HCPCS: 93005; 99212 ==

== ENCOUNTER 2025-03-23 13:05 | Outpatient (REF) | payer OTHER, SELFPAY ==
[2025-03-23 13:25] LABS: MANUAL DIFF FLAG NO
[2025-03-23 13:42] LABS: Basophils Percent Auto 0.5 % (0-2); Eosinophils Absolute Auto 0.2 X10*3/uL (0.0-0.4); Eosinophils Percent Auto 2.7 % (0-4); Hematocrit 36.2 % (37.0-47.0); Imm Gran Abs Auto 0.01 X10*3/uL (0.00-0.03); Imm Gran Pct Auto 0.2 % (0.0-0.4); Lymphocytes Absolute Auto 1.7 X10*3/uL (1.2-4.9); Lymphocytes Percent Auto 30.7 % (20-40); Mean Corpuscular HGB Conc 33.1 g/dl (31.0-35.0); Mean Corpuscular Hemoglobin 31.5 pg (27.0-33.0); Mean Platelet Volume 9.7 fL (9.4-12.3); Monocytes Absolute Auto 0.3 X10*3/uL (0.1-1.2); Monocytes Percent Auto 6.2 % (2-11); Neutrophils Absolute Auto 3.3 x10*3/uL (2.0-8.3); Neutrophils Percent Auto 59.7 % (45-73); Platelet Count 255 X10*3/uL (160-400); Red Blood Count 3.81 X10*6/uL (4.20-5.50); Red Cell Distribution Width 13.8 % (11.0-16.0); White Blood Count 5.5 X10*3/uL (4.8-10.8)
[2025-03-23 14:04] LABS: Alanine Aminotransferase 19 U/L (0-31); Albumin Level 4.3 g/dL (3.5-5.0); Alkaline Phosphatase 40 U/L (39-117); Aspartate Amino Transferase 28 U/L (5-31); Bilirubin Direct 0.2 mg/dL (0.0-0.5); Bilirubin Total 0.5 mg/dL (0.0-1.0); Total Protein 6.9 g/dL (6.5-8.0)
--- OUTSIDE RECORDS SUMMARY | 2025-03-23 15:32 | XMS_ITS | Encounter Summary ---
Author Organization [employer] Address [address] [place] [address] 7t [place] [address] Care Team Providers Care Hot Dip Plating Supervisor Name Role Phone Unavailable Primary Care Provider Unavailabl e Encounter Details Date Type Department Care Team (Latest Contact Info) Description 09/29/2019 Abstract [facility] CONVERSIONS Dental, Provider, DDS Social History [...]
--- OUTSIDE RECORDS SUMMARY | 2025-03-23 15:32 | XMS_ITS | Encounter Summary ---
Author Organization [employer] Address [address] [place] [address] 7 [place] [address] Care Team Providers Care Technology Infusion Specialist Name Role Phone Unavailable Primary Care [...] Type Department Care Team ([facility] Contact Info) Description 01/28/2023 Telephone [facility] ADULT DENTAL [address] [place] [address] Xiang Segal, DMD [address] [place] [address] Appointment (Tracy Isaias 1955 Patient called in [...]
--- OUTSIDE RECORDS SUMMARY | 2025-03-23 15:32 | XMS_ITS | Encounter Summary ---
Author Organization [employer] Address [address] [place] [address] 7t [place] [address] Care Team Providers Care Dairy Products Maker Name Role Phone Unavailable Primary Care Provider Unavailabl e Encounter Details Date Type Department Care Team (Latest Contact Info) Description 09/29/2021 Abstract [facility] CONVERSIONS Dental, Provider, DDS Social History [...]
--- OUTSIDE RECORDS SUMMARY | 2025-03-23 15:33 | XMS_ITS | Clinical Summary ---
Author Organization [employer] Address [address] [place] [address] 7t [place] [address] Care Team Providers Care [employer] Fitness Instructor Name Role Phone Unavailable Primary Care Provider [...] Most Recently Relevant to Health Maintenance Insurance [facility] S[facility]
--- OUTSIDE RECORDS SUMMARY | 2025-03-23 15:33 | XMS_ITS | Encounter Summary ---
Author Organization [employer] Address [address] [facility] 7t [place] [address] Care Team Providers Care Gear Room Keeper Name Role Phone Unavailable Primary Care Provider Unavailabl e Reason for Visit * Reason Onset Date Comments case in lab 07/03/2023 Encounter Details Date Type Department Care Team ([facility] st Contact Info) Description 07/03/2023 Telephone [facility] ADULT DENTAL [address] [place] [address] Xiang Segal, DMD [address] [place] [address] case in lab Social History Tobacco Use [...] - 07/03/2023 2:31 PM EDT Garry from [employer] called in stating that soonest case can be sent to office is 07/10. He states that it is 5 business days and does not include drop off or picker and sorter load and unload. Informed Garry that patient is currently not scheduled for return and that office will be informed DR documented in this encounter Plan of Treatment Not on file documented as of this encounter Visit Diagnoses Not on filedocumented in this encounter
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
--- OUTSIDE RECORDS SUMMARY | 2025-03-23 15:33 | XMS_ITS | Encounter Summary ---
Author Organization [employer] Address [address] [facility] 7t [place] [address] Care Team Providers Care Rodeo Rider Name Role Phone Unavailable Primary Care Provider Unavailabl e Reason for Visit * Reason Onset Date Comments clarify medication script 05/29/2023 Encounter Details Date Type Department Care Team ([facility] st Contact Info) Description 05/29/2023 Telephone [facility] ADULT DENTAL [address] [place] [address] Yaron Magana DMD [address] [place] [address] clarify medication script Social History Tobacco Use [...] 2 additional times . Spoke with front office medical assistant and stated they will contact DR Torrez [...] pharmacy for adjustment of medication if needed. [phone] documented in this encounter Plan of Treatment Not on file documented as of this encounter Visit Diagnoses Not on filedocumented in this encounter
[2025-03-26 00:33] LABS: TS Negative Control Passed; TS Panel A 1; TS Panel B 0; TS Positive Control Passed; TSpotTB Negative (Negative)
== END 2025-03-23 13:06 | disposition home or self-care (01) ==
LOC: HO.LAB 13:05
PROVIDERS: PCP Internal Medicine; Visit Provider Dermatology
DX: L93.0 Discoid lupus erythematosus (principal)
CPT/HCPCS: 36415; 80076; 85025; 86481

== ENCOUNTER → 2025-04-22 12:43 | Outpatient (REF) | payer OTHER, SELFPAY ==
--- NOTE | 2025-04-22 12:46 | CA_ITS ---
Transthoracic Echocardiogram Patient (Last, First, Middle): Tracy Esparza L Gender: Female Date of : 1955 Age: 69 Procedure Date: 04/22/2025 Procedure Type: Transthoracic Echocardiogram Location: OP Height: 162.56 cm Weight: 68.95 kg BSA: 1.74 m2 Heart Rate: bpm BP: 118 / 68 mmHg Chain Saw Driver: TO Referring MD: Brandon Vigil MD Etcher Enameling: Brandon Vigil MD Symptoms: Z95.2 - Presence of prosthetic heart valve Study Quality: Adequate ECG Rhythm: Sinus Conclusions: - 1. 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 Normal LV ejection fraction of 65-70% with grade 2 diastolic dysfunction 3. Moderate left atrial enlargement 4. [id number]-kj-[id number] mitral regurgitation with severe mitral annular calcification 5. Normal RV systolic pressure 6. No pericardial effusion Findings Left Ventricle Normal left ventricular size, thickness, and systolic function. The visually estimated ejection fraction is between 65-70%. Spectral Doppler is indicative of a pseudonormal filling pattern. E/E prime ratio is >15, consistent with elevated filling pressures. Evidence suggests grade II (moderate) diastolic dysfunction. Right Ventricle Normal right ventricular cavity size and systolic function. Atria The left atrium is moderately dilated. Interatrial shunt cannot be excluded. The right atrium is likely dilated. Aortic Valve A bioprosthetic aortic valve is present. The prosthetic aortic valve appears to be functioning abnormally. The mean gradient is 38 mmHg. There is mild aortic valve regurgitation. Mitral Valve There is mild anterior and severe posterior mitral leaflet thickening. There is severe mitral annular calcification. There is mild to moderate mitral valve regurgitation. There is no mitral valve stenosis. Pulmonic Valve The pulmonic valve is likely normal. Tricuspid Valve Normal tricuspid valve structure. There is mild tricuspid valve regurgitation. The right ventricular systolic pressure is normal. The right ventricular systolic pressure is 30 mmHg. Normal right atrial pressure. There is no evidence of pulmonary hypertension. Great Vessels All visible segments of the aorta are normal in size. The pulmonary artery was not well visualized. Venous The inferior vena cava is normal in size and collapses greater than 50% with inspiration. Pericardium/Pleural There is no evidence of pericardial effusion. Prior Study Comparison Changes noted compared to prior study dated: 11/14/2023. aortic stenosis is worse Measurements 2D Linear Measurements IVSd: 1.11 0.6-0.9/0.6-1.0 cm LVIDd: 5.20 3.9-5.3/4.2-5.9 cm LVIDd Index: 2.99 2.4-3.2/2.2-3.1 cm/m2 LVIDs: 3.58 2.0-3.6 cm LVPWd: 0.78 0.7-1.1 cm LA Diam: 3.70 2.7-3.8/3.0-4.0 cm LAIDs Index: 2.13 1.5-2.3 cm/m2 LV Mass: 224.27 67-162/88-224 g LV Mass Index: 128.89 43-95/49-115 g/m2 LVOT Diam: 2.00 3.0+(-)1.3 cm 2D Systolic Function EF 4C: 69.40 >55% EF 2C: 61.50 >55% EF BiP: 65.60 >55% Mitral Valve MV VTI: 0.52 MV Pk Eugenio: 1.25 MV Mn Eugenio: 0.56 MV Pk Grad: 6.00 MV Mn Grad: 2.00 MV Pk E: 1.11 MV PK A: 1.09 MV Decel Time: 425.00 E/A: 1.00 E'Lateral: 4.24 E'Medial: 4.24 E/E' Med: 26.20 E/E' Lat: 26.20 PHT: 125.00 MVA PHT: 1.76 MVA Continuity: 2.18 Decel [place]: 2.61 Aortic Valve AoV Pk Eugenio: 3.93 AoV Mn Eugenio: 2.92 AoV VTI: 1.02 AoV Pk Grad: 62.00 Aov Mn Grad: 38.00 LVOT LVOT Pk Eugenio: 1.23 LVOT Mn Eugenio: 0.96 LVOT VTI: 0.36 LVOT Pk Grad: 6.00 LVOT Mn Grad: 4.00 LVOT Diam: 2.00 LVOT Area: 3.14 Diastolic Function MV Pk E: 1.11 MV Pk A: 1.09 E/A: 1.00 E'Medial: 4.24 E/E' Med: 26.20 E' Laterial: 4.24 E/E' Lat: 26.20 Right Ventricle TAPSE (mm): 15.10 TVS' Eugenio: 8.59 Tricuspid Valve TR Pk Eugenio: 2.33 TR Pk Grad: 22.00 RA Press: 8.00 RVSP: 30.00 Great Vessels Aorta Ao Asc: 3.00 2.1-3.4 cm Updated in Other Vendor System with Status of Final Brandon Vigil MD electronically signed on 04/22/2025 5:28:44 PM with status of Final
--- OUTSIDE RECORDS SUMMARY | 2025-04-22 12:46 | XMS_ITS | Encounter Summary ---
Author Organization [employer] Address [address] 7t [place] [address] Care Team Providers Care Director Software Name Role Phone Unavailable Primary Care Provider Unavailabl e Reason for Visit * Reason Onset Date Comments case in lab 07/03/2023 Encounter Details Date Type Department Care Team ([facility] st Contact Info) Description 07/03/2023 Telephone [facility] ADULT DENTAL [address] [place] [address] Xiang Segal, DMD [address] [place] [address] case in lab Social History Tobacco Use [...] - 07/03/2023 2:31 PM EDT Garry from [employer] called in stating that soonest case can be sent to office is 07/10. He states that it is 5 business days and does not include drop off or pick up operator. Informed Garry that patient is currently not scheduled for return and that office will be informed DR documented in this encounter Plan of Treatment Not on file documented as of this encounter Visit Diagnoses Not on filedocumented in this encounter
--- OUTSIDE RECORDS SUMMARY | 2025-04-22 12:46 | XMS_ITS | Encounter Summary ---
Author Organization [employer] Address [address] [place] [address] 7t [place] [address] Care Team Providers Care Accountant Cost Name Role Phone Unavailable Primary Care Provider Unavailabl e Encounter Details Date Type Department Care Team (Latest Contact Info) Description 09/29/[address] [facility] CONVERSIONS Dental, Provider, DDS Social History [...]
--- OUTSIDE RECORDS SUMMARY | 2025-04-22 12:46 | XMS_ITS | Encounter Summary ---
Author Organization [employer] Address [address] [place] [address] [address] [place] [address] Care Team Providers Care Chemical Operations Specialist Name Role Phone Unavailable Primary Care [...] Details Date Type Department Care Team ([facility] Contact Info) Description 01/28/[address] [facility] ADULT D[facility]AL [address] [place] [address] Xiang Segal, DMD [address] [place] [address] Appointment (Tracy Isaias 1955 Patient called in [...]
--- OUTSIDE RECORDS SUMMARY | 2025-04-22 12:46 | XMS_ITS | Clinical Summary ---
Author Organization Unknown Care Team Providers Care Vp Lab Name Role Phone TD RÍOS, SCOTT Unavailable Unavailable LUBNA ESPITIA, FABIANO Unavailable Unavailable FRENCH ESPITIA, PREET Unavailable Unavailable Payers Payer Name Policy Type Policy Number Effective Date Expira tion Date [facility] [id number] MEDICAID [facility] [id number] MEDICARE - [facility] - [place] [id number] Problems Condition Name Condition Details Condition Category [...] 03-24 00:00: 00 09-06 23:59 :00 No [id number] 1 tablet BEDTIME 1 tablet BEDTIME (route: oral) Med Classific ation: Central Nervous System Agents aspirin 81 mg tablet,jeri yed release 03-24 00:00: 00 Yes [id number] 1 tablet DAILY 1 tablet DAILY (route: oral) Med Classific ation: Hematolog ical Agents atorvastati n 20 mg tablet 05-28 00:00: 00 Yes [id number] 1 tablet BEDTIME 1 tablet BEDTIME (route: oral) Med Classific ation: Cardiovas cular Therapy Agents benztropine 1 mg tablet 04-30 00:00: 00 08-12 23:59 :00 No [id number] 1 tablet 2 TIMES DAILY 1 tablet 2 TIMES DAILY (route: oral) Med Classific ation: Central Nervous System Agents buspirone 15 mg tablet 03-24 00:00: 00 09-06 23:59 :00 No [id number] 1 tablet DAILY 1 tablet DAILY (route: oral) Med Classific ation: Central Nervous System Agents fenofibrate 160 mg tablet 18 00:00: 00 Yes [id number] 1 tablet Every day 1 tablet Every day (route: oral) Med Classific ation: Cardiovas cular Therapy Agents gabapentin 300 mg capsule 03-24 00:00: 00 06-21 23:59 :00 No [id number] 2 capsule BEDTIME 2 capsule BEDTIME (route: oral) Med Classific ation: Central Nervous System Agents gabapentin 100 mg capsule 03-24 00:00: 00 06-21 23:59 :00 No [id number] 1 capsule BEDTIME 1 capsule BEDTIME (route: oral) Med Classific ation: Central Nervous System Agents hydroxychlo roquine 200 mg tablet 03-24 00:00: 00 11-01 23:59 :00 No [id number] 1 tablet 2 TIMES DAILY 1 tablet 2 TIMES DAILY (route: oral) Med Classific ation: Anti-Infe ctive Agents levetiracet am 250 mg tablet 03-24 00:00: 00 09-06 23:59 :00 No [id number] 0.5 tablet BEDTIME 0.5 tablet BEDTIME (route: oral) Med Classific ation: Central Nervous System Agents lamotrigine 100 mg tablet 03-24 00:00: 00 12-17 23:59 :00 No [id number] 1 tablet BEDTIME 1 tablet BEDTIME (route: oral) Med Classific ation: Central Nervous System Agents metoprolol succinate ER 25 mg tablet,exte nded release 24 hr 03-24 00:00: 00 10-02 23:59 :00 No [id number] 1 tablet DAILY 1 tablet DAILY (route: oral) Med Classific ation: Cardiovas cular Therapy Agents pantoprazol e 40 mg tablet,jeri yed release 03-24 00:00: 00 09-06 23:59 :00 No [id number] 1 tablet DAILY 1 tablet DAILY (route: oral) Med Classific ation: Gastroint estinal Therapy Agents Vitamin B-12 ER 1,000 mcg tablet,exte nded release 2018-12 224 00:00: 00 06-21 23:59 :00 No [id number] 1 tablet DAILY 1 tablet DAILY (route: oral) Med Classific ation: Electroly te Balance-N utritiona l Products Vitamin B-12 1,000 mcg tablet 2018-12 114 00:00: 00 Yes [id number] 1 tablet Daily 1 tablet Daily (route: oral) Alternate Route: Po. Med Classific ation: Electroly te Balance-N utritiona l Products alprazolam 1 mg tablet 03-24 00:00: 00 09-06 23:59 :00 No [id number] 1 tablet 4 TIMES DAILY 1 tablet 4 TIMES DAILY (route: oral) Med Classific ation: Central Nervous System Agents gabapentin 300 mg capsule 06-21 00:00: 00 09-06 23:59 :00 No [id number] 3 capsule BEDTIME 3 capsule BEDTIME (route: oral) Med Classific ation: Central Nervous System Agents gabapentin 100 mg capsule 06-21 00:00: 00 08-23 23:59 :00 No [id number] 2 capsule NEEDED 2 capsule NEEDED (route: [...] Nervous System Agents lamotrigine 25 mg tablet - 00:00: 00 Yes 3 tablet BEDTIME 3 tablet BEDTIME (route: oral) Med Classific ation: Central Nervous System Agents Vital Signs Vital Name Observation Time Observation Value Commen ts Pulse 2025-04-21 09:34:00.000 68 /min Pulse 2025-04-19 09:53:00.000 53 /min Pulse 2025-04-16 09:25:00.000 58 /min Pulse 2025-04-14 09:48:00.000 57 /min Pulse 2025-04-12 09:46:00.000 60 /min Pulse 2025-04-08 08:48:00.000 52 /min Pulse 2025-04-05 09:23:00.000 72 /min Pulse 2025-03-30 09:17:00.000 76 /min Pulse 2025-03-29 09:25:00.000 68 /min Pulse 2025-03-22 09:08:00.000 76 /min Pulse 2025-03-15 10:00:00.000 71 /min Pulse 2025-03-10 09:21:00.000 74 /min Pulse 2025-03-01 09:38:00.000 80 /min O2 Saturation (%) 2025-04-19 09:54:00.000 97 % O2 Saturation (%) 2025-04-14 09:50:00.000 97 % O2 Saturation (%) 2025-04-12 09:47:00.000 96 % O2 Saturation (%) 2025-04-08 08:51:00.000 99 % O2 Saturation (%) 2025-04-05 09:24:00.000 99 % O2 Saturation (%) 2025-04-01 08:53:00.000 98 % O2 Saturation (%) 2025-03-22 09:09:00.000 98 % O2 Saturation (%) 2025-03-15 10:01:00.000 97 % Respirations 2025-04-21 09:34:00.000 20 /min Respirations 2025-04-20 08:45:00.000 20 /min Respirations 2025-04-19 09:53:00.000 20 /min Respirations 2025-04-16 09:25:00.000 20 /min Respirations 2025-04-15 08:54:00.000 20 /min Respirations 2025-04-14 09:48:00.000 20 /min Respirations 2025-04-13 09:44:00.000 20 /min Respirations 2025-04-09 09:05:00.000 20 /min Respirations 2025-04-08 08:48:00.000 20 /min Respirations 2025-04-07 09:17:00.000 20 /min Respirations 2025-04-06 08:44:00.000 20 /min Respirations 2025-04-05 09:23:00.000 20 /min Respirations 2025-04-02 08:25:00.000 20 /min Respirations 2025-04-01 08:52:00.000 20 /min Respirations 2025-03-31 08:51:00.000 20 /min Respirations 2025-03-30 09:17:00.000 20 /min Respirations 2025-03-29 09:25:00.000 20 /min Respirations 2025-03-24 09:09:00.000 20 /min Respirations 2025-03-23 09:05:00.000 20 /min Respirations 2025-03-22 09:08:00.000 20 /min Respirations 2025-03-18 08:57:00.000 20 /min Respirations 2025-03-16 08:50:00.000 20 /min Respirations 2025-03-15 10:00:00.000 20 /min Respirations 2025-03-12 08:34:00.000 20 /min Respirations 2025-03-10 09:21:00.000 20 /min Respirations 2025-03-09 09:08:00.000 20 /min Respirations 2025-03-01 09:38:00.000 20 /min Systolic Blood Pressure 2025-04-21 09:34:00.000 122 mm [Hg] Systolic Blood Pressure 2025-04-19 09:53:00.000 128 mm [Hg] Systolic Blood Pressure 2025-04-16 09:25:00.000 120 mm [Hg] Systolic Blood Pressure 2025-04-14 09:48:00.000 155 mm [Hg] Systolic Blood Pressure 2025-04-13 09:44:00.000 164 mm [Hg] Systolic Blood Pressure 2025-04-12 09:46:00.000 151 mm [Hg] Systolic Blood Pressure 2025-04-08 08:48:00.000 174 mm [Hg] Systolic Blood Pressure 2025-04-07 09:17:00.000 148 mm [Hg] Systolic Blood Pressure 2025-04-06 08:44:00.000 158 mm [Hg] Systolic Blood Pressure 2025-04-05 09:23:00.000 131 mm [Hg] Systolic Blood Pressure 2025-04-01 08:52:00.000 104 mm [Hg] Systolic Blood Pressure 2025-03-30 09:17:00.000 131 mm [Hg] Systolic Blood Pressure 2025-03-29 09:25:00.000 98 mm[ Hg] Systolic Blood Pressure 2025-03-22 09:08:00.000 121 mm [Hg] Systolic Blood Pressure 2025-03-15 10:00:00.000 110 mm [Hg] Systolic Blood Pressure 2025-03-10 09:21:00.000 106 mm [Hg] Systolic Blood Pressure 2025-03-03 09:51:00.000 103 mm [Hg] Systolic Blood Pressure 2025-03-01 09:38:00.000 89 mm[ Hg] Diastolic Blood Pressure 2025-04-21 09:34:00.000 78 mm [Hg] Diastolic Blood Pressure 2025-04-19 09:53:00.000 80 mm [Hg] Diastolic Blood Pressure 2025-04-16 09:25:00.000 77 mm [Hg] Diastolic Blood Pressure 2025-04-14 09:48:00.000 91 mm [Hg] Diastolic Blood Pressure 2025-04-13 09:44:00.000 93 mm [Hg] Diastolic Blood Pressure 2025-04-12 09:46:00.000 93 mm [Hg] Diastolic Blood Pressure 2025-04-08 08:48:00.000 82 mm [Hg] Diastolic Blood Pressure 2025-04-07 09:17:00.000 80 mm [Hg] Diastolic Blood Pressure 2025-04-06 08:44:00.000 84 mm [Hg] Diastolic Blood Pressure 2025-04-05 09:23:00.000 71 mm [Hg] Diastolic Blood Pressure 2025-04-01 08:52:00.000 64 mm [Hg] Diastolic Blood Pressure 2025-03-30 09:17:00.000 93 mm [Hg] Diastolic Blood Pressure 2025-03-29 09:25:00.000 79 mm [Hg] Diastolic Blood Pressure 2025-03-22 09:08:00.000 78 mm [...] AWARENESS FOR SAFETY AND WILL NOTIFY CLINICAL FIRE EXTINGUISHER REPAIRER INSPECTOR AND PHYSICIAN/PROVIDER WITH ANY CHANGE IN CONDITION. [code = SKILLED NURSE WILL MAINTAIN SITUATIONAL AWARENESS FOR SAFETY AND WILL NOTIFY CLINICAL FIRE EXTINGUISHER REPAIRER INSPECTOR AND PHYSICIAN/PROVIDER WITH ANY CHANGE IN CONDITION.] [...] TEACH INTERVENTIONS R/T ACQUIRING IMPROVED REST] Goal 2024-06-29 Patient Goal - GET MY [...] MY CAT W ILL BE OK Goal 2024-04-28 Patient Goal - GET MY [...] CARE WILL BE ESTABLISHED THAT MEETS PATIENT'S RESIDENTIAL NEEDS AND INCLUDES PATIENT GOAL FOR HOME [...] X3 AND FORGETFUL. SHE DENIES SI/HI/AVH. SHE DENIEES ANY CHANGES. VS WNL. AM MEDICATIONS ADMINISTERED PER JAN AND SHE IS COMPLIANT PER MED SLEEVE. SN CALLED IN REFILLS TO PHARMACY. LOCKBOX SECURED.</paragraph> <paragraph>[Visit Date: 2024 by PREET BRASWELL RN]:</paragraph><paragraph>AO X3 AND FORGETFUL. SHE DENIES SI/HI/AVH. SHE IS COMPLIANT WITH HER MEDICATION PP PER HER MED PAINTER MIRROR. SHE DENIES ANY ADVERSE EFFECTS. AM MEDICATIONS ADMINISTERED PER JAN. SHE DENIES ANY CHANGES AND REPORTS IMPROVED REST LAST NIGHT AT HS. LOCKBOX SECURED,</paragraph> <paragraph>[Visit Date: 2024 by PREET BRASWELL RN]:</paragraph><paragraph>SEE BH MASS AUTH NOTE</paragraph> <paragraph>[Visit Date: 2024 by PREET BRASWELL RN]:</paragraph><paragraph>AO X3 AND FORGETFUL. SHE PRESENTS CLEAN, NEAT, AND APPROPRIATELY DRESSED. SHE DENIES SI/HI/AV. SHE REPORTS DIFFICULTY SLEEPING LAST NOC AND HAS BEEN AWAKE SINCE 3:30 AM. SHE CONTINUES TO REPORT DIFFICULTY WITH HS MEDICATION ROUTINE. SN REINFORCED EDUCATION ON IMPORTANCE OF TAKING HS MEDICATIONS BETWEEN 8-9PM AND TO STAY UPRIGHT X 1 HOUR AND TO TURN OFF TV WHEN GOING TO BED. SHE VERBALIZED PARTIAL UNDERSTANDING OF TEACHING. AM MEDICATIONS ADMINISTERED PER JAN AND SHE HAS PP MED SLEEVES X 3 FOR THE WEEKEND. SHE I COMPLIANT PER MED SLEEVE. LOCKBOX SECURED.</paragraph> Encounters Start Date/Time End Date/Time Encounter Type Admission Type Attending [facility] Care Department Encounter ID Discharge Date Discharge Status Discharge Condition Discharge Reason Percent Goals Met 2025-02-27 00:00:00 2025-04-27 00:00:00 Outpatient RECERTIFIC [facility] [id number] 82.35
--- OUTSIDE RECORDS SUMMARY | 2025-04-22 12:46 | XMS_ITS | Clinical Summary ---
Author Organization [employer] Address [address] [place] [address] [address] [place] [address] Care Team Providers Care Grades 1 Thru 5 Teacher Name Role Phone Unavailable Primary Care Provider [...] 1 tablet by mouth at bed time. 7 Active simvastatin (Zocor) 5 MG tablet [...] patient's age to complete this topic Meningococcal B Vaccine Aged Out No l onger eligible based on patient's age to complete [...] Most Recently Relevant to Health Maintenance Insurance [facility]
--- OUTSIDE RECORDS SUMMARY | 2025-04-22 12:46 | XMS_ITS | Encounter Summary ---
Author Organization [employer] Address [address] [facility] [place] [address] Care Team Providers Care Heavy Duty Press Operator Name Role Phone Unavailable Primary Care Provider Unavailabl e Reason for Visit * Reason Onset Date Comments clarify medication script 05/29/2023 Encounter Details Date Type Department Care Team ([facility] st Contact Info) Description 05/29/2023 Telephone [facility] [address] [place] [address] Yaron Magana, [place] [address] [place] [address] clarify medication script Social History Tobacco Use [...] additional times . Spoke with front desk agent and stated they will contact DR Torrez [...] pharmacy for adjustment of medication if needed. [phone] documented in this encounter Plan of Treatment Not on file documented as of this encounter Visit Diagnoses Not on filedocumented in this encounter
--- OUTSIDE RECORDS SUMMARY | 2025-04-22 12:46 | XMS_ITS | Encounter Summary ---
Author Organization [employer] Address [address] [place] [address] [address] [place] [address] Care Team Providers Care Mechanical Unit Repairer Name Role Phone Unavailable Primary Care Provider Unavailabl e Encounter Details Date Type Department Care Team (Latest Contact Info) Description 09/29/2019 Abstract [facility] CONVERSIONS Dental, Provider, DDS Social History [...]
== END ==
LOC: HO.CARD 12:43
PROVIDERS: PCP Internal Medicine; Visit Provider Internal Medicine Cardiovascular Disease
DX: Z95.2 Presence of prosthetic heart valve (principal)
CPT/HCPCS: 93306

== ENCOUNTER → 2025-04-22 12:46 | Outpatient (BNV) | payer OTHER, SELFPAY | PROVIDERS: PCP Internal Medicine; Visit Provider Internal Medicine Cardiovascular Disease | DX: I34.0 Nonrheumatic mitral (valve) insufficiency (principal); I34.81 Nonrheumatic mitral (valve) annulus calcification; T82.03XA Leakage of heart valve prosthesis, initial encounter; I51.7 Cardiomegaly | CPT/HCPCS: 93306 ==

== ENCOUNTER 2025-05-17 13:31 | Outpatient (AMB) | payer OTHER, SELFPAY ==
[2025-05-17 13:49] VITALS: BP 130/72; PULSE 50; BMI 22.8
--- NOTE | 2025-05-17 13:49 | A.OFFVIS_ITS ---
Vital Signs 05/17/25 13:49 Height 5 ft 10 in Weight 159 lb 2.78 oz BMI 22.8 BP 130/72 Blood Pressure Location Lt brachial Position Sitting Pulse 50 Pulse Source Pulse Oximeter Intake Visit Reasons: f/u echo results Parking Worker Required: No Allergies Benadryl Allergy (Intermediate, Verified 05/17/25 13:51) swelling, rash Medication List - Last Reconciled 05/17/25 by Haydee Fox, GERALDO-C amlodipine 2.5 mg PO DAILY aspirin 81 mg PO DAILY 90 days atorvastatin 20 mg PO BEDTIME clonazepam 1 mg PO BID cyanocobalamin (vitamin B-12) (Vitamin B-12) 1,000 mcg PO DAILY fenofibrate 160 mg PO DAILY folic acid 1 mg PO DAILY 90 days lamotrigine 25 mg PO BEDTIME lamotrigine 100 mg PO BEDTIME methotrexate sodium 7.5 mg PO QWEEK omeprazole 20 mg PO DAILY@0630 risperidone 1.5 mg PO BID trazodone 150 mg PO BEDTIME PRN HPI HPI f/u echo results: Details: [place] is a 69-year-old female presenting with a follow-up evaluation of her 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 She has previously undergone an aortic valve and aortic root repair, currently exhibiting patient-prosthesis mismatch leading to increased gradiant and stenosis. An echocardiogram on 04/22/2025 confirmed severe stenosis with a mean gradient of 38 mmHg and mild aortic regurgitation, suggestive of prosthetic valve degeneration. The patient shows no symptoms of her diffuse coronary artery disease and maintains good exercise tolerance. She denies having chest pains, shortness of breath or lightheadedness. The patient is aware of the potential need for valve replacement via catheter-based techniques but has no emergent symptoms necessitating immediate intervention. [facility] Medical History (Updated 05/17/25 @ 15:10 by Haydee Fox, [employer] BROKER-C) GERD without esophagitis Essential hypertension Schizoaffective disorder Vitamin D deficiency History of transesophageal echocardiography (BRENDA) Cough Ascending aortic aneurysm Overweight (BMI 25.0-29.9) Anxiety Insomnia Vitamin B12 deficiency Leukocytosis (leucocytosis) Anemia Mixed hyperlipidemia Coronary artery disease Aortic stenosis Thoracic aortic aneurysm (~2018) Discoid lupus Bipolar disorder Surgical History Hx of colonoscopy (~12/06/22) Hx of thoracic aortic aneurysm repair History of aortic valve replacement with bioprosthetic valve H/O aortic valve replacement History of thumb surgery History of total abdominal hysterectomy and bilateral salpingo-oophorectomy S/P lumpectomy of breast History of appendectomy Family History Father Diabetes Mother No problems noted. Brother Healthy adult Social History Household Members: None Housing: Apartment Do you presently have visiting nurse or other home services: Yes (visiting nurse) Alcohol intake: current Alcohol intake frequency: holidays/special occasions only Patient Tobacco Use Status: Former Tobacco user Tobacco use type: Cigar e-Cigarette/Vaping Use: Never Used Second Hand Smoke Exposure: No Advance Directives Date on File: 08/08/23 service: No Current occupational status: retired Cognitive needs: No Hearing needs: No Vision needs: Yes Review of Systems Const All systems reviewed & are unremarkable except as noted in HPI and below ENT Denies dizziness Card Denies chest pain, Denies chest pain at rest, Denies chest pain with activity, Denies rapid heart rate, Denies pedal edema, Denies edema, Denies leg edema, Denies lightheadedness, Denies palpitations, Denies dyspnea, Denies dyspnea on exertion and Denies orthopnea Resp Denies cough, Denies dyspnea and Denies dyspnea on exertion GI Denies hematochezia and Denies change in stool character Musc Denies abnormal gait, Denies limited range of motion, Denies muscle cramps, Denies muscle weakness, Denies numbness, Denies radiating pain into limb, Denies stiffness and Denies tingling Neuro Denies abnormal gait, Denies dizziness, Denies numbness and Denies tingling Endo Denies palpitations Physical Exam Vital Signs: Last Vital Signs Pulse 50 05/17/25 13:49 BP 130/72 05/17/25 13:49 BMI result Body Mass Index 22.8 Const General: cooperative, healthy appearing, comfortable and no acute distress Orientation/consciousness: patient oriented x3 Neck Neck: Yes normal visual inspection and Yes no JVD Resp Effort & Inspection: normal respiratory effort Auscultation: clear to auscultation bilaterally, no rales, no rhonchi and no wheezes Cardio Rate: regular rate Rhythm: regular rhythm Heart sounds: S1 normal heart sound present, S2 normal heart sound present, no gallops, Murmur heart sound present (3/6 systolic murmur left sternal border) and no rubs Neuro General: patient oriented x3 Extrem General: Yes normal to inspection, No no pedal edema and No calf tenderness Psych Appearance: grossly normal Mental Status: mental status grossly normal Speech and movement: Normal speech and movement present Assessment & Plan Assessment & Plan (1) Aortic stenosis: Comment: Status post valve replacement Code(s): I35.0 - Nonrheumatic aortic (valve) stenosis Category: Medical Plan: History of aortic stenosis with bioprosthetic aortic valve replacement as well as aortic root repair 03/12/2019. Follow-up echocardiograms have shown evidence of patient prosthesis mismatch with increased gradients. Most recent echo showing EF 65-70%, grade 2 diastolic dysfunction, severe aortic stenosis with mean gradient 38 mm Hg, mild aortic regurgitation suggesting valve degeneration. This finding was reviewed with her in detail. Cardinal signs of severe discussed and she denies any symptoms. Will order symptom limited exercise stress test to evaluate for signs and symptoms of severe . Informed her that if stress test is abnormal then she will need a cardiac catheterization for further evaluation of coronary arteries then eventual TAVR referral and bioprosthetic valve replacement. She states understanding and is agreeable to this plan. Cardiology office visit 3 months, sooner if needed. (2) H/O aortic valve replacement: Comment: 03/12/2019 aortic valve replacement with a 19-mm Dominguez-Prajapati Magna Ease valve and replacement of the ascending aorta with a 30-mm [place] graft, cardiopulmonary bypass, hypothermic blood cardioplegic arrest (Dr. Pato Aguirre) Code(s): Z95.2 - Presence of prosthetic heart valve Category: Surgical (3) Coronary artery disease: Code(s): I25.10 - Atherosclerotic heart disease of [place] coronary artery without angina pectoris Category: Medical Qualifiers: Associated angina: without angina Coronary Disease-Associated Artery/Lesion type: [place] artery [place] vs. transplanted heart: [place] heart Qualified Code(s): I25.10 - Atherosclerotic heart disease of [place] coronary artery without angina pectoris Plan: Known to have diffuse nonobstructive CAD which is asymptomatic. Continue aspirin indefinitely. Continue atorvastatin with ideal LDL goal less than 70. Continue risk factor modification. Cardiac catheterization prior to TAVR procedure as above. (4) Essential hypertension: Code(s): I10 - Essential (primary) hypertension Category: Medical Plan: Blood pressure goal less than 130/80, well controlled at this time. No medication changes made Plan I thoroughly discussed with the patient the severity of valve stenosis indicated by echocardiography and the upcoming need for valve replacement, particularly emphasizing the option of TAVR as a less invasive alternative to open surgery. The patient was informed that without present symptoms, we would first conduct a treadmill stress test to evaluate the potential for exercise-induced symptoms. If stress test results are concerning, a cardiac catheterization will follow to assess coronary arteries and readiness for TAVR. The benefits include reduced recovery time and procedural risks compared to traditional surgery. I advised continued aspirin and statin use. The patient understands the outlined steps and was encouraged to maintain usual daily activities until further definitive results are obtained. All questions were addressed, and the patient verbalized understanding and agreement with the plan. Orders: Orders CA stress test Today I35.0 - Nonrheumatic aortic (valve) stenosis Patient Instructions: - Continue taking aspirin and statin as prescribed. - Be attentive to any symptoms such as shortness of breath, lightheadedness or chest pain. - A treadmill stress test will be scheduled; expect a call for the appointment. - If any new symptoms develop, contact the clinic promptly. - Prepare for a possible cardiac catheterization if the stress test shows concerns. - Remain active but avoid overexertion until further notice. Patient was informed and verbally consented to the use of an ambient scribe for clinic note documentation during this visit. Visit time spent on chart review, interview, assessment, orders, documentation. Coding Level of Care Code Est Pt Level 4 (33465) Diagnoses Aortic stenosis I35.0 H/O aortic valve replacement Z95.2 Coronary artery disease involving [place] coronary artery of [place] heart without angina pectoris I25.10 Associated angina: without angina Coronary Disease-Associated Artery/Lesion type: [place] artery [place] vs. transplanted heart: [place] heart Essential hypertension I10 Time Spent (min) 28
--- OUTSIDE RECORDS SUMMARY | 2025-05-17 15:01 | XMS_ITS | Encounter Summary ---
Author Organization [employer] Address [address] [place] [address] [address] [place] [address] Care Team Providers Care Journeyman Mechanic Name Role Phone Unavailable Primary Care Provider Unavailabl e Encounter Details Date Type Department Care Team (Latest Contact Info) Description 09/29/2019 Abstract [facility] CONVERSIONS Dental, Provider, DDS Social History [...]
== END 2025-05-17 14:31 | disposition home or self-care (01) ==
LOC: HO.HCS 13:32
PROVIDERS: PCP Internal Medicine; Visit Provider Nurse Practitioner Family
DX: I35.0 Nonrheumatic aortic (valve) stenosis (principal); Z95.2 Presence of prosthetic heart valve; I25.10 Atherosclerotic heart disease of native coronary artery without angina pectoris; I10 Essential (primary) hypertension
CPT/HCPCS: 99214

== ENCOUNTER → 2025-05-17 13:31 | Outpatient (BNVA) | payer OTHER, SELFPAY | PROVIDERS: PCP Internal Medicine; Visit Provider Nurse Practitioner Family | DX: I35.0 Nonrheumatic aortic (valve) stenosis (principal); I25.10 Atherosclerotic heart disease of native coronary artery without angina pectoris; I10 Essential (primary) hypertension; Z95.2 Presence of prosthetic heart valve | CPT/HCPCS: 99212 ==

== ENCOUNTER → 2025-07-06 23:59 | Outpatient (BNV) | payer OTHER, SELFPAY | PROVIDERS: PCP Internal Medicine; Visit Provider Internal Medicine | DX: F25.0 Schizoaffective disorder, bipolar type (principal) | CPT/HCPCS: G0179 ==

== ENCOUNTER → 2025-07-08 10:07 | Outpatient (REF) | payer OTHER, SELFPAY ==
--- NOTE | 2025-07-08 10:09 | CA_ITS ---
Acquisition Time: 2025-07-08 10:39:06 Total Exercise Time: 00:05:20 Test Indications: AOTIC STENOSIS Medications: AMILODIPINE ASA ATROVASTAN Protocol: NIKITA Max HR: 141 BPM 94% of Pred: 150 BPM Max BP: 142/70 mmHG Max Work Load: 7.0 METS Exercise stress test with exercise 5 mins 20 secs of RBuec Protocol, achieving 90% MPHR, with reports of mild fatigue, no SOB or dizziness, no chest pain, with frequent PACs and PVCs, atrila run- 3 beats, with normotenisve response to exercise. Baseline ST-T wave abnormality inferiorly and in leads V5-V6, no changes with exercise. Test reviewed with Dr. Pedraza. Referred By: Haydee Fox Electronically Signed By: Marin Smith
--- OUTSIDE RECORDS SUMMARY | 2025-07-08 10:37 | XMS_ITS | Encounter Summary ---
Author Organization [employer] Address [address] [place] [address] [address] [place] [address] Care Team Providers Care Mixed Crop And Livestock Farmer Name Role Phone Unavailable Primary Care Provider Unavailabl e Encounter Details Date Type Department Care Team (Latest Contact Info) Description 09/29/2019 Abstract [facility] CONVERSIONS Dental, Provider, DDS Social [...]
[2025-07-08 12:02] LABS: MANUAL DIFF FLAG NO
[2025-07-08 12:28] LABS: Hematocrit 39.1 % (37.0-47.0); Hemoglobin 12.6 g/dl (12.0-16.0); Imm Gran Abs Auto 0.01 X10*3/uL (0.00-0.03); Imm Gran Pct Auto 0.2 % (0.0-0.4); Lymphocytes Absolute Auto 1.3 X10*3/uL (1.2-4.9); Mean Corpuscular HGB Conc 32.2 g/dl (31.0-35.0); Mean Corpuscular Hemoglobin 31.3 pg (27.0-33.0); Mean Corpuscular Volume 97.0 fL (80.0-98.0); NRBC Abs Auto 0.000 X10*3/uL (0.0-0.012); NRBC Pct Auto 0.0 /100WBC (0.0-0.2); Platelet Count 248 X10*3/uL (160-400); Red Blood Count 4.03 X10*6/uL (4.20-5.50); White Blood Count 5.0 X10*3/uL (4.8-10.8)
[2025-07-08 13:02] LABS: Alanine Aminotransferase 19 U/L (0-31); Albumin Level 4.5 g/dL (3.5-5.0); Alkaline Phosphatase 47 U/L (39-117); Aspartate Amino Transferase 32 U/L (5-31); Total Protein 7.4 g/dL (6.5-8.0)
[2025-07-11 16:28] LABS: TS Negative Control Passed; TS Panel A 0; TS Panel B 0; TS Positive Control Passed; TSpotTB Negative (Negative)
== END ==
LOC: HO.CARD 10:07
PROVIDERS: Absent Provider Dermatology; PCP Internal Medicine; Visit Provider Nurse Practitioner Family
DX: I35.0 Nonrheumatic aortic (valve) stenosis (principal); L93.0 Discoid lupus erythematosus; Z79.899 Other long term (current) drug therapy
CPT/HCPCS: 36415; 80076; 85025; 86481; 93017

== ENCOUNTER → 2025-07-08 10:09 | Outpatient (BNV) | payer OTHER, SELFPAY | PROVIDERS: Absent Provider Dermatology; PCP Internal Medicine | DX: I49.1 Atrial premature depolarization (principal); I49.3 Ventricular premature depolarization | CPT/HCPCS: 93016; 93018 ==

== ENCOUNTER 2025-07-14 09:45 | Outpatient (REF) | payer OTHER, SELFPAY ==
[2025-07-14 10:15] LABS: MANUAL DIFF FLAG NO
--- OUTSIDE RECORDS SUMMARY | 2025-07-14 10:16 | XMS_ITS | Encounter Summary ---
Author Organization [employer] Address [address] [place] [address] [address] [place] [address] Care Team Providers Care Footwear Machinery Instructor Name Role Phone Unavailable Primary Care Provider Unavailabl e Encounter Details Date Type Department Care Team (Latest Contact Info) Description 09/29/2019 Abstract [facility] CONVERSIONS Dental, Provider, DDS Social History Tobacco [...]
[2025-07-14 10:56] LABS: Hematocrit 35.9 % (37.0-47.0); Hemoglobin 12.0 g/dl (12.0-16.0); Imm Gran Abs Auto 0.02 X10*3/uL (0.00-0.03); Imm Gran Pct Auto 0.4 % (0.0-0.4); Lymphocytes Absolute Auto 1.0 X10*3/uL (1.2-4.9); Mean Corpuscular HGB Conc 33.4 g/dl (31.0-35.0); Mean Corpuscular Hemoglobin 31.6 pg (27.0-33.0); Mean Corpuscular Volume 94.5 fL (80.0-98.0); NRBC Abs Auto 0.000 X10*3/uL (0.0-0.012); NRBC Pct Auto 0.0 /100WBC (0.0-0.2); Platelet Count 249 X10*3/uL (160-400); Red Blood Count 3.80 X10*6/uL (4.20-5.50); White Blood Count 5.0 X10*3/uL (4.8-10.8)
[2025-07-14 11:03] LABS: Appearance Urine Clear; Glucose Urine UA Negative (Negative); PH 5.5 (5.0-9.0); Specific Gravity - Urine 1.025 (1.005-1.025)
[2025-07-14 11:29] LABS: Alanine Aminotransferase 18 U/L (0-31); Albumin Level 4.3 g/dL (3.5-5.0); Alkaline Phosphatase 46 U/L (39-117); Anion Gap 11 (12-20); Aspartate Amino Transferase 26 U/L (5-31); Blood Urea Nitrogen 20 mg/dL (9-16); Calcium 9.1 mg/dL (8.4-10.2); Carbon Dioxide 26 mmol/L (22-29); Chloride 108 mmol/L (96-108); Cholesterol 139 mg/dL (<200); Estimated Glomerular Filt Rate 57; HDL Cholesterol 45 mg/dL (>40); Potassium 3.7 mmol/L (3.3-5.1); Sodium 141 mmol/L (135-145); Total Protein 7.1 g/dL (6.5-8.0); Triglycerides 83 mg/dL (<150)
[2025-07-14 12:03] LABS: Folate > 20.0 ng/mL (> or = 4.0); Vitamin B12 924 pg/mL (200-900)
== END 2025-07-14 09:46 | disposition home or self-care (01) ==
LOC: HO.LAB 09:45
PROVIDERS: Visit Provider Internal Medicine
DX: E53.8 Deficiency of other specified B group vitamins (principal); D64.9 Anemia, unspecified; E55.9 Vitamin D deficiency, unspecified; E78.00 Pure hypercholesterolemia, unspecified; R30.0 Dysuria
CPT/HCPCS: 36415; 80053; 80061; 81003; 82306; 82607; 82746; 84443; 85025

== ENCOUNTER 2025-08-09 15:28 | Outpatient (AMB) | payer OTHER, SELFPAY ==
[2025-08-09 15:34] VITALS: BP 124/72; PULSE 50; O2SAT 97; BMI 22.5
--- NOTE | 2025-08-09 15:34 | A.OFFPC_ITS ---
Vital Signs 08/09/25 15:34 Height 5 ft 10 in Weight 157 lb 2 oz BMI 22.5 BP 124/72 Blood Pressure Location Lt brachial Position Sitting Pulse 50 Pulse Source Pulse Oximeter Pulse Oximetry (%) 97 Oxygen Delivery Method Room Air Intake Visit Reasons: 4 month f/u reschedule from 04/21 Washing Tub Operator Required: No Accompanied by: Self / Same As Patient Allergies Benadryl Allergy (Intermediate, Verified 10/02/25 22:17) swelling, rash Medication List - Last Reconciled 08/09/25 by Laurent Gtz MD amlodipine 2.5 mg PO DAILY aspirin 81 mg PO DAILY 90 days atorvastatin 20 mg PO BEDTIME clonazepam 0.5 mg PO BID cyanocobalamin (vitamin B-12) (Vitamin B-12) 1,000 mcg PO DAILY fenofibrate 160 mg PO DAILY folic acid 1 mg PO DAILY 90 days lamotrigine 25 mg PO BEDTIME lamotrigine 100 mg PO BEDTIME methotrexate sodium 10 mg PO QWEEK metronidazole 0.75% 1 appl topical BEDTIME omeprazole 20 mg PO DAILY@629 risperidone 1 mg PO BID risperidone 0.5 mg PO BEDTIME trazodone 300 mg PO BEDTIME Tobacco use date assessed: 08/09/25 Fall risk assessment: No Falls in past year Last assessed Fall Risk: 08/09/25 Dental Screening Dental Screen Date: 08/09/25 Did you have a dental visit in the last 12 months?: No Did you have a dental problem in the last 6 months where you did not have access to dental care?: No Was dental information given to patient?: No HPI 4 month f/u reschedule from 04/21 HPI Details Patient comes in today for her follow up visit - was last seen by me in December 2024 Patient states that she feels okay She denies any headaches or dizziness Denies any chest pains, no SOB No nausea/vomiting, no abdominal pain No change in bowel habits noted Needs a couple of her Rx refilled She had her follow up labs done a few weeks ago - to discuss her results [facility] Medical History (Updated 09/06/25 @ 13:04 by Brandon Vigil MD) Aortic stenosis GERD without esophagitis Essential hypertension Schizoaffective disorder Vitamin D deficiency History of transesophageal echocardiography (BRENDA) Cough Ascending aortic aneurysm Overweight (BMI 25.0-29.9) Anxiety Insomnia Vitamin B12 deficiency Leukocytosis (leucocytosis) Anemia Mixed hyperlipidemia Coronary artery disease Thoracic aortic aneurysm (~2019) Discoid lupus Bipolar disorder Surgical History Hx of colonoscopy (~12/06/22) Hx of thoracic aortic aneurysm repair History of aortic valve replacement with bioprosthetic valve H/O aortic valve replacement History of thumb surgery History of total abdominal hysterectomy and bilateral salpingo-oophorectomy S/P lumpectomy of breast History of appendectomy Family History Father Diabetes Mother No problems noted. Brother Healthy adult Social History Household Members: None Housing: Apartment Do you presently have visiting nurse or other home services: Yes (visiting nurse) Alcohol intake: current Alcohol intake frequency: holidays/special occasions only Patient Tobacco Use Status: Former Tobacco user Tobacco use type: Cigar e-Cigarette/Vaping Use: Never Used Second Hand Smoke Exposure: No Advance Directives Date on File: 08/08/23 service: No Current occupational status: retired Cognitive needs: No Hearing needs: No Vision needs: Yes Questionnaire PHQ-9 Over the last 2 weeks, how often have you been bothered by any of the following problems? 1. Little interest or pleasure in doing things: not at all 2. Feeling down, depressed, or hopeless: not at all 3. Trouble falling or staying asleep, or sleeping too much: not at all 4. Feeling tired or having little energy: not at all 5. Poor appetite or overeating: not at all 6. Feeling bad about yourself - or that you are a failure or have let yourself or your family down: not at all 7. Trouble concentrating on things, such as reading the newspaper or watching television: not at all 8. Moving or speaking so slowly that other people could have noticed. Or the opposite - being so fidgety or restless that you have been moving around a lot more than usual: not at all 9. Thoughts that you would be better off or of hurting yourself in some way: not at all Total score: 0 Depression Screening Interpretation: Negative Depression Screening Done: Yes 63462 - PHQ-9 Billing: Yes Source: Developed by Drs. Matt Rowe, Dusty White and colleagues, with an educational paul from [employer]. Thrive Questionnaire Date Thrive assessed: 08/09/25 I am a: Patient What is your living situation today?: I have a steady place to live Within the past 12 months, did the food you bought not last and you didn't have the money to get more?: Often true Within the past 12 months, did you worry whether your food would run out before you got money to buy more?: Often true Do you have trouble paying for medicines?: No Do you have trouble getting transportation to medical appointments?: No Do you have trouble paying your heating and electricity bill?: No Do you have trouble taking care of your child, family member or friend?: No Do you have trouble with day-to-day activities such as bathing, preparing meals, shopping, managing finances, etc.?: No Are you currently unemployed and looking for a job?: No Are you interested in more education?: No Please select the resources that you would like help with: None Currently or been in a relationship where the following occur: No concerns reported THRIVE Score: 2 AUDIT C Alcohol Use Questionnaire (AUDIT-C) 1. How often do you have a drink containing alcohol?: Never 3. How often do you have six or more drinks on one occasion?: Never Total Score: 0 Score Reviewed/Action Taken: Yes FRANCINE-7 AMB Questionnaire FRANCINE-7 Date FRANCINE - 7 assessed: 08/09/25 Feeling nervous, anxious, or on edge: 0 = Not at all Not being able to stop or control worryin = Not at all Worrying too much about different things: 0 = Not at all Trouble relaxin = Not at all Being so restless that it is hard to sit still: 0 = Not at all Becoming easily annoyed or irritable: 0 = Not at all Feeling afraid as if something awful might happen: 0 = Not at all Total FRANCINE-7 score (0-4 normal; 5-9 mild; 10-14 moderate; 15-21 severe): 0 Source: Developed by Rukhsana Marc Kurt Kroenke and colleagues, with an educational paul from [employer]. Review of Systems Const Denies chills, Reports difficulty sleeping, Denies fatigue, Denies fever(s) and Denies headache(s) ENT Denies dysphagia, Denies dizziness, Denies otalgia, Denies headache(s), Reports neck pain (on and off), Denies odynophagia and Denies sore throat Card Denies chest pain, Denies palpitations and Denies dyspnea Resp Denies chest congestion, Denies cough and Denies dyspnea GI Denies abdominal pain, Denies constipation, Denies dysphagia, Denies heartburn, Denies diarrhea, Denies nausea, Denies odynophagia and Denies vomiting Denies difficulty voiding, Denies nocturia, Denies dysuria and Denies urinary urgency Musc Reports back pain (on and off over the lower back for the past couple of weeks - see HPI) and Reports neck pain (on and off) Skin/Breast Denies rash Neuro Denies dizziness and Denies headache(s) Psych Reports anxiety (better controlled with Rx) Endo Denies fatigue and Denies palpitations Physical exam (Primary Care) Vital Signs: Last Vital Signs Pulse 50 08/09/25 15:34 BP 124/72 08/09/25 15:34 Pulse Ox 97 08/09/25 15:34 Oxygen Delivery Method Room Air 08/09/25 15:34 BMI result Body Mass Index 22.5 Tobacco/Smoking Status: Tobacco use Status Tobacco use date assessed 08/09/25 08/09/25 15:40 Patient Tobacco Use Status Former Tobacco user 08/09/25 15:40 Tobacco use type Cigar 08/09/25 15:40 e-Cigarette/Vaping Use Never Used 08/09/25 15:40 PHQ-9: PHQ-9 Score PHQ-9: Total score 0 10/02/25 08:33 Depression Screening Interpretation: Negative Thrive Assessment: Date of Thrive Assessment Date Thrive assessed 08/09/25 08/09/25 15:40 Currently or been in a relationship where the following occur: No concerns reported Const General: no acute distress and alert HENMT Ears: TM's normal bilaterally and EAC's normal Throat: Yes posterior oropharynx normal and Yes tonsils normal Neck Neck: Yes supple and No lymphadenopathy Thyroid: Thyroid normal Resp Auscultation: clear to auscultation bilaterally, no rales and no wheezes Cardio Rate: regular rate Rhythm: regular rhythm Heart sounds: no murmurs GI Palpation (GI): Soft to palpation and nontender Auscultation: normal bowel sounds General: Yes no CVA tenderness Back/Spine/Pelvis Back: no CVA tenderness Cervical Spine: Cervical spine tenderness Thoracic/Lumbar Spine: paraspinal muscle tenderness bilaterally in the upper lumbar, in the mid lumbar and in the lower lumbar and No lumbar spinal tenderness Skin Rashes: no rashes Extrem General: Yes no clubbing, cyanosis or edema Results Reviewed Results Reviewed: Laboratory Tests 07/14/25 07/14/25 10:07 10:13 WBC 5.0 Hgb 12.0 Hct 35.9 L Plt Count 249 Sodium 141 Potassium 3.7 Creatinine 0.97 Estimated GFR 57 Fasting Glucose 118 H Calcium 9.1 AST 26 ALT 18 Triglycerides 83 Cholesterol 139 LDL Cholesterol, Calc 78 HDL Cholesterol 45 Vitamin B12 924 H 25-OH Vitamin D Total 37.1 TSH 1.24 Ur Specific [place] 1.025 Urine Protein Negative Urine Glucose (UA) Negative Urine Blood Negative Urine Nitrite Negative Ur Leukocyte Esterase Negative Coding Level of Care Code Est Pt Level 4 (10207) Diagnoses Mixed hyperlipidemia E78.2 H/O aortic valve replacement Z95.2 Coronary artery disease involving [place] coronary artery of [place] heart without angina pectoris I25.10 Associated angina: without angina Coronary Disease-Associated Artery/Lesion type: [place] artery [place] vs. transplanted heart: [place] heart Essential hypertension I10 Anemia, unspecified type D64.9 Anemia type: unspecified type Discoid lupus L93.0 GERD without esophagitis K21.9 Vitamin B12 deficiency E53.8 Vitamin D deficiency E55.9 Degenerative disc disease, cervical M50.30 Insomnia, unspecified type G47.00 Insomnia type: unspecified Anxiety F41.9 Bipolar affective disorder, current episode mixed, current episode severity unspecified F31.60 Active/Remission status: currently active Current bipolar episode type: mixed Current episode severity: unspecified Overweight (BMI 25.0-29.9) E66.3 Additional Codes PHQ-9 - 82505 - PHQ-9 Billing: Yes ([id number]) Assessment & Plan Assessment & Plan (1) Mixed hyperlipidemia: Code(s): E78.2 - Mixed hyperlipidemia Category: Medical Plan: Results of her labs done a few weeks ago reviewed and discussed with patient Reinforced low cholesterol diet Continue Atorvastatin 20 mg QD and Fenofibrate 160 mg QD Will recheck her labs and fasting lipids in 4 months for follow up (2) H/O aortic valve replacement: Comment: 03/12/2019 aortic valve replacement with a 19-mm Dominguez-Prajapati Magna Ease valve and replacement of the ascending aorta with a 30-mm Hemashield [place] graft, cardiopulmonary bypass, hypothermic blood cardioplegic arrest (Dr. Pato Aguirre) Code(s): Z95.2 - Presence of prosthetic heart valve Category: Surgical Plan: S/P aortic valve replacement with a bioprosthetic valve and aortic arch aneurysm repair/graft by Dr. Aguirre in 2019 She is currently taking Aspirin 81 mg QD Follow up with cardio-thoracic surgery and cardiology as scheduled (3) Coronary artery disease: Code(s): I25.10 - Atherosclerotic heart disease of [place] coronary artery without angina pectoris Category: Medical Qualifiers: Associated angina: without angina Coronary Disease-Associated Artery/Lesion type: [place] artery [place] vs. transplanted heart: [place] heart Qualified Code(s): I25.10 - Atherosclerotic heart disease of [place] coronary artery without angina pectoris Plan: Per cardiology, she has diffuse vascular disease without any significant ob structive disease in the CAD or any symptoms at high workload She was recommended to continue aggressive medical therapy, optimizing BP and cholesterol control Continue low-dose Aspirin therapy for life Follow up with cardiology as scheduled (4) Essential hypertension: Code(s): I10 - Essential (primary) hypertension Category: Medical Plan: Reinforced low sodium diet - goal is systolic BP of 120 to 130 mm or less Continue Amlodipine 2.5 mg QD (5) Anemia: Code(s): D64.9 - Anemia, unspecified Category: Medical Qualifiers: Anemia type: unspecified type Qualified Code(s): D64.9 - Anemia, unspecified Plan: Corrected - her H/H were normal at 12.0/35.9 on her recent labs Will continue to monitor her CBC regularly (6) Discoid lupus: Code(s): L93.0 - Discoid lupus erythematosus Category: Medical Plan: Continue Methotrexate 10 mg once a week Follow up with dermatology as scheduled (7) GERD without esophagitis: Code(s): K21.9 - Gastro-esophageal reflux disease without esophagitis Category: Medical Plan: Dietary restrictions reinforced Continue Omeprazole 20 mg QD (8) Vitamin B12 deficiency: Code(s): E53.8 - Deficiency of other specified B group vitamins Category: Medical Plan: Continue Vitamin B12 1000 mcg QD (9) Vitamin D deficiency: Code(s): E55.9 - Vitamin D deficiency, unspecified Category: Medical Plan: Continue Vitamin D3 2000 units QD (10) Degenerative disc disease, cervical: Code(s): M50.30 - Other cervical disc degeneration, unspecified cervical region Category: Medical Plan: Patient still has on and off neck pain - PT has helped a lot in the past Cervical spine x-rays done in September 2022 revealed (+) narrowing of the intervertebral disc spaces, suggesting underlying degenerative disc disease. There is a mild grade 1 anterior spondylolisthesis of C3 on C4 noted Have advised patient that she can call for referral to PT at any time when needed for increasing neck pains (11) Insomnia: Code(s): G47.00 - Insomnia, unspecified Category: Medical Qualifiers: Insomnia type: unspecified Qualified Code(s): G47.00 - Insomnia, unspecified Plan: Sleep hygiene reinforced Continue Trazodone 300 mg Q HS PRN Psychiatry also reportedly increased her Lamotrigine from 100 mg to 125 mg Q HS to help with her sleeping issues (12) Anxiety: Code(s): F41.9 - Anxiety disorder, unspecified Category: Medical Plan: Continue Clonazepam 0.5 mg BID PRN (13) Bipolar disorder: Code(s): F31.9 - Bipolar disorder, unspecified Category: Medical Qualifiers: Active/Remission status: currently active Current bipolar episode type: mixed Current episode severity: unspecified Qualified Code(s): F31.60 - Bipolar disorder, current episode mixed, unspecified Plan: Continue Lamotrigine 200 mg Q HS, Risperidone 0.5 mg Q HS and Risperidone 1 mg BID Follow up with Dr. Vincent (psychiatrist) and Dr. Maldonado (psychologist) as scheduled although she has notified us previously that Dr. Vincent will be retiring soon and she is looking for a new psychiatrist but may need us to help refill her meds if needed until she is established with a new psychiatrist (14) Overweight (BMI 25.0-29.9): Code(s): E66.3 - Overweight Category: Medical Plan: Reinforced diet/exercise as tolerated/lose weight Plan Follow up in 4 months Orders: Orders Complete Blood Count Auto Diff 4 Months D64.9 - Anemia, unspecified Comprehensive [place]. Panel Fast 4 Months E78.00 - Pure hypercholesterolemia, unspecified Lipid Panel 4 Months E78.00 - Pure hypercholesterolemia, unspecified Hemoglobin A1c 4 Months R73.01 - Impaired fasting glucose Medications: New risperidone 0.5 mg PO BEDTIME trazodone 300 mg PO BEDTIME
--- OUTSIDE RECORDS SUMMARY | 2025-08-09 18:29 | XMS_ITS ---
Author Name Roscoe Lamb Address Unknown Organization [facility] Care Team Providers Care Media Librarian Name Role Phone Unavailable Primary Care Physician Unavailab le History Of Present Illness This is a 70 year old female who is following up for discoid lupus (Discoid lupus erythematosus). She was seen on September 13, 2023, at which time the following treatment recommendations were given: Continue the following treatments: Plaquenil 200mg BID. Plan: Use mineral / tinted sunblock, SPF 50 or higher. Obtain results of labs tests and recent eye exam. The following labs were ordered: Hep Func 2000 Pnl SerPl and CBC W Auto Diff Bld.The patient presents for focused visit.Today the patient reports: Pain Intensity 0.0 - No Pain; Overall Assessment 1.0 - almost clear. Modifying factors: better with medication and better with therapy. Timing: infrequently. Quality: no drainage, no pain, redness, no swelling, and not malodorous.The patient followed the treatment plan as directed.Interval History: Patient states she needs refill of Folic Acid and Methotrexate, patient notes persistent redness on the cheeks. Allergies, Adverse Reactions, Alerts Substance RxNorm Reaction(s) Severity Status Start Da te Benadryl 144170 unspecified active Medications Medication Generic Name RxNorm Strength Strength Unit Route Dose Dose Form Frequency Date Started Date Ended Status Indication Sig metronidazo le metronid azole 428302 0.75 % Topica l gel 08/04/20 25 active Appl y topi call y to face twic e gini y for ok cea. mometasone mometaso ne 635233 0.1 % Topica l cream 11/30/20 19 active Appl y spar ingl y twic e gini y as need ed for redn ess. mupirocin mupiroci n 377894 2 % Topica l ointm ent BID 06/15/20 20 suspend ed Appl y twic e gini y to surg ical site x 10 - 14 days ALPRAZolam ER alprazol am NULL oral 04/01/20 14 active Aspirin Low Dose aspirin 81 mg Oral table t,del ayed relea se (/Tamra Rios) active Atorvastati n Calcium atorvast atin NULL oral 04/01/20 14 active B Complex-Vit thomas B12 vitamin B complex Oral active BusPIRone HCl buspiron e NULL oral 04/01/20 14 active fenofibrate fenofibr ate 120 mg Oral table t active folic acid folic acid 185994 1 mg Oral table t 11/22/20 23 active Take one tabl et by mout h once a day. hydroxychlo roquine hydroxyc hloroqui ne 089180 200 mg Oral table t 10/13/20 19 2022 suspend ed Take one tab by mout h twic e a day Keflex cephalex in 769316 500 mg Oral capsu le 06/15/20 suspend ed Take 4 caps ules by mout h with food and wate r LamoTRIgine lamotrig ine NULL oral 04/01/20 14 active methotrexat e sodium methotre xate sodium 160446 2.5 mg Oral table t 11/22/20 23 active Take 3 tabl ets by mout h once a week on the same day ever y week . metoprolol succinate metoprol ol succinat e 25 mg Oral table t exten ded relea se 24 hr suspend ed Plaquenil hydroxyc hloroqui ne 200 mg Oral table t suspend ed Rexulti brexpipr azole 1 mg Oral table t suspend ed zolpidem zolpidem 10 mg Oral table t active Bactroban NULL 12/16/19 09 active Clobetasol Propionate NULL 01/15 08 active Elidel NULL 12/16/19 09 active Gabapentin NULL 04/01/20 14 suspend ed Gemfibrozil NULL 04/01/20 14 suspend ed Hydrochloro thiazide NULL 0 14 active LevETIRAcet am NULL 04/01/20 14 suspend ed Meclizine HCl NULL 04/01/20 14 active Mometasone Furoate NULL 03/11/20 08 suspend ed Protopic NULL 10/07/20 08 active RisperiDONE NULL 04/01/20 14 active Saphris NULL 08/19/20 14 suspend ed Problems Problem Code Type Status Date of Diagnosis Date of Resolution Lupus erythematosus (disorder) 767882371( SNOMED) Diagnosis active 08/04/2025 Rosacea (disorder) 059601736( SNOMED) Diagnosis active 08/04/2025 Discoid lupus erythematosus (disorder) 549831001( SNOMED) Diagnosis active 07/02/2025 Discoid lupus erythematosus (disorder) 331520069( SNOMED) Diagnosis active 03/19/2025 Discoid lupus erythematosus (disorder) 824508362( SNOMED) Diagnosis active 08/25/2024 Discoid lupus erythematosus (disorder) 290970106( SNOMED) Diagnosis active 02/10/2024 Discoid lupus erythematosus (disorder) 780322405( SNOMED) Diagnosis active 11/22/2023 Discoid lupus erythematosus (disorder) 891790936( SNOMED) Diagnosis active 10/11/2023 Discoid lupus erythematosus (disorder) 909864328( SNOMED) Diagnosis active 09/13/2023 Patient encounter status (finding) 417129033( SNOMED) Diagnosis active 09/13/2023 Discoid lupus erythematosus (disorder) ( SNOMED) Diagnosis active 10/05/2022 Itching of skin (finding) 564910814( SNOMED) Diagnosis active 10/05/2022 Disorder of capillaries (disorder) 54951341(S NOMED) Diagnosis active 10/05/2022 Disorder of pigmentation (disorder) 424124619( SNOMED) Diagnosis active 10/05/2022 Patient encounter status (finding) 455196701( SNOMED) Diagnosis active 10/05/2022 Discoid lupus erythematosus (disorder) ( SNOMED) Diagnosis active 04/03/2022 History of malignant neoplasm of skin (situation) 937982306( SNOMED) Diagnosis active 02/17/2021 Actinic keratosis (disorder) 441829572( SNOMED) Diagnosis active 02/17/2021 Seborrheic keratosis (disorder) 053675726( SNOMED) Diagnosis active 02/17/2021 Non-neoplastic nevus (disorder) 337105176( SNOMED) Diagnosis active 02/17/2021 Scar conditions and fibrosis of skin (disorder) 183562712( SNOMED) Diagnosis active 02/17/2021 Disorder of pigmentation (disorder) 865419773( SNOMED) Diagnosis active 02/17/2021 Asteatosis cutis (disorder) 47120196(S NOMED) Diagnosis active 02/17/2021 Onychomycosis caused by dermatophyte (disorder) 493318906( SNOMED) Diagnosis active 02/17/2021 Patient encounter status (finding) 034612562( SNOMED) Diagnosis active 02/17/2021 Personal history of other malignant neoplasm of skin Z85.828(IC D-10) Diagnosis active 07/11/2020 Other specified counseling Z71.89(ICD -10) Diagnosis active 07/11/2020 Encounter for surgical aftercare following surgery on the skin and subcutaneous tissue Z48.817(IC D-10) Diagnosis active 06/24/2020 Basal cell carcinoma of skin of other parts of face C44.319(IC D-10) Diagnosis active 06/15/2020 Neoplasm of uncertain behavior of skin D48.5(ICD- 10) Diagnosis active 01/11/2020 Actinic keratosis L57.0(ICD- 10) Diagnosis active 01/11/2020 Discoid lupus erythematosus L93.0(ICD- 10) Diagnosis active 01/11/2020 Other rosacea L71.8(ICD- 10) Diagnosis active 01/11/2020 Discoid lupus erythematosus (disorder) 871216053( SNOMED) Diagnosis active 07/02/2019 Other specified health status Z78.9(ICD- 10) Diagnosis active 11/20/2018 Discoid lupus erythematosus (disorder) 267407926( SNOMED) Diagnosis active 11/20/2018 Discoid lupus erythematosus (disorder) ( SNOMED) Diagnosis active 04/10/2018 Other specified health status Z78.9(ICD- 10) Diagnosis active 11/21/2017 Clinical finding (finding) 196360161( SNOMED) Diagnosis active 11/21/2017 Discoid lupus erythematosus (disorder) ( SNOMED) Diagnosis active 11/21/2017 Other warehouse traffic supervisor (current) drug therapy Z79.899(IC D-10) Diagnosis active 05/16/2017 Discoid lupus erythematosus (disorder) 598108317( SNOMED) Diagnosis active 04/05/2016 Discoid lupus erythematosus (disorder) 063012719( SNOMED) Diagnosis active 10/06/2015 Systemic lupus erythematosus (disorder) 32244722(S NOMED) Diagnosis active 04/07/2015 Stasis dermatitis (disorder) 21628239(S NOMED) Diagnosis active 12/23/2014 Lupus erythematosus (disorder) 035920253( SNOMED) Diagnosis active 08/19/2014 Other dyschromia 709.09(ICD -9) Diagnosis active 04/01/2014 Hypercholesterolemia (disorder) 81390265(S NOMED) Problem active Anxiety disorder (disorder) 049717229( SNOMED) Problem active Depressive disorder (disorder) 65387927(S NOMED) Problem active Asteatosis cutis (disorder) 55939370(S NOMED) Problem active Basal cell carcinoma of skin (disorder) 622406962( SNOMED) Problem active Results No data Encounters Service provided at [facility], [address] [place] [address], [address], [place], [place] [id number]. Office phonenumber is [phone]. Office fax number is [phone]. Encounter Diagnosis Location Date / Time Type Other local lupus erythemato miracle (L93.2)Rosacea (L71.8) [facility] 08/04/2025 19:15:00 [facility] [address] Reason For Referral I saw Tracy Esparza in the office on August 04, 2025.Below is a summary of our visit:Other local lupus erythematosus: skin presents clear today.Plan: Counseling, Prescription Medication Management,Prescription, and Medication Counseling.Rosacea: erythema and telangiectasia distributed on the face.Plan: Counseling, Prescription, Prescription Medication Management, Medication Counseling, and Educational Resources Provided.My impression and plan was the followin.Other local lupus erythematosus, Status: Well ControlledCounselingPrescription Medication Management: Continue Regimen - -- methotrexate 10 mg weekly;.Prescription: folic acid 1 mg tablet PO; methotrexate sodium 2.5 mg tablet POMedication Counseling2.Rosacea, Status: Inadequately ControlledCounselingPrescription: metronidazole 0.75 % topical gel TPPrescription Medication Management: Initiate Treatment - -- Metronidazole 0.75%gel: Apply topically to face twice daily for rosacea.- Gentle cleanser and moisturizer with good sun protection;.Medication CounselingEducational Resources Provided Procedures Procedure Date Cryotherapy of skin lesion with liquid n itrogen (procedure) 02/17/2021 12:00 am [facility] Mohs surgery (procedure) 06/15/2020 12:0 0 am [facility] Excision of right breast (procedure) Documentation of past medical history (p rocedure) Replacement of heart valve (procedure) Excision of right breast (procedure) Excision of right breast (procedure) Replacement of heart valve (procedure) Excision of right breast (procedure) Replacement of heart valve (procedure) Replacement of heart valve (procedure) Excision of right breast (procedure) Replacement of heart valve (procedure) Excision of right breast (procedure) Replacement of heart valve (procedure) Excision of right breast (procedure) Excision of right breast (procedure) Replacement of heart valve (procedure) Replacement of heart valve (procedure) Excision of right breast (procedure) Excision of right breast (procedure) Replacement of heart valve (procedure) Replacement of heart valve (procedure) Excision of right breast (procedure) Excision of right breast (procedure) Replacement of heart valve (procedure) Excision of right breast (procedure) Replacement of heart valve (procedure) Replacement of heart valve (procedure) Excision of right breast (procedure) Replacement of heart valve (procedure) Excision of right breast (procedure) Replacement of heart valve (procedure) huber mathews 03/12/2019 Excision of right breast (procedure) Review Of Systems Provider reviewed on Aug 04, 2025.A focused review of systems was performed including Hematologic /Lymphatic and Integumentary.No Problems With Healing, No Problems With Scarring (hypertrophic Or Keloid), And No Problems With Bleeding. Assessment 1.Other local lupus erythematosus, Status: Well ControlledCounselingPrescription Medication Management: Continue Regimen - -- methotrexate 10 mg weekly;.Prescription: folic acid 1 mg tablet PO; methotrexate sodium 2.5 mg tablet POMedication Counseling2.Rosacea, Status: Inadequately ControlledCounsel ingPrescription: metronidazole 0.75 % topical gel TPPrescription Medication Management: Initiate Treatment - -- Metronidazole 0.75% gel: Apply topically to face twice daily for rosacea.- Gentle cleanser and moisturizer with good sun protection;.Medication CounselingEducational Resources Provided Plan of Care Future visit for 01/19/2026 - Follow up in 6 months for: Focused Visit - 15 minutes. Other Instructions: For Lupus and Rosacea f/u. Other Instructions: For Lupus and Rosacea f/u. Code Detail Instructions 969378 methotrexate sodium 2.5 mg table t Take 4 tablets by mouth every Saturday. 225221 folic acid 1 mg tablet Take one tablet by mouth daily. 565312 metronidazole 0.75 % topical gel Apply topically to face twice daily for rosacea. 473250 methotrexate sodium 2.5 mg table t Take 4 tablets by mouth once a week on the same day every week. 089712 folic acid 1 mg tablet Take one tablet by mouth once a day. 942973 methotrexate sodium 2.5 mg table t Take 4 tablets by mouth once a week on the same day every week. 528719 methotrexate sodium 2.5 mg table t Take 4 tablets by mouth once a week on the same day every week. 804220 folic acid 1 mg tablet Take one tablet by mouth once a day. 113376 methotrexate sodium 2.5 mg table t Take 3 tablets by mouth once a week on the same day every week. 005329 folic acid 1 mg tablet Take one tablet by mouth once a day. 864728 methotrexate sodium 2.5 mg table t Take 3 tablets by mouth once a week on the same day every week. 278506 hydroxychloroquine 200 mg tablet Take one tablet by mouth twice daily. 332575 hydroxychloroquine 200 mg tablet Take one tablet by mouth twice daily. 235868 hydroxychloroquine 200 mg tablet Take one tablet by mouth twice daily. 198991 hydroxychloroquine 200 mg tablet Take one tablet by mouth twice daily. 188069 hydroxychloroquine 200 mg tablet Take one tablet by mouth twice daily. 993523 hydroxychloroquine 200 mg tablet Take one tablet by mouth twice daily. 120094 hydroxychloroquine 200 mg tablet Take one tablet by mouth twice daily. 183117 hydroxychloroquine 200 mg tablet Take one tablet by mouth twice daily. 726477 hydroxychloroquine 200 mg tablet Take one tablet by mouth twice daily. 136559 hydroxychloroquine 200 mg tablet Take one tablet by mouth twice daily. 423089 Keflex 500 mg capsule Take 4 cap sules by mouth with food and water 094115 mupirocin 2 % topical ointment A pply twice daily to surgical site x 10 - 14 days 930055 mometasone 0.1 % topical cream A pply sparingly to affected areas twice daily as needed. 886927 hydroxychloroquine 200 mg tablet Take one tablet by mouth twice daily. 490532 hydroxychloroquine 200 mg tablet take one tablet by mouth twice daily 235167 mometasone 0.1 % topical cream A pply sparingly twice daily as needed for redness. 210574 hydroxychloroquine 200 mg tablet Take one tab by mouth twice a day Instructions * I counseled the patient regarding the following:Skin care: Lesions improve with broad spectrum sunscreen, sun protective clothing, topical steroids and or intralesional steroids.Expectations: DiscoidLupus manifests as scaly plaques in sun exposed areas that can thin out and scar. The course is rn endocrinology oz, but responsive to treatment.Contact office if: Discoid Lupus worsens despite months of therapy. * Methotrexate Counseling: Patient counseled regarding adverse effects of methotrexate including but not limited to nausea, vomiting, abnormalities in liver function tests. Patients may develop mouth sores, rash, diarrhea, and abnormalities in blood counts. The patient understands that monitoring is r equired including LFT's and blood counts. There is a rare possibility of scarring of the liver and lung problems that can occur when taking methotrexate. Persistent nausea, loss of appetite, pale stools, dark urine, cough, and shortness of breath should be reported immediately. Patient advised to discontinue methotrexate treatment at least three months before attempting to become . I discussed the need for folate supplements while taking methotrexate. These supplements can decrease sideeffects during methotrexate treatment. The patient verbalized understanding of the proper use and possible adverse effects of methotrexate. All of the patient's questions and concerns were addressed. * I counseled the patient regarding the following:Skin care: Patient instructed to gentle cleanser and moisturizer and wear broad spectrum sunscreen.Expectations: Rosacea is chronic. Flushing and pimples can be triggered by: alcohol, stress, exercise, hot temperatures or spicy foods, wind and sun exposure. Moderate triggers.Contact office if: Rosacea worsens or fails to improve despite months of treatment; patient develops nodules or cysts. * Topical Metronidazole Counseling: Metronidazole is a topical antibiotic medication. You may experience burning, stinging, redness, or allergic reactions. Please call our office if you develop any problems from using this medication. Social History Code Activity Start Date End Date [id number] (SNOMED) Never smoker Sex female Sexual orientation Unspecified Gender identity Unspecified Vital Signs No data
--- OUTSIDE RECORDS SUMMARY | 2025-08-09 18:29 | XMS_ITS | Clinical Summary ---
Author Organization [employer] Address [address] [place] [address] [address] [place] [address] Care Team Providers Care Production Statistical Clerk Name Role Phone Unavailable Primary Care Provider [...] Screening 2024 2023 COVID-19 Vaccine ( season) 2025 08/29/2022, 03/21/2022, 07/25/2021, Additional history exists Influenza Vaccine (#1) 2025 , 08/18/2021, 09/04/2020, Additional history exists Dental [...] Maintenance Insurance [facility]
--- OUTSIDE RECORDS SUMMARY | 2025-08-09 18:29 | XMS_ITS | Encounter Summary ---
Author Organization [employer] Address [address] [facility] [address] [place] [address] Care Team Providers Care Automotive Mechanic Name Role Phone Unavailable Primary Care Provider Unavailabl e Reason for Visit * Reason Onset Date Comments clarify medication script 05/29/2023 Encounter Details Date Type Department Care Team ([facility] st Contact Info) Description 05/29/2023 Telephone [facility] ADULT D[facility]AL [address] [place] [address] Yaron Magana, [place] [address] [place] [address] clarify medication script Social History Tobacco Use [...] 2 additional times . Spoke with front window cashier and stated they will contact DR Torrez [...] pharmacy for adjustment of medication if needed. [phone] documented in this encounter Plan of Treatment Not on file documented as of this encounter Visit Diagnoses Not on filedocumented in this encounter
--- OUTSIDE RECORDS SUMMARY | 2025-08-09 18:29 | XMS_ITS | Encounter Summary ---
Author Organization [employer] Address [address] [place] [address] [address] [place] [address] Care Team Providers Care Gravel Roofer Name Role Phone Unavailable Primary Care Provider Unavailabl e Encounter Details Date Type Department Care Team (Latest Contact Info) Description 09/29/2021 Abstract [facility] CONVERSIONS Dental, Provider, DDS Social History [...]
--- OUTSIDE RECORDS SUMMARY | 2025-08-09 18:29 | XMS_ITS | Encounter Summary ---
Author Organization [employer] Address [address] [facility] [address] [place] [address] Care Team Providers Care Special Weapons And Tactics Officer Name Role Phone Unavailable Primary Care Provider Unavailabl e Reason for Visit * Reason Onset Date Comments case in lab 07/03/2023 Encounter Details Date Type Department Care Team ([facility] st Contact Info) Description 07/03/2023 Telephone [facility] ADULT DENTAL [address] [place] [address] Xiang Segal, DMD [address] [place] [address] case in lab Social History Tobacco Use [...] - 07/03/2023 2:31 PM EDT Garry from [employer] called in stating that soonest case can [...]
--- OUTSIDE RECORDS SUMMARY | 2025-08-09 18:29 | XMS_ITS | Encounter Summary ---
Author Organization [employer] Address [address] [place] [address] [address] [place] [address] Care Team Providers Care Mining Plant Operator Name Role Phone Unavailable Primary Care [...] Encounter Details Date Type Department Care Team ([facility] Contact Info) Description 01/28/2023 Telephone [facility] ADULT D[facility]AL [address] [place] [address] Xiang Segal, DMD [address] [place] [address] Appointment (Tracy Isaias 1955 Patient called in [...]
--- OUTSIDE RECORDS SUMMARY | 2025-08-09 18:29 | XMS_ITS | Encounter Summary ---
Author Organization [employer] Address [address] [place] [address] [address] [place] [address] Care Team Providers Care Dye Weigher Name Role Phone Unavailable Primary Care Provider Unavailabl e Encounter Details Date Type Department Care Team (Latest Contact Info) Description 09/29/2019 Abstract [facility] CONVERSIONS Dental, Provider, DDS Social [...]
== END 2025-08-09 16:38 | disposition home or self-care (01) ==
LOC: HO.HMCH 15:29
PROVIDERS: PCP Internal Medicine; Visit Provider Internal Medicine
DX: E78.2 Mixed hyperlipidemia (principal); Z95.2 Presence of prosthetic heart valve; I25.10 Atherosclerotic heart disease of native coronary artery without angina pectoris; I10 Essential (primary) hypertension; D64.9 Anemia, unspecified; L93.0 Discoid lupus erythematosus; K21.9 Gastro-esophageal reflux disease without esophagitis; E53.8 Deficiency of other specified B group vitamins; E55.9 Vitamin D deficiency, unspecified; M50.30 Other cervical disc degeneration, unspecified cervical region; G47.00 Insomnia, unspecified; F31.60 Bipolar disorder, current episode mixed, unspecified; F41.9 Anxiety disorder, unspecified; E66.3 Overweight

== ENCOUNTER → 2025-08-09 15:28 | Outpatient (BNVA) | payer OTHER, SELFPAY | PROVIDERS: PCP Internal Medicine; Visit Provider Internal Medicine | DX: E78.2 Mixed hyperlipidemia (principal); I25.10 Atherosclerotic heart disease of native coronary artery without angina pectoris; I10 Essential (primary) hypertension; D64.9 Anemia, unspecified; L93.0 Discoid lupus erythematosus; K21.9 Gastro-esophageal reflux disease without esophagitis; E53.8 Deficiency of other specified B group vitamins; E55.9 Vitamin D deficiency, unspecified; M50.30 Other cervical disc degeneration, unspecified cervical region; G47.00 Insomnia, unspecified; F41.9 Anxiety disorder, unspecified; F31.60 Bipolar disorder, current episode mixed, unspecified; E66.3 Overweight; Z68.22 Body mass index [BMI] 22.0-22.9, adult; Z95.2 Presence of prosthetic heart valve | CPT/HCPCS: 96127; 99212 ==

== ENCOUNTER → 2025-08-27 23:59 | Outpatient (BNV) | payer OTHER, SELFPAY | PROVIDERS: PCP Internal Medicine; Visit Provider Internal Medicine | DX: F25.0 Schizoaffective disorder, bipolar type (principal) | CPT/HCPCS: G0179 ==

== ENCOUNTER 2025-09-06 12:26 | Outpatient (AMB) | payer OTHER, SELFPAY ==
--- NOTE | 2025-09-06 12:35 | MHC.OFFVIS ---
Vital Signs 09/06/25 12:36 Height 5 ft 10 in Weight 156 lb 8.451 oz BMI 22.5 BP 130/80 Blood Pressure Location Lt brachial Position Sitting Pulse 46 L Intake Visit Reasons: 3 mth f/up ett Intake Note: 3 month follow-up after stress test feeling good Radio Control Crane Operator Required: No Allergies Benadryl Allergy (Intermediate, Verified 08/09/25 16:27) swelling, rash Medication List - Last Reconciled 09/06/25 by Brandon Vigil MD amlodipine 2.5 mg PO DAILY aspirin 81 mg PO DAILY 90 days atorvastatin 20 mg PO BEDTIME clonazepam 0.5 mg PO BID cyanocobalamin (vitamin B-12) (Vitamin B-12) 1,000 mcg PO DAILY fenofibrate 160 mg PO DAILY folic acid 1 mg PO DAILY 90 days lamotrigine 200 mg PO BEDTIME methotrexate sodium 10 mg PO QWEEK metronidazole 0.75% 1 appl topical BEDTIME omeprazole 20 mg PO DAILY@0630 risperidone 1 mg PO BID risperidone 0.5 mg PO BEDTIME trazodone 300 mg PO BEDTIME HPI Comments Details: Patient comes for follow-up after echocardiogram which shows 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 She underwent a treadmill stress test after that which she performed adequately without any symptoms and with adequate chronotropic response. Patient had no significant ischemic changes or hypotensive response. At current time patient continues to have no symptoms with her usual activity level. She denies any exertional chest pain, shortness of breath, lightheadedness, fatigue that is worsening. She takes all her medications. [facility] Medical History (Updated 09/06/25 @ 13:04 by Brandon Vigil MD) Aortic stenosis GERD without esophagitis Essential hypertension Schizoaffective disorder Vitamin D deficiency History of transesophageal echocardiography (BRENDA) Cough Ascending aortic aneurysm Overweight (BMI 25.0-29.9) Anxiety Insomnia Vitamin B12 deficiency Leukocytosis (leucocytosis) Anemia Mixed hyperlipidemia Coronary artery disease Thoracic aortic aneurysm (~2018) Discoid lupus Bipolar disorder Surgical History Hx of colonoscopy (~12/06/22) Hx of thoracic aortic aneurysm repair History of aortic valve replacement with bioprosthetic valve H/O aortic valve replacement History of thumb surgery History of total abdominal hysterectomy and bilateral salpingo-oophorectomy S/P lumpectomy of breast History of appendectomy Family History Father Diabetes Mother No problems noted. Brother Healthy adult Social History Household Members: None Housing: Apartment Do you presently have visiting nurse or other home services: Yes (visiting nurse) Alcohol intake: current Alcohol intake frequency: holidays/special occasions only Patient Tobacco Use Status: Former Tobacco user Tobacco use type: Cigar e-Cigarette/Vaping Use: Never Used Second Hand Smoke Exposure: No Advance Directives Date on File: 08/08/23 service: No Current occupational status: retired Cognitive needs: No Hearing needs: No Vision needs: Yes Review of Systems Const Denies chills, Denies fatigue, Denies fever(s), Denies frequent falls, Denies weakness, Denies weight gain and Denies weight loss ENT Denies dizziness Card Denies chest pain, Denies leg edema, Denies lightheadedness, Denies palpitations, Denies dyspnea, Denies dyspnea on exertion, Denies orthopnea and Denies other (loss of consciousness) Resp Denies cough, Denies dyspnea and Denies dyspnea on exertion GI Denies hematochezia and Denies change in stool character Musc Denies abnormal gait, Denies muscle weakness, Denies numbness, Denies radiating pain into limb and Denies tingling Neuro Denies abnormal gait, Denies dizziness, Denies frequent falls, Denies numbness, Denies tingling and Denies weakness Endo Denies fatigue and Denies palpitations Physical Exam Vital Signs: Last Vital Signs Pulse 46 L 09/06/25 12:36 BP 130/80 09/06/25 12:36 BMI result Body Mass Index 22.5 Const General: cooperative, comfortable, no acute distress, alert, Physically active and well groomed Nutritional Appearance: average body habitus Orientation/consciousness: patient oriented x3 Limitations: no limitations Neck Neck: Yes trachea midline, Yes supple and Yes no JVD Resp Effort & Inspection: normal respiratory effort Auscultation: clear to auscultation bilaterally Cardio Jugular venous distension: no JVD Palpation: normal PMI Rate: regular rate Rhythm: regular rhythm Heart sounds: S1 normal heart sound present, S2 normal heart sound present (Soft) and Murmur heart sound present systolic late, harsh and at the right sternal border GI Auscultation: normal bowel sounds Skin General skin exam: no rashes or lesions noted Neuro General: patient oriented x3 and no focal motor deficits Extrem General: Yes no clubbing, cyanosis or edema Office Procedures EKG Details: EKGs shows sinus bradycardia with LVH with repolarization abnormality left axis deviation 42664-[id number], Complete Assessment & Plan Assessment & Plan (1) Prosthetic valve dysfunction: Code(s): T82.09XA - Other mechanical complication of heart valve prosthesis, initial encounter Category: Medical Plan: Severe stenosis of bioprosthetic aortic valve in his elderly woman without any obvious symptoms at this point in time. She has good exercise capacity on treadmill stress test. Discussed about cardinal symptoms associated severe aortic stenosis. Advised to report to me any new symptoms. At this time will defer aortic valve replacement till she has symptoms or change in exercise activity level. She understands. Continue low-dose aspirin therapy. Continue aggressive risk factor modification. SBE prophylaxis as per ACC/aha guidelines. Would consider transcatheter aortic valve replacement in the future if she needs aortic valve intervention. (2) Bradycardia: Code(s): R00.1 - Bradycardia, unspecified Category: Medical Plan: Bradycardia with sinus bradycardia with adequate chronotropic response on treadmill stress test. No indication for pacing therapy. Avoid rate lowering medications. Will follow with her in 3 months time, sooner PRN. Thank you for allowing me to partake in her care Coding Level of Care Code Est Pt Level 4 (79634) Complex EM visit Add On G2211 Diagnoses Prosthetic valve dysfunction T82.09XA Bradycardia R00.1 CPT Codes EKG - CPT: 36604-[id number], Complete ([id number])
[2025-09-06 12:36] VITALS: BP 130/80; PULSE 46; BMI 22.5
--- OUTSIDE RECORDS SUMMARY | 2025-09-06 14:47 | XMS_ITS | Encounter Summary ---
Author Organization [facility] Address [address] [place] [address] [address] [place] [address] Care Team Providers Care Automation Architect Name Role Phone Unavailable Primary Care Provider Unavailabl e Encounter Details Date Type Department Care Team (Latest Contact Info) Description 09/29/2019 Abstract [facility] CONVERSIONS Dental, Provider, DDS Social History [...]
--- OUTSIDE RECORDS SUMMARY | 2025-09-06 14:47 | XMS_ITS | Encounter Summary ---
Author Organization [employer] Address [address] [facility] 7t [place] [address] Care Team Providers Care Interpreter Deaf Name Role Phone Unavailable Primary Care Provider Unavailabl e Reason for Visit * Reason Onset Date Comments clarify medication script 05/29/2023 Encounter Details Date Type Department Care Team ([facility] st Contact Info) Description 05/29/2023 Telephone [facility] ADULT DENTAL [address] [place] [address] Yaron Magana, MILTON [address] [place] [address] clarify medication script Social History Tobacco Use [...] pharmacy 2 additional times . Spoke with lockstitch front maker and stated they will contact DR Torrez [...] pharmacy for adjustment of medication if needed. [phone] documented in this encounter Plan of Treatment Not on file documented as of this encounter Visit Diagnoses Not on filedocumented in this encounter
--- OUTSIDE RECORDS SUMMARY | 2025-09-06 14:47 | XMS_ITS | Encounter Summary ---
Author Organization [employer] Address [address] [place] [address] [address]t [place] [address] Care Team Providers Care Work Ticket Distributor Name Role Phone Unavailable Primary Care Provider Unavailabl e Encounter Details Date Type Department Care Team (Latest Contact Info) Description 09/29/2021 Abstract [facility] CONVERSIONS Dental, Provider, DDS Social History Tobacco [...]
--- OUTSIDE RECORDS SUMMARY | 2025-09-06 14:47 | XMS_ITS | Encounter Summary ---
Author Organization [employer] Address [address] [place] [address] 7 [place] [address] Care Team Providers Care Hollow Tile Partition Erector Name Role Phone Unavailable Primary Care Provider [...] Encounter Details Date Type Department Care Team ([facility] Contact Info) Description 01/28/2023 Telephone [facility] ADULT DENTAL [address] [place] [address] Xiang Segal, DMD [address] [place] [address] Appointment (Tracy Isaias 1955 Patient called in [...]
--- OUTSIDE RECORDS SUMMARY | 2025-09-06 14:48 | XMS_ITS | Clinical Summary ---
Author Organization [employer] Address [address] [place] [address] 7t [place] [address] Care Team Providers Care Casting Finisher Name Role Phone Unavailable Primary Care Provider [...] Most Recently Relevant to Health Maintenance [facility]
--- OUTSIDE RECORDS SUMMARY | 2025-09-06 14:48 | XMS_ITS | Encounter Summary ---
Author Organization [employer] Address [address] [facility] 7t [place] [address] Care Team Providers Care Hospital Admissions Clerk Name Role Phone Unavailable Primary Care Provider Unavailabl e Reason for Visit * Reason Onset Date Comments case in lab 07/03/2023 Encounter Details Date Type Department Care Team ([facility] st Contact Info) Description 07/03/2023 Telephone [facility] ADULT DENTAL [address] [place] [address] Xiang Segal, DMD [address] [place] [address] case in lab Social History Tobacco Use [...] - 07/03/2023 2:31 PM EDT Garry from [facility] called in stating that soonest case can be sent to office is 07/10. He states that it is 5 business days and does not include drop off or scrap picker. Informed Garry that patient is currently not scheduled for return and that office will be informed DR documented in this encounter Plan of Treatment Not on file documented as of this encounter Visit Diagnoses Not on filedocumented in this encounter
== END 2025-09-06 13:10 | disposition home or self-care (01) ==
PROVIDERS: PCP Internal Medicine; Visit Provider Internal Medicine Cardiovascular Disease
DX: T82.09XA Other mechanical complication of heart valve prosthesis, initial encounter (principal); R00.1 Bradycardia, unspecified
CPT/HCPCS: 93010; 99214; G2211

== ENCOUNTER → 2025-09-06 12:26 | Outpatient (BNVA) | payer OTHER, SELFPAY | PROVIDERS: PCP Internal Medicine; Visit Provider Internal Medicine Cardiovascular Disease | DX: T82.09XD Other mechanical complication of heart valve prosthesis, subsequent encounter (principal); R00.1 Bradycardia, unspecified; I44.0 Atrioventricular block, first degree; I51.7 Cardiomegaly | CPT/HCPCS: 93005; 99212 ==

== ENCOUNTER 2025-09-17 09:38 | Outpatient (AMB) | payer OTHER, SELFPAY ==
[2025-09-17 10:26] VITALS: BP 124/68; PULSE 70; TEMP 36.9; O2SAT 97; BMI 22.5
--- NOTE | 2025-09-17 10:26 | AM.OFFWIN_ITS ---
Intake Vital Signs 09/17/25 10:26 Height 5 ft 10 in Weight 157 lb BMI 22.5 BP 124/68 Blood Pressure Location Rt brachial Position Sitting Pulse 70 Pulse Source Pulse Oximeter Temp 98.5 F Temp Source Oral Pulse Oximetry (%) 97 Oxygen Delivery Method Room Air Intake Visit Reasons: EP-cold symptoms Intake Note: Patient here for cough & sinus congestion x3 weeks Patient Tobacco Use Status: Former Tobacco user Allergies Benadryl Allergy (Intermediate, Verified 09/17/25 10:30) swelling, rash Medication List - Last Reconciled 09/17/25 by Pura Abreu MD amlodipine 2.5 mg PO DAILY aspirin 81 mg PO DAILY 90 days atorvastatin 20 mg PO BEDTIME clonazepam 0.5 mg PO BID cyanocobalamin (vitamin B-12) (Vitamin B-12) 1,000 mcg PO DAILY fenofibrate 160 mg PO DAILY folic acid 1 mg PO DAILY 90 days lamotrigine 200 mg PO BEDTIME methotrexate sodium 10 mg PO QWEEK metronidazole 0.75% 1 appl topical BEDTIME omeprazole 20 mg PO DAILY@0630 risperidone 1 mg PO BID risperidone 0.5 mg PO BEDTIME trazodone 300 mg PO BEDTIME Do you need a note to return to daycare/school/sports/work: No HPI HPI Comments History of Present Illness Details Patient is 70-year-old female with a past medical history including but not limited to aortic valve replacement s/p prosthetic valve, schizoaffective disorder, hypertension, GERD who presents with rhinorrhea, congestion, and watery eyes for 3 weeks. Reports only mild occasional cough. Denies any shortness of breath, wheezing, or chest pain. Denies any fevers or chills. Has been taking Be[place] daily without relief. No nausea, vomiting, or diarrhea. Denies sinus pressure or pain. Denies any history of seasonal allergies. Reports occasional eye fatigue when watching TV, however no changes in vision or pain. [facility] Medical History (Updated 09/06/25 @ 13:04 by Brandon Vigil MD) Aortic stenosis GERD without esophagitis Essential hypertension Schizoaffective disorder Vitamin D deficiency History of transesophageal echocardiography (BRENDA) Cough Ascending aortic aneurysm Overweight (BMI 25.0-29.9) Anxiety Insomnia Vitamin B12 deficiency Leukocytosis (leucocytosis) Anemia Mixed hyperlipidemia Coronary artery disease Thoracic aortic aneurysm (~2019) Discoid lupus Bipolar disorder Surgical History Hx of colonoscopy (~12/06/22) Hx of thoracic aortic aneurysm repair History of aortic valve replacement with bioprosthetic valve H/O aortic valve replacement History of thumb surgery History of total abdominal hysterectomy and bilateral salpingo-oophorectomy S/P lumpectomy of breast History of appendectomy Family History Father Diabetes Mother No problems noted. Brother Healthy adult Social History Household Members: None Housing: Apartment Do you presently have visiting nurse or other home services: Yes (visiting nurse) Alcohol intake: current Alcohol intake frequency: holidays/special occasions only Patient Tobacco Use Status: Former Tobacco user Tobacco use type: Cigar e-Cigarette/Vaping Use: Never Used Second Hand Smoke Exposure: No Advance Directives Date on File: 08/08/23 service: No Current occupational status: retired Cognitive needs: No Hearing needs: No Vision needs: Yes Review of Systems Const Denies chills and Denies fever(s) Eyes Denies blurry vision and Denies change in vision ENT Reports nasal congestion, Reports nasal discharge, Reports post nasal drip, Denies sinus pain, Denies sinus pressure and Denies sore throat Card Denies chest pain and Denies dyspnea Resp Denies chest congestion, Reports cough and Denies dyspnea GI Denies diarrhea and Denies vomiting Physical Exam Vital Signs: Last Vital Signs Temp 98.5 F 09/17/25 10:26 Pulse 70 09/17/25 10:26 BP 124/68 09/17/25 10:26 Pulse Ox 97 09/17/25 10:26 Oxygen Delivery Method Room Air 09/17/25 10:26 BMI result Body Mass Index 22.5 Const General: healthy appearing, comfortable and no acute distress HEENT Ears: external ears normal and TM's normal bilaterally General nose exam: Nasal discharge present Face and sinus: Yes sinuses nontender Mouth: Normal oral and palatal mucosa present, oropharynx normal and moist mucous membranes Eyes Conjunctivae: conjunctivae normal Resp Other: Clear lungs to auscultation bilaterally Cardio Other: Systolic murmur noted. Regular rate and rhythm. Assessment & Plan Assessment & Plan (1) Viral URI: Code(s): J06.9 - Acute upper respiratory infection, unspecified (2) Post-nasal drainage: Code(s): R09.82 - Postnasal drip Plan Symptoms appear consistent with viral URI. Low concern for pneumonia as no fevers, chest pain, lungs clear to auscultation bilaterally, and patient is saturating well. Discussed supportive care including rest, hydration, OTC cough/cold medication such as flonase and gabe, humidification. Discussed indications that may require return to the walk in or follow up in ER such as worsening cough, chest pain, shortness of breath, or fevers. Patient Instructions: Recommend supportive care including rest, hydration, and humidification. Advised to try flonase. Flonase may take a couple day to take an effect Would also recommend Gabe which can help with drainage once daily. Follow up at the walk in or ER for worsening cough, chest pain, shortness of breath, or fevers. Coding Level of Care Code Est Pt Level 3 (77014) Diagnoses Viral URI J06.9 Post-nasal drainage R09.82
--- OUTSIDE RECORDS SUMMARY | 2025-09-17 11:02 | XMS_ITS | Encounter Summary ---
Author Organization [employer] Address [address] [facility] [address]t [place] [address] Care Team Providers Care Ict Security Specialist Name Role Phone Unavailable Primary Care Provider Unavailabl e Reason for Visit * Reason Onset Date Comments clarify medication script 05/29/2023 Encounter Details Date Type Department Care Team ([facility] st Contact Info) Description 05/29/2023 Telephone [facility] ADULT DENTAL [address] [place] [address] Yaron Magana, MILTON [address] [place] [address] clarify medication script Social History Tobacco Use [...] additional times . Spoke with front desk manager and stated they will contact DR Torrez [...] pharmacy for adjustment of medication if needed. [phone] documented in this encounter Plan of Treatment Not on file documented as of this encounter Visit Diagnoses Not on filedocumented in this encounter
--- OUTSIDE RECORDS SUMMARY | 2025-09-17 11:02 | XMS_ITS | Encounter Summary ---
Author Organization [employer] Address [address] [place] [address] [address]t [place] [address] Care Team Providers Care Food Service Substitute Name Role Phone Unavailable Primary Care Provider Unavailabl e Encounter Details Date Type Department Care Team (Latest Contact Info) Description 09/29/2021 Abstract [facility] CONVERSIONS Dental, Provider, DDS Social History [...]
--- OUTSIDE RECORDS SUMMARY | 2025-09-17 11:02 | XMS_ITS | Clinical Summary ---
Author Organization [employer] Address [address] [place] [address] [address] [place] [address] Care Team Providers Care Pulp Bleacher Name Role Phone Unavailable Primary Care Provider [...] Most Recently Relevant to Health Maintenance Insurance [facility] SCO
--- OUTSIDE RECORDS SUMMARY | 2025-09-17 11:02 | XMS_ITS | Encounter Summary ---
Author Organization [employer] Address [address] [facility] 7t [place] [address] Care Team Providers Care Brick Baker Name Role Phone Unavailable Primary Care Provider Unavailabl e Reason for Visit * Reason Onset Date Comments case in lab 07/03/2023 Encounter Details Date Type Department Care Team ([facility] st Contact Info) Description 07/03/2023 Telephone [facility] ADULT DENTAL [address] [place] [address] Xiang Segal, DMD [address] [place] [address] case in lab Social History Tobacco Use [...] - 07/03/2023 2:31 PM EDT Garry from [employer] [facility] [employer] called in stating that soonest case can be sent to office is 07/10. He states that it is 5 business days and does not include drop off or spanish moss picker. Informed Garry that patient is currently not scheduled for return and that office will be informed DR documented in this encounter Plan of Treatment Not on file documented as of this encounter Visit Diagnoses Not on filedocumented in this encounter
--- OUTSIDE RECORDS SUMMARY | 2025-09-17 11:02 | XMS_ITS | Encounter Summary ---
Author Organization [employer] Address [address] [place] [address] [address] [place] [address] Care Team Providers Care Sales Manager Prearranged Funerals Name Role Phone Unavailable Primary Care Provider [...] Encounter Details Date Type Department Care Team ([facility] Contact Info) Description 01/28/2023 Telephone [facility] ADULT DENTAL [address] [place] [address] Xiang Segal, DMD [address] [place] [address] Appointment (Tracy Isaias 1955 Patient called in [...]
--- OUTSIDE RECORDS SUMMARY | 2025-09-17 11:02 | XMS_ITS | Encounter Summary ---
Author Organization [employer] Address [address] [place] [address] [address]t [place] [address] Care Team Providers Care Living Skills Advisor Name Role Phone Unavailable Primary Care Provider Unavailabl e Encounter Details Date Type Department Care Team (Latest Contact Info) Description 09/29/2019 Abstract [facility] CONVERSIONS Dental, Provider, DDS Social History Tobacco [...]
== END 2025-09-17 11:21 | disposition home or self-care (01) ==
PROVIDERS: PCP Internal Medicine; Visit Provider Family Medicine
DX: J06.9 Acute upper respiratory infection, unspecified (principal); R09.82 Postnasal drip
CPT/HCPCS: 99213

== ENCOUNTER → 2025-09-17 09:38 | Outpatient (BNVA) | payer OTHER, SELFPAY | PROVIDERS: PCP Internal Medicine | DX: R09.82 Postnasal drip (principal); J34.89 Other specified disorders of nose and nasal sinuses; J06.9 Acute upper respiratory infection, unspecified | CPT/HCPCS: 99212 ==